=== PATIENT | female | born 1970 | race Caucasian/White ===

== ENCOUNTER → 2024-10-24 10:40 | Outpatient (REF) | payer OTHER, SELFPAY | LOC: RAD 10:40 | PROVIDERS: ATTENDING PHYSICIAN Physician Assistant | DX: M25.551 Pain in right hip (principal); M54.16 Radiculopathy, lumbar region | CPT/HCPCS: 72110; 73502 ==

== ENCOUNTER 2024-12-20 16:53 | Inpatient (IN) | payer OTHER, SELFPAY ==
[2024-12-20 11:54] VITALS: BP 165/104
[2024-12-20 12:23] LABS: % Basophils 0.1 % (0-2); % Eosinophils 0.1 % (0-6); % Immature Granulocytes 0.2 % (0-0.5); % Lymphocytes 5.8 % (20.5-51.1); % Monocytes 3.8 % (1.7-9.3); Absolute Lymphocytes 0.8 10^3/uL (1.2-3.4); Absolute Monocytes 0.5 10^3/uL (0.1-0.6); Absolute Neutrophils 12.3 10^3/uL (1.4-6.5); Hemoglobin 12.9 g/dL (12.0-16.0); Mean Corp Hgb Conc. 32.3 g/dL (33.0-37.0); Mean Corpuscular Hgb 24.5 pg (27.0-31.0); Mean Platelet Volume 9.6 fL (7.4-10.4); Nucleated Red Blood Cells % 0 %; Platelet Count 542 10^3/uL (130-400); Red Blood Cell Count 5.26 10^6/uL (4.20-5.40); Red Cell Dist. Width 17.9 % (11.5-14.5); White Blood Cell Count 13.7 10^3/uL (4.8-10.8)
[2024-12-20 12:47] VITALS: BMI 57.7
[2024-12-20 12:47] LABS: ALT (SGPT) 12 U/L (0-35); AST (SGOT) 18 U/L (14-36); Alkaline Phosphatase 79 U/L (38-126); Blood Urea Nitrogen 56 mg/dl (7-17); Calcium 9.9 mg/dl (8.4-10.2); Carbon Dioxide 26 mmol/L (22-30); Chloride 100 mmol/L (98-107); Glucose 125 mg/dl (70-99); Lipase 81 U/L (23-300); Potassium 3.8 mmol/L (3.5-5.1); Sodium 142 mmol/L (135-145); Total Bilirubin 0.7 mg/dl (0.2-1.3); Total Protein 7.1 g/dl (6.3-8.2); eGFR 13.66
[2024-12-20] MEDS: LR 1000 IV (13:12)
[2024-12-20] MEDS: ZOFRAN 4 MG IV (13:13)
[2024-12-20] MEDS: PEPCID 20 MG IV (13:13)
[2024-12-20] MEDS: PROTONIX IV 40 MG IV (13:13)
[2024-12-20 14:10] VITALS: BP 151/80
--- NOTE | 2024-12-20 14:11 | ED.GENMED ---
History of Present Illness
General
Chief Complaint: Abdominal Symptoms
Time Seen by Provider: 12/20/24 12:40
History of Present Illness
History of Present Illness:
54-year-old female with history of GERD presents the emergency department for evaluation of intractable nausea vomiting and diarrhea for the past 2 days. She also reports gradually worsening abdominal distention over the past 2 to 3 months. She
states she has been attempting to lose weight but has remained steady state, denies weight gain or night sweats. No prior abdominal surgeries. Has never had a colonoscopy.
Review of Systems
Review of Systems
Allergies reviewed?: Yes
All Other Systems: ROS reviewed and negative except as documented in HPI and ROS
Phy Exam
Physical Exam
Physical Exam:
GEN: Well appearing, NAD, WDWN
HEENT: Oral mucosa moist, no scleral icterus
Cardiac: Regular rate
Lung: No respiratory distress, no tachypnea
Abdomen: Markedly distended/protuberant abdomen, diffusely firm to palpation with generalized tenderness
MSK: No gross deformity or injuries
Skin: Good color, no pallor or jaundice, no rashes
Neuro: AO x3, moves all extremities freely
Psych: Calm, cooperative
Course
Orders/Labs/Results
Orders:
Orders
12/20/24 11:57
Electrocardiogram (*1) Urgent
Reason for Study: Abdominal Pain
EKG- Treatment ONCE
12/20/24 12:09
Complete Blood Count/With Diff Urgent
Comprehensive Metabolic Panel Urgent
Lipase Urgent
12/20/24 13:04
CT Abd/pel Without Iv Or Oral Urgent
Comment:
Reason For Exam: vomiting, renal failure, abd distention
Urinalysis Reflex To Culture Urgent
Famotidine [Pepcid] 20 mg IV NOW STA
Lactated Ringers [Lr] 1,000 ml IV BOLUS
Ondansetron Injectable [Zofran] 4 mg IV NOW STA
Pantoprazole [Protonix IV] 40 mg IV NOW STA
Abnormal Lab Results
12/20/24
12:09
WBC 13.7 H 10^3/uL
(4.8-10.8)
MCV 76.0 L fL
(81.0-99.0)
MCH 24.5 L pg
(27.0-31.0)
MCHC 32.3 L g/dL
(33.0-37.0)
RDW 17.9 H %
(11.5-14.5)
Plt Count 542 H 10^3/uL
(130-400)
Absolute Neuts (auto) 12.3 H 10^3/uL
(1.4-6.5)
Absolute Lymphs (auto) 0.8 L 10^3/uL
(1.2-3.4)
Neutrophils % 90.0 H %
(42.2-75.2)
Lymphocytes % 5.8 L %
(20.5-51.1)
BUN 56 H mg/dl
(7-17)
Creatinine 3.8 H mg/dL
(0.6-1.0)
Glucose 125 H mg/dl
(70-99)
12/20/24 12:09
12/20/24 12:09
Vital Signs
Initial and Last Documented VS:
Initial Vital Signs
Temp Pulse Resp BP Pulse Ox
98.3 F 97 20 165/104 95
12/20/24 11:54 12/20/24 11:54 12/20/24 11:54 12/20/24 11:54 12/20/24 11:54
Last Documented Vital Signs
Temp Pulse Resp BP Pulse Ox
98.3 F 85 18 151/80 98
12/20/24 11:54 12/20/24 14:10 12/20/24 14:10 12/20/24 14:10 12/20/24 14:10
MDM/Problems Addressed
MDM/Problems Addressed:
Patient be admitted for acute renal failure, this may be prerenal in the setting of GI losses, imaging does not suggest obstructive uropathy due to the new onset large mass. Mass is most likely ovarian in nature, radiology recommending MRI for
further clarification. Will admit to the hospitalist service for further management
*Critical Care Note
Total Time (30-74mins, 75-104mins- exclusive of procedures): Not Applicable
ED Attending Note
-
Portions of this chart may have been created with voice recognition software.� Occasional wrong word or��sound alike� substitutions may have occurred due to the inherent limitations of voice recognition software.
Discharge Plan
Departure
Patient Disposition: Admit
Date of Disposition: 12/20/24
Time of Disposition: 14:58
Admit to: Med/Surg
Presentation/result/management discussed w/ accepting MD/DO: Hospitalist
Discharge Problem:
Acute renal failure (ARF), Abdominal mass
Referrals:
Sridhar Reed MD [Family Provider] -
Interventions
Interventions:
*Risk Screen - Suicide Last Done: 12/20/24 11:54
*General Assessment Last Done: 12/20/24 11:54
XE-Ygqlbt-Blnyptkwvl Assessment Last Done: 12/20/24 12:48
Discharge Date and Time
Print Language: NICARAGUAN
--- NOTE | 2024-12-20 15:47 | HPS.HSE ---
Family Physician
-
Family Physician: Sridhar Reed
Chief Complaint
-
Nausea, vomiting, diarrhea x 2 days, abdominal distention over the past 2 to 3 months with 28 pound weight gain
History of Present Illness
54-year-old female complaining of intractable nausea, vomiting, diarrhea for the past 2 days she also reports increased abdominal distention over the past 2 to 3 months has been attempting to lose weight but unsuccessful. She has been on
doxycycline for the past month for rosacea but stopped 2 days ago due to reported diarrhea. She reports 3 months ago she weighed 260 pounds 1 month ago she was 288 pounds in her PCP office she reports feeling very embarrassed to go out of her house
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 She reports irregular
periods does get them monthly however the days are lasting from 1 to 10 days she had 1 month with no menses she denies previous abdominal surgeries no history of endoscopy or colonoscopy. She reports a monthly period with occasional variation in
length however only ever had 1 missed., No children, had 1 mammogram at age 34 when mother was diagnosed with breast cancer unknown type. 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
cough, shortness of breath, diarrhea, urinary symptoms. She has past medical history of GERD, class III obesity, rosacea.
Medical History
Past Medical History
Past Medical History: Reports Other
Additional Past Medical History:
GERD
class III obesity
rosacea.
Past Surgical History: Reports None
Social History
Tobacco: Non-smoker
Alcohol: None
Drug: None
Personal: Other (Boyfriend)
Living: With Family (Boyfriend)
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
Family History
Family History: Other (Mother history of breast cancer in her late 50s is alive, mom history HTN, HLD, CAD/stent, father history of DM 2 with living, 2 brothers 1 work accident 1 alcohol abuse, 1 brother living obese, hypertension
hyperlipidemia, active smoker)
Allergies / Home Medications
Allergies reflects when Allergies were last updated in [employer].
Home Medications with original date entered in [employer]
Allergy/Medication List:
Allergies
Allergy/AdvReac Type Severity Reaction Status Date / Time
No Known Allergies Allergy Unverified 12/20/24 11:54
Home Medications
cholecalciferol (vitamin D3) 25 mcg (1,000 unit) tablet (Vitamin D3) 25 mcg PO DAILY 12/20/24
doxycycline hyclate 60 mg tablet,delayed release 60 mg PO DAILY 12/20/24
omega-3 fatty acids-fish oil 684 mg-1,200 mg capsule,delayed release 1 cap PO DAILY 12/20/24
omeprazole magnesium 20 mg tablet,delayed release (Prilosec OTC) 20 mg PO DAILY 12/20/24
vitamin B complex 1 tab PO DAILY 12/20/24
Review of Systems
-
History Source: Patient
A 12 point ROS was completed and negative except as noted: Yes
Constitutional: Reports Weight Gain (28 pounds past 2 to 3 months); Denies Fatigue or Chills
EENT: Denies Sore Throat or Runny Nose
Respiratory: Reports Trouble Breathing (FAM with activity due to weight gain); Denies Cough
Cardiac: Denies Chest Pain, Diaphoresis, Palpitations or Syncope
Abdomen/GI: Reports Abdominal Pain (Generalized), Nausea, Vomiting and Diarrhea; Denies Constipated, Bloody Stools or Black Stools
: Denies Dysuria, Frequency, Flank Pain, Incontinence, Difficulty Voiding, Urgency, Bleeding or Dark Urine
Musculoskeletal: Denies Joint Pain or Edema
Skin: Denies Itching or Rash
Neurological: Denies Dizzy, Headache or Weakness
Endocrine: Reports No Symptoms and Other (Monthly periods)
Hematologic/Lymphatic: Reports No Symptoms
Psych: Reports Calm
Physical Exam
Vital Signs
Vital Signs
Temp Pulse Resp BP Pulse Ox
98.3 F 85 18 151/80 98
12/20/24 11:54 12/20/24 14:10 12/20/24 14:10 12/20/24 14:10 12/20/24 14:10
Physical Exam
General: Morbidly Obese; No Fever or Chills
HEENT: NormoCephalic, Anicteric, Moist mucous membranes, [place] Conjunctivae and No Ptosis
Respiratory: Clear; No Wheezes, Rales or Rhonchi
Cardiac: S1/S2 and Regular Rhythm; No Murmur, Rub, Gallop or Peripheral Edema
Breast: Deferred by me
GI: Soft, Normal Bowel Sounds and Distended (Distended and hard unable to palpate liver or spleen)
Genito-urinary: Deferred by me
Musculoskeletal: No Clubbing, No Cyanosis and No Edema
Skin: Warm and Dry; No Rash
Neuro: AO x 3, No Motor Deficits and No Sensory Deficits; No Cranial Nerves Intact, Slurred Speech, Facial Droop, Tremors or Sedated
Psych: Calm
Laboratory Results
-
12/20/24 12:09
12/20/24 12:09
Laboratory Results
Total Bilirubin 0.7 mg/dl (0.2-1.3) 12/20/24 12:09
AST 18 U/L (14-36) 12/20/24 12:09
ALT 12 U/L (0-35) 12/20/24 12:09
Alkaline Phosphatase 79 U/L (38-126) 12/20/24 12:09
Lipase 81 U/L (23-300) 12/20/24 12:09
Data Reviewed
-
CT Scan: Report Reviewed by me
Lab Data: Labs Reviewed by me
Impression/Plan
-
Impression/plan:
Admit to MedSurg
#Acute renal failure concern for right obstructive uropathy
Patient states that she is voiding
Creat 3.8/bun 56
-Check mag, Phos
- Consult urology- dr Castaneda aware
-Consult nephro�Dr. Lyndsay aware
-Bladder scan
- IV NSS 100 cchr
-Monitor urine output
- If MRI shows ureteral obstruction will need I read to place PCN
CT abdomen pelvis without IV or oral contrast
1. Some right renal atrophy and mild right renal and at least proximal right ureteral dilatation. Cannot exclude right-sided obstructive uropathy.
2. Suspected large heterogeneous predominantly low-attenuation mass measuring 30 cm in greatest dimension within the abdomen midline into the left, most likely extending from the left true pelvis.
Most likely differential diagnostic possibility would be an ovarian mass such as a cyst adenocarcinoma or cystadenoma. Other masses cannot be excluded, particularly in light of size. MRI suggested for more complete
evaluation.
3 . Moderate volume ascites with possible omental stranding/carcinomatosis.
4. . Small volume retroperitoneal lymph nodes and possible small volume pelvic lymph nodes.
#New large mass within the abdomen to the left concern for ovarian mass with possible mets
-Retroperitoneal lymph node and small volume pelvic lymph node involvement per CT and omental stranding/carcinomatosis
WBC 13.7 no shift, afebrile, normotensive
-MRI abdomen pelvis with contrast
- Dr. Kaufman [employer] oncology aware
- Still has menses monthly with some irregularity in length of., No history of any children, does have boyfriend is sexually active
- Will check hCG level
- Patient counseled on getting a mammogram given her mother's history of breast cancer unknown type patient did have mammogram at age 34
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
- Consult interventional radiology for paracentesis with fluid cytology
#Diarrhea likely secondary to possible doxycycline
Has been on doxycycline approximately 1 month for rosacea stopped on Thursday
-Will check stool for C. difficile, WBC, stool culture
-Contact precautions until stool studies back
#GERD
- Continue Prilosec OTC as needed Tums
- Will try 1 dose Maalox per patient request made aware can exacerbate diarrhea
#Class III obesity�BMI 57.7 kg
Affects all aspects of care
Given current above situation would hold off on weight loss until plan for above possible cancer diagnosis
ED prophylaxis
Subcu heparin
Full code
--- NOTE | 2024-12-20 16:34 | W.PN.UPDATE ---
Update Note
Progress Note Update
This is an addendum to the H&P written by Yadira Ugarte on 12/20/2024. Patient seen and examined independently with WAITER/WAITRESS BAR.
54-year-old female past medical history of GERD, obesity, presenting with intractable nausea and vomiting and diarrhea for the past 2 days. Worsening abdominal distention for the past 2 to 3 months. Also been having severe diarrhea recently.
Stopped taking doxycycline for rosacea few days ago.
Labs show leukocytosis. Creatinine of 3.8.
CT abdomen pelvis shows large heterogeneous predominantly low-attenuation mass measuring 30 cm within the abdominal midline possibly ovarian mass such as cystadenocarcinoma or cystadenoma. Moderate volume ascites with possible omental
stranding/carcinomatosis. There is some right renal atrophy, mild right renal and proximal right ureteral dilation.
Presentation concerning for ovarian carcinoma with carcinomatosis. Check MRI abdomen. IR consulted for paracentesis. ASTROPHYSICS TEACHER consulted.
IV fluids for DIMITRI which could be prerenal with component of obstructive uropathy. Bladder scan protocol. Urology consulted. Nephrology consulted.
Check stool studies, C. difficile for diarrhea and recent antibiotic use.
--- NOTE | 2024-12-20 17:18 | W.CON.NEPH ---
Addendum entered and electronically signed by Adryan Umana MD 12/20/24 17:48:
Despite DIMITRI, MRI with gadolinium is excepted at this time as the benefit far outweighs any risk for NSF
Original Note:
Consultation
-
Date/Time Consultation Requested: 12/20/24 5 PM
Date/Time Consultation Performed: 12/20/24 5 PM
Requesting Provider: Dr. Barr
Performing Provider: Dr. Umana
Reason for Consultation: DIMITRI
Medical History
-
Chief Complaint: DIMITRI
History of Present Illness:
This is a 54-year-old female who has not really had significant medical care in the last 15 years because of lack of insurance. However as she has recently obtained health insurance she began seeing a primary care physician. This was her first
visit in September. There is concern about her weight. While she does weigh her self at home she does report that the weight has increased mostly in the last month from when she used to be 260 jumping up to 288 lbs. She does report having
significant reflux for perhaps the last year. She denies any issues with her bowel movements. There have also been no issues with her urine output. In the last month she has also reported significant hip pain primarily the right side for which
she began taking Motrin 600 mg 3 times daily for the last month. She stopped taking this on Thursday. On Thursday she also began developing a voluminous diarrhea several times per day watery. She also then developed nausea with vomiting of clear
fluids. Her oral intake was very little family consisting only of clear liquids perhaps 64 ounces at most. She denies any dizziness or orthostasis during that timeframe. She did not take anything for the diarrhea other than omeprazole.
Ultimately she came to the emergency room. She was noted to have a creatinine of 3.8 up from her last known baseline of 0.8 in October of this year. CT scan has ultimately revealed a 30 cm midline abdominal mass with significant ascites and
carcinomatosis.
Past Medical History
Rosacea, reflux, obesity
Social History
Tobacco: Non-Smoker
Alcohol: None
Family History
Family History: Not Pertinent
Allergies / Home Medications
Allergy/AdvReac Type Severity Reaction Status Date / Time
No Known Allergies Allergy Unverified 12/20/24 11:54
�Medication �Instructions �Recorded �Confirmed �Type
cholecalciferol (vitamin D3) 25 25 mcg PO DAILY 12/20/24 12/20/24 History
mcg (1,000 unit) tablet (Vitamin
D3)
doxycycline hyclate 60 mg 60 mg PO DAILY 12/20/24 12/20/24 History
tablet,delayed release
omega-3 fatty acids-fish oil 684 1 cap PO DAILY 12/20/24 12/20/24 History
mg-1,200 mg capsule,delayed release
omeprazole magnesium 20 mg 20 mg PO DAILY 12/20/24 12/20/24 History
tablet,delayed release (Prilosec
OTC)
vitamin B complex 1 tab PO DAILY 12/20/24 12/20/24 History
Review of Systems
-
No chest pain. No shortness of breath
All other systems: Negative unless noted
Physical Exam
Vital Signs
Vital Signs
Temp Pulse Resp BP Pulse Ox
98.3 F 85 18 151/80 98
12/20/24 11:54 12/20/24 14:10 12/20/24 14:10 12/20/24 14:10 12/20/24 14:10
Lab Results
WBC 13.7 10^3/uL (4.8-10.8) H 12/20/24 12:09
RBC 5.26 10^6/uL (4.20-5.40) 12/20/24 12:09
Hgb 12.9 g/dL (12.0-16.0) 12/20/24 12:09
Hct 40.0 % (37.0-47.0) 12/20/24 12:09
Plt Count 542 10^3/uL (130-400) H 12/20/24 12:09
Sodium 142 mmol/L (135-145) 12/20/24 12:09
Potassium 3.8 mmol/L (3.5-5.1) 12/20/24 12:09
Chloride 100 mmol/L (98-107) 12/20/24 12:09
Carbon Dioxide 26 mmol/L (22-30) 12/20/24 12:09
BUN 56 mg/dl (7-17) H 12/20/24 12:09
Creatinine 3.8 mg/dL (0.6-1.0) H 12/20/24 12:09
eGFR 13.66 12/20/24 12:09
Glucose 125 mg/dl (70-99) H 12/20/24 12:09
Calcium 9.9 mg/dl (8.4-10.2) 12/20/24 12:09
Albumin 4.0 g/dl (3.5-5.0) 12/20/24 12:09
Laboratory values from October 24, 2024
Creatinine 0.81, potassium 4.7, bicarbonate 30, sodium 141, chloride 102, BUN 12, calcium 9.8, glucose 96, albumin 3.8, AST 11, ALT 5
Hemoglobin 13.6, platelets 384, WBC 11.9, cortisol 13.8, TSH 3.43
CT abdomen pelvis without contrast 12/20/24
IMPRESSION:
Markedly limited evaluation of the soft tissues of the abdomen and pelvis in light of lack of intravenous contrast, lack of oral contrast and marked paucity of intra-abdominal/pelvic fat.
Suspected large heterogeneous predominantly low-attenuation mass measuring 30 cm in greatest dimension within the abdomen midline into the left, most likely extending from the left true pelvis. Most likely differential diagnostic possibility would
be an ovarian mass such as a cyst adenocarcinoma or cystadenoma. Other masses cannot be excluded, particularly in light of size. MRI suggested for more complete evaluation.
Moderate volume ascites with possible omental stranding/carcinomatosis.
Small volume retroperitoneal lymph nodes and possible small volume pelvic lymph nodes.
Some right renal atrophy and mild right renal and at least proximal right ureteral dilatation. Cannot exclude right-sided obstructive uropathy.
Physical Exam
Patient is awake alert oriented and in no distress. Mood and affect were pleasant, insight and judgment were good. Pupils are equal round and reactive to light, extraocular movements are intact, sclera were anicteric. Hearing was normal, ears and
nose are intact. Oropharynx was clear. Neck was supple with trachea midline and no thyromegaly. Heart was regular rate and rhythm without rubs. Lower extremities without edema. Lungs were clear to auscultation bilaterally and with normal
excursion. Abdomen was soft, nontender, with normal active bowel sounds, and no hepatosplenomegaly. There is significant distention with fluid wave. Skin was without rash and with normal turgor.
Data Reviewed
-
CT Scan: Report Reviewed by me
Medical Tests (Nuc Med, Echo etc): Image Personally Visualized and interpreted (EKG on 12/20/2024 by my reading normal sinus rhythm poor R wave progression)
Labs: Labs Reviewed by me
Old Records: Reviewed
Assessment/Plan
-
Assessment
DIMITRI
Right hydronephrosis
Recent NSAID use
Nausea vomiting diarrhea
Carcinomatosis
Large ascites
30 cm abdominal mass
Reflux
Plan
For diagnostic paracentesis
Oncology evaluation
No more NSAIDs
IV fluids saline
Check urine studies with fractional excretion of sodium
Check bladder scan
I suspect DIMITRI is mostly on the basis of volume depletion with NSAIDs
No need for dialysis currently
Tumor markers pending
[2024-12-20] MEDS: MAALOX 30 ML PO ×2 (17:44→23:53)
[2024-12-20 17:47] LABS: HCG, Serum Qualitative Screen Negative
[2024-12-20] MEDS: NSS 1000 IV (18:31)
[2024-12-20 18:32] VITALS: BP 128/87
[2024-12-20 19:21] VITALS: BP 147/33
[2024-12-20 19:54] VITALS: BMI 56.3
[2024-12-20] MEDS: HEPARIN 5000 UNITS SC (20:28)
[2024-12-20 23:55] VITALS: BP 130/74
[2024-12-21] MEDS: NSS 1000 IV ×2 (06:12→18:44)
--- NOTE | 2024-12-21 07:21 | CONS.URO ---
Consultation
-
Date/Time Consultation Performed: 12/21/24 0715
Performing Provider: Leonel
Reason for Consultation: hydronephrosis
Medical History
History of Present Illness
Nausea, vomiting, diarrhea x 2 days, abdominal distention over the past 2 to 3 months with 28 pound weight gain.
PM ED: CT -- massive ascites and pelvic mass
no prior urologic hx
Past Medical History
Past Medical History: GERD and Other (obesity)
Past Surgical History: None
Allergies/Home Medications
Allergies
Allergy/AdvReac Type Severity Reaction Status Date / Time
No Known Allergies Allergy Unverified 12/20/24 11:54
Home Medications
�Medication �Instructions �Recorded �Confirmed �Type
cholecalciferol (vitamin D3) 25 25 mcg PO DAILY 12/20/24 12/20/24 History
mcg (1,000 unit) tablet (Vitamin
D3)
doxycycline hyclate 60 mg 60 mg PO DAILY 12/20/24 12/20/24 History
tablet,delayed release
omega-3 fatty acids-fish oil 684 1 cap PO DAILY 12/20/24 12/20/24 History
mg-1,200 mg capsule,delayed release
omeprazole magnesium 20 mg 20 mg PO DAILY 12/20/24 12/20/24 History
tablet,delayed release (Prilosec
OTC)
vitamin B complex 1 tab PO DAILY 12/20/24 12/20/24 History
Physical Exam
Vital Signs
Vital Signs
Temp Pulse Resp BP Pulse Ox
97.8 F 79 18 130/74 95
12/20/24 23:55 12/20/24 23:55 12/20/24 14:10 12/20/24 23:55 12/20/24 23:55
Lab / Testing Results
Laboratory Results
12/20/24 12:09
12/20/24 12:09
Physical Exam
adult female supine in bed
GI: Distended (pannus + ascites)
Neuro: Awake and Alert
Assessment / Plan
-
Impressions:
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
Renal Insufficiency
Left kidney/ureter do not appear to be significantly obstructed.
Right side demonstrates mild to moderate dilatation.
Rec: MRI not yet read -- will opine further
Will observe renal function after removal of copious ascites
IF right kidney is interpreted to be obstructed, then IRad should be enlisted to place PCN tube as retrograde ureteral stenting has poor results in cases of malignant obstruction
Addendum: following ~ 6 L paracentesis, renal function has significantly improved
--- NOTE | 2024-12-21 07:37 | W.PN.GYNONC ---
Today's Communication
-
Paracentesis
MRI of the abdomen and pelvis
Impression / Plan
-
Patient has significant 30 cm pelvic mass, in addition to being obese at baseline.
She has irregular menstrual pattern which is concerning for a perimenopausal woman
She has not had medical care secondary to lack of insurance for well over 15 years when she moved to [place] including gynecologic examinations
Because of acute renal failure and hesitant to proceed with any surgical intervention at moment and would like to see some improvement on that before we move forward
She should undergo paracentesis for diagnostic and therapeutic purposes,
An MRI of the abdomen with and without contrast should be done to assess extent of disease in the upper abdomen
I will consider initial surgical debulking versus interval surgical debulking depending on the cytology results as well as MRI findings
I will continue to follow along with you
Subjective / Interval History
-
Patient was seen and evaluated this morning, she continues to be uncomfortable due to abdominal mass. She has not had any further nausea or vomiting
Objective Data
-
Lab Results:
12/20/24 12:09
12/20/24 12:09
Physical Exam
Vital Signs / I&O
Vitals
Temp Pulse Resp BP Pulse Ox
97.8 F 79 18 130/74 95
12/20/24 23:55 12/20/24 23:55 12/20/24 14:10 12/20/24 23:55 12/20/24 23:55
Physical Exam
General: Patient is not in distress but she appears uncomfortable secondary to abdominal mass
Lungs: Clear to auscultation bilaterally decreased breath sound bilaterally
Cardiac: Regular rate and rhythm
Abdomen: Markedly distended secondary to abdominal mass, she has a pannus, she has multiple skin lesions throughout the right abdomen
Extremities: No calf pain or edema
Data Reviewed
-
Diagnostic Radiology: Image personally visualized and interpreted
CT Scan: Image personally visualized and interpreted
Ultrasound: Image personally visualized and interpreted
[2024-12-21 07:50] VITALS: BP 147/114
[2024-12-21 08:20] VITALS: BP 150/96; BP_SYST 78
[2024-12-21 08:30] LABS: % Basophils 0.3 % (0-2); % Eosinophils 0.4 % (0-6); % Immature Granulocytes 0.4 % (0-0.5); % Lymphocytes 8.5 % (20.5-51.1); % Neutrophils 84.4 % (42.2-75.2); Absolute Eosinophils 0.1 10^3/uL (0-0.7); Absolute Immature Granulocytes 0.1 10^3/uL (0-0.05); Absolute Monocytes 0.7 10^3/uL (0.1-0.6); Absolute Neutrophils 9.7 10^3/uL (1.4-6.5); Hematocrit 34.4 % (37.0-47.0); Hemoglobin 11.2 g/dL (12.0-16.0); Mean Corp Hgb Conc. 32.6 g/dL (33.0-37.0); Mean Corpuscular Hgb 25.1 pg (27.0-31.0); Mean Corpuscular Volume 77.1 fL (81.0-99.0); Mean Platelet Volume 10.1 fL (7.4-10.4); Nucleated Red Blood Cells % 0 %; Platelet Count 439 10^3/uL (130-400); Red Blood Cell Count 4.46 10^6/uL (4.20-5.40); Red Cell Dist. Width 18.1 % (11.5-14.5); White Blood Cell Count 11.5 10^3/uL (4.8-10.8)
[2024-12-21 08:41] LABS: ALT (SGPT) < 10 U/L (0-35); AST (SGOT) 15 U/L (14-36); Albumin 3.1 g/dl (3.5-5.0); Alkaline Phosphatase 66 U/L (38-126); Blood Urea Nitrogen 46 mg/dl (7-17); Calcium 9.1 mg/dl (8.4-10.2); Carbon Dioxide 25 mmol/L (22-30); Chloride 107 mmol/L (98-107); Estimated Creatinine Clearance 30 ml/min; Glucose 87 mg/dl (70-99); LDH 176 U/L (120-246); Potassium 3.7 mmol/L (3.5-5.1); Sodium 141 mmol/L (135-145); Total Bilirubin 0.6 mg/dl (0.2-1.3); Total Protein 5.7 g/dl (6.3-8.2); eGFR 18.89
[2024-12-21 09:20] VITALS: BP 127/92
[2024-12-21 09:22] LABS: Body Fluid Polymorphonuclear 43.1 %; Body Fluid WBC 859 /CUMM
[2024-12-21 09:23] LABS: Body Fluid Mononuclear 56.9 %
[2024-12-21 09:24] LABS: Body Fluid Second Tech EM
[2024-12-21 09:37] LABS: TSH Reflex To Free T4 4.21 uIU/ml (0.47-4.68)
[2024-12-21 10:00] VITALS: BP 157/93
[2024-12-21 10:09] LABS: Body Fluid Albumin 2.6 g/dl; Body Fluid Amylase 38 U/L; Body Fluid LDH 183 U/L; Body Fluid Protein 4.5 g/dl
[2024-12-21 10:13] LABS: Beta HCG Quantitative 11.01 mIU/ml; FSH 20.1 mIU/ml
[2024-12-21] MEDS: B COMPLEX w/VITAMIN C 1 CAPLET PO (10:15)
[2024-12-21] MEDS: HEPARIN 5000 UNITS SC ×2 (10:15→22:40)
[2024-12-21] MEDS: VITAMIN D3 (cholecalciferol) 25 MCG PO (10:15)
[2024-12-21] MEDS: PROTONIX 40 MG PO (10:15)
--- NOTE | 2024-12-21 10:35 | CM ---
Reviewed the chart notes and spoke with the patient at the bedside. The patient resides with her significant other in a first floor condo with a ramp to enter. The patient reports only DME in home is a shower chair. Patient reports no VN or SNF
in the past. The patient confirmed her pharmacy of choice is [facility]. CM continues to be available to patient/family and is monitoring medical plan for needs at discharge.
Plan: Discharge plans will depend on the patient's progress.
[2024-12-21 11:02] LABS: Urine Albumin 1+ (Neg - Trace); Urine Bilirubin Negative (Negative); Urine Character Clear (Clear); Urine Color Yellow; Urine Glucose Negative (Negative); Urine Ketone Negative (Negative); Urine Leukocyte 1+ (Negative); Urine Nitrite Negative (Negative); Urine Occult Blood 2+ (Negative); Urine Specific Gravity 1.015 (<1.030); Urine Urobilinogen Negative (Neg - 1+)
--- NOTE | 2024-12-21 11:09 | W.PN.HOSP.TC ---
Today's Communication/Plan
-
Monitor vital signs see plan
Status post para
Awaiting seen by urology, if no procedure planned then will initiate diet
Monitor renal function
Check UA
Assessment / Plan
Assessment / Plan
General: Morbidly Obese; No Fever or Chills
HEENT: NormoCephalic, Anicteric, Moist mucous membranes
Respiratory: Clear; No Wheezes, Rales or Rhonchi
Cardiac: S1/S2 and Regular Rhythm
GI: Soft, Normal Bowel Sounds and Distended
Musculoskeletal: No Edema
Skin: Warm and Dry; No Rash
Neuro: AO x 3, No Motor Deficits
Psych: Calm
Acute renal failure concern for right obstructive uropathy
Patient states that she is voiding
Creat 3.8/bun 56 on admission; cr now 2.4
- Consulted urology; currently NPO incase need procedure; if no procedure then initiate diet
nephro following
-Bladder scan
IVF
-Monitor urine output
MRI noted with ovarian mass. Advanced right and mid to moderate left hydronephrosis. Moderate ascites. Could potentially need stent
check UA
Patient has not seen any gynecology in years
CT abdomen pelvis without IV or oral contrast
1. Some right renal atrophy and mild right renal and at least proximal right ureteral dilatation. Cannot exclude right-sided obstructive uropathy.
2. Suspected large heterogeneous predominantly low-attenuation mass measuring 30 cm in greatest dimension within the abdomen midline into the left, most likely extending from the left true pelvis.
Most likely differential diagnostic possibility would be an ovarian mass such as a cyst adenocarcinoma or cystadenoma. Other masses cannot be excluded, particularly in light of size. MRI suggested for more complete
evaluation.
3 . Moderate volume ascites with possible omental stranding/carcinomatosis.
4. . Small volume retroperitoneal lymph nodes and possible small volume pelvic lymph nodes.
#New large mass within the abdomen to the left concern for ovarian mass with possible mets
-Retroperitoneal lymph node and small volume pelvic lymph node involvement per CT and omental stranding/carcinomatosis
-MRI noted with ovarian mass. Advanced right and mid to moderate left hydronephrosis. Moderate ascites. Could potentially need stent
- Dr. Kaufman DATA WAREHOUSE ARCHITECT oncology following
- Patient counseled on getting a mammogram given her mother's history of breast cancer unknown type patient did have mammogram at age 34
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
- Consult interventional radiology for paracentesis with fluid cytology
s/p para 4/ with 5900cc removal; f/u cytology
#Diarrhea likely secondary to possible doxycycline
Has been on doxycycline approximately 1 month for rosacea stopped on Thursday
-Will check stool for C. difficile, WBC, stool culture
#GERD
- Continue Prilosec OTC as needed Tums
- Will try 1 dose Maalox per patient request made aware can exacerbate diarrhea
#Class III obesity�BMI 57.7 kg
Affects all aspects of care
Given current above situation would hold off on weight loss until plan for above possible cancer diagnosis
ED prophylaxis
Subcu heparin
Full code
I spent a total of 52 minutes with the patient or on the floor. More than 50% of this time involved counseling and coordination of care.
Anticipated Discharge: > 48 hours
Subjective/Interval History
-
Date of Service: December 21, 2024
denies pain
Objective Data
-
Labs:
Laboratory Results
12/21/24 12/21/24 12/21/24
06:56 06:58 08:16
WBC 11.5 H
Hgb 11.2 L
Hct 34.4 L
Plt Count 439 H
Sodium 141 Cancelled
Potassium 3.7 Cancelled
Chloride 107 Cancelled
Carbon Dioxide 25 Cancelled
BUN 46 H Cancelled
Creatinine 2.9 H Cancelled
Glucose 87 Cancelled
Calcium 9.1 Cancelled
Total Bilirubin 0.6 Cancelled
AST 15 Cancelled
ALT < 10 Cancelled
Alkaline Phosphatase 66 Cancelled
Vital Signs:
Vital Signs
Temp Pulse Resp BP Pulse Ox
98.6 F 80 18 157/93 96
12/21/24 10:00 12/21/24 10:00 12/21/24 10:00 12/21/24 10:00 12/21/24 10:00
[2024-12-21 11:23] LABS: Urine Squamous Cell 21-25 /LPF (Few)
[2024-12-21 11:24] LABS: Urine Urothelial Cell >30 /LPF (FEW)
[2024-12-21 11:25] LABS: Urine Amorphous Seen
[2024-12-21 11:48] LABS: Urine Sodium 33 mmol/L (30-90)
[2024-12-21] MEDS: MAALOX 30 ML PO (14:41)
--- NOTE | 2024-12-21 15:33 | W.PN.NEPH.PH ---
Addendum entered and electronically signed by Faviola Bailey MD 12/21/24 17:04:
Pt reports of having abd and chest rash for a while and used Ivermectin and top Permethrin? by Derm out pt-reports rash improved, she still has some left on abdomen which seem to be healed with dark pigmentation.
Original Note:
Today's Communication / Plan
-
cont IVF, alb x1
Assessment/Plan
-
Assessment
DIMITRI
Advanced right and mild to moderate left hydronephrosis
Recent NSAID use
Nausea vomiting diarrhea
Carcinomatosis
Large ascites
30 cm abdominal mass
Reflux
Plan
s/p paracentesis today 5.9lit, will give alb IV
Trolley Coach Driver and evaluated
DIMITRI-suspect prerenal+NSAIDs and possible obstructive uropathy with bilat hydro
UA with mild microhematuria and Fena >1, neg bladder scan
cr improving with IVF and non oliguric
would cont IVF for now
BP stable
encourage po intake, she still seem not able to tolerate solids with burning , may need GI eval
CEA neg, pending CA19, HCG neg
await path form fluid today
no noted interventions currently, may need PCN based on renal function
d/w pt and nursing
-
-
Date of Service: December 21, 2024
CC / HPI / ROS
-
Chief Complaint:
DIMITRI
History of Present Illness:
cr improving to 2.9
non oliguric
s/p paracentesis 5.9lit today
bp stable
hb stable at 11.2, MCV low 77
Review of Systems:
burning sensation when eating, only tolerates fluids
abd distension better post para but now feels ovary pain (similar to menstrual)
no cp or sob
Labs
-
Labs:
WBC 11.5 10^3/uL (4.8-10.8) H 12/21/24 06:56
RBC 4.46 10^6/uL (4.20-5.40) 12/21/24 06:56
Hgb 11.2 g/dL (12.0-16.0) L 12/21/24 06:56
Hct 34.4 % (37.0-47.0) L 12/21/24 06:56
Plt Count 439 10^3/uL (130-400) H 12/21/24 06:56
Sodium Cancelled 12/21/24 08:16
Potassium Cancelled 12/21/24 08:16
Chloride Cancelled 12/21/24 08:16
Carbon Dioxide Cancelled 12/21/24 08:16
BUN Cancelled 12/21/24 08:16
Creatinine Cancelled 12/21/24 08:16
eGFR Cancelled 12/21/24 08:16
Glucose Cancelled 12/21/24 08:16
Calcium Cancelled 12/21/24 08:16
Albumin Cancelled 12/21/24 08:16
Physical Exam
-
Vital Signs:
Vital Signs
Temp Pulse Resp BP Pulse Ox
98.6 F 80 18 157/93 96
12/21/24 10:00 12/21/24 10:00 12/21/24 10:00 12/21/24 10:00 12/21/24 12:22
Cardiovascular:: Regular rate and rhythm
Respiratory:: Bilateral: CTA (decreased)
Lung Excursion:: Normal
Abdomen:: Distended and Nontender
Extremity Edema:: +2: Bilateral:
Mahoney Catheter: No
[2024-12-21 15:43] VITALS: BP 145/90
[2024-12-21] MEDS: FLEXBUMIN 100 IV (16:19)
[2024-12-21] MEDS: MELATONIN 5 MG PO (22:22)
[2024-12-21] MEDS: DESENEX/MITRAZOL/ZEASORB 1 APPLIC TOPICAL (22:22)
[2024-12-21 23:08] VITALS: BP 145/76
[2024-12-22] MEDS: NSS 1000 IV ×2 (04:02→17:00)
--- NOTE | 2024-12-22 04:24 | PTCARENOTE ---
12/22: pt bladder scanned. due to distended abdomen, bladder scan unobtainable. patient voiding.
[2024-12-22] MEDS: NSS IV (04:46)
[2024-12-22 07:28] VITALS: BP 144/87
[2024-12-22] MEDS: HEPARIN 5000 UNITS SC ×2 (07:56→20:49)
[2024-12-22] MEDS: VITAMIN D3 (cholecalciferol) 25 MCG PO (07:56)
[2024-12-22] MEDS: MAALOX 30 ML PO ×2 (07:56→18:08)
[2024-12-22] MEDS: B COMPLEX w/VITAMIN C 1 CAPLET PO (07:56)
[2024-12-22] MEDS: PROTONIX 40 MG PO (07:56)
[2024-12-22 07:57] LABS: ALT (SGPT) < 10 U/L (0-35); AST (SGOT) 16 U/L (14-36); Alkaline Phosphatase 59 U/L (38-126); Blood Urea Nitrogen 32 mg/dl (7-17); Calcium 8.8 mg/dl (8.4-10.2); Carbon Dioxide 23 mmol/L (22-30); Chloride 110 mmol/L (98-107); Estimated Creatinine Clearance 48 ml/min; Glucose 84 mg/dl (70-99); Potassium 3.7 mmol/L (3.5-5.1); Sodium 141 mmol/L (135-145); Total Bilirubin 0.5 mg/dl (0.2-1.3); Total Protein 5.2 g/dl (6.3-8.2); eGFR 33.48
[2024-12-22] MEDS: DESENEX/MITRAZOL/ZEASORB 1 APPLIC TOPICAL ×2 (07:58→22:40)
[2024-12-22 08:10] LABS: % Basophils 0.4 % (0-2); % Eosinophils 1.3 % (0-6); % Immature Granulocytes 0.3 % (0-0.5); % Lymphocytes 11.2 % (20.5-51.1); % Monocytes 6.4 % (1.7-9.3); % Neutrophils 80.4 % (42.2-75.2); Absolute Eosinophils 0.1 10^3/uL (0-0.7); Absolute Lymphocytes 1.1 10^3/uL (1.2-3.4); Absolute Monocytes 0.6 10^3/uL (0.1-0.6); Hematocrit 34.2 % (37.0-47.0); Hemoglobin 10.9 g/dL (12.0-16.0); Mean Corp Hgb Conc. 31.9 g/dL (33.0-37.0); Mean Corpuscular Hgb 24.8 pg (27.0-31.0); Mean Corpuscular Volume 77.9 fL (81.0-99.0); Mean Platelet Volume 9.8 fL (7.4-10.4); Nucleated Red Blood Cells % 0 %; Platelet Count 351 10^3/uL (130-400); Red Blood Cell Count 4.39 10^6/uL (4.20-5.40); Red Cell Dist. Width 17.6 % (11.5-14.5); White Blood Cell Count 9.9 10^3/uL (4.8-10.8)
--- NOTE | 2024-12-22 09:13 | W.PN.URO.CBU ---
Today's Communication / Plan
-
no current need for independent urosurgical intervention
Assessment / Plan
-
Renal function continues to improve s/p paracentesis
Diagnosis
-
Date of Service: December 22, 2024
-
Patient Diagnosis:
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
Renal Insufficiency
Left kidney/ureter do not appear to be significantly obstructed.
Right side demonstrates mild to moderate dilatation.
Objective
-
Vital Signs
Temp Pulse Resp BP Pulse Ox
98.3 F 83 18 144/87 95
12/22/24 07:28 12/22/24 07:28 12/22/24 07:28 12/22/24 07:28 12/22/24 07:28
Intake and Output
12/21/24 12/22/24 12/23/24
06:59 06:59 06:59
Intake Total 1580 / 1580
Output Total 900 / 900
Balance 680 / 680
Intake:
Oral fluids 480 / 480
IV fluids (Total) 1000 / 1000
IV piggybacks 100 / 100
Output:
Urine, Voided 900 / 900
Other:
Number of approximated MODERATE 1
amounts of urine
Laboratory Results
12/22/24 06:53
12/22/24 06:53
Physical Exam
-
General - well developed, well nourished, no acute distress
Chest - clear bilaterally
Abdomen - soft, non-tender, positive bowel sounds, no CVAT, no incisional pain or distention
Genitalia - normal
Rectal - normal
Skin - warm & dry with no rash
Neuro - AOx3, no motor deficits
Extremities - no clubbing, no cyanosis, no edema
Incision - clean, dry
Dressing - clean, dry, intact
[2024-12-22] MEDS: DILAUDID 0.5 MG IV ×2 (10:21→20:48)
--- NOTE | 2024-12-22 11:33 | W.PN.HOSP.TC ---
Today's Communication/Plan
-
monitor vitals
see plan
awaiting cytology from para
monitor renal function
Assessment / Plan
Assessment / Plan
General: Morbidly Obese; No Fever or Chills
HEENT: NormoCephalic, Anicteric, Moist mucous membranes
Respiratory: Clear; No Wheezes, Rales or Rhonchi
Cardiac: S1/S2 and Regular Rhythm
GI: Soft, Normal Bowel Sounds and Distended
Musculoskeletal: No Edema
Neuro: AO x 3, No Motor Deficits
Psych: Calm
Acute renal failure concern for right obstructive uropathy
Patient states that she is voiding
Creat 3.8/bun 56 on admission; cr now 1.8
- Consulted urology; currently NPO incase need procedure; if no procedure then initiate diet
nephro following
-Bladder scan
-Monitor urine output
MRI noted with ovarian mass. mild to mod hydro, per urology no surgical intervention needed as creatinine is improving. Moderate ascites
ua without significant pyuria
Patient has not seen any gynecology in years
CT abdomen pelvis without IV or oral contrast
1. Some right renal atrophy and mild right renal and at least proximal right ureteral dilatation. Cannot exclude right-sided obstructive uropathy.
2. Suspected large heterogeneous predominantly low-attenuation mass measuring 30 cm in greatest dimension within the abdomen midline into the left, most likely extending from the left true pelvis.
Most likely differential diagnostic possibility would be an ovarian mass such as a cyst adenocarcinoma or cystadenoma. Other masses cannot be excluded, particularly in light of size. MRI suggested for more complete
evaluation.
3 . Moderate volume ascites with possible omental stranding/carcinomatosis.
4. . Small volume retroperitoneal lymph nodes and possible small volume pelvic lymph nodes.
#New large mass within the abdomen to the left concern for ovarian mass with possible mets
-Retroperitoneal lymph node and small volume pelvic lymph node involvement per CT and omental stranding/carcinomatosis
MRI noted with ovarian mass. mild to mod hydro, per urology no surgical intervention needed as creatinine is improving. Moderate ascites
- Dr. Kaufman MEDICAL CLERICAL ASSISTANT oncology following
- Patient counseled on getting a mammogram given her mother's history of breast cancer unknown type patient did have mammogram at age 34
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
s/p para 4/9 with 5900cc removal; f/u cytology
#Diarrhea likely secondary to possible doxycycline
Has been on doxycycline approximately 1 month for rosacea stopped on Thursday. now improving
-Will check stool for C. difficile, WBC, stool culture
#GERD
- Continue Prilosec OTC as needed Tums
maalox
#Class III obesity�BMI 57.7 kg
Affects all aspects of care
Given current above situation would hold off on weight loss until plan for above possible cancer diagnosis
ED prophylaxis
Subcu heparin
Full code
I spent a total of 51 minutes with the patient or on the floor. More than 50% of this time involved counseling and coordination of care.
Anticipated Discharge: 24 - 48 hours
Subjective/Interval History
-
Date of Service: December 22, 2024
denies nausea
Objective Data
-
Labs:
Laboratory Results
12/22/24
06:53
WBC 9.9
Hgb 10.9 L
Hct 34.2 L
Plt Count 351 D
Sodium 141
Potassium 3.7
Chloride 110 H
Carbon Dioxide 23
BUN 32 H
Creatinine 1.8 H
Glucose 84
Calcium 8.8
Total Bilirubin 0.5
AST 16
ALT < 10
Alkaline Phosphatase 59
Vital Signs:
Vital Signs
Temp Pulse Resp BP Pulse Ox
98.3 F 83 18 144/87 95
12/22/24 07:28 12/22/24 07:28 12/22/24 07:28 12/22/24 07:28 12/22/24 07:28
I&O
12/21/24 12/22/24 12/23/24
06:59 06:59 06:59
Intake Total 1580 / 1580
Output Total 900 / 900
Balance 680 / 680
--- NOTE | 2024-12-22 12:23 | CM ---
Reviewed the chart notes. CM continues to be available to patient/family and is monitoring medical plan for needs at discharge.
Plan: Discharge plans will depend on the patient's progress.
--- NOTE | 2024-12-22 13:28 | W.PN.NEPH.PH ---
Today's Communication / Plan
-
IVF for another day
Assessment/Plan
-
Assessment
DIMITRI
Advanced right and mild to moderate left hydronephrosis
Recent NSAID use
Nausea vomiting diarrhea
Carcinomatosis
s/p paracentesis /- 5.9lit
Large ascites
30 cm abdominal mass
Reflux
Plan:
DIMITRI-suspect prerenal+NSAIDs and possible obstructive uropathy with bilat hydro
UA with mild microhematuria and Fena >1, neg bladder scan
renal function cont to improve cr down to 1.8
another day of IVF -lower the rate
Trapeze Artist follows and no interventions needed currently
BP stable
encourage po intake
CEA neg, pending CA19, HCG neg
await path form ascitic fluid
d/w pt
-
-
Date of Service: December 22, 2024
CC / HPI / ROS
-
Chief Complaint:
DIMITRI
History of Present Illness:
cr improving to 1.8
non oliguric
s/p paracentesis 5.9lit 12/21
bp stable
hb decreasing slowly at 10.9, MCV low 77
Review of Systems:
burning sensation when eating, only tolerates fluids
no cp or sob
Labs
-
Labs:
WBC 9.9 10^3/uL (4.8-10.8) 12/22/24 06:53
RBC 4.39 10^6/uL (4.20-5.40) 12/22/24 06:53
Hgb 10.9 g/dL (12.0-16.0) L 12/22/24 06:53
Hct 34.2 % (37.0-47.0) L 12/22/24 06:53
Plt Count 351 10^3/uL (130-400) D 12/22/24 06:53
Sodium 141 mmol/L (135-145) 12/22/24 06:53
Potassium 3.7 mmol/L (3.5-5.1) 12/22/24 06:53
Chloride 110 mmol/L (98-107) H 12/22/24 06:53
Carbon Dioxide 23 mmol/L (22-30) 12/22/24 06:53
BUN 32 mg/dl (7-17) H 12/22/24 06:53
Creatinine 1.8 mg/dL (0.6-1.0) H 12/22/24 06:53
eGFR 33.48 12/22/24 06:53
Glucose 84 mg/dl (70-99) 12/22/24 06:53
Calcium 8.8 mg/dl (8.4-10.2) 12/22/24 06:53
Albumin 3.0 g/dl (3.5-5.0) L 12/22/24 06:53
Physical Exam
-
Vital Signs:
Vital Signs
Temp Pulse Resp BP Pulse Ox
98.3 F 83 18 144/87 95
12/22/24 07:28 12/22/24 07:28 12/22/24 07:28 12/22/24 07:28 12/22/24 07:28
Cardiovascular:: Regular rate and rhythm
Respiratory:: Bilateral: CTA (decreased)
Lung Excursion:: Normal
Abdomen:: Distended and Nontender
Extremity Edema:: +2: Bilateral:
Mahoney Catheter: No
[2024-12-22 15:12] VITALS: BP 137/69
[2024-12-22 18:32] LABS: CA 125 137 U/mL (0-35)
[2024-12-22] MEDS: MELATONIN 5 MG PO (22:40)
[2024-12-23 01:44] LABS: CA 19-9 17 U/mL (<=35)
[2024-12-23 03:13] VITALS: BP 142/82
[2024-12-23 06:00] VITALS: BMI 52.4
[2024-12-23 07:35] VITALS: BP 165/92
[2024-12-23] MEDS: PROTONIX 40 MG PO (07:41)
[2024-12-23] MEDS: DILAUDID 0.5 MG IV ×4 (07:42→22:47)
[2024-12-23] MEDS: VITAMIN D3 (cholecalciferol) 25 MCG PO (07:42)
[2024-12-23] MEDS: MAALOX 30 ML PO ×3 (07:42→18:42)
[2024-12-23] MEDS: B COMPLEX w/VITAMIN C 1 CAPLET PO (07:42)
[2024-12-23] MEDS: HEPARIN 5000 UNITS SC ×2 (07:43→22:34)
[2024-12-23] MEDS: DESENEX/MITRAZOL/ZEASORB 1 APPLIC TOPICAL ×2 (07:43→22:51)
[2024-12-23 07:44] LABS: % Basophils 0.4 % (0-2); % Eosinophils 2.8 % (0-6); % Immature Granulocytes 0.3 % (0-0.5); % Lymphocytes 12.7 % (20.5-51.1); % Monocytes 5.1 % (1.7-9.3); % Neutrophils 78.7 % (42.2-75.2); Absolute Eosinophils 0.3 10^3/uL (0-0.7); Absolute Lymphocytes 1.3 10^3/uL (1.2-3.4); Absolute Monocytes 0.5 10^3/uL (0.1-0.6); Absolute Neutrophils 8.3 10^3/uL (1.4-6.5); Hematocrit 39.4 % (37.0-47.0); Hemoglobin 12.6 g/dL (12.0-16.0); Mean Corpuscular Hgb 24.9 pg (27.0-31.0); Mean Corpuscular Volume 77.9 fL (81.0-99.0); Mean Platelet Volume 9.8 fL (7.4-10.4); Nucleated Red Blood Cells % 0 %; Platelet Count 435 10^3/uL (130-400); Red Blood Cell Count 5.06 10^6/uL (4.20-5.40); White Blood Cell Count 10.5 10^3/uL (4.8-10.8)
[2024-12-23 08:08] LABS: ALT (SGPT) < 10 U/L (0-35); AST (SGOT) 17 U/L (14-36); Albumin 3.1 g/dl (3.5-5.0); Alkaline Phosphatase 65 U/L (38-126); Blood Urea Nitrogen 23 mg/dl (7-17); Calcium 9.1 mg/dl (8.4-10.2); Carbon Dioxide 24 mmol/L (22-30); Chloride 111 mmol/L (98-107); Estimated Creatinine Clearance 51 ml/min; Glucose 94 mg/dl (70-99); Potassium 3.9 mmol/L (3.5-5.1); Sodium 142 mmol/L (135-145); Total Bilirubin 0.5 mg/dl (0.2-1.3); Total Protein 5.6 g/dl (6.3-8.2); eGFR 38.56
--- NOTE | 2024-12-23 10:12 | W.PN.NEPH.PH ---
Today's Communication / Plan
-
follow BMP
Assessment/Plan
-
Assessment
DIMITRI
Advanced right and mild to moderate left hydronephrosis
Recent NSAID use
Nausea vomiting diarrhea
Carcinomatosis
s/p paracentesis 4/9- 5.9lit
Large ascites
30 cm abdominal mass
Reflux
CA125 elevated
Plan:
off IVF
encourage po
IV albumin
follow BMP
possible OR thursday
-
-
Date of Service: December 23, 2024
CC / HPI / ROS
-
Chief Complaint:
DIMITRI
History of Present Illness:
cr improving to 1.6
non oliguric
s/p paracentesis 5.9L 12/21
BP stable
Review of Systems:
burning sensation when eating, only tolerates fluids
no cp or sob
Labs
-
Labs:
WBC 10.5 10^3/uL (4.8-10.8) 12/23/24 07:13
RBC 5.06 10^6/uL (4.20-5.40) 12/23/24 07:13
Hgb 12.6 g/dL (12.0-16.0) 12/23/24 07:13
Hct 39.4 % (37.0-47.0) 12/23/24 07:13
Plt Count 435 10^3/uL (130-400) H D 12/23/24 07:13
Sodium 142 mmol/L (135-145) 12/23/24 07:13
Potassium 3.9 mmol/L (3.5-5.1) 12/23/24 07:13
Chloride 111 mmol/L (98-107) H 12/23/24 07:13
Carbon Dioxide 24 mmol/L (22-30) 12/23/24 07:13
BUN 23 mg/dl (7-17) H 12/23/24 07:13
Creatinine 1.6 mg/dL (0.6-1.0) H 12/23/24 07:13
eGFR 38.56 12/23/24 07:13
Glucose 94 mg/dl (70-99) 12/23/24 07:13
Calcium 9.1 mg/dl (8.4-10.2) 12/23/24 07:13
Albumin 3.1 g/dl (3.5-5.0) L 12/23/24 07:13
Physical Exam
-
Vital Signs:
Vital Signs
Temp Pulse Resp BP Pulse Ox
98.4 F 80 17 165/92 97
12/23/24 07:35 12/23/24 07:35 12/23/24 07:35 12/23/24 07:35 12/23/24 07:35
Cardiovascular:: Regular rate and rhythm
Respiratory:: Bilateral: Coarse
Lung Excursion:: Normal
Abdomen:: Distended, Nontender and Soft
Bowel Sounds:: Normal
Extremity Edema:: None: Bilateral:
--- NOTE | 2024-12-23 10:58 | CON.CAR ---
Addendum entered and electronically signed by Shelby Wright MD 12/23/24 17:14:
I saw and examined the patient.
The [employer]KE [employer] PACKER's note was reviewed and I agree with the note.
Comment: 54-year-old female with GERD, obesity, hyperlipidemia and rosacea presents for abdominal pain, distention, weight gain and vomiting. She is found to have a large abdominal/pelvic mass and new DIMITRI. We are asked to risk assessment prior to
[place]/[facility] OR plans on /BSO, resection of pelvic mass and omentectomy. Overall, she actually feels pretty good. While at home, she thought she was just gaining weight and try to increase her activity reaching greater than 10,000 steps a
day. She also is independent, carrying in groceries without an issue. She has no chest pain or shortness of breath. On exam she has a regular rate and rhythm normal S1-S2 no murmurs or gallops were appreciated lungs were clear to auscultation
bilaterally abdomen was massively distended and tense. EKG showed sinus rhythm with poor R wave progression, echocardiogram was normal on 12/22/2024. Overall, no contraindication to proceeding as planned. She is elevated but not prohibitive risk.
NSQIP risk assessment performed below. Agree with plans to try to optimize renal function prior to surgery. However, no further cardiac testing needed prior to surgery.
Recommendations discussed with Dr. Cosme. I will be available on an as-needed basis.
Original Note:
Consultation
Consultation Request
Date/Time Consultation Requested: 12/23/24 9:30a
Date/Time Consultation Performed: 12/23/24 10:45a
Requesting Provider: Dr. Kaufman
Performing Provider: OCHOA Dale for Dr. Wright
Reason for Consultation: pre-op risk assessment
Medical History
-
Chief Complaint: abdominal pain, nausea, vomiting
History of Present Illness:
Ms. Laguna is a 54 yo female with GERD, obesity, HLD (Lipitor prescribed 10/2024 but she is not taking), and rosacea, who came to the ER with c/o abdominal pain, nausea, and vomiting for 2 days. She was admitted to the hospitalist service with a
large abdominal/pelvic mass and new DIMITRI. We are consulted for pre-op risk assessment for OR Thursday as ob/gyn doctor/onc plans for exp lap, TRAVIS BSO, resection of pelvic mass and omentectomy. She denies any cardiac symptoms recently.
Past Medical History
Past Medical History: Other (as above)
Social History
Tobacco: Former Smoker (quit 15 years ago, smoked socially)
Drug: None
Personal: Partner (boyfriend)
Living: With Family (boyfriend)
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
Family History
Family History: Reviewed & Not Pertinent
Allergies / Home Medications
Allergy/AdvReac Type Severity Reaction Status Date / Time
No Known Allergies Allergy Unverified 12/20/24 11:54
�Medication �Instructions �Recorded �Confirmed �Type
cholecalciferol (vitamin D3) 25 25 mcg PO DAILY Supplement 12/20/24 12/20/24 History
mcg (1,000 unit) tablet (Vitamin
D3)
doxycycline hyclate 60 mg 60 mg PO DAILY Infection 12/20/24 12/20/24 History
tablet,delayed release
omega-3 fatty acids-fish oil 684 1 cap PO DAILY Supplement 12/20/24 12/20/24 History
mg-1,200 mg capsule,delayed release
omeprazole magnesium 20 mg 20 mg PO DAILY GERD 12/20/24 12/20/24 History
tablet,delayed release (Prilosec
OTC)
vitamin B complex 1 tab PO DAILY Supplement 12/20/24 12/20/24 History
Review of Systems
-
History Source: Patient
All other systems: Negative unless noted
Physical Exam
Vital Signs
Temp Pulse Resp BP Pulse Ox
98.4 F 80 17 165/92 97
12/23/24 07:35 12/23/24 07:35 12/23/24 07:35 12/23/24 07:35 12/23/24 07:35
Lab Results
12/23/24 07:13
12/23/24 07:13
Physical Exam
General: Other (morbidly obese )
HEENT: Normocephalic and Anicteric
Respiratory: Clear and Non Labored Respirations
Cardiac: S1/S2, Regular Rhythm and Peripheral Edema (trace b/l LE)
Breast: Deferred by me
GI: Soft and Distended
Rectal: Deferred by Provider
Genito-urinary: Clear Urine
Musculoskeletal: No Clubbing and No Cyanosis
Skin: Warm and Dry
Neuro: AO x 3
Psych: Calm
Impression / Plan
-
Pre-op risk assessment - [facility] cardiac complication risk is 0.2%, see below.
- she denies any cardiac symptoms.
- echo 12/22/24 with normal LV size/function, EF 60-65%, no RWMA, normal RV size/function.
- no need for further testing at this time.
Abdominal pain - N/V, pelvic/abdominal mass.
- ascites s/p paracentesis 5900 cc of clear yellow ascitic fluid was removed.
- ob/gyn doctor/onc following and plan for OR Thursday.
DIMITRI - new.
- improving.
- nephrology following.
GERD - stable on PPI, continue.
HLD - lipid profile 10/25/24: TC 272, triglycerides 422, HDL 33, direct LDL 158.
- PCP ordered Lipitor 10mg daily, but she never took it.
- recommend statin therapy.
Data Reviewed
-
EKG: Tracing Personally Visualized and interpreted (NSR 90 bpm, PRWP)
CT Scan: Report Reviewed by me (chest: No evidence for metastatic disease in the chest.)
Medical Tests (Nuc Med, Echo etc): Report Reviewed by me (echo 12/22/24: normal LV size/function, EF 60-65%, no RWMA, normal RV size/function, no valve disease.)
Labs: Labs Reviewed by me
Old Records: Reviewed (lipid profile 10/25/24: TC 272, triglycerides 422, HDL 33, direct LDL 158. )
--- NOTE | 2024-12-23 11:01 | W.PN.GYNONC ---
Today's Communication
-
pelvic mass
Impression / Plan
-
Patient has significant 30 cm pelvic mass, in addition to being obese at baseline.
She has irregular menstrual pattern which is concerning for a perimenopausal woman
She has not had medical care secondary to lack of insurance for well over 15 years when she moved to [place] including gynecologic examinations
Because of acute renal failure and hesitant to proceed with any surgical intervention at moment and would like to see some improvement on that before we move forward
I apoke with Dr Ishaan Almanzar in pathology, preliminary read on cytology of ascites fluid is NEGATIVE, stains/IHC being done for additional investigation.
I also reviewed CT with Dr Lo in IR, and MRI with Dr Carver. The MRI is unfortunately useless for anteriorfindings because of artifact (obesity and ascites) . The CT does show multiple soft tissue attenuation nodules along omentum fairly ill
defined because of the ascites and no contrast but one of them approx 1.5 cm on left possibly amenable to biopsy. There are no sizable masses besides nodules in omentum. Additionally there are enlarged inguinal and iliac chains nodes and mildly
enlarged retroperitoneal nodes. There are multiple nodes in pelvis posterior to uterus which are subcentimeter in size but still suspicious.
At this point I am inclined to move forward to surgery once DIMITRI is recovered to a reasonable Cr level and GFR.
I will ask for cardiology to assess risk and provide clearance
I will ask colorectal surgery to assess this patient,as her CEA is very high at 84, i suspect we have a mucinous neoplasm which is expressing this, the elevation may come from a primary GI neoplasm but not definitely. I am planning to do a bowel
prep pre op on Thursday and surgery on Thursday, Maybe a colonoscopy can be considered as part of our procedure if there is availability of colorectal surgery.
The planned procedure will be exp lap, TRAVIS BSO, resection of mass and omentectomy. Given her body habitus and high BMI, I am not sure it is feasible to get into retroperitoneal spaces easily to remove and sample nodes. The procedure is of
intermediate risk given her BMI and co morbidities, but delaying the surgery may also cause reoccurrence of DIMITRI and further morbidity.
Miguel Kaufman MD
Geospatial Technologist Oncology
Subjective / Interval History
-
s/p paracenthesis
still has abdominal distension
Objective Data
-
Lab Results:
12/23/24 07:13
12/23/24 07:13
Physical Exam
Vital Signs / I&O
Vitals
Temp Pulse Resp BP Pulse Ox
98.4 F 80 17 165/92 97
12/23/24 07:35 12/23/24 07:35 12/23/24 07:35 12/23/24 07:35 12/23/24 07:35
I&O
12/21/24 12/22/24 12/23/24 12/24/24
06:59 06:59 06:59 06:59
Intake Total 1580 / 1580 2119
Output Total 900 / 900
Balance 680 / 680 2119
Data Reviewed
-
Diagnostic Radiology: Image personally visualized and interpreted and Discussed with Physician
CT Scan: Image personally visualized and interpreted and Discussed with Physician
MRI: Image personally visualized and interpreted and Discussed with Physician
Lab Data: Labs Reviewed and Discussed with Physician
--- NOTE | 2024-12-23 11:49 | W.PN.GYNONC ---
Today's Communication
-
-
Impression / Plan
-
Patient has significant 30 cm pelvic mass, in addition to being obese at baseline.
She has irregular menstrual pattern which is concerning for a perimenopausal woman
She has not had medical care secondary to lack of insurance for well over 15 years when she moved to [place] including gynecologic examinations
Because of acute renal failure and hesitant to proceed with any surgical intervention at moment and would like to see some improvement on that before we move forward
I apoke with Dr Ishaan Almanzar in pathology, preliminary read on cytology of ascites fluid is NEGATIVE, stains/IHC being done for additional investigation.
I also reviewed CT with Dr Lo in IR, and MRI with Dr Carver. The MRI is unfortunately useless for anteriorfindings because of artifact (obesity and ascites) . The CT does show multiple soft tissue attenuation nodules along omentum fairly ill
defined because of the ascites and no contrast but one of them approx 1.5 cm on left possibly amenable to biopsy. There are no sizable masses besides nodules in omentum. Additionally there are enlarged inguinal and iliac chains nodes and mildly
enlarged retroperitoneal nodes. There are multiple nodes in pelvis posterior to uterus which are subcentimeter in size but still suspicious.
At this point I am inclined to move forward to surgery once DIMITRI is recovered to a reasonable Cr level and GFR.
I will ask for cardiology to assess risk and provide clearance
I will ask colorectal surgery to assess this patient,as her CEA is very high at 84, i suspect we have a mucinous neoplasm which is expressing this, the elevation may come from a primary GI neoplasm but not definitely. I am planning to do a bowel
prep pre op on Thursday and surgery on Thursday, Maybe a colonoscopy can be considered as part of our procedure if there is availability of colorectal surgery.
The planned procedure will be exp lap, TRAVIS BSO, resection of mass and omentectomy. Given her body habitus and high BMI, I am not sure it is feasible to get into retroperitoneal spaces easily to remove and sample nodes. The procedure is of
intermediate risk given her BMI and co morbidities, but delaying the surgery may also cause reoccurrence of DIMITRI and further morbidity.
Miguel Kaufman MD
[facility]
12/23/24-
Did speak with her about proceeding with surgery on Thursday if continued medical improvement, She asked about risks of surgery, and did review risks of bleeding, infection, injury to bowel or bladder, CV risks which is why we are waiting to preform
surgery. She understands risks and all questions answered.
Subjective / Interval History
-
She is feeling better but is still having pain Pain meds are helping. Currently off IV fluids.and is able to get oob and walking around her room
Objective Data
-
Lab Results:
12/23/24 07:13
12/23/24 07:13
Physical Exam
Vital Signs / I&O
Vitals
Temp Pulse Resp BP Pulse Ox
98.4 F 80 17 165/92 97
12/23/24 07:35 12/23/24 07:35 12/23/24 07:35 12/23/24 07:35 12/23/24 07:35
I&O
12/21/24 12/22/24 12/23/24 12/24/24
06:59 06:59 06:59 06:59
Intake Total 1580 / 1580 2119
Output Total 900 / 900
Balance 680 / 680 2119
--- NOTE | 2024-12-23 13:23 | W.PN.HOSP.TC ---
Today's Communication/Plan
-
Monitor vital signs
see plan
Monitor renal function
Plan for surgery with Dairy Machine Operator Farmworker ONC on Thursday
Assessment / Plan
Assessment / Plan
General: Morbidly Obese; No Fever or Chills
HEENT: NormoCephalic, Anicteric, Moist mucous membranes
Respiratory: Clear; No Wheezes, Rales or Rhonchi
Cardiac: S1/S2 and Regular Rhythm
GI: Soft, Normal Bowel Sounds and Distended
Musculoskeletal: No Edema
Neuro: AO x 3, No Motor Deficits
Psych: Calm
Acute renal failure concern for right obstructive uropathy
Patient states that she is voiding
Creat 3.8/bun 56 on admission; cr now 1.8
urology following; no surgical need from their standpoint
nephro following
-Bladder scan
-Monitor urine output
MRI noted with ovarian mass. mild to mod hydro, per urology no surgical intervention needed as creatinine is improving. Moderate ascites
ua without significant pyuria
Patient has not seen any gynecology in years
CT abdomen pelvis without IV or oral contrast
1. Some right renal atrophy and mild right renal and at least proximal right ureteral dilatation. Cannot exclude right-sided obstructive uropathy.
2. Suspected large heterogeneous predominantly low-attenuation mass measuring 30 cm in greatest dimension within the abdomen midline into the left, most likely extending from the left true pelvis.
Most likely differential diagnostic possibility would be an ovarian mass such as a cyst adenocarcinoma or cystadenoma. Other masses cannot be excluded, particularly in light of size. MRI suggested for more complete
evaluation.
3 . Moderate volume ascites with possible omental stranding/carcinomatosis.
4. . Small volume retroperitoneal lymph nodes and possible small volume pelvic lymph nodes.
#New large mass within the abdomen to the left concern for ovarian mass with possible mets
-Retroperitoneal lymph node and small volume pelvic lymph node involvement per CT and omental stranding/carcinomatosis
MRI noted with ovarian mass. mild to mod hydro, per urology no surgical intervention needed as creatinine is improving. Moderate ascites
- Dr. Kaufman DATA KEYER oncology following. Plan for surgery Thursday12/26/24. Due to elevated CEA consulted colorectal surgery for their opinion. Also consulted cardiology for risk stratification. Echocardiogram done this admission. Denies chest pain
Per data analytics analyst onc; prelim read for cytology on ascites fluid neg; stains being done for additional investigation.
- Patient counseled on getting a mammogram given her mother's history of breast cancer unknown type patient did have mammogram at age 34
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
s/p para 4/9 with 5900cc removal; f/u cytology
#Diarrhea likely secondary to possible doxycycline
Has been on doxycycline approximately 1 month for rosacea stopped on Thursday. now improving
resolved
#GERD
- Continue Prilosec OTC as needed Tums
maalox
#Class III obesity�BMI 57.7 kg
Affects all aspects of care
Given current above situation would hold off on weight loss until plan for above possible cancer diagnosis
DVT prophylaxis
Subcu heparin
Full code
Anticipated Discharge: > 48 hours
Subjective/Interval History
-
Date of Service: December 23, 2024
denies nausea
Objective Data
-
Labs:
Laboratory Results
12/23/24
07:13
WBC 10.5
Hgb 12.6
Hct 39.4
Plt Count 435 H D
Sodium 142
Potassium 3.9
Chloride 111 H
Carbon Dioxide 24
BUN 23 H
Creatinine 1.6 H
Glucose 94
Calcium 9.1
Total Bilirubin 0.5
AST 17
ALT < 10
Alkaline Phosphatase 65
Vital Signs:
Vital Signs
Temp Pulse Resp BP Pulse Ox
98.4 F 80 17 165/92 97
12/23/24 07:35 12/23/24 07:35 12/23/24 07:35 12/23/24 07:35 12/23/24 07:35
I&O
12/22/24 12/23/24 12/24/24
06:59 06:59 06:59
Intake Total 1580 / 1580 2119
Output Total 900 / 900
Balance 680 / 680 2119
--- NOTE | 2024-12-23 13:23 | W.PN.URO.CBU ---
Today's Communication / Plan
-
no indication for urosurgical intervention at this time
if ureteral stents/catheters would be requested to be placed prior to CRS/Gen Onc surgeries, adequate pre-op notice would be appreciated
will sign off
Assessment / Plan
-
Renal function continues to improve s/p paracentesis
Diagnosis
-
Date of Service: December 23, 2024
-
Patient Diagnosis:
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
Renal Insufficiency
Left kidney/ureter do not appear to be significantly obstructed.
Right side demonstrates mild to moderate dilatation.
Objective
-
Vital Signs
Temp Pulse Resp BP Pulse Ox
98.4 F 80 17 165/92 97
12/23/24 07:35 12/23/24 07:35 12/23/24 07:35 12/23/24 07:35 12/23/24 07:35
Intake and Output
12/22/24 12/23/24 12/24/24
06:59 06:59 06:59
Intake Total 1580 / 1580 2119 / 2120
Output Total 900 / 900
Balance 680 / 680 2119 / 2119
Intake:
Oral fluids 480 / 480 1320 / 1320
IV fluids (Total) 1000 / 1000 800 / 800
IV piggybacks 100 / 100
Output:
Urine, Voided 900 / 900
Other:
Number of approximated MODERATE 1 4
amounts of urine
Laboratory Results
12/23/24 07:13
12/23/24 07:13
Physical Exam
-
General - well developed, well nourished, no acute distress
Chest - clear bilaterally
Abdomen - soft, non-tender, positive bowel sounds, no CVAT, no incisional pain or distention
Genitalia - normal
Rectal - normal
Skin - warm & dry with no rash
Neuro - AOx3, no motor deficits
Extremities - no clubbing, no cyanosis, no edema
Incision - clean, dry
Dressing - clean, dry, intact
--- NOTE | 2024-12-23 13:54 | CON.CRS ---
Consultation
-
Date/Time Consultation Requested: 12/23/2024, 09:33
Date/Time Consultation Performed: 12/23/2024, 14:30
Requesting Provider: Miguel Kaufman MD
Performing Provider: Nithin Tejada MD
Reason for Consultation: colon mass
Medical History
-
Chief Complaint: abdominal distention
History of Present Illness:
54-year-old female presents to [facility] on 12/20/2024 complaining of nausea, vomiting, and diarrhea for several days. She is also noted a 20 pound weight gain in the past 2 to 3 months. She has no previous history of undergoing a
colonoscopy. A CT of the abdomen and pelvis was performed which showed a suspected large heterogeneous predominating low-attenuation mass 3 cm in greatest dimension in the abdomen midline to the left most likely extending from the left true pelvis.
Diagnostic possibilities include an ovarian mass other masses cannot be excluded. There was also some small volume ascites with possible omental stranding and carcinomatosis. Small volume retroperitoneal lymph nodes and possible small volume
pelvic lymph nodes. Subsequently that day she underwent an MRI of the abdomen which was extremely limited. A transvaginal ultrasound showed a large pelvic mass 29 x 25 x 31 cm which is not appearing to involve or arise in the uterus. CT chest
showed no metastatic disease in the chest. She then underwent a paracentesis the following day.
Dr. Kaufman has been following her and the imaging has been reviewed. He is inclined to move forward for surgery. Her CEA is 84 and he suspects there may be a mucinous neoplasm. Given he is operating on Thursday, he is requesting from us a
colonoscopy during part of the procedure.
Past Medical History
Past Medical History: Other (GERD, obesity, rosacea)
Past Surgical History: None
Social History
Tobacco: Non-Smoker
Alcohol: None
Drug: None
Personal: Partner
Employment: Employed
Family History
Family History: Reviewed & Not Pertinent
Allergies / Home Medications
Allergy/AdvReac Type Severity Reaction Status Date / Time
No Known Allergies Allergy Unverified 12/20/24 11:54
�Medication �Instructions �Recorded �Confirmed �Type
cholecalciferol (vitamin D3) 25 25 mcg PO DAILY Supplement 12/20/24 12/20/24 History
mcg (1,000 unit) tablet (Vitamin
D3)
doxycycline hyclate 60 mg 60 mg PO DAILY Infection 12/20/24 12/20/24 History
tablet,delayed release
omega-3 fatty acids-fish oil 684 1 cap PO DAILY Supplement 12/20/24 12/20/24 History
mg-1,200 mg capsule,delayed release
omeprazole magnesium 20 mg 20 mg PO DAILY GERD 12/20/24 12/20/24 History
tablet,delayed release (Prilosec
OTC)
vitamin B complex 1 tab PO DAILY Supplement 12/20/24 12/20/24 History
Review of Systems
-
History Source: Patient
Constitutional: Weight Gain
Abdomen/GI: Nausea, Vomiting, Diarrhea and Other (Abdominal bloating)
A 10 point review of systems was completed, and was negative except as per HPI.
Physical Exam
Vital Signs
Temp 98.4 F 12/23/24 07:35
Pulse 80 12/23/24 07:35
Resp Rate 17 12/23/24 07:35
Blood pressure 165/92 12/23/24 07:35
SaO2 97 12/23/24 07:35
12/22/24 12/23/24 12/24/24
06:59 06:59 06:59
Actual Weight 125.781 kg
Body Mass Index (BMI) 52.4
Lab Results / Allergies
12/23/24 07:13
12/23/24 07:13
WBC 10.5 10^3/uL (4.8-10.8) 12/23/24 07:13
Hgb 12.6 g/dL (12.0-16.0) 12/23/24 07:13
Hct 39.4 % (37.0-47.0) 12/23/24 07:13
Plt Count 435 10^3/uL (130-400) H D 12/23/24 07:13
Abs Immat Gran (auto) 0.0 10^3/uL (0-0.05) 12/23/24 07:13
Neutrophils % 78.7 % (42.2-75.2) H 12/23/24 07:13
Allergy/AdvReac Type Severity Reaction Status Date / Time
No Known Allergies Allergy Unverified 12/20/24 11:54
Physical Exam
General: Well Developed, Well Nourished and No Apparent Distress
GI: Soft, Non Tender and Distended (very distended)
Neuro: AO x 3
Psych: Calm
Data Reviewed
-
CT Scan: Image Personally Visualized and interpreted, Report Reviewed by me and Discussed with Patient
Labs: Labs Reviewed by me, Discussed with Physician and Discussed with Patient
Old Records: Reviewed
Assessment / Plan
-
Assessment: 54-year-old female with nausea, vomiting, and 20 pound weight gain found to have a large 30 cm pelvic mass
Plan:
-For surgery with Dr. Kaufman likely this coming December 26.
-Dr. Tejada will discuss case with Dr. Kaufman for surgical planning.
[2024-12-23 15:25] VITALS: BP 147/89
--- NOTE | 2024-12-23 15:58 | PTCARENOTE ---
BP this AM was 165/92, pt crying in pain. PRN pain medication administered, MD aware. BP now 147/89.
--- NOTE | 2024-12-23 16:03 | CM ---
Reviewed the chart notes and spoke with the patient at the bedside. Per patient, she anticipates going to the OR on Thursday for abdominal mass removal. CM continues to be available to patient/family and is monitoring medical plan for needs at
discharge.
Plan: Discharge plans will depend on the patient's progress.
[2024-12-23 23:21] VITALS: BP 126/79
[2024-12-24] MEDS: MELATONIN PO ×2 (01:11→21:08)
[2024-12-24] MEDS: DILAUDID 0.5 MG IV ×5 (03:34→20:26)
[2024-12-24 06:00] VITALS: BMI 53.3
[2024-12-24 07:23] LABS: % Basophils 0.3 % (0-2); % Eosinophils 3.1 % (0-6); % Immature Granulocytes 0.4 % (0-0.5); % Lymphocytes 13.6 % (20.5-51.1); % Monocytes 5.4 % (1.7-9.3); % Neutrophils 77.2 % (42.2-75.2); Absolute Eosinophils 0.3 10^3/uL (0-0.7); Absolute Lymphocytes 1.3 10^3/uL (1.2-3.4); Absolute Monocytes 0.5 10^3/uL (0.1-0.6); Absolute Neutrophils 7.2 10^3/uL (1.4-6.5); Hematocrit 36.2 % (37.0-47.0); Hemoglobin 11.4 g/dL (12.0-16.0); Mean Corp Hgb Conc. 31.5 g/dL (33.0-37.0); Mean Corpuscular Hgb 24.7 pg (27.0-31.0); Mean Corpuscular Volume 78.5 fL (81.0-99.0); Nucleated Red Blood Cells % 0 %; Platelet Count 374 10^3/uL (130-400); Red Blood Cell Count 4.61 10^6/uL (4.20-5.40); Red Cell Dist. Width 17.7 % (11.5-14.5); White Blood Cell Count 9.3 10^3/uL (4.8-10.8)
[2024-12-24] MEDS: B COMPLEX w/VITAMIN C 1 CAPLET PO (07:35)
[2024-12-24] MEDS: PROTONIX 40 MG PO (07:35)
[2024-12-24] MEDS: VITAMIN D3 (cholecalciferol) 25 MCG PO (07:35)
[2024-12-24] MEDS: MAALOX 30 ML PO ×3 (07:35→17:50)
[2024-12-24] MEDS: HEPARIN 5000 UNITS SC ×2 (07:35→20:19)
[2024-12-24] MEDS: DESENEX/MITRAZOL/ZEASORB 1 APPLIC TOPICAL (07:36)
[2024-12-24 07:59] LABS: ALT (SGPT) < 10 U/L (0-35); AST (SGOT) 16 U/L (14-36); Albumin 2.6 g/dl (3.5-5.0); Alkaline Phosphatase 61 U/L (38-126); Blood Urea Nitrogen 24 mg/dl (7-17); Calcium 8.9 mg/dl (8.4-10.2); Carbon Dioxide 27 mmol/L (22-30); Chloride 110 mmol/L (98-107); Estimated Creatinine Clearance 41 ml/min; Glucose 92 mg/dl (70-99); Sodium 141 mmol/L (135-145); Total Bilirubin 0.5 mg/dl (0.2-1.3); Total Protein 4.8 g/dl (6.3-8.2)
[2024-12-24 08:05] VITALS: BP 174/113
[2024-12-24 11:35] VITALS: BP 170/100
[2024-12-24] MEDS: APRESOLINE 5 MG IV (11:35)
--- NOTE | 2024-12-24 11:36 | W.PN.NEPH.PH ---
Today's Communication / Plan
-
follow BMP
Assessment/Plan
-
Assessment
DIMITRI
Advanced right and mild to moderate left hydronephrosis
Recent NSAID use
Nausea vomiting diarrhea
Carcinomatosis
s/p paracentesis 4/9- 5.9lit
Large ascites
30 cm abdominal mass
Reflux
CA125 elevated
Plan:
no IVF today
encourage po
follow BMP
possible OR thursday
-
-
Date of Service: December 24, 2024
CC / HPI / ROS
-
Chief Complaint:
DIMITRI
History of Present Illness:
DIMITRI/Cr up to 2.0
non oliguric
s/p paracentesis 5.9L 12/21
BP stable
Review of Systems:
burning sensation when eating, but able to eat
no cp or sob
Labs
-
Labs:
WBC 9.3 10^3/uL (4.8-10.8) 12/24/24 06:48
RBC 4.61 10^6/uL (4.20-5.40) 12/24/24 06:48
Hgb 11.4 g/dL (12.0-16.0) L 12/24/24 06:48
Hct 36.2 % (37.0-47.0) L 12/24/24 06:48
Plt Count 374 10^3/uL (130-400) 12/24/24 06:48
Sodium 141 mmol/L (135-145) 12/24/24 06:48
Potassium 4.0 mmol/L (3.5-5.1) 12/24/24 06:48
Chloride 110 mmol/L (98-107) H 12/24/24 06:48
Carbon Dioxide 27 mmol/L (22-30) 12/24/24 06:48
BUN 24 mg/dl (7-17) H 12/24/24 06:48
Creatinine 2.0 mg/dL (0.6-1.0) H 12/24/24 06:48
eGFR 29.50 12/24/24 06:48
Glucose 92 mg/dl (70-99) 12/24/24 06:48
Calcium 8.9 mg/dl (8.4-10.2) 12/24/24 06:48
Albumin 2.6 g/dl (3.5-5.0) L 12/24/24 06:48
Physical Exam
-
Vital Signs:
Vital Signs
Temp Pulse Resp BP Pulse Ox
97.6 F 72 12 174/113 98
12/24/24 08:05 12/24/24 08:05 12/24/24 08:05 12/24/24 08:05 12/24/24 08:05
Cardiovascular:: Regular rate and rhythm
Respiratory:: Bilateral: Coarse
Lung Excursion:: Normal
Abdomen:: Nontender and Soft
Bowel Sounds:: Normal
Extremity Edema:: None: Bilateral:
--- NOTE | 2024-12-24 12:07 | W.PN.HOSP.TC ---
Today's Communication/Plan
-
Monitor vital signs see plan
Plan for surgery per Sec Accountant Onc Thursday
Monitor renal function
Assessment / Plan
Assessment / Plan
General: Morbidly Obese; No Fever or Chills
HEENT: NormoCephalic, Anicteric, Moist mucous membranes
Respiratory: Clear; No Wheezes, Rales or Rhonchi
Cardiac: S1/S2 and Regular Rhythm
GI: Soft, Normal Bowel Sounds and Distended
Musculoskeletal: No Edema
Neuro: AO x 3, No Motor Deficits
Psych: Calm
Acute renal failure concern for right obstructive uropathy
Patient states that she is voiding
Creat 3.8/bun 56 on admission; cr now 2; monitor
urology following; no surgical need from their standpoint
nephro following
-Bladder scan
-Monitor urine output
MRI noted with ovarian mass. mild to mod hydro, per urology no surgical intervention needed as creatinine is improving. Moderate ascites
ua without significant pyuria
Patient has not seen any gynecology in years
CT abdomen pelvis without IV or oral contrast
1. Some right renal atrophy and mild right renal and at least proximal right ureteral dilatation. Cannot exclude right-sided obstructive uropathy.
2. Suspected large heterogeneous predominantly low-attenuation mass measuring 30 cm in greatest dimension within the abdomen midline into the left, most likely extending from the left true pelvis.
Most likely differential diagnostic possibility would be an ovarian mass such as a cyst adenocarcinoma or cystadenoma. Other masses cannot be excluded, particularly in light of size. MRI suggested for more complete
evaluation.
3 . Moderate volume ascites with possible omental stranding/carcinomatosis.
4. . Small volume retroperitoneal lymph nodes and possible small volume pelvic lymph nodes.
#New large mass within the abdomen to the left concern for ovarian mass with possible mets
-Retroperitoneal lymph node and small volume pelvic lymph node involvement per CT and omental stranding/carcinomatosis
MRI noted with ovarian mass.
- Dr. Kaufman DIRECTOR OF IT OPERATIONS oncology following. Plan for surgery Thursday12/26/24. Due to elevated CEA consulted colorectal surgery for their opinion. Possible need of intraoperative sigmoidoscopy. stratified by cardiology. Echocardiogram done this
admission. Denies chest pain
Per marketing services specialist onc; prelim read for cytology on ascites fluid neg; stains being done for additional investigation.
- Patient counseled on getting a mammogram given her mother's history of breast cancer unknown type patient did have mammogram at age 34
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
s/p para 4/9 with 5900cc removal; f/u final cytology report
#Diarrhea likely secondary to possible doxycycline
Has been on doxycycline approximately 1 month for rosacea stopped on Thursday. now improving
resolved
#GERD
- Continue Prilosec OTC as needed Tums
maalox
#Class III obesity�BMI 57.7 kg
Affects all aspects of care
Given current above situation would hold off on weight loss until plan for above possible cancer diagnosis
DVT prophylaxis
Subcu heparin
Full code
Anticipated Discharge: > 48 hours
Subjective/Interval History
-
Date of Service: December 24, 2024
Denies nausea
Objective Data
-
Labs:
Laboratory Results
12/24/24
06:48
WBC 9.3
Hgb 11.4 L
Hct 36.2 L
Plt Count 374
Sodium 141
Potassium 4.0
Chloride 110 H
Carbon Dioxide 27
BUN 24 H
Creatinine 2.0 H
Glucose 92
Calcium 8.9
Total Bilirubin 0.5
AST 16
ALT < 10
Alkaline Phosphatase 61
Vital Signs:
Vital Signs
Temp Pulse Resp BP Pulse Ox
97.6 F 72 12 170/100 98
12/24/24 08:05 12/24/24 08:05 12/24/24 08:05 12/24/24 11:35 12/24/24 08:05
I&O
12/23/24 12/24/24 12/25/24
06:59 06:59 06:59
Intake Total 2119 / 2119 1290 / 1290
Balance 2119 / 2119 1290 / 1290
[2024-12-24 12:35] VITALS: BP 161/100
--- NOTE | 2024-12-24 15:22 | PTCARENOTE ---
BP this AM was 174/113, pt crying with c/o 9/10 pain to RLQ of abdomen, PRN pain medication administered. BP rechecked manually at 170/110, PRN hydralazine administered. BP rechecked after hydralazine at 161/100. MD aware, no new orders at this
time.
[2024-12-24 15:25] VITALS: BP 156/102
--- NOTE | 2024-12-24 20:07 | W.PN.GYNONC ---
Today's Communication
-
n/a
Impression / Plan
-
Patient has significant 30 cm pelvic mass, in addition to being obese at baseline.
She has irregular menstrual pattern which is concerning for a perimenopausal woman
She has not had medical care secondary to lack of insurance for well over 15 years when she moved to [place] including gynecologic examinations
Because of acute renal failure and hesitant to proceed with any surgical intervention at moment and would like to see some improvement on that before we move forward
I apoke with Dr Ishaan Almanzar in pathology, preliminary read on cytology of ascites fluid is NEGATIVE, stains/IHC being done for additional investigation.
I also reviewed CT with Dr Lo in IR, and MRI with Dr Carver. The MRI is unfortunately useless for anteriorfindings because of artifact (obesity and ascites) . The CT does show multiple soft tissue attenuation nodules along omentum fairly ill
defined because of the ascites and no contrast but one of them approx 1.5 cm on left possibly amenable to biopsy. There are no sizable masses besides nodules in omentum. Additionally there are enlarged inguinal and iliac chains nodes and mildly
enlarged retroperitoneal nodes. There are multiple nodes in pelvis posterior to uterus which are subcentimeter in size but still suspicious.
At this point I am inclined to move forward to surgery once DIMITRI is recovered to a reasonable Cr level and GFR.
I appreiate cardiology to have provided clearance
I discussed case with colorectal surgery and Dr Tejada will be available
Proceed with bowel prep tomorrow
Patient's creatinine level had a melodie at 1.8 but is up to 2.0 today. I suspect she is reaccumulating her ascites and very likely that is contributing to the intravascular hypovolemia. It is my hope that surgical resection of this mass and
debulking of the tumor will reduce the ascites production postoperatively. Nevertheless I have discussed with the patient that there is risks associated with surgery including infection, bleeding, injury to adjacent organs, DVT, pulmonary embolism
and cardiovascular complications, need for prolonged intubation, ICu stay and need for additional treatment.
The planned procedure will be exp lap, TRAVIS BSO, resection of mass and omentectomy. Given her body habitus and high BMI, I am not sure it is feasible to get into retroperitoneal spaces easily to remove and sample nodes. The procedure is of
intermediate risk given her BMI and co morbidities, but delaying the surgery may also cause reoccurrence of DIMITRI and further morbidity.
I have also asked Urology to place ureteral stents pre op, consider JJ stents for optimization of any obstruction.
Miguel Kaufman MD
[facility]ing [facility] Operator On[facility]
12/23/24-
Did speak with her about proceeding with surgery on Thursday if continued medical improvement, She asked about risks of surgery, and did review risks of bleeding, infection, injury to bowel or bladder, CV risks which is why we are waiting to preform
surgery. She understands risks and all questions answered.
Subjective / Interval History
-
Patient is feeling well today, has had a bowel movement, continues to have urine. and daughter are present in the room today. She continues to have abdominal discomfort secondary to distention
Objective Data
-
Lab Results:
12/24/24 06:48
12/24/24 06:48
Physical Exam
Vital Signs / I&O
Vitals
Temp Pulse Resp BP Pulse Ox
98.4 F 82 16 156/102 93
12/24/24 15:25 12/24/24 15:25 12/24/24 15:25 12/24/24 15:25 12/24/24 15:25
I&O
12/22/24 12/23/24 12/24/24 12/25/24
06:59 06:59 06:59 06:59
Intake Total 1580 / 1580 2119 1290 / 1290 650 / 650
Output Total 900 / 900
Balance 680 / 680 2119 1290 / 1290 650 / 650
Physical Exam
General: No Apparent Distress
Respiratory: Clear and Non Labored Respirations
Cardiac: S1/S2 and Regular Rhythm
Breast: Deferred by me
GI: Soft, Normal Bowel Sounds and Distended
Musculoskeletal: No Clubbing and No Cyanosis
Neuro: Awake, Alert and Oriented
[2024-12-24] MEDS: DESENEX/MITRAZOL/ZEASORB TOPICAL (20:18)
[2024-12-24 22:05] VITALS: BP 153/97
[2024-12-24 23:29] VITALS: BP 131/84
[2024-12-25] MEDS: DILAUDID 0.5 MG IV ×4 (04:47→20:09)
[2024-12-25 05:48] VITALS: BMI 54.3
[2024-12-25 06:30] LABS: % Basophils 0.3 % (0-2); % Eosinophils 2.9 % (0-6); % Immature Granulocytes 0.2 % (0-0.5); % Lymphocytes 12.7 % (20.5-51.1); % Monocytes 5.9 % (1.7-9.3); Absolute Eosinophils 0.3 10^3/uL (0-0.7); Absolute Lymphocytes 1.2 10^3/uL (1.2-3.4); Absolute Monocytes 0.6 10^3/uL (0.1-0.6); Absolute Neutrophils 7.4 10^3/uL (1.4-6.5); Hematocrit 34.5 % (37.0-47.0); Hemoglobin 11.1 g/dL (12.0-16.0); Mean Corp Hgb Conc. 32.2 g/dL (33.0-37.0); Mean Corpuscular Hgb 24.8 pg (27.0-31.0); Mean Corpuscular Volume 77.2 fL (81.0-99.0); Mean Platelet Volume 10.3 fL (7.4-10.4); Nucleated Red Blood Cells % 0 %; Platelet Count 387 10^3/uL (130-400); Red Blood Cell Count 4.47 10^6/uL (4.20-5.40); Red Cell Dist. Width 17.7 % (11.5-14.5); White Blood Cell Count 9.5 10^3/uL (4.8-10.8)
--- NOTE | 2024-12-25 06:48 | W.PN.URO.CBU ---
Today's Communication / Plan
-
Bilateral Ureteral stents will be placed tomorrow at time of [facility] surgical exploration.
Assessment / Plan
-
Renal function continues to improve s/p paracentesis
Diagnosis
-
Date of Service: December 25, 2024
-
Patient Diagnosis:
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
Renal Insufficiency
Left kidney/ureter do not appear to be significantly obstructed.
Right side demonstrates mild to moderate dilatation.
Objective
-
Vital Signs
Temp Pulse Resp BP Pulse Ox
99.1 F 81 19 131/84 95
12/24/24 23:29 12/24/24 23:29 12/24/24 23:29 12/24/24 23:29 12/24/24 23:29
Intake and Output
12/23/24 12/24/24 12/25/24
06:59 06:59 06:59
Intake Total 2120 / 2120 1290 / 1290 1250 / 1250
Balance 2120 / 2120 1290 / 1290 1250 / 1250
Intake:
Oral fluids 1320 / 1320 1290 / 1290 1250 / 1250
IV fluids (Total) 800 / 800
Other:
Number of approximated SMALL 1
amounts of urine
Number of approximated MODERATE 4 2 3
amounts of urine
Laboratory Results
12/25/24 04:58
Physical Exam
-
General - well developed, well nourished, no acute distress
Chest - clear bilaterally
Abdomen - soft, non-tender, positive bowel sounds, no CVAT, no incisional pain or distention
Genitalia - normal
Rectal - normal
Skin - warm & dry with no rash
Neuro - AOx3, no motor deficits
Extremities - no clubbing, no cyanosis, no edema
Incision - clean, dry
Dressing - clean, dry, intact
Care Review
Data Reviewed
Discussed with: Other (Dr Kaufman)
[2024-12-25 06:51] LABS: ALT (SGPT) < 10 U/L (0-35); AST (SGOT) 17 U/L (14-36); Albumin 2.8 g/dl (3.5-5.0); Alkaline Phosphatase 64 U/L (38-126); Blood Urea Nitrogen 30 mg/dl (7-17); Calcium 8.7 mg/dl (8.4-10.2); Carbon Dioxide 23 mmol/L (22-30); Chloride 108 mmol/L (98-107); Estimated Creatinine Clearance 27 ml/min; Glucose 93 mg/dl (70-99); Potassium 3.6 mmol/L (3.5-5.1); Sodium 139 mmol/L (135-145); Total Bilirubin 0.6 mg/dl (0.2-1.3); eGFR 17.44
[2024-12-25 08:38] VITALS: BP 143/91
[2024-12-25] MEDS: PROTONIX 40 MG PO (09:15)
[2024-12-25] MEDS: VITAMIN D3 (cholecalciferol) 25 MCG PO (09:15)
[2024-12-25] MEDS: B COMPLEX w/VITAMIN C 1 CAPLET PO (09:15)
[2024-12-25] MEDS: HEPARIN 5000 UNITS SC ×2 (09:16→20:09)
[2024-12-25] MEDS: NSS 1000 IV (09:16)
[2024-12-25] MEDS: DESENEX/MITRAZOL/ZEASORB TOPICAL ×2 (09:16→20:18)
[2024-12-25 09:34] LABS: Glycohemoglobin (HgbA1c) 5.8 % (4.0-5.6)
[2024-12-25] MEDS: NULYTELY SOLUTION 4 LITERS PO (11:05)
--- NOTE | 2024-12-25 11:09 | PTCARENOTE ---
Bowel prep started at 1105.
--- NOTE | 2024-12-25 11:17 | W.PN.HOSP.TC ---
Today's Communication/Plan
-
Monitor vitals
See plan
Plan for the OR tomorrow
Will need bilateral ureteral stent tomorrow
Gentle hydration
Monitor renal function
Assessment / Plan
Assessment / Plan
General: Morbidly Obese; No Fever or Chills
HEENT: NormoCephalic, Anicteric, Moist mucous membranes
Respiratory: Clear; No Wheezes, Rales or Rhonchi
Cardiac: S1/S2 and Regular Rhythm
GI: Soft, Normal Bowel Sounds and Distended
Musculoskeletal: No Edema
Neuro: AO x 3, No Motor Deficits
Psych: Calm
Acute renal failure concern for right obstructive uropathy
Patient states that she is voiding
Creat 3.8/bun 56 on admission; cr now 3.1; monitor. Gentle hydration.
urology following; plan for bilateral ureteral stent at time of balancing machine set up worker onc surgical exploration 12/26
nephro following
-Bladder scan
-Monitor urine output
MRI noted with ovarian mass. mild to mod hydro, per urology no surgical intervention needed as creatinine is improving. Moderate ascites
ua without significant pyuria
Patient has not seen any gynecology in years
CT abdomen pelvis without IV or oral contrast
1. Some right renal atrophy and mild right renal and at least proximal right ureteral dilatation. Cannot exclude right-sided obstructive uropathy.
2. Suspected large heterogeneous predominantly low-attenuation mass measuring 30 cm in greatest dimension within the abdomen midline into the left, most likely extending from the left true pelvis.
Most likely differential diagnostic possibility would be an ovarian mass such as a cyst adenocarcinoma or cystadenoma. Other masses cannot be excluded, particularly in light of size. MRI suggested for more complete
evaluation.
3 . Moderate volume ascites with possible omental stranding/carcinomatosis.
4. . Small volume retroperitoneal lymph nodes and possible small volume pelvic lymph nodes.
#New large mass within the abdomen to the left concern for ovarian mass with possible mets
-Retroperitoneal lymph node and small volume pelvic lymph node involvement per CT and omental stranding/carcinomatosis
MRI noted with ovarian mass.
- Dr. Kaufman TRAVEL TRAILER COMPONENTS ASSEMBLER oncology following. Plan for surgery Thursday12/26/24. Due to elevated CEA consulted colorectal surgery for their opinion. Possible need of intraoperative sigmoidoscopy. risk stratified by cardiology. Echocardiogram done this
admission. Denies chest pain
Per balancing machine set up worker onc; prelim read for cytology on ascites fluid neg; stains being done for additional investigation.
- Patient counseled on getting a mammogram given her mother's history of breast cancer unknown type patient did have mammogram at age 34
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
s/p para 4/9 with 5900cc removal; f/u final cytology report
Prediabetes
A1c 5.8
Monitor
#Diarrhea likely secondary to possible doxycycline
Has been on doxycycline approximately 1 month for rosacea stopped on Thursday. now improving
resolved
#GERD
- Continue Prilosec OTC as needed Tums
maalox
#Class III obesity�BMI 57.7 kg
Affects all aspects of care
Given current above situation would hold off on weight loss until plan for above possible cancer diagnosis
DVT prophylaxis
Subcu heparin
Full code
Anticipated Discharge: > 48 hours
Subjective/Interval History
-
Date of Service: December 25, 2024
Has pain at times
Objective Data
-
Labs:
Laboratory Results
12/25/24
04:58
WBC 9.5
Hgb 11.1 L
Hct 34.5 L
Plt Count 387
Sodium 139
Potassium 3.6
Chloride 108 H
Carbon Dioxide 23
BUN 30 H
Creatinine 3.1 H
Glucose 93
Calcium 8.7
Total Bilirubin 0.6
AST 17
ALT < 10
Alkaline Phosphatase 64
Vital Signs:
Vital Signs
Temp Pulse Resp BP Pulse Ox
98.3 F 86 16 143/91 95
12/25/24 08:38 12/25/24 08:38 12/25/24 08:38 12/25/24 08:38 12/25/24 08:38
I&O
12/24/24 12/25/24 12/26/24
06:59 06:59 06:59
Intake Total 1290 / 1290 1250 / 1250
Balance 1290 / 1290 1250 / 1250
--- NOTE | 2024-12-25 11:38 | W.PN.NEPH.PH ---
Today's Communication / Plan
-
IV fluids
Assessment/Plan
-
Assessment
DIMITRI
Advanced right and mild to moderate left hydronephrosis
Recent NSAID use
Nausea vomiting diarrhea
Carcinomatosis
s/p paracentesis 4/9- 5.9lit
Large ascites
30 cm abdominal mass
Reflux
CA125 elevated
Plan:
IVF today
encourage po
follow BMP
OR thursday
Bilateral stents ureteral pre-Preschool Teacher Aide surgery
-
-
Date of Service: December 25, 2024
CC / HPI / ROS
-
Chief Complaint:
DIMITRI
History of Present Illness:
DIMITRI/Cr up to 3.1
non oliguric
s/p paracentesis 5.9L 12/21
BP stable
Review of Systems:
burning sensation when eating, but able to eat
Drinking plenty of water
no cp or sob
Labs
-
Labs:
WBC 9.5 10^3/uL (4.8-10.8) 12/25/24 04:58
RBC 4.47 10^6/uL (4.20-5.40) 12/25/24 04:58
Hgb 11.1 g/dL (12.0-16.0) L 12/25/24 04:58
Hct 34.5 % (37.0-47.0) L 12/25/24 04:58
Plt Count 387 10^3/uL (130-400) 12/25/24 04:58
Sodium 139 mmol/L (135-145) 12/25/24 04:58
Potassium 3.6 mmol/L (3.5-5.1) 12/25/24 04:58
Chloride 108 mmol/L (98-107) H 12/25/24 04:58
Carbon Dioxide 23 mmol/L (22-30) 12/25/24 04:58
BUN 30 mg/dl (7-17) H 12/25/24 04:58
Creatinine 3.1 mg/dL (0.6-1.0) H 12/25/24 04:58
eGFR 17.44 12/25/24 04:58
Glucose 93 mg/dl (70-99) 12/25/24 04:58
Calcium 8.7 mg/dl (8.4-10.2) 12/25/24 04:58
Albumin 2.8 g/dl (3.5-5.0) L 12/25/24 04:58
Physical Exam
-
Vital Signs:
Vital Signs
Temp Pulse Resp BP Pulse Ox
98.3 F 86 16 143/91 95
12/25/24 08:38 12/25/24 08:38 12/25/24 08:38 12/25/24 08:38 12/25/24 08:38
Cardiovascular:: Regular rate and rhythm
Respiratory:: Bilateral: Coarse
Lung Excursion:: Normal
Abdomen:: Distended, Nontender and Soft
Bowel Sounds:: Normal
Extremity Edema:: None: Bilateral:
[2024-12-25] MEDS: ZOFRAN 4 MG IV (15:24)
[2024-12-25 15:40] VITALS: BP 139/88
[2024-12-25] MEDS: DULCOLAX 20 MG RECTAL (18:18)
--- NOTE | 2024-12-25 18:39 | PTCARENOTE ---
Patient started drinking bowel prep at 1000; she is currently working on her 4th cup; Zofran given at 1524 for nausea; Dulcolax suppositories given @ 1800; last BM was liquid yellow.
[2024-12-25] MEDS: MELATONIN PO (21:38)
[2024-12-25 23:28] VITALS: BP 139/77
[2024-12-26] VITALS (15 sets, daily range): BP systolic 114–171; BP diastolic 79–118; BMI 54.5
[2024-12-26] MEDS: DILAUDID 0.5 MG IV ×6 (00:05→19:26)
[2024-12-26] MEDS: NSS 1000 IV ×2 (04:02→20:28)
--- NOTE | 2024-12-26 06:20 | W.PN.GYNONC ---
Today's Communication
-
proceed with surgery this pm, NPO except medications for now
Impression / Plan
-
Patient has significant 30 cm pelvic mass, in addition to being obese at baseline.
She has irregular menstrual pattern which is concerning for a perimenopausal woman
She has not had medical care secondary to lack of insurance for well over 15 years when she moved to [place] including gynecologic examinations
DIMITRI improved after para but has re-occurred, Cr pending today
I appreiate cardiology to have provided clearance
I discussed case with colorectal surgery and Dr Tejada will be available
Proceed with bowel prep tomorrow
It is my hope that surgical resection of this mass and debulking of the tumor will reduce the ascites production postoperatively.
Nevertheless I have discussed with the patient that there is risks associated with surgery including infection, bleeding, injury to adjacent organs, DVT, pulmonary embolism and cardiovascular complications, need for prolonged intubation, ICu stay
and need for additional treatment.
The planned procedure will be exp lap, TRAVIS BSO, resection of mass and omentectomy. Given her body habitus and high BMI, I am not sure it is feasible to get into retroperitoneal spaces easily to remove and sample nodes. The procedure is of
intermediate risk given her BMI and co morbidities, but delaying the surgery may also cause reoccurrence of DIMITRI and further morbidity.
I have also asked Urology to place ureteral stents pre op, consider JJ stents for optimization of any obstruction.
Miguel Kaufman MD
Hardening Machine Operator Oncology
12/23/24-
Did speak with her about proceeding with surgery on Thursday if continued medical improvement, She asked about risks of surgery, and did review risks of bleeding, infection, injury to bowel or bladder, CV risks which is why we are waiting to preform
surgery. She understands risks and all questions answered.
Objective Data
-
Lab Results:
s/p bowel prep yesterday
feels ok, no new complaints except abdominal discomfort/distension
Physical Exam
Vital Signs / I&O
Vitals
Temp Pulse Resp BP Pulse Ox
99.0 F 87 19 139/77 96
12/25/24 23:28 12/25/24 23:28 12/25/24 23:28 12/25/24 23:28 12/25/24 23:28
I&O
12/23/24 12/24/24 12/25/24 12/26/24
06:59 06:59 06:59 06:59
Intake Total 0 / 2120 1290 / 1290 1250 / 1250 720 / 720
Balance 2120 / 2120 1290 / 1290 1250 / 1250 720 / 720
Physical Exam
Lungs CTA
Car RRR
Abd distended with amss and flid wave
Ext NO edema or calf pain
[2024-12-26 07:29] LABS: % Basophils 0.3 % (0-2); % Eosinophils 1.4 % (0-6); % Immature Granulocytes 0.4 % (0-0.5); % Lymphocytes 10.7 % (20.5-51.1); % Monocytes 5.2 % (1.7-9.3); Absolute Eosinophils 0.2 10^3/uL (0-0.7); Absolute Immature Granulocytes 0.1 10^3/uL (0-0.05); Absolute Lymphocytes 1.3 10^3/uL (1.2-3.4); Absolute Monocytes 0.7 10^3/uL (0.1-0.6); Absolute Neutrophils 10.2 10^3/uL (1.4-6.5); Hematocrit 38.7 % (37.0-47.0); Hemoglobin 12.5 g/dL (12.0-16.0); Mean Corp Hgb Conc. 32.3 g/dL (33.0-37.0); Mean Corpuscular Hgb 25.3 pg (27.0-31.0); Mean Corpuscular Volume 78.2 fL (81.0-99.0); Mean Platelet Volume 9.4 fL (7.4-10.4); Nucleated Red Blood Cells % 0 %; Platelet Count 432 10^3/uL (130-400); Red Blood Cell Count 4.95 10^6/uL (4.20-5.40); Red Cell Dist. Width 17.6 % (11.5-14.5); White Blood Cell Count 12.4 10^3/uL (4.8-10.8)
[2024-12-26] MEDS: DESENEX/MITRAZOL/ZEASORB TOPICAL ×2 (08:18→21:35)
[2024-12-26] MEDS: PROTONIX 40 MG PO (08:18)
[2024-12-26] MEDS: B COMPLEX w/VITAMIN C 1 CAPLET PO (08:18)
[2024-12-26] MEDS: VITAMIN D3 (cholecalciferol) 25 MCG PO (08:18)
[2024-12-26 08:19] LABS: ALT (SGPT) 12 U/L (0-35); AST (SGOT) 20 U/L (14-36); Albumin 3.5 g/dl (3.5-5.0); Alkaline Phosphatase 75 U/L (38-126); Blood Urea Nitrogen 37 mg/dl (7-17); Calcium 9.2 mg/dl (8.4-10.2); Carbon Dioxide 23 mmol/L (22-30); Chloride 107 mmol/L (98-107); Estimated Creatinine Clearance 18 ml/min; Glucose 97 mg/dl (70-99); Potassium 4.1 mmol/L (3.5-5.1); Sodium 140 mmol/L (135-145); Total Bilirubin 0.8 mg/dl (0.2-1.3); Total Protein 5.9 g/dl (6.3-8.2); eGFR 10.32
[2024-12-26] MEDS: HEPARIN 5000 UNITS SC ×3 (09:14→21:27)
--- NOTE | 2024-12-26 10:08 | W.PN.HOSP.TC ---
Today's Communication/Plan
-
for OR today
monitor renal function
continue other care
Assessment / Plan
Assessment / Plan
CT abdomen pelvis without IV or oral contrast
1. Some right renal atrophy and mild right renal and at least proximal right ureteral dilatation. Cannot exclude right-sided obstructive uropathy.
2. Suspected large heterogeneous predominantly low-attenuation mass measuring 30 cm in greatest dimension within the abdomen midline into the left, most likely extending from the left true pelvis.
Most likely differential diagnostic possibility would be an ovarian mass such as a cyst adenocarcinoma or cystadenoma. Other masses cannot be excluded, particularly in light of size. MRI suggested for more complete
evaluation.
3 . Moderate volume ascites with possible omental stranding/carcinomatosis.
4. . Small volume retroperitoneal lymph nodes and possible small volume pelvic lymph nodes.

1. Ovarian mass with presumed mets
- CT a/p report as above
- MRI a/p could not able to visualize abd organs appropriately due to limited study
- Dr Kaufman is planning to take patient to OR today
2. Acute renal failure
Obstructive uropathy
- cr continues to trend upward.
- Not on nephrotoxic medication. no contrast exposure.
- CT a/p showing concern of right sided obstructive uropathy
- patient is planned to get simultaneous b/l ureteral stents today
- Nephrology and urology following an help appreciated.
3. Moderate volume ascites possible omental stranding/carcinomatosis
- s/p para 4/9 with 5900cc removal; f/u final cytology report
4. Prediabetes
- A1c 5.8, continue monitoring.
5. Diarrhea likely secondary to possible doxycycline
- improved after discontinuation of doxycycline
6. GERD
- Continue Prilosec OTC as needed Tums
7. Class III obesity�BMI 57.7 kg
-Affects all aspects of care
-Given current above situation would hold off on weight loss until plan for above possible cancer diagnosis
8. Abdominal diffuse scar
- have diffuse pinpoint superficial wound/rash? in different stages of healing
- question of bug/mite but distribution on one side of flank and no other skin area involved, makes it less likely
DVT prophylaxis -Subcu heparin
Full code
Anticipated Discharge: > 48 hours
Subjective/Interval History
-
Date of Service: December 26, 2024
denies having any abd pain/nausea/vomiting
no other reported problems
Objective Data
-
Labs:
Laboratory Results
12/26/24
07:18
WBC 12.4 H
Hgb 12.5
Hct 38.7
Plt Count 432 H
Sodium 140
Potassium 4.1
Chloride 107
Carbon Dioxide 23
BUN 37 H
Creatinine 4.8 H*
Glucose 97
Calcium 9.2
Total Bilirubin 0.8
AST 20
ALT 12
Alkaline Phosphatase 75
Vital Signs:
Vital Signs
Temp Pulse Resp BP Pulse Ox
98.6 F 87 18 154/79 98
12/26/24 07:27 12/26/24 07:27 12/26/24 07:27 12/26/24 07:27 12/26/24 07:27
I&O
12/25/24 12/26/24 12/27/24
06:59 06:59 06:59
Intake Total 1250 / 1250 1200 / 1200
Balance 1250 / 1250 1200 / 1200
Review of Systems
-
Respiratory: Reports No Symptoms
Cardiac: Reports No Symptoms
Abdomen/GI: Reports No Symptoms
Physical Exam
-
General: Morbidly Obese
HEENT: Negative Oxygen
Respiratory: Clear to Auscultation
Cardiac: Regular Rhythm and S1/S2; Negative Murmur
GI: Soft, Distended and Other (Right flank pinpoint scar)
Neuro: Awake, Alert, Oriented and No Motor Deficits
--- NOTE | 2024-12-26 11:48 | CM ---
Reviewed the chart notes and spoke with the patient and her parents at the bedside. The patient anticipates going to the OR today for removal of a 30 cm pelvic mass. CM continues to be available to patient/family and is monitoring medical plan
for needs at discharge.
Plan: Discharge plans will depend on the patient's progress after surgery.
--- NOTE | 2024-12-26 12:07 | W.PN.NEPH.PH ---
Today's Communication / Plan
-
Bilateral ureteral stent pending
Assessment/Plan
-
Assessment
DIMITRI
Advanced right and mild to moderate left hydronephrosis
Recent NSAID use
Nausea vomiting diarrhea
Carcinomatosis
s/p paracentesis 4/9- 5.9lit
Large ascites
30 cm abdominal mass
Reflux
CA125 elevated
Plan:
IVF today
encourage po
follow BMP
OR today pending
Bilateral stents ureteral pre-[place] surgery
Creatinine continues to increase with hopes of decompression with stent ultimately may need a percutaneous nephrostomy
-
-
Date of Service: December 26, 2024
CC / HPI / ROS
-
Chief Complaint:
DIMITRI
History of Present Illness:
DIMITRI/Cr up to 3.1
non oliguric
s/p paracentesis 5.9L 4/9
BP stable
Review of Systems:
burning sensation when eating, but able to eat
Drinking plenty of water
no cp or sob
Labs
-
Labs:
WBC 12.4 10^3/uL (4.8-10.8) H 12/26/24 07:18
RBC 4.95 10^6/uL (4.20-5.40) 12/26/24 07:18
Hgb 12.5 g/dL (12.0-16.0) 12/26/24 07:18
Hct 38.7 % (37.0-47.0) 12/26/24 07:18
Plt Count 432 10^3/uL (130-400) H 12/26/24 07:18
Sodium 140 mmol/L (135-145) 12/26/24 07:18
Potassium 4.1 mmol/L (3.5-5.1) 12/26/24 07:18
Chloride 107 mmol/L (98-107) 12/26/24 07:18
Carbon Dioxide 23 mmol/L (22-30) 12/26/24 07:18
BUN 37 mg/dl (7-17) H 12/26/24 07:18
Creatinine 4.8 mg/dL (0.6-1.0) H* 12/26/24 07:18
eGFR 10.32 12/26/24 07:18
Glucose 97 mg/dl (70-99) 12/26/24 07:18
Calcium 9.2 mg/dl (8.4-10.2) 12/26/24 07:18
Albumin 3.5 g/dl (3.5-5.0) 12/26/24 07:18
Physical Exam
-
Vital Signs:
Vital Signs
Temp Pulse Resp BP Pulse Ox
98.6 F 87 18 154/79 98
12/26/24 07:27 12/26/24 07:27 12/26/24 07:27 12/26/24 07:27 12/26/24 07:27
Cardiovascular:: Regular rate and rhythm
Respiratory:: Bilateral: Coarse
Lung Excursion:: Normal
Abdomen:: Distended, Nontender and Soft
Bowel Sounds:: Normal
Extremity Edema:: None: Bilateral:
[2024-12-26] MEDS: NEURONTIN 600 MG PO (14:22)
[2024-12-26] MEDS: TYLENOL 1000 MG PO (14:22)
--- NOTE | 2024-12-26 14:38 | PTCARENOTE ---
Report given to Mabel in OR. Patient updated. Transport called. Refer to preop checklist.
--- NOTE | 2024-12-26 18:30 | W.IMMPOSTOP ---
Surgical Immed Post Op Note
-
Primary Surgeon: Miguel Kaufman
Assisting Surgeon: Ines Keen PA-C
Pre-op Diagnosis: Pelvic mass, ascites
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
Procedure Performed: Exploratory laparotomy, bilateral salpingo-oophorectomy, appendectomy, appendectomy resection of right and left pelvic peritoneum, right and left paracolic gutter, Pap smear, drainage of ascites
Anesthesia Type: General, endotracheal intubation
Specimen / Cultures:
Left ovary
Left ovarian vessels and fallopian tube
Right tube and ovary
Right and left pelvic peritoneum
Right and left paracolic gutters
Omentum
Small bowel mesentery implants
Appendix
Pap smear
Estimated Blood Loss: 300 cc
IV fluids: 500 cc colloid, 1500 cc crystalloid
Urine output: 450 cc
Complications: None
Operative Findings:
7000 cc ascites
Multiple tumor implants ranging from half to 2 cm and more involving right and left pelvis right and left paracolic gutters, mesentery of ileum as well as serosa and mesentery of sigmoid colon and appendix. Omentum with multiple tumor implants,
30 cm mass arising from left ovary, weight of the mass is 34 pounds
Right tube and ovary appears to be within normal limits
The uterus appears to have evidence of parametrial disease and disease in the posterior cul-de-sac obliterating the cul-de-sac and involving the anterior rectum, bimanual exam reveals the cervix to be high and it is difficult to examine her, the
cervix feels nodular and involved with the tumor
There are palpable enlarged pelvic lymph nodes
There are tumor implants involving the right diaphragm
--- NOTE | 2024-12-26 18:42 | OR.RPT ---
Operative Report
Operative Report
Date of procedure: 04/27/2025
Primary Surgeon: Miguel Kaufman
Assisting Surgeon: Ines Keen PA-C
Pre-op Diagnosis: Pelvic mass, ascites
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
Procedure Performed: Exploratory laparotomy, bilateral salpingo-oophorectomy, appendectomy, appendectomy resection of right and left pelvic peritoneum, right and left paracolic gutter, Pap smear, drainage of ascites
Additional procedures performed: Cystoscopy with retrograde ureteral double-J stent placement on the left, failed attempt at right ureteral stent placement by Dr. Nahum Castaneda
Anesthesia Type: General, endotracheal intubation
Specimen / Cultures:
Left ovary
Left ovarian vessels and fallopian tube
Right tube and ovary
Right and left pelvic peritoneum
Right and left paracolic gutters
Omentum
Small bowel mesentery implants
Appendix
Pap smear
Estimated Blood Loss: 300 cc
IV fluids: 500 cc colloid, 1500 cc crystalloid
Urine output: 450 cc
Complications: None
Operative Findings:
7000 cc ascites
Multiple tumor implants ranging from half to 2 cm and more involving right and left pelvis right and left paracolic gutters, mesentery of ileum as well as serosa and mesentery of sigmoid colon and appendix. Omentum with multiple tumor implants,
30 cm mass arising from left ovary, weight of the mass is 34 pounds
Right tube and ovary appears to be within normal limits
The uterus appears to have evidence of parametrial disease and disease in the posterior cul-de-sac obliterating the cul-de-sac and involving the anterior rectum, bimanual exam reveals the cervix to be high and it is difficult to examine her, the
cervix feels nodular and involved with the tumor
There are palpable enlarged pelvic lymph nodes
There are tumor implants involving the right diaphragm
Procedure in detail. This patient was brought to the operating room after she was properly identified and consented been signed in the preop area. She has been hospitalized for 1 week for DIMITRI and was noted to have 30 cm pelvic mass as well as
ascites, after drainage of ascites her DIMITRI improved and melodie creatinine was 1.8 however it began to rise again and on the day of surgery creatinine is 4-5 range. The patient has brought to the operating room almost in an urgent manner to relieve
the compartment syndrome in the abdomen. Upon arrival to the operating room she was placed in supine position she was placed in lithotomy position. She was placed under general anesthesia and intubated without any difficulty. Next she was prepped
in the perineum and vagina and Dr. Nahum Castaneda from urology performed cystoscopy and attempted placement of ureteral stents. Separate dictation will be made by him. Following this she was prepped on the abdomen, lower abdomen groins upper
thighs and as well as upper abdomen up to the chest. Geraldine hugger was placed. I am performed an exam under anesthesia and noted that there is nodularity involving the cervix a Pap smear of the cervix was performed, the upper vagina appears to be
somewhat constricted and there may be evidence of parametrial invasion. I turned my attention to the abdomen, timeout procedure was completed she had already received antibiotics. Midline vertical skin incision was made to gain entry into the
peritoneal cavity, we made a small peritoneal incision in the upper abdomen and drained the ascites, once this was drained we extended the incision and placed the Bookwalter retractor large mass 30 cm was arising from the left ovary. I went ahead
and gently elevated this mass in order to prevent avulsion of the vasculature. I placed 3 Zeppelin clamps under the mass in order to cut down on the blood supply and then used the vessel sealer to seal and divide between the clamps and the mass.
The mass was very carefully handed over to operating room staff and sent to pathology. It is definitely a neoplasm of mucinous nature, at the current time on frozen section best estimate is that consistent with a borderline tumor. Next we turned
our attention to the remainder of the abdomen and pelvis. I ligated the round ligament on both side of the pelvis and opened the retroperitoneum. There were palpable enlarged pelvic lymph nodes which were left intact. I went ahead and isolated
the IP ligament on both side of the pelvis. The course of the ureter was visualized on the right side and palpated on the left side where the stent was IP ligament was clamped sealed and divided with vessel sealer and tied off with 2-0 silk tie.
We were able to remove the remainder of the blood vessels on the left side as well as tube and ovary entirely on the right side and the attachments to the uterus were sealed and divided I did place a suture on the cornua of the uterus on the left
side to prevent it from any bleeding. There was fixation of the uterus in the posterior cul-de-sac with involvement of the sigmoid colon. Anteriorly there were small and large and areas of confluent tumor involving the peritoneum and right and
left pelvic peritoneum as well as anterior cul-de-sac was removed and submitted to pathology we also removed the peritoneum from right and left paracolic gutters again this was involving a lot of areas and these were removed and submitted to
pathology, next infracolic and gastrocolic omentectomy was performed. The omentum was initially from hepatic to splenic flexure of the colon, lesser sac was entered, series of short gastric vessels were sealed and divided along the
greater curvature of the stomach up to splenic gastric space and the entire omentum was submitted to pathology containing multiple tumor nodules. The spleen was without any evidence of disease and left diaphragm was normal, the liver capsule was
normal however there were tumor implants involving the right diaphragm which were left intact. I examined the bowel and noted terminal ileum mesentery has some tumor nodules these were biopsied and submitted to pathology the appendix was removed
because there was tumor implant involving the appendix and because the tumor was mucinous in nature. I went ahead and performed an appendectomy by firing a TX 30 stapler at the base of the appendix the mesoappendix was sealed and divided with the
vessel sealer appendix was transected with knife and submitted to pathology I did request Dr. Nithin Tejada from colorectal surgery to scrub and and he ran the colon with me and we determined that the patient has areas of diverticular disease
but then there is serosal disease involving anterior aspect of rectosigmoid and several areas of the sigmoid. There was no obstructing lesion and no concern for primary colon cancer. Following this I irrigated all operative sites.
Given the fact that this patient has an elevated creatinine and the surgery is being done in an urgent fashion I did not feel that removing the colon removing the uterus with parametrial dissection is in the best interest of the patient. It is my
judgment that the patient should undergo his staged procedure after receiving some chemotherapy in order to reduce the perioperative morbidity of the current procedure. With this in mind we proceeded to remove all laps and instruments. The fascia
was closed with 0 looped PDS starting from both ends coming to the center and they were tied to each other a total of 3 sutures were used. Subcutaneous tissue was made hemostatic and a running suture of 2-0 Monocryl was used to close the
subcutaneous tissue. Skin edges were reapproximated with gregory. Patient was awakened returned back to recovery room stable awake and extubated condition. Counts of laps instruments and needle was correct x 2. I was present and scrubbed for
entire procedure as dictated above
Disposition: To PACU with the expectation that the patient will be transferred to ICU
--- NOTE | 2024-12-26 18:44 | W.PN.UPDATE ---
Update Note
Progress Note Update
Patient had a complex procedure with removal of large ovarian mass ~ 35lb size.
Remains in renal failure, right sided ureteral stent was not able to be placed intraop by urology. will need IRAD help for right sided nephrostomy tube placement
Will need closer monitoring in ICU due to complexity of her case, discussed with primary surgeon Dr Kaufman
Conference Translator updated over TT, transfer order for ICU has been ordered.
[2024-12-26] MEDS: APRESOLINE 5 MG IV (19:25)
[2024-12-26 19:47] LABS: Hematocrit 38.4 % (37.0-47.0); Hemoglobin 12.3 g/dL (12.0-16.0); Mean Corpuscular Hgb 24.9 pg (27.0-31.0); Mean Corpuscular Volume 77.7 fL (81.0-99.0); Mean Platelet Volume 9.2 fL (7.4-10.4); Platelet Count 393 10^3/uL (130-400); Red Blood Cell Count 4.94 10^6/uL (4.20-5.40); Red Cell Dist. Width 17.8 % (11.5-14.5); White Blood Cell Count 15.5 10^3/uL (4.8-10.8)
[2024-12-26 20:02] LABS: Blood Urea Nitrogen 36 mg/dl (7-17); Calcium 8.1 mg/dl (8.4-10.2); Carbon Dioxide 19 mmol/L (22-30); Chloride 106 mmol/L (98-107); Estimated Creatinine Clearance 18 ml/min; Glucose 136 mg/dl (70-99); Magnesium 2.4 mg/dl (1.6-2.3); Potassium 4.1 mmol/L (3.5-5.1); Sodium 138 mmol/L (135-145); eGFR 10.32
[2024-12-26 21:03] LABS: PT 14.5 Sec (11.4-14.6)
[2024-12-26 21:04] LABS: APTT 32.5 Sec (23.4-35.0)
[2024-12-26] MEDS: MELATONIN PO ×2 (21:27→21:29)
[2024-12-26] MEDS: DILAUDID 1 MG IV (21:27)
--- NOTE | 2024-12-26 22:20 | PTCARENOTE ---
Received patient AAOx3, following commands, reporting 8/10 pain in abdomen, dilaudid given. NS/ST 90s-100, hypertensive 140s-160s/80s-100s, MOLECULAR PHYSICIST aware. Normothermic, +2 b/l LE edema. SCDs on. On 3 liters nasal cannula, saturating 95%, lung sounds
diminished throughout. Right nare [place] sump at 75 cm to LIWS. Abdomen soft, round, obese, tender, hypoactive bowel sounds. Mahoney in place draining yellow urine. Midline abdominal incision with gregory, silver mepilex on top CDI. Scabs throughout
extremities and abdomen. PIVs patent, WNL, NSS ongoing per order. Call eng within reach.
[2024-12-27] VITALS (19 sets, daily range): BP systolic 130–161; BP diastolic 76–106; BMI 44.8
--- NOTE | 2024-12-27 00:56 | PTCARENOTE ---
Patient assessment unchanged from previous, sleeping comfortably. Call eng within reach.
[2024-12-27] MEDS: DILAUDID 0.5 MG IV ×4 (02:20→15:40)
[2024-12-27] MEDS: NSS 1000 IV (03:40)
[2024-12-27 04:08] LABS: % Basophils 0.2 % (0-2); % Immature Granulocytes 0.5 % (0-0.5); % Lymphocytes 5.9 % (20.5-51.1); % Monocytes 4.5 % (1.7-9.3); % Neutrophils 88.9 % (42.2-75.2); Absolute Immature Granulocytes 0.1 10^3/uL (0-0.05); Absolute Lymphocytes 0.7 10^3/uL (1.2-3.4); Absolute Monocytes 0.6 10^3/uL (0.1-0.6); Absolute Neutrophils 10.8 10^3/uL (1.4-6.5); Hematocrit 31.4 % (37.0-47.0); Mean Corp Hgb Conc. 31.8 g/dL (33.0-37.0); Mean Corpuscular Hgb 24.6 pg (27.0-31.0); Mean Corpuscular Volume 77.1 fL (81.0-99.0); Mean Platelet Volume 9.4 fL (7.4-10.4); Nucleated Red Blood Cells % 0 %; Platelet Count 375 10^3/uL (130-400); Red Blood Cell Count 4.07 10^6/uL (4.20-5.40); Red Cell Dist. Width 17.6 % (11.5-14.5); White Blood Cell Count 12.2 10^3/uL (4.8-10.8)
--- NOTE | 2024-12-27 04:13 | PTCARENOTE ---
Patient assessment unchanged from previous, labs sent, call eng within reach.
[2024-12-27 04:35] LABS: Blood Urea Nitrogen 30 mg/dl (7-17); Calcium 6.4 mg/dl (8.4-10.2); Carbon Dioxide 14 mmol/L (22-30); Chloride 117 mmol/L (98-107); Estimated Creatinine Clearance 22 ml/min; Glucose 86 mg/dl (70-99); Potassium 3.5 mmol/L (3.5-5.1); Sodium 142 mmol/L (135-145); eGFR 15.61
[2024-12-27] MEDS: SODIUM BICARBONATE 1150 MEQ IV (05:16)
[2024-12-27] MEDS: CALCIUM GLUCONATE 290 MG IV (05:19)
--- NOTE | 2024-12-27 05:25 | W.PN.GYNONC ---
Today's Communication
-
N/A
Impression / Plan
-
POD1
1. Pelvic Mass
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
2. Pulm
on O2, doing well,
encourage Incentive spirometer
3. Car
Tachy, regular
4. GI:
NPO, Keep NGT x 24, plan to dc tomorrow
protonix
5. Renal
Cr is better from 4.8 to 3.4, good UO, non oliguric
continue IV fluids
s/p left ureteral stent
needs right PCN, ask IR to place maybe tomorrow
keep flowers in place x another 24 hours for close monitring of UO
6. DVT prophylaxis: high risk, heparin 5000 BID and SCD
7. Code status: full
Miguel Kaufman MD
Director Radio Oncology
Subjective / Interval History
-
POD 1 Exp lap, BSO, Omentectomy, Appy , multiple peritoneal resections, suboptimal tumor debulking
she is feeling better , less distended, has incisional pain, slept on and off
Objective Data
-
Lab Results:
12/27/24 03:55
12/27/24 03:55
Physical Exam
Vital Signs / I&O
Vitals
Temp Pulse Resp BP Pulse Ox
98.2 F 108 22 150/92 92
12/27/24 04:13 12/27/24 04:45 12/27/24 04:45 12/27/24 03:00 12/27/24 04:45
I&O
12/24/24 12/25/24 12/26/24 12/27/24
06:59 06:59 06:59 06:59
Intake Total 1290 / 1290 1250 / 1250 1200 / 1200 1989 / 1989
Output Total 2600 / 2600
Balance 1290 / 1290 1250 / 1250 1200 / 1200 -610 / -610
Physical Exam
lungs: CTA, decreased BS both bases
Car Tachy, regular
Abd: soft, incision with a few spots of bloody discharge
Ext, no edema
--- NOTE | 2024-12-27 08:16 | CON.INTV ---
Consultation
Consultation Request
Date/Time Consultation Requested: 12/26/2024 - 1845
Date/Time Consultation Performed: 12/27/2024 - 811
Requesting Provider: Dr. Ramirez
Performing Provider: Dr. Waldrop
Reason for Consultation: post op abd surgery
Medical History
-
Chief Complaint: Nausea/vomiting/diarrhea + heartburn
History of Present Illness:
54-year-old morbidly obese female former tobacco smoker with a past medical history of lumbar radiculopathy, GERD and rosacea who presents with nausea/vomiting/diarrhea for 2 days as well as worsening abdominal distention for the past several
months. She was having irregular periods with her menses lasting from 1-10 days and she has had 1 month where she had no menses at all. Initial labs showed DIMITRI with creatinine 3.8, and CT abdomen/pelvis from 12/20 showed a pelvic mass suspected to
be a cystadenoma versus cystadenocarcinoma, with moderate volume ascites with possible omental stranding/carcinomatosis with right renal atrophy and mild right renal and at least proximal right ureteral dilatation. ER gave her PPI, Zofran, Pepcid
and IVF with LR x 1L, and she was admitted to [facility] for further care with nephrology and urology consulted. Admissions Advisor-Onc was consulted - pelvic MRI was performed showing a pelvic mass which was immediately adjacent and contiguous with the ventral
margin of the left ovary, + moderate ascites and advanced right and mild�moderate left hydronephrosis. Pelvic/transvaginal ultrasound on 12/20 further confirmed a primary ovarian neoplasm. CT chest also 09/21 showed no evidence of metastatic disease
in the chest. She underwent a paracentesis on 12/21 removing 5900 cc with cytopathology confirming malignant carcinoma favoring m�llerian primary. CA125 was checked which was elevated at 137; CEA also was elevated at 84; beta-hCG, FSH, TSH and CEA
were all WNL. Her creatinine started to improve after her paracentesis. Gynecology/oncology discussed performing an ex lap with other intra-abdominal interventions and the patient agreed to this. On 12/26, patient first underwent a cystoscopy with
left ureteral double-J stent insertion, however the right ureteral stent was unable to be intervened upon due to resistance while the Glidewire was being advanced. Patient then went to the OR with Dr. Kaufman also on 12/26, and underwent a ex lap
with bilateral salpingo-oophorectomy, appendectomy, resection of right and left pelvic peritoneum, right and left paracolic gutters, Pap smear and drainage of 7000 cc of ascites. The left ovary with its 30 cm mass which weight 34 pounds was
removed. Other intraoperative findings showed multiple tumor implants in the right and left pelvis/paracolic gutters, mesentery of the ileum as well as serosa and mesentery of the sigmoid colon and appendix, also multiple tumor implants on the
omentum. There was parametrial disease in the uterus with obliteration of the cul-de-sac, the cervix appeared nodular and involved with tumor, there was palpable enlarged pelvic lymph nodes and there were tumor implants involving the right
diaphragm. EBL was 300 cc, there was no immediate complications. Postoperatively patient was transferred to the ICU overnight for closer monitoring and Malware Analyst services were consulted for additional management/recommendations.
When I saw the patient this morning, she was in good spirits, in no acute distress, with some mild abdominal discomfort. Heart rate 107, BP 153/92 and saturating 97% on 1.5 L/min nasal cannula. NGT was on low intermittent wall suction. She is
aware of the intraoperative findings from the ex-lap yesterday. She currently denies chest pain, SOB, GUERRA, nausea, fevers or chills.
PMHx: Lumbar radiculopathy, rosacea, morbid obesity, GERD, former tobacco smoker, THC use
PSHx: Non-contributory
Past Medical History
Past Medical History: Other (Above as per HPI)
Past Surgical History: Other (Above as per HPI)
Social History
Tobacco: Former Smoker
Alcohol: Occasional (Rarely)
Drug: Marijuana
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
Family History
Family History: Cancer (Mother: Breast cancer), Diabetes (Father), Hypertension (Mother) and Other (Mother: CAD with history of stent)
Allergies / Home Medications
Allergies
Allergy/AdvReac Type Severity Reaction Status Date / Time
No Known Allergies Allergy Unverified 12/20/24 11:54
Home Medications
�Medication �Instructions �Recorded �Confirmed �Last Taken �Type
cholecalciferol (vitamin D3) 25 25 mcg PO DAILY Supplement 12/20/24 12/20/24 12/16/24 History
mcg (1,000 unit) tablet (Vitamin
D3)
doxycycline hyclate 60 mg 60 mg PO DAILY Infection 12/20/24 12/20/24 12/16/24 History
tablet,delayed release
omega-3 fatty acids-fish oil 684 1 cap PO DAILY Supplement 12/20/24 12/20/24 12/16/24 History
mg-1,200 mg capsule,delayed release
omeprazole magnesium 20 mg 20 mg PO DAILY GERD 12/20/24 12/20/24 12/20/24 History
tablet,delayed release (Prilosec
OTC)
vitamin B complex 1 tab PO DAILY Supplement 12/20/24 12/20/24 12/16/24 History
Review of Systems
-
History Source: Patient
All other systems: Negative unless noted
Vitals / Labs / Diagnostic Testing
Vital Signs
Temp Pulse Resp BP Pulse Ox
97.9 F 107 16 151/106 97
12/27/24 07:39 12/27/24 08:00 12/27/24 08:00 12/27/24 07:14 12/27/24 08:00
Lab Data
12/27/24 03:55
12/27/24 03:55
Laboratory Results
12/26/24
20:44
PT 14.5
INR 1.10
APTT 32.5
Microbiology
12/21/24 08:47 Peritoneal Fluid Body Fluid Culture - Final
No Growth After 72 Hours
04/09/25 08:47 Peritoneal Fluid Gram Stain - Final
Diagnostic Testing:
Physical Exam
-
HEENT: Normocephalic, Anicteric and Other (Thick neck)
Cardiovascular: S1/S2 and Peripheral Edema (+2 lower extremity pitting edema bilaterally)
Respiratory: Wheeze (negative), Rales (negative), Rhonchi (negative) and Non-Labored Respirations
GI: Soft, Distended (Abdominal obesity), Non Tender, Normal Bowel Sounds and Other (NGT in right nare on LIWS)
Neurology: AO x 3 and Tremors (negative)
Skin: Warm and Dry
General: Respiratory Distress (negative), Comfortable, Fever (negative) and Chills (negative)
Assessment
-
Assessment: 54-year-old morbidly obese female former tobacco smoker with a PMHx of lumbar radiculopathy, GERD and rosacea who presents with nausea/vomiting/diarrhea for 2 days as well as worsening abdominal distention for the past several months.
She was found to have an DIMITRI as well as a pelvic mass with suspected cystadenoma versus cystadenocarcinoma with moderate ascites and omental stranding/carcinomatosis. She was admitted to [facility] for further care with nephrology and urology
consulted. Admissions Advisor-Onc also consulted, and additional imaging further confirmed a pelvic mass with suspected left ovarian origin. Due to bilateral ureteral obstruction, she underwent a left ureteral double-J stent insertion on 12/26, then went to the
OR for an ex lap with BSO, appendectomy, right and left pelvic peritoneum resection, right and left paracolic gutter resection, Pap smear + drainage of ascites (7 L). Postoperatively she was transferred to the ICU for closer monitoring, and
Malware Analyst services consulted for additional management/recommendations.
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
Impression:
#Left ovarian pelvic mass s/p ex lap with BSO, appendectomy, right and left pelvic peritoneum resection, right and left paracolic gutter resection, Pap smear + drainage of ascites (7 L) - POD#1
#Bilateral ureteral obstruction due to pelvic malignancy s/p left ureteral double-J stent insertion - POD#1
#DIMITRI with metabolic acidosis with preserved anion gap
#Malignant ascites due to left ovarian tumor with suspected m�llerian primary
#Morbid obesity (BMI: 44.7)
#Leukocytosis
#Anemia
#Former tobacco smoker
#GERD
#Rosacea on chronic doxycycline
#Lumbar radiculopathy
Plan:
- Patient went to the OR yesterday and first underwent left ureteral double-J stent insertion by urology, and unfortunately failed attempt at the right ureteral stent placement due to Glidewire resistance during advancement; then went to the OR for
an ex-lap with BSO, appendectomy, resection of the right and left pelvic peritoneum, resection of right and left paracolic gutters, Pap smear and drainage of ascites with 7 L removed; the left ovary was removed with a 30 cm mass that weighed 34
pounds, and there were multiple tumor implants along the omentum, mesentery of the ileum, serosa and mesentery of the sigmoid colon and appendix, the right and left pelvis/paracolic gutters; also tumor along the cervix and there were tumor implants
involving the right diaphragm
- Follow-up official pathology from the OR
- Keep NPO for now, and NGT is to LIWS
- Pain control
- Admissions Advisor-Onc recs appreciated
- Maintain SpO2 >90-94%
- Wean down supplemental O2 as tolerated while keeping SpO2 as above
- prn nebulized bronchodilators - not currently bronchospastic
- Incentive spirometer encouraged 10x per hour for at least 4 hrs a day
- Continue to monitor UOP
- She is pending right nephrostomy tube insertion
- She is s/p left JJ-stent insertion by urology on 12/26
- Continue IVF
- Maintain MAP>65
- Replete electrolytes with K>4, Mg>2
- Trend WBC
- She is non-toxic appearing; continue to observe off ABx
- Monitor for fevers
- Of note, recent paracentesis peritoneal fluid culture shows NGTD, and urine culture from 12/21/2024 also shows NGTD
- Maintain euglycemia with goal BG 140-180
- Trend H/H and transfuse if needed to keep Hb>7g/dL; keep plt>50k (given her post-operative status)
- PPI (home med)
- DVT ppx: HSQ - raise to q8hr
Patient is stable for downgrade out of ICU to IMU. No additional recommendations at this time. Malware Analyst/Pulmonary service will now sign off. Thank you for allowing us to be involved in the care of this patient. Please reconsult if there are
any additional questions/concerns, or if patient's respiratory status deteriorates.
Total time spent today was 59 minutes for this encounter. Time includes reviewing laboratory test/imaging results, reviewing pertinent medical records, obtaining and reviewing medical history, performing an appropriate exam, ordering medications,
tests and procedures. Time also includes documentation of this encounter, coordinating patient care and communicating with other healthcare professionals. Total time does not include separately billed tests performed on this date of service.
Data:
CT abdomen/pelvis without contrast 12/20/2024:
Markedly limited evaluation of the soft tissues of the abdomen and pelvis in light of lack of intravenous contrast, lack of oral contrast and marked paucity of intra-abdominal/pelvic fat.
Suspected large heterogeneous predominantly low-attenuation mass measuring 30 cm in greatest dimension within the abdomen midline into the left, most likely extending from the left true pelvis. Most likely differential diagnostic possibility would
be an ovarian mass such as a cyst adenocarcinoma or cystadenoma. Other masses cannot be excluded, particularly in light of size. MRI suggested for more complete evaluation.
Moderate volume ascites with possible omental stranding/carcinomatosis.
Small volume retroperitoneal lymph nodes and possible small volume pelvic lymph nodes.
Some right renal atrophy and mild right renal and at least proximal right ureteral dilatation. Cannot exclude right-sided obstructive uropathy.
Pelvic MRI 12/20/2024:
Extremely limited examination. Advanced image degradation secondary to standing wave artifact as result of the combination of large patient body habitus, ascites, and large abdominal-pelvic mass is demonstrated on CT examination.
The examination is essentially nondiagnostic for evaluation of the mass identified on earlier CT examination.
Right ovary is best seen on post IV contrast fat-suppressed axial T1 (image 28 series 1101) measuring 2.7 x 2 cm. Areas, the left ovary is also identified measuring 3.2 x 1.9 cm (image 36). The margin of the dominant mass is immediately adjacent to
and contiguous with the ventral margin of the left ovary. There appears to be a defined tissue plane between the left ovary and the mass, though an exophytic ovarian lesion would be difficult to exclude with certainty.
Moderate ascites.
Advanced right and mild to moderate left hydronephrosis.
The liver is top normal in size. The spleen is normal in size. As far as visualized, no intrahepatic space-occupying lesion. No apparent adrenal mass.
[2024-12-27] MEDS: HEPARIN 5000 UNITS SC ×3 (08:19→23:17)
--- NOTE | 2024-12-27 08:28 | W.PN.URO.CBU ---
Today's Communication / Plan
-
IRad to attempt Right PCN
will sign off
Assessment / Plan
-
pelvic malignancy with massive ascites
Renal Insufficiency
Left kidney/ureter -- now stented
Right kidney/ureter: obstructed; failed ureteral stenting
Diagnosis
-
Date of Service: December 27, 2024
-
Patient Diagnosis:
pelvic malignancy with massive ascites
Renal Insufficiency
Left kidney/ureter -- now stented
Right kidney/ureter: obstructed
Post Op Day:
1 s/p Left Ureteral Stenting; failed right ureteral stenting
Objective
-
Vital Signs
Temp Pulse Resp BP Pulse Ox
97.9 F 107 16 151/106 97
12/27/24 07:39 12/27/24 08:00 12/27/24 08:00 12/27/24 07:14 12/27/24 08:00
Intake and Output
12/26/24 12/27/24 12/28/24
06:59 06:59 06:59
Intake Total 1200 / 1200 2090 / 2190 200 / 200
Output Total 2800 / 3000 400 / 400
Balance 1200 / 1200 -710 / -810 -200 / -200
Intake:
Oral fluids 1200 / 1200 0 / 0
IV fluids (Total) 1800 / 1900 200 / 200
Normosal 600 / 600
Nss 1,000 ml @ 125 mls/hr IV . 1000 / 1000
Q8H VÍCTOR Rx#:[id number]
Sterile Water For Injection 200 / 300 200 / 200
1000 ml 1,000 ml @ 100 mls/hr
IV .A18T38H VÍCTOR with Sodium
Bicarbonate 150 Meq Rx#:
[id number]
IV piggybacks 290 / 290
Amount instilled into GI Tube ( 0 / 0
Total)
[place] Sump 0 / 0
Output:
Gastrointestinal tube output ( 0 / 0
Total)
[place] Sump 0 / 0
Urine, Mahoney 2800 / 3000 400 / 400
Other:
Number of approximated SMALL 2
amounts of urine
Number of approximated MODERATE 2 1
amounts of urine
Laboratory Results
12/27/24 03:55
12/27/24 03:55
Physical Exam
-
General - well developed, well nourished, no acute distress
Chest - clear bilaterally
Abdomen - soft, non-tender, positive bowel sounds, no CVAT, no incisional pain or distention
Genitalia - normal
Rectal - normal
Skin - warm & dry with no rash
Neuro - AOx3, no motor deficits
Extremities - no clubbing, no cyanosis, no edema
Incision - clean, dry
Dressing - clean, dry, intact
[2024-12-27] MEDS: DESENEX/MITRAZOL/ZEASORB TOPICAL ×2 (08:42→21:04)
[2024-12-27] MEDS: PROTONIX PO (08:44)
--- NOTE | 2024-12-27 09:34 | W.PN.HOSP.TC ---
Addendum entered and electronically signed by Kyrie Ramirez MD 12/27/24 09:51:
Acute blood loss anemia from surg
- monitor hbg level
- check iron panel
Original Note:
Today's Communication/Plan
-
see note
downgrade to imu
Assessment / Plan
Assessment / Plan
CT abdomen pelvis without IV or oral contrast
1. Some right renal atrophy and mild right renal and at least proximal right ureteral dilatation. Cannot exclude right-sided obstructive uropathy.
2. Suspected large heterogeneous predominantly low-attenuation mass measuring 30 cm in greatest dimension within the abdomen midline into the left, most likely extending from the left true pelvis.
Most likely differential diagnostic possibility would be an ovarian mass such as a cyst adenocarcinoma or cystadenoma. Other masses cannot be excluded, particularly in light of size. MRI suggested for more complete
evaluation.
3 . Moderate volume ascites with possible omental stranding/carcinomatosis.
4. . Small volume retroperitoneal lymph nodes and possible small volume pelvic lymph nodes.

1. Ovarian cancer
Malignant effusion
Postoperative ileus
- CT a/p report as above
- MRI a/p could not able to visualize abd organs appropriately due to limited study
- Diagnostic paracentesis from last week showing malignant cells of m�llerian origin
- Patient underwent resection of ovarian mass of ~ 35lb, was planned to have abdominal hysterectomy but not able to be done due to carcinomatosis
- Patient has some postoperative ileus, NG tube in place, await for bowel function recovery
- NG tube is in place, management per surgery
2. Acute renal failure
Obstructive uropathy
- cr continues to trend upward.
- Not on nephrotoxic medication. no contrast exposure.
- CT a/p showing concern of right sided obstructive uropathy
- Patient was able to successfully get left ureteral stent, unable to get right sided ureteral stent, [facility] has been consulted for percutaneous nephrostomy tube placement
- Renal function is improving
3. Moderate volume ascites possible omental stranding/carcinomatosis
- s/p para 4/9 with 5900cc removal ; cytology report showing malignant effusion
4. Metabolic acidosis
- Currently on bicarb drip
- Repeat BMP in afternoon
- Check LA level, vitally stable
4. Prediabetes
- A1c 5.8, continue monitoring.
5. Diarrhea likely secondary to possible doxycycline
- improved after discontinuation of doxycycline
6. GERD
- Continue Prilosec OTC as needed Tums
7. Class III obesity�BMI 57.7 kg
-Affects all aspects of care
-Given current above situation would hold off on weight loss until plan for above possible cancer diagnosis
8. Abdominal diffuse scar
- have diffuse pinpoint superficial wound/rash? in different stages of healing
- question of bug/mite but distribution on one side of flank and no other skin area involved, makes it less likely
DVT prophylaxis -Subcu heparin
Full code
Total critical care time 38 mins . Total critical care time documented does not include time spent on separately billed procedures or the services of residents, students, nurses or physician assistants. I personally saw and examined the patient. I
have reviewed all diagnostic interpretations and treatment plans as written. I was present for the hoyt portions of any procedures performed and the inclusive time noted in any critical care statement. Critical care time includes patient management
by me, time spent at the patients bedside, time to review lab and imaging results, discussing patient care, documentation in the medical record, and time spent with the family or caregiver.
Anticipated Discharge: > 48 hours
Subjective/Interval History
-
Date of Service: December 27, 2024
Patient resting comfortably in bed
Having some abdominal discomfort, no nausea or vomiting
Not able to pass gas
NG tube in place
Vitally stable did not require any vasopressors
Oxygen through nasal cannula
Objective Data
-
Labs:
Laboratory Results
12/27/24 12/27/24
03:55 12:00
WBC 12.2 H
Hgb 10.0 L
Hct 31.4 L
Plt Count 375
Sodium 142 Pending
Potassium 3.5 Pending
Chloride 117 H Pending
Carbon Dioxide 14 L* Pending
BUN 30 H Pending
Creatinine 3.4 H Pending
Glucose 86 Pending
Calcium 6.4 L* D Pending
Vital Signs:
Vital Signs
Temp Pulse Resp BP Pulse Ox
97.9 F 107 16 151/106 97
12/27/24 07:39 12/27/24 08:00 12/27/24 08:00 12/27/24 07:14 12/27/24 08:00
I&O
12/26/24 12/27/24 12/28/24
06:59 06:59 06:59
Intake Total 1200 / 1200 2090 / 2190 200 / 200
Output Total 2800 / 3000 400 / 400
Balance 1200 / 1200 -710 / -810 -200 / -200
Review of Systems
-
Respiratory: Reports No Symptoms
Cardiac: Reports No Symptoms
Abdomen/GI: Reports Abdominal Pain; Denies Nausea or Vomiting
Physical Exam
-
General: No Apparent Distress and Comfortable
HEENT: Oxygen and Other (NGT in place)
Respiratory: Rhonchi
Cardiac: Regular Rhythm and S1/S2; Negative Murmur or Rub
GI: Soft, Tender and Other (Midline surgical scar); Negative Normal Bowel Sounds
Musculoskeletal: No Edema
Neuro: Awake, Alert, Oriented, No Motor Deficits and Nonfocal/Grossly Intact
Psych: Calm
--- NOTE | 2024-12-27 09:55 | PTCARENOTE ---
Received patient from night RN, Tristan3, following commands, reporting generalized pain in abdomen, prn dilaudid administered. VICTOR MANUEL Chacon in room, discussed plan for pain mgmt. NS/ST 90s-100, ongoing hypertension noted. Not meeting parameters for PRN
Hydralazine at this time. Afebrile, +trace LE edema, +PP< SCDs on. Rec'd pt with 3 liters nasal cannula, saturating 95%, lung sounds diminished throughout. Weaning 02 as tolerated-see flowsheet. Right nare [place] sump at 75 cm to LIWS. Abdomen soft,
round, obese, tender, +bowel sounds. Mahoney in place draining yellow urine, putting out approx 200 mls yellow blood tinged urine per hour. See flowsheet. Midline abdominal incision with gregory, silver mepilex on top CDI. Scabs throughout extremities
and abdomen. PIVs patent, WNL,IVF ongoing per order. Call eng within reach.
--- NOTE | 2024-12-27 09:59 | W.PN.NEPH.PH ---
Addendum entered and electronically signed by Quoc Izaguirre, 12/27/24 17:24:
correction to ROS. Pt NPO post op not drinking or eating
Original Note:
Today's Communication / Plan
-
IV fluid
Pending right PCN
Assessment/Plan
-
Assessment
DIMITRI
Advanced right and mild to moderate left hydronephrosis
Recent NSAID use
Nausea vomiting diarrhea
Carcinomatosis
s/p paracentesis 4/9- 5.9lit
Large ascites
30 cm abdominal mass
Reflux
CA125 elevated
Plan:
12/26 7000 cc ascites
Multiple tumor implants ranging from half to 2 cm and more involving right and left pelvis right and left paracolic gutters, mesentery of ileum as well as serosa and mesentery of sigmoid colon and appendix. Omentum with multiple tumor implants,
30 cm mass arising from left ovary, weight of the mass is 34 pounds
Left ureteral stent
Pending right nephrostomy tube
Creatinine improving
Continue IV fluid
Total Time Spent with Patient (in minutes): 35
-
-
Date of Service: December 27, 2024
CC / HPI / ROS
-
Chief Complaint:
DIMITRI
History of Present Illness:
DIMITRI/Cr improved
non oliguric
s/p paracentesis 5.9L 12/21 , 30 cm mass removed 12/26 and left ureteral stent
BP stable
Review of Systems:
burning sensation when eating, but able to eat
Drinking plenty of water
no cp or sob
Labs
-
Labs:
WBC 12.2 10^3/uL (4.8-10.8) H 12/27/24 03:55
RBC 4.07 10^6/uL (4.20-5.40) L 12/27/24 03:55
Hgb 10.0 g/dL (12.0-16.0) L 12/27/24 03:55
Hct 31.4 % (37.0-47.0) L 12/27/24 03:55
Plt Count 375 10^3/uL (130-400) 12/27/24 03:55
eGFR 15.61 12/27/24 03:55
Albumin 3.5 g/dl (3.5-5.0) 12/26/24 07:18
Physical Exam
-
Vital Signs:
Vital Signs
Temp Pulse Resp BP Pulse Ox
97.9 F 103 18 139/91 93
12/27/24 07:39 12/27/24 09:49 12/27/24 09:49 12/27/24 09:49 12/27/24 09:49
Cardiovascular:: Regular rate and rhythm
Respiratory:: Bilateral: Coarse
Lung Excursion:: Normal
Abdomen:: Distended, Nontender and Soft
Bowel Sounds:: Normal
Extremity Edema:: None: Bilateral:
Mahoney Catheter: Yes
[2024-12-27 10:33] LABS: Iron 27 ug/dl (37-170)
[2024-12-27 10:45] LABS: Percent Saturation 19 % (20-50); Total Iron Binding Capacity 140 ug/dl (265-497)
[2024-12-27 11:07] LABS: Ferritin 73.8 ng/ml (11.1-264.0)
[2024-12-27 12:24] LABS: Lactic Acid 0.9 mmol/L (0.7-2.0)
--- NOTE | 2024-12-27 12:27 | PTCARENOTE ---
Plan discussed with Drs. Kaufman, Benjie, and James...pt downgraded to IMU level. Per , plan is to remove flowers cath and NGT tomorrow -pt remains NPO at this time. Anxious to eat and drink. Family arrived at bedside to visit.
[2024-12-27 12:39] LABS: Blood Urea Nitrogen 36 mg/dl (7-17); Calcium 9.4 mg/dl (8.4-10.2); Carbon Dioxide 21 mmol/L (22-30); Chloride 107 mmol/L (98-107); Estimated Creatinine Clearance 16 ml/min; Glucose 86 mg/dl (70-99); Magnesium 2.2 mg/dl (1.6-2.3); Phosphorus 6.3 mg/dl (2.5-4.5); Potassium 4.2 mmol/L (3.5-5.1); Sodium 141 mmol/L (135-145); eGFR 10.86
[2024-12-27] MEDS: APRESOLINE 5 MG IV (13:19)
--- NOTE | 2024-12-27 16:12 | PTCARENOTE ---
Pt washed with CHG wipes and linens changed, back rubbed. No sign of any vaginal bleeding this shift. Pt provided frequent oral care with mouth moisturizer and swabs, hard candy, occ ice chips, pt very much looking forward to have a drink of water.
Pt reminded of NPO status at this time, hoping to have NGT removed in am as previously discussed. NGT canister emptied for 450 mls yellow liquid. Mahoney output still 75-150 ml/hr as documented on worklist, lab results noted. Pt resting comfortably
-reports good relief with Dilaudid PRN. (Per Dr. Kaufman, we cannot give NSAIDs with current kidney function at this time, so he instructed this RN to continue using PRN Dilaudid 0.5 mg dose for abdominal pain.) No further needs at this time. Call
eng in hand.
--- NOTE | 2024-12-27 16:59 | PTCARENOTE ---
Pain med regimen adjusted per attending, diet order amended as well. Pt ok for NPO with ice chips and oral meds, per Dr. Ramirez. Pt updated and verbalized appreciation.
[2024-12-27] MEDS: ALBUMIN 5% 250 IV ×2 (17:50→21:01)
[2024-12-27] MEDS: ROXICODONE 5 MG PO (20:59)
--- NOTE | 2024-12-27 21:50 | PTCARENOTE ---
Received patient AAOx3, following commands, reporting pain 5/10, roxicodone given. NS/ST 90s-100s, normothermic, BP 140s/80s. 94% on room air, lung sounds diminished in the bases. Abdomen soft, round, obese, positive bowel sounds. Midline incision
CDI, original post-op dressing. Mahoney in place draining yellow urine. PIVs patent, WNL. Scabs scattered throughout body. Call eng within reach, ice chips given.
[2024-12-28] VITALS (16 sets, daily range): BP systolic 90–170; BP diastolic 45–104; BMI 43.4
[2024-12-28 05:12] LABS: Hematocrit 31.8 % (37.0-47.0); Hemoglobin 10.4 g/dL (12.0-16.0); Mean Corp Hgb Conc. 32.7 g/dL (33.0-37.0); Mean Corpuscular Hgb 25.3 pg (27.0-31.0); Mean Corpuscular Volume 77.4 fL (81.0-99.0); Mean Platelet Volume 9.3 fL (7.4-10.4); Platelet Count 377 10^3/uL (130-400); Red Blood Cell Count 4.11 10^6/uL (4.20-5.40); Red Cell Dist. Width 17.9 % (11.5-14.5); White Blood Cell Count 12.3 10^3/uL (4.8-10.8)
[2024-12-28] MEDS: ROXICODONE 5 MG PO ×2 (05:18→11:20)
[2024-12-28 05:36] LABS: Blood Urea Nitrogen 37 mg/dl (7-17); Calcium 8.8 mg/dl (8.4-10.2); Carbon Dioxide 24 mmol/L (22-30); Chloride 106 mmol/L (98-107); Estimated Creatinine Clearance 21 ml/min; Glucose 86 mg/dl (70-99); Potassium 3.7 mmol/L (3.5-5.1); Sodium 143 mmol/L (135-145); eGFR 15.08
[2024-12-28] MEDS: PROTONIX 40 MG PO (07:37)
[2024-12-28] MEDS: HEPARIN 5000 UNITS SC ×3 (07:37→23:18)
[2024-12-28] MEDS: DESENEX/MITRAZOL/ZEASORB TOPICAL ×2 (07:38→19:32)
--- NOTE | 2024-12-28 08:01 | W.PN.GYNONC ---
Today's Communication
-
N/A
Impression / Plan
-
POD1
1. Pelvic Mass
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
2. Pulm
weaned off O2
encourage Incentive spirometer
3. Car
Tachy, regular
4. GI:
DC NGT
may have clear liquids
protonix
5. Renal
Cr is still 3.4
continue IV fluids
s/p left ureteral stent
needs right PCN, ask IR to place
may dc flowers
6. DVT prophylaxis: high risk, heparin 5000 BID and SCD
7. Code status: full
Miguel Kaufman MD
[facility]
Subjective / Interval History
-
POD2 BSO, Oment, Appy, tumor debulking
she is irritated by NGT
Objective Data
-
Lab Results:
12/28/24 05:00
12/28/24 05:00
Physical Exam
Vital Signs / I&O
Vitals
Temp Pulse Resp BP Pulse Ox
98.8 F 85 16 120/69 94
12/28/24 07:46 12/28/24 06:00 12/28/24 06:00 12/28/24 04:00 12/28/24 05:45
I&O
12/26/24 12/27/24 12/28/24 12/29/24
06:59 06:59 06:59 06:59
Intake Total 1200 / 1200 2090 / 2190 1770 / 1770
Output Total 2800 / 3000 4850 / 4850
Balance 1200 / 1200 -710 / -810 -3080 / -3080
Physical Exam
General: Well Developed and No Apparent Distress
Respiratory: Clear
Cardiac: S1/S2 and Regular Rhythm
Skin: Warm and Dry
Data Reviewed
-
Lab Data: Labs Reviewed
--- NOTE | 2024-12-28 08:19 | W.PN.HOSP.TC ---
Today's Communication/Plan
-
see note
for R nephrostomy tube today
NGT clamping and removal later today
f/u renal function
Assessment / Plan
Assessment / Plan
CT abdomen pelvis without IV or oral contrast
1. Some right renal atrophy and mild right renal and at least proximal right ureteral dilatation. Cannot exclude right-sided obstructive uropathy.
2. Suspected large heterogeneous predominantly low-attenuation mass measuring 30 cm in greatest dimension within the abdomen midline into the left, most likely extending from the left true pelvis.
Most likely differential diagnostic possibility would be an ovarian mass such as a cyst adenocarcinoma or cystadenoma. Other masses cannot be excluded, particularly in light of size. MRI suggested for more complete
evaluation.
3 . Moderate volume ascites with possible omental stranding/carcinomatosis.
4. . Small volume retroperitoneal lymph nodes and possible small volume pelvic lymph nodes.

1. Ovarian cancer
Malignant effusion
Postoperative ileus
- CT a/p report as above
- MRI a/p could not able to visualize abd organs appropriately due to limited study
- Diagnostic paracentesis from last week showing malignant cells of m�llerian origin
- Patient underwent resection of ovarian mass of ~ 35lb, was planned to have abdominal hysterectomy but not able to be done due to carcinomatosis
- NG tube to be clamped and removed later today. Trial of clear liquid diet after.
2. Acute renal failure
Obstructive uropathy
- cr continues to trend upward.
- Not on nephrotoxic medication. no contrast exposure.
- CT a/p showing concern of right sided obstructive uropathy
- Patient was able to successfully get left sided ureteral stent, unable to get right sided ureteral stent, [facility] has been consulted for percutaneous nephrostomy tube placement
- CA 19-9 CEA WNL, CA 125 137.
- given 500cc 12.5% alb dose yesterday for possibility of third spacing
- Discussed with interventional radiology and patient plan to get right-sided nephrostomy tube today
3. Moderate volume ascites possible omental stranding/carcinomatosis
- s/p para 4/9 with 5900cc removal ; cytology report showing malignant effusion
4. Metabolic acidosis - resolved
- required bicarb drip support
4. Prediabetes
- A1c 5.8, continue monitoring.
5. Diarrhea likely secondary to possible doxycycline
- improved after discontinuation of doxycycline
6. GERD
- Continue Prilosec OTC as needed Tums
7. Class III obesity�BMI 57.7 kg
-Affects all aspects of care
-Given current above situation would hold off on weight loss until plan for above possible cancer diagnosis
8. Abdominal diffuse scar
- have diffuse pinpoint superficial wound/rash? in different stages of healing
- question of bug/mite but distribution on one side of flank and no other skin area involved, makes it less likely
DVT prophylaxis -Subcu heparin
Full code
Total time spent : 52 mins
Anticipated Discharge: > 48 hours
Subjective/Interval History
-
Date of Service: December 28, 2024
Denies of having any excessive abdominal pain
No nausea or vomiting
NG tube in place which is currently clamped
Able to pass gas no bowel movement
Vitally stable
Afebrile overnight
Remains on oxygen through nasal cannula
Have indwelling Mahoney catheter
Objective Data
-
Labs:
Laboratory Results
12/28/24
05:00
WBC 12.3 H
Hgb 10.4 L
Hct 31.8 L
Plt Count 377
Sodium 143
Potassium 3.7
Chloride 106
Carbon Dioxide 24
BUN 37 H
Creatinine 3.5 H
Glucose 86
Calcium 8.8
Vital Signs:
Vital Signs
Temp Pulse Resp BP Pulse Ox
98.8 F 85 16 120/69 94
12/28/24 07:46 12/28/24 06:00 12/28/24 06:00 12/28/24 04:00 12/28/24 05:45
I&O
12/27/24 12/28/24 12/29/24
06:59 06:59 06:59
Intake Total 2090 / 2190 1770 / 1770
Output Total 2800 / 3000 4850 / 4850
Balance -710 / -810 -3080 / -3080
Review of Systems
-
Respiratory: Reports No Symptoms
Cardiac: Reports No Symptoms
Abdomen/GI: Denies Abdominal Pain or Nausea
Physical Exam
-
General: No Apparent Distress and Comfortable
HEENT: Oxygen and Other (NGT in place)
Respiratory: Rhonchi
Cardiac: Regular Rhythm and S1/S2; Negative Murmur or Rub
GI: Soft and Other (midline surgical scar and dressing in place); Negative Normal Bowel Sounds (slow bowel sounds)
Musculoskeletal: No Edema
Neuro: Awake, Alert, Oriented, No Motor Deficits and Nonfocal/Grossly Intact
Psych: Calm
--- NOTE | 2024-12-28 08:54 | PTCARENOTE ---
May clamp the NGT and d/c. Ok with Dr. Kaufman to pull flowers after IR places nephrostomy tube.
--- NOTE | 2024-12-28 09:59 | W.PN.NEPH.PH ---
Today's Communication / Plan
-
PCN
Assessment/Plan
-
Assessment
DIMITRI
Advanced right and mild to moderate left hydronephrosis
Recent NSAID use
Nausea vomiting diarrhea
Carcinomatosis
s/p paracentesis 4/9- 5.9lit
Large ascites
30 cm abdominal mass
Reflux
CA125 elevated
Plan:
12/26 7000 cc ascites
Multiple tumor implants ranging from half to 2 cm and more involving right and left pelvis right and left paracolic gutters, mesentery of ileum as well as serosa and mesentery of sigmoid colon and appendix. Omentum with multiple tumor implants,
30 cm mass arising from left ovary, weight of the mass is 34 pounds
Left ureteral stent
Pending right nephrostomy tube
Creatinine improving
Repeat labs this evening post decompression if significant output to adjust any fluid need
Total Time Spent with Patient (in minutes): 31
-
-
Date of Service: December 28, 2024
CC / HPI / ROS
-
Chief Complaint:
DIMITRI
History of Present Illness:
DIMITRI/Cr improved
non oliguric
s/p paracentesis 5.9L 12/21 , 30 cm mass removed 12/26 and left ureteral stent
BP stable
Review of Systems:
No chest pain or shortness of breath
Nonoliguric
Labs
-
Labs:
WBC 12.3 10^3/uL (4.8-10.8) H 12/28/24 05:00
RBC 4.11 10^6/uL (4.20-5.40) L 12/28/24 05:00
Hgb 10.4 g/dL (12.0-16.0) L 12/28/24 05:00
Hct 31.8 % (37.0-47.0) L 12/28/24 05:00
Plt Count 377 10^3/uL (130-400) 12/28/24 05:00
Sodium 143 mmol/L (135-145) 12/28/24 05:00
Potassium 3.7 mmol/L (3.5-5.1) 12/28/24 05:00
Chloride 106 mmol/L (98-107) 12/28/24 05:00
Carbon Dioxide 24 mmol/L (22-30) 12/28/24 05:00
BUN 37 mg/dl (7-17) H 12/28/24 05:00
Creatinine 3.5 mg/dL (0.6-1.0) H 12/28/24 05:00
eGFR 15.08 12/28/24 05:00
Glucose 86 mg/dl (70-99) 12/28/24 05:00
Calcium 8.8 mg/dl (8.4-10.2) 12/28/24 05:00
Phosphorus 6.3 mg/dl (2.5-4.5) H 12/27/24 11:58
Albumin 3.5 g/dl (3.5-5.0) 12/26/24 07:18
Physical Exam
-
Vital Signs:
Vital Signs
Temp Pulse Resp BP Pulse Ox
98.8 F 85 16 120/69 94
12/28/24 07:46 12/28/24 06:00 12/28/24 06:00 12/28/24 04:00 12/28/24 05:45
Cardiovascular:: Regular rate and rhythm
Respiratory:: Bilateral: CTA
Lung Excursion:: Normal
Abdomen:: Nontender and Soft
Bowel Sounds:: Normal
Extremity Edema:: None: Bilateral:
Mahoney Catheter: Yes
[2024-12-28] MEDS: TYLENOL 650 MG PO ×3 (11:20→23:17)
--- NOTE | 2024-12-28 11:44 | PTCARENOTE ---
Patient to go to [facility] around 1400. asked to keep NPO for PCN tube.
--- NOTE | 2024-12-28 12:10 | CM ---
CM following re: discharge planning.
Reviewed pt's chart, met with pt and pt's at bedside.
Pt is s/p paracentesis 5.9L 12/21 , 30 cm mass removed 12/26 and left ureteral stent. Per chart review, for R nephrostomy tube today. NGT clamping and removal later today.
Pt reports she lives with in a 2SH, no steps, has a walker and shower chair. Pt reports she has no children, has supportive . Pt reports she feels she will not need any after care VN services and if VN services recommended, she
prefers [facility].
D/C plan: home with anticipated no needs. to transport at discharge.
CM will follow with discharge plan updates as hospitalization progresses
--- NOTE | 2024-12-28 16:18 | W.PN.UPDATE ---
Update Note
Progress Note Update
- Pt brought to IR for R PCN placement. Pt had difficulty laying prone, performed initial US scanning in the left lateral decubitus position.
- We had a very difficult time locating the right kidney - it appears mild to moderately atrophic on the preceding CT. Did not feel comfortable attempting any percutaneous access.
- Cr has trended down today. I think patient will need repeat dedicated diagnostic imaging, either CT or US to better visualize the kidney and confirm if there is persistent hydro. R PCN placement will be very difficult given her habitus.
[2024-12-28] MEDS: ROXICODONE 10 MG PO ×2 (16:45→23:17)
--- NOTE | 2024-12-28 17:19 | PTCARENOTE ---
Notified Dr. Ramirez that patient was back from IR. They did not place PCN. There is some blood tinge to urine noted in urometer. Assisted patient in getting oob to chair. CHG bath performed. patient brushed her teeth. Ok for patient to order
clear liquid late lunch. Dr. Ramirez to touch base with urology regarding flowers.
[2024-12-29] VITALS (23 sets, daily range): BP systolic 94–137; BP diastolic 58–89; BMI 43.8
[2024-12-29 01:22] LABS: HPV, High Risk Detected; HPV, High Risk Source Cervical
[2024-12-29] MEDS: TYLENOL 650 MG PO ×3 (04:03→23:26)
[2024-12-29 04:27] LABS: Hematocrit 35.5 % (37.0-47.0); Hemoglobin 11.3 g/dL (12.0-16.0); Mean Corp Hgb Conc. 31.8 g/dL (33.0-37.0); Mean Corpuscular Hgb 24.9 pg (27.0-31.0); Mean Corpuscular Volume 78.4 fL (81.0-99.0); Platelet Count 379 10^3/uL (130-400); Red Blood Cell Count 4.53 10^6/uL (4.20-5.40); Red Cell Dist. Width 17.9 % (11.5-14.5)
[2024-12-29 04:54] LABS: Blood Urea Nitrogen 32 mg/dl (7-17); Calcium 8.5 mg/dl (8.4-10.2); Carbon Dioxide 33 mmol/L (22-30); Chloride 100 mmol/L (98-107); Estimated Creatinine Clearance 30 ml/min; Glucose 87 mg/dl (70-99); Potassium 3.2 mmol/L (3.5-5.1); Sodium 139 mmol/L (135-145); eGFR 23.71
--- NOTE | 2024-12-29 06:13 | W.PN.GYNONC ---
Today's Communication
-
N/A
Impression / Plan
-
POD1
1. Pelvic Mass
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
2. Pulm
encourage Incentive spirometer
3. Car
Tachy, regular
4. GI:
i will advance diet
protonix
5. Renal
Cr is still 2.5 improved
will keep the IV fluids going
IR was unable to place stent on right side
I reached out to Dr Castaneda in urology and asked if urology can consider another attempt at JJ stent placement now that pelvic mass has been removed
6. DVT prophylaxis: high risk, heparin 5000 BID and SCD
7. Code status: full
Miguel Kaufman MD
[facility]
Subjective / Interval History
-
POD 3
she looks better, sat in chair and pain has been less
passed flatus
Objective Data
-
Lab Results:
12/29/24 04:15
12/29/24 04:15
Physical Exam
Vital Signs / I&O
Vitals
Temp Pulse Resp BP Pulse Ox
97.7 F 99 16 112/68 96
12/29/24 03:51 12/28/24 17:56 12/28/24 17:56 12/29/24 00:00 12/28/24 21:13
I&O
12/26/24 12/27/24 12/28/24 12/29/24
06:59 06:59 06:59 06:59
Intake Total 1200 / 1200 2090 / 2190 1770 / 1820 650 / 650
Output Total 2800 / 3000 4850 / 4850 800 / 800
Balance 1200 / 1200 -710 / -810 -3080 / -3030 -150 / -150
Physical Exam
General: Well Developed and No Apparent Distress
Respiratory: Clear and Non Labored Respirations
Cardiac: S1/S2 and Regular Rhythm
GI: Soft, Normal Bowel Sounds and Other (midline incision is dry, with gregory)
Neuro: AO x 3 and No Motor Deficits
--- NOTE | 2024-12-29 06:34 | PTCARENOTE ---
Patient aaox3 throughout shift. Affect pleasant. Patient voided 1x last evening, 1x this am. Ambulatory in room with stand by assist. Midline abd incision tonny, c/d/i, no s/s of infection noted. Patient has been npo since midnight per Dr. Villalobos
order. Will continue to monitor patient closely.
[2024-12-29] MEDS: PROTONIX 40 MG PO (07:54)
[2024-12-29] MEDS: HEPARIN 5000 UNITS SC ×3 (07:54→23:26)
[2024-12-29] MEDS: DESENEX/MITRAZOL/ZEASORB TOPICAL ×2 (07:54→19:43)
--- NOTE | 2024-12-29 09:11 | PTCARENOTE ---
Patient ambulating in hallway. Independent in room. awaiting time for stent placement. patient to remain NPO per Dr. Villalobos.
[2024-12-29] MEDS: ROXICODONE 10 MG PO ×2 (09:50→18:22)
[2024-12-29] MEDS: KCL 20 MEQ PO (09:50)
--- NOTE | 2024-12-29 10:44 | W.PN.GYNONC ---
Today's Communication
-
-
Impression / Plan
-
POD3
1. Pelvic Mass
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
2. Pulm
encourage Incentive spirometer
3. Car
Tachy, regular
4. GI:
currrently NPO for urology procedure
5. Renal
Cr is still 2.5 improved
will keep the IV fluids going
IR was unable to place stent on right side- urology to try again to place stent
6. DVT prophylaxis: high risk, heparin 5000 BID and SCD
7. Code status: full
[facility] Kauf[facility]
Subjective / Interval History
-
POD3- she is feeling better without NG tube and flowers. She has been up and out of bed. IR unable to placed tube and urology planning to try to place stent for right kidney labs are improving
Objective Data
-
Lab Results:
12/29/24 04:15
12/29/24 04:15
Physical Exam
Vital Signs / I&O
Vitals
Temp Pulse Resp BP Pulse Ox
97.6 F 81 18 119/80 99
12/29/24 07:43 12/29/24 07:43 12/29/24 07:43 12/29/24 07:43 12/29/24 07:43
I&O
12/27/24 12/28/24 12/29/24 12/30/24
06:59 06:59 06:59 06:59
Intake Total 0 / 2190 1770 / 1820 650 / 650
Output Total 2800 / 3000 4850 / 4850 800 / 800
Balance -710 / -810 -3080 / -3030 -150 / -150
Physical Exam
VSS
abdomen- incision clean and dry dressing has been removed
Data Reviewed
-
Lab Data: Labs Reviewed, Discussed with Physician and Discussed with Patient
--- NOTE | 2024-12-29 11:58 | W.PN.NEPH.PH ---
Today's Communication / Plan
-
Continue IV fluid
Assessment/Plan
-
Assessment
DIMITRI
Advanced right and mild to moderate left hydronephrosis
Recent NSAID use
Nausea vomiting diarrhea
Carcinomatosis
s/p paracentesis 4/9- 5.9lit
Large ascites
30 cm abdominal mass
Reflux
CA125 elevated
Plan:
12/26 7000 cc ascites
Multiple tumor implants ranging from half to 2 cm and more involving right and left pelvis right and left paracolic gutters, mesentery of ileum as well as serosa and mesentery of sigmoid colon and appendix. Omentum with multiple tumor implants,
30 cm mass arising from left ovary, weight of the mass is 34 pounds
Left ureteral stent
right nephrostomy tube= unobtainable by interventional radiology
Urology to attempt again right ureteral stent today
Creatinine improving
Continue IV fluid
Total Time Spent with Patient (in minutes): 32
-
-
Date of Service: December 29, 2024
CC / HPI / ROS
-
Chief Complaint:
DIMITRI
History of Present Illness:
DIMITRI/Cr improved
non oliguric
s/p paracentesis 5.9L 12/21 , 30 cm mass removed 12/26 and left ureteral stent
BP stable
Review of Systems:
No chest pain or shortness of breath
Nonoliguric
Labs
-
Labs:
WBC 11.0 10^3/uL (4.8-10.8) H 12/29/24 04:15
RBC 4.53 10^6/uL (4.20-5.40) 12/29/24 04:15
Hgb 11.3 g/dL (12.0-16.0) L 12/29/24 04:15
Hct 35.5 % (37.0-47.0) L 12/29/24 04:15
Plt Count 379 10^3/uL (130-400) 12/29/24 04:15
Sodium 139 mmol/L (135-145) 12/29/24 04:15
Potassium 3.2 mmol/L (3.5-5.1) L 12/29/24 04:15
Chloride 100 mmol/L (98-107) 12/29/24 04:15
Carbon Dioxide 33 mmol/L (22-30) H 12/29/24 04:15
BUN 32 mg/dl (7-17) H 12/29/24 04:15
Creatinine 2.4 mg/dL (0.6-1.0) H 12/29/24 04:15
eGFR 23.71 12/29/24 04:15
Glucose 87 mg/dl (70-99) 12/29/24 04:15
Calcium 8.5 mg/dl (8.4-10.2) 12/29/24 04:15
Phosphorus 6.3 mg/dl (2.5-4.5) H 12/27/24 11:58
Albumin 3.5 g/dl (3.5-5.0) 12/26/24 07:18
Physical Exam
-
Vital Signs:
Vital Signs
Temp Pulse Resp BP Pulse Ox
97.6 F 81 18 119/80 99
12/29/24 07:43 12/29/24 07:43 12/29/24 07:43 12/29/24 07:43 12/29/24 07:43
[2024-12-29] MEDS: TYLENOL PO (12:24)
--- NOTE | 2024-12-29 12:28 | PTCARENOTE ---
patient in OR
--- NOTE | 2024-12-29 12:55 | W.IMMPOSTOP ---
Surgical Immed Post Op Note
-
Primary Surgeon: Tomasa
Assisting Surgeon: None
Pre-op Diagnosis: Right distal ureteral obstruction, DIMITRI
Post-op Diagnosis: Same
Procedure Performed: Right ureteroscopy with retrograde pyelography and placement of right ureteral catheter (open ended)
Anesthesia Type: GET
Specimen / Cultures: None
Estimated Blood Loss: None
Complications: None
Operative Findings: Dense right ureteral stricture with left deviation of right distal ureter across midline
[2024-12-29] MEDS: DILAUDID 0.5 MG IV ×2 (13:14→13:31)
[2024-12-29] MEDS: NSS 1000 IV ×2 (14:53→23:26)
--- NOTE | 2024-12-29 16:03 | W.PN.HOSP.TC ---
Today's Communication/Plan
-
maintain on IVF for now
slow diet advancement per surg
monitor renal function for improvement
uro able to place right ureteral stent today
Assessment / Plan
Assessment / Plan
CT abdomen pelvis without IV or oral contrast
1. Some right renal atrophy and mild right renal and at least proximal right ureteral dilatation. Cannot exclude right-sided obstructive uropathy.
2. Suspected large heterogeneous predominantly low-attenuation mass measuring 30 cm in greatest dimension within the abdomen midline into the left, most likely extending from the left true pelvis.
Most likely differential diagnostic possibility would be an ovarian mass such as a cyst adenocarcinoma or cystadenoma. Other masses cannot be excluded, particularly in light of size. MRI suggested for more complete
evaluation.
3 . Moderate volume ascites with possible omental stranding/carcinomatosis.
4. . Small volume retroperitoneal lymph nodes and possible small volume pelvic lymph nodes.

1. Ovarian cancer
Malignant effusion
Postoperative ileus
- CT a/p report as above
- MRI a/p could not able to visualize abd organs appropriately due to limited study
- Diagnostic paracentesis from last week showing malignant cells of m�llerian origin
- CA 19-9 CEA WNL, CA 125 137.
- Patient underwent resection of ovarian mass of ~ 35lb, was planned to have abdominal hysterectomy but not able to be done due to carcinomatosis
- NG tube removed. slow diet advancement as tolerated.
2. Acute renal failure
Obstructive uropathy
- cr continues to trend upward.
- Not on nephrotoxic medication. no contrast exposure.
- CT a/p showing concern of right sided obstructive uropathy
- Intraop stent was not able to be placed in right ureter.
- IRAD could not place perc R nephrostomy tube yesterday
- Patient taken to OR again today for repeat attempt for R ureteral stent and was successful. Uro planning to convert it to JJ stent later,
3. Moderate volume ascites possible omental stranding/carcinomatosis
- s/p para 4/9 with 5900cc removal ; cytology report showing malignant effusion
4. Metabolic acidosis - resolved
- required bicarb drip support
5. Prediabetes
- A1c 5.8, continue monitoring.
6. Diarrhea likely secondary to possible doxycycline
- improved after discontinuation of doxycycline
7. GERD
- Continue Prilosec OTC as needed Tums
8. Abdominal diffuse scar
- have diffuse pinpoint superficial wound/rash? in different stages of healing
- question of bug/mite but distribution on one side of flank and no other skin area involved, makes it less likely
9. Hypokalemia
- replace
10. Class III obesity�BMI 57.7 kg
-Affects all aspects of care
-Given current above situation would hold off on weight loss until plan for above possible cancer diagnosis
DVT prophylaxis -Subcu heparin
Full code
Total time spent : 51 mins
Anticipated Discharge: > 48 hours
Subjective/Interval History
-
Date of Service: December 29, 2024
No reported problems overnight
Denies abdominal pain/nausea/vomiting
Objective Data
-
Labs:
Laboratory Results
12/29/24
04:15
WBC 11.0 H
Hgb 11.3 L
Hct 35.5 L
Plt Count 379
Sodium 139
Potassium 3.2 L
Chloride 100
Carbon Dioxide 33 H
BUN 32 H
Creatinine 2.4 H
Glucose 87
Calcium 8.5
Vital Signs:
Vital Signs
Temp Pulse Resp BP Pulse Ox
98.5 F 80 21 130/84 98
12/29/24 15:08 12/29/24 14:15 12/29/24 14:00 12/29/24 14:15 12/29/24 14:15
I&O
12/28/24 12/29/24 12/30/24
06:59 06:59 06:59
Intake Total 1770 / 1820 650 / 650 200 / 200
Output Total 4850 / 4850 800 / 800 151 / 151
Balance -3080 / -3030 -150 / -150 49 / 49
Review of Systems
-
Respiratory: Reports No Symptoms
Cardiac: Reports No Symptoms
Abdomen/GI: Reports No Symptoms
Physical Exam
-
General: Obese
HEENT: Negative Oxygen
Respiratory: Clear to Auscultation
GI: Soft, Normal Bowel Sounds (slow bowel sounds) and Other (midline surgical scar and dressing in place)
Musculoskeletal: No Edema
Neuro: Awake, Alert, Oriented, No Motor Deficits and Nonfocal/Grossly Intact
Psych: Calm
--- NOTE | 2024-12-29 20:00 | PTCARENOTE ---
On assessment pt AAOx3, denies pain at this time, MedSurg pt, RA, REG diet, flowers in place, midline incision with gregory STRATEGY DIRECTOR, call eng in reach
[2024-12-30] VITALS (8 sets, daily range): BP systolic 106–138; BP diastolic 64–86; BMI 42.8
[2024-12-30] MEDS: ROXICODONE 10 MG PO ×3 (02:28→20:09)
--- NOTE | 2024-12-30 04:32 | PTCARENOTE ---
report given to 3W, all belongings with pt
--- NOTE | 2024-12-30 05:39 | W.PN.GYNONC ---
Today's Communication
-
consider dc IV fluids
Regular diet
Impression / Plan
-
POD3
1. Pelvic Mass
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
2. Pulm
encourage Incentive spirometer
3. Car
Tachy, regular
4. GI:
currrently NPO for urology procedure
5. Renal
Cr is still 2.5 improved, todays level pendng
appreciate Dr Villalobos performing single J ureteral stent on right, plan to switch to JJ next week
s/p prior JJ stent on left side previously
6. DVT prophylaxis: high risk, heparin 5000 BID and SCD
7. Code status: full
Miguel Kaufman MD
Subjective / Interval History
-
transferred out of ICU
s/p right ureteral stent placement
Objective Data
-
Lab Results:
12/29/24 04:15
12/29/24 04:15
Physical Exam
Vital Signs / I&O
Vitals
Temp Pulse Resp BP Pulse Ox
98.1 F 83 20 129/86 97
12/30/24 05:08 12/30/24 05:08 12/30/24 05:08 12/30/24 05:08 12/30/24 05:08
I&O
12/27/24 12/28/24 12/29/24 12/30/24
06:59 06:59 06:59 06:59
Intake Total 2089 / 0 1770 / 1820 650 / 650 460 / 460
Output Total 2800 / 3000 4850 / 4850 800 / 800 1851 / 1851
Balance -710 / -810 -3080 / -3030 -150 / -150 -1391 / -1391
Physical Exam
lungs CTA
Car RRR
Abd soft, incision is intact with gregory
ext no edema or calf pain
--- NOTE | 2024-12-30 05:50 | PTCARENOTE ---
Pt transferred from ICU to [facility]. Pt able to stand and pivot into bed 334 with staff assistance. Pt oriented to room, call eng within reach. Will continue to monitor pt.
[2024-12-30] MEDS: TYLENOL 650 MG PO ×3 (06:06→16:03)
[2024-12-30 08:14] LABS: HPV Genotype 16 Detected; HPV Genotype 18/45 by TMA Not Detected; HPV Genotype Source Cervical
[2024-12-30] MEDS: HEPARIN 5000 UNITS SC ×2 (08:24→16:03)
[2024-12-30] MEDS: PROTONIX 40 MG PO (08:24)
[2024-12-30] MEDS: DESENEX/MITRAZOL/ZEASORB 1 APPLIC TOPICAL (09:52)
[2024-12-30] MEDS: NSS 1000 IV ×2 (10:06→20:08)
[2024-12-30 11:29] LABS: Hematocrit 34.6 % (37.0-47.0); Hemoglobin 10.7 g/dL (12.0-16.0); Mean Corp Hgb Conc. 30.9 g/dL (33.0-37.0); Mean Corpuscular Hgb 24.5 pg (27.0-31.0); Mean Corpuscular Volume 79.4 fL (81.0-99.0); Mean Platelet Volume 9.7 fL (7.4-10.4); Platelet Count 447 10^3/uL (130-400); Red Blood Cell Count 4.36 10^6/uL (4.20-5.40); Red Cell Dist. Width 17.5 % (11.5-14.5); White Blood Cell Count 14.6 10^3/uL (4.8-10.8)
[2024-12-30 12:49] LABS: Blood Urea Nitrogen 22 mg/dl (7-17); Calcium 8.4 mg/dl (8.4-10.2); Carbon Dioxide 29 mmol/L (22-30); Chloride 100 mmol/L (98-107); Estimated Creatinine Clearance 43 ml/min; Glucose 96 mg/dl (70-99); Potassium 3.7 mmol/L (3.5-5.1); Sodium 138 mmol/L (135-145); eGFR 35.86
--- NOTE | 2024-12-30 13:06 | W.PN.HOSP.TC ---
Today's Communication/Plan
-
follow up renal function
flowers management per urology
Assessment / Plan
Assessment / Plan
CT abdomen pelvis without IV or oral contrast
1. Some right renal atrophy and mild right renal and at least proximal right ureteral dilatation. Cannot exclude right-sided obstructive uropathy.
2. Suspected large heterogeneous predominantly low-attenuation mass measuring 30 cm in greatest dimension within the abdomen midline into the left, most likely extending from the left true pelvis.
Most likely differential diagnostic possibility would be an ovarian mass such as a cyst adenocarcinoma or cystadenoma. Other masses cannot be excluded, particularly in light of size. MRI suggested for more complete
evaluation.
3 . Moderate volume ascites with possible omental stranding/carcinomatosis.
4. . Small volume retroperitoneal lymph nodes and possible small volume pelvic lymph nodes.

1. Ovarian cancer
Malignant effusion
Postoperative ileus
- CT a/p report as above
- MRI a/p could not able to visualize abd organs appropriately due to limited study
- Diagnostic paracentesis from last week showing malignant cells of m�llerian origin
- CA 19-9 CEA WNL, CA 125 137.
- Patient underwent resection of ovarian mass of ~ 35lb, was planned to have abdominal hysterectomy but not able to be done due to carcinomatosis
- NG tube removed. slow diet advancement as tolerated.
- Follow-up intraoperative mass pathology report, pending.
2. Acute renal failure
Obstructive uropathy
- cr continues to trend upward.
- Not on nephrotoxic medication. no contrast exposure.
- CT a/p showing concern of right sided obstructive uropathy
- Intra-op stent was not able to be placed in right ureter.
- IRAD could not place perc R nephrostomy tube yesterday
- Patient taken to OR again on 12/29 for repeat attempt for R ureteral stent and was successful.
- Some leakage of urine around the flowers today, urologist have been contacted by RN for help
- Renal function improving nicely with creatinine 1.7 today
3. Moderate volume ascites possible omental stranding/carcinomatosis
- s/p para 12/21 with 5900cc removal ; cytology report showing malignant effusion
4. Metabolic acidosis - resolved
- required bicarb drip support
5. Prediabetes
- A1c 5.8, continue monitoring.
6. Diarrhea likely secondary to possible doxycycline
- improved after discontinuation of doxycycline
7. GERD
- Continue Prilosec OTC as needed Tums
8. Abdominal diffuse scar
- have diffuse pinpoint superficial wound/rash? in different stages of healing
- question of bug/mite but distribution on one side of flank and no other skin area involved, makes it less likely
9. Hypokalemia
- replace
10. Class III obesity�BMI 57.7 kg
-Affects all aspects of care
-Given current above situation would hold off on weight loss until plan for above possible cancer diagnosis
11. Thrombocytosis
- Likely reactive from postoperative change
DVT prophylaxis -Subcu heparin
Full code
Anticipated Discharge: > 48 hours
Subjective/Interval History
-
Date of Service: December 30, 2024
Patient denies of any problem
Having some leakage from urinary catheter
Denies abdominal pain nausea vomiting
Objective Data
-
Labs:
Laboratory Results
12/30/24
11:01
WBC 14.6 H
Hgb 10.7 L
Hct 34.6 L
Plt Count 447 H
Sodium 138
Potassium 3.7
Chloride 100
Carbon Dioxide 29
BUN 22 H
Creatinine 1.7 H
Glucose 96
Calcium 8.4
Vital Signs:
Vital Signs
Temp Pulse Resp BP Pulse Ox
99.3 F 85 16 106/76 97
12/30/24 11:45 12/30/24 11:45 12/30/24 11:45 12/30/24 11:45 12/30/24 11:45
I&O
12/29/24 12/30/24 12/31/24
06:59 06:59 06:59
Intake Total 650 / 650 460 / 460
Output Total 800 / 800 1851 / 1851
Balance -150 / -150 -1391 / -1391
Review of Systems
-
Respiratory: Reports No Symptoms
Cardiac: Reports No Symptoms
Abdomen/GI: Reports No Symptoms
Physical Exam
-
General: Obese
HEENT: Negative Oxygen
Respiratory: Clear to Auscultation
GI: Soft, Normal Bowel Sounds (slow bowel sounds) and Other (midline surgical scar and dressing in place)
Genito-urinary: Flowers (leaking urine)
Musculoskeletal: No Edema
Neuro: Awake, Alert, Oriented, No Motor Deficits and Nonfocal/Grossly Intact
Psych: Calm
--- NOTE | 2024-12-30 15:15 | W.PN.NEPH.PH ---
Today's Communication / Plan
-
con IVF
Assessment/Plan
-
Assessment
DIMITRI
Advanced right and mild to moderate left hydronephrosis
Recent NSAID use
Nausea vomiting diarrhea
Carcinomatosis
s/p paracentesis /9- 5.9lit. 12/26 7lit
Large ascites
30 cm abdominal mass
Reflux
CA125 elevated
Plan:
cr improving to 1.7
s/p right u catheter on 12/29, noted dense ureteral stricture
s/p sugr and removal of 30 cm mass arising from left ovary, weight of the mass is 34 pounds
s/p Left ureteral stent
cotn IVF today likely wean off soon
d/w pt
-
-
Date of Service: December 30, 2024
CC / HPI / ROS
-
Chief Complaint:
DIMITRI
History of Present Illness:
DIMITRI/Cr improved
non oliguric
s/p paracentesis 5.9L 12/21 , 30 cm mass removed 12/26 and left ureteral stent
s/p right U tube palcement
cr better at 1.7
BP stable
Review of Systems:
No chest pain or shortness of breath
Nonoliguric-mild hematuria in bag
Labs
-
Labs:
WBC 14.6 10^3/uL (4.8-10.8) H 12/30/24 11:01
RBC 4.36 10^6/uL (4.20-5.40) 12/30/24 11:01
Hgb 10.7 g/dL (12.0-16.0) L 12/30/24 11:01
Hct 34.6 % (37.0-47.0) L 12/30/24 11:01
Plt Count 447 10^3/uL (130-400) H 12/30/24 11:01
Sodium 138 mmol/L (135-145) 12/30/24 11:01
Potassium 3.7 mmol/L (3.5-5.1) 12/30/24 11:01
Chloride 100 mmol/L (98-107) 12/30/24 11:01
Carbon Dioxide 29 mmol/L (22-30) 12/30/24 11:01
BUN 22 mg/dl (7-17) H 12/30/24 11:01
Creatinine 1.7 mg/dL (0.6-1.0) H 12/30/24 11:01
eGFR 35.86 12/30/24 11:01
Glucose 96 mg/dl (70-99) 12/30/24 11:01
Calcium 8.4 mg/dl (8.4-10.2) 12/30/24 11:01
Phosphorus 6.3 mg/dl (2.5-4.5) H 12/27/24 11:58
Albumin 3.5 g/dl (3.5-5.0) 12/26/24 07:18
Physical Exam
-
Vital Signs:
Vital Signs
Temp Pulse Resp BP Pulse Ox
99.3 F 85 16 106/76 97
12/30/24 11:45 12/30/24 11:45 12/30/24 11:45 12/30/24 11:45 12/30/24 11:45
Cardiovascular:: Regular rate and rhythm
Respiratory:: Bilateral: CTA
Lung Excursion:: Normal
Abdomen:: Nontender and Soft
Extremity Edema:: None: Bilateral:
Mahoney Catheter: Yes
[2024-12-30] MEDS: ROXICODONE 5 MG PO (16:03)
[2024-12-30] MEDS: DESENEX/MITRAZOL/ZEASORB TOPICAL (20:07)
[2024-12-31] MEDS: HEPARIN SC ×2 (00:39→23:40)
[2024-12-31] MEDS: TYLENOL PO ×2 (00:39→23:41)
[2024-12-31] MEDS: TYLENOL 650 MG PO ×3 (05:32→18:22)
[2024-12-31] MEDS: ROXICODONE 5 MG PO (05:32)
[2024-12-31] MEDS: COLACE 100 MG PO ×3 (05:44→21:22)
[2024-12-31 06:00] VITALS: BMI 44.1
[2024-12-31 07:32] VITALS: BP 137/85
[2024-12-31 07:59] LABS: Blood Urea Nitrogen 17 mg/dl (7-17); Calcium 7.8 mg/dl (8.4-10.2); Carbon Dioxide 29 mmol/L (22-30); Chloride 104 mmol/L (98-107); Estimated Creatinine Clearance 53 ml/min; Glucose 88 mg/dl (70-99); Potassium 3.7 mmol/L (3.5-5.1); Sodium 138 mmol/L (135-145); eGFR 45.27
[2024-12-31] MEDS: PROTONIX 40 MG PO (08:18)
[2024-12-31] MEDS: HEPARIN 5000 UNITS SC ×2 (08:19→15:25)
[2024-12-31] MEDS: DESENEX/MITRAZOL/ZEASORB TOPICAL ×2 (08:19→21:22)
[2024-12-31 08:46] LABS: Hematocrit 33.4 % (37.0-47.0); Hemoglobin 10.4 g/dL (12.0-16.0); Mean Corp Hgb Conc. 31.1 g/dL (33.0-37.0); Mean Corpuscular Hgb 24.8 pg (27.0-31.0); Mean Corpuscular Volume 79.7 fL (81.0-99.0); Mean Platelet Volume 9.6 fL (7.4-10.4); Platelet Count 355 10^3/uL (130-400); Red Blood Cell Count 4.19 10^6/uL (4.20-5.40); Red Cell Dist. Width 17.7 % (11.5-14.5); White Blood Cell Count 10.6 10^3/uL (4.8-10.8)
--- NOTE | 2024-12-31 12:35 | W.PN.URO.CBU ---
Today's Communication / Plan
-
Stent and Flowers to gravity
Plan for OR this week to attempt conversion to indwelling stent
Assessment / Plan
-
54F withpelvic malignancy with massive ascites
Renal Insufficiency and ureteral obstruction
s/p resection of tumor
s/p L ureter JJ stent placement
IR unable to place R nephrostomy
2nd attempt with successful placement of R open ended catheter
- Maintain flowers and open ended ureteral stent to gravity with Hernandez adapter
- Tentative plan for return to OR this week for attempt at conversion to R JJ stent
- Trend mild hematuria
Diagnosis
-
Date of Service: December 31, 2024
-
Patient Diagnosis:
pelvic malignancy with massive ascites
Renal Insufficiency
Left kidney/ureter -- now stented with JJ
Right kidney/ureter -- open ended catheter in place
Post Op Day:
s/p Left Ureteral Stenting; failed right ureteral stenting
s/p 2nd attempt with open ended ureteral stent in place
Subjective
-
pain controlled
mild hematuria
Objective
-
Vital Signs
Temp Pulse Resp BP Pulse Ox
99.1 F 80 16 137/85 99
12/31/24 07:32 12/31/24 07:32 12/31/24 07:32 12/31/24 07:32 12/31/24 07:32
Intake and Output
12/30/24 12/31/24 01/01/25
06:59 06:59 06:59
Intake Total 460 / 460 2780 / 2780
Output Total 1851 / 1851 2275 / 2275
Balance -1391 / -1391 505 / 505
Intake:
Oral fluids 60 / 60 1580 / 1580
IV fluids (Total) 400 / 400 1200 / 1200
Normosol 100 / 100
Nss 1,000 ml @ 100 mls/hr IV . 300 / 300
Q10H [facility] Rx#:[id number]
Output:
Urinary Drain Output (Total)
Right Ureteral stent
Urine, Flowers 1850 / 1850 2275 / 2275
Laboratory Results
12/31/24 06:41
12/31/24 06:41
Physical Exam
-
General - well developed, well nourished, no acute distress
Chest - clear bilaterally
Abdomen - soft, non-tender
- flowers and open ended catheter in place, mild hematuria (pink)
--- NOTE | 2024-12-31 13:02 | W.PN.HOSP.TC ---
Today's Communication/Plan
-
continue current care plan
Assessment / Plan
Assessment / Plan
CT abdomen pelvis without IV or oral contrast
1. Some right renal atrophy and mild right renal and at least proximal right ureteral dilatation. Cannot exclude right-sided obstructive uropathy.
2. Suspected large heterogeneous predominantly low-attenuation mass measuring 30 cm in greatest dimension within the abdomen midline into the left, most likely extending from the left true pelvis.
Most likely differential diagnostic possibility would be an ovarian mass such as a cyst adenocarcinoma or cystadenoma. Other masses cannot be excluded, particularly in light of size. MRI suggested for more complete
evaluation.
3 . Moderate volume ascites with possible omental stranding/carcinomatosis.
4. . Small volume retroperitoneal lymph nodes and possible small volume pelvic lymph nodes.

1. Ovarian cancer
Malignant effusion
Postoperative ileus
- CT a/p report as above
- MRI a/p could not able to visualize abd organs appropriately due to limited study
- Diagnostic paracentesis from last week showing malignant cells of m�llerian origin
- CA 19-9 CEA WNL, CA 125 137.
- Patient underwent resection of ovarian mass of ~ 35lb, was planned to have abdominal hysterectomy but not able to be done due to carcinomatosis
- NG tube removed. slow diet advancement as tolerated.
- Follow-up intraoperative mass pathology report, pending.
2. Acute renal failure
Obstructive uropathy
- cr continues to trend upward.
- Not on nephrotoxic medication. no contrast exposure.
- CT a/p showing concern of right sided obstructive uropathy
- Intra-op stent was not able to be placed in right ureter.
- IRAD could not place perc R nephrostomy tube yesterday
- Patient taken to OR again on 12/29 for repeat attempt for R ureteral stent and was successful.
- Some leakage of urine around the flowers yesterday, addressed by urology. no problems currently.
- Renal function improving nicely with creatinine 1.4 today
3. Moderate volume ascites possible omental stranding/carcinomatosis
- s/p para /9 with 5900cc removal ; cytology report showing malignant effusion
4. Metabolic acidosis - resolved
- required bicarb drip support
5. Prediabetes
- A1c 5.8, continue monitoring.
6. Diarrhea likely secondary to possible doxycycline
- improved after discontinuation of doxycycline
7. GERD
- Continue Prilosec OTC as needed Tums
8. Abdominal diffuse scar
- have diffuse pinpoint superficial wound/rash? in different stages of healing
- question of bug/mite but distribution on one side of flank and no other skin area involved, makes it less likely
9. Hypokalemia
- replace
10. Class III obesity�BMI 57.7 kg
-Affects all aspects of care
-Given current above situation would hold off on weight loss until plan for above possible cancer diagnosis
11. Thrombocytosis
- Likely reactive from postoperative change
DVT prophylaxis -Subcu heparin
Full code
Anticipated Discharge: > 48 hours
Subjective/Interval History
-
Date of Service: December 31, 2024
Sleeping comfortably in bed
Denies abdominal pain/nausea/vomiting
No further issues with Flowers catheter
Objective Data
-
Labs:
Laboratory Results
12/31/24
06:41
WBC 10.6
Hgb 10.4 L
Hct 33.4 L
Plt Count 355 D
Sodium 138
Potassium 3.7
Chloride 104
Carbon Dioxide 29
BUN 17
Creatinine 1.4 H
Glucose 88
Calcium 7.8 L
Vital Signs:
Vital Signs
Temp Pulse Resp BP Pulse Ox
99.1 F 80 16 137/85 99
12/31/24 07:32 12/31/24 07:32 12/31/24 07:32 12/31/24 07:32 12/31/24 07:32
I&O
12/30/24 12/31/24 01/01/25
06:59 06:59 06:59
Intake Total 460 / 460 2780 / 2780
Output Total 1851 / 1851 2275 / 2275
Balance -1391 / -1391 505 / 505
Review of Systems
-
Respiratory: Reports No Symptoms
Cardiac: Reports No Symptoms
Abdomen/GI: Reports No Symptoms
Physical Exam
-
General: Obese
HEENT: Negative Oxygen
Respiratory: Clear to Auscultation
GI: Soft, Normal Bowel Sounds (slow bowel sounds) and Other (midline surgical scar and dressing in place)
Genito-urinary: Flowers (leaking urine)
Musculoskeletal: No Edema
Neuro: Awake, Alert, Oriented, No Motor Deficits and Nonfocal/Grossly Intact
Psych: Calm
--- NOTE | 2024-12-31 14:10 | W.PN.NEPH.PH ---
Today's Communication / Plan
-
follow lab s
Assessment/Plan
-
Assessment
DIMITRI
Advanced right and mild to moderate left hydronephrosis
Recent NSAID use
Nausea vomiting diarrhea
Carcinomatosis
s/p paracentesis /9- 5.9lit. 12/26 7lit
Large ascites
30 cm abdominal mass
Reflux
CA125 elevated
Plan:
cr improving to 1.4
s/p right u catheter on 12/29, noted dense ureteral stricture-plan conversion to indwelling stent
s/p sugr and removal of 30 cm mass arising from left ovary, weight of the mass is 34 pounds
s/p Left ureteral stent
maintain off IVF
labs in am
d/w pt
-
-
Date of Service: December 31, 2024
CC / HPI / ROS
-
Chief Complaint:
DIMITRI
History of Present Illness:
DIMITRI/Cr improved
non oliguric
s/p paracentesis 5.9L 12/21 , 30 cm mass removed 12/26 and left ureteral stent
s/p right U tube palcement
cr better at 1.4
BP stable
Review of Systems:
No chest pain or shortness of breath
Nonoliguric-mild hematuria in bag
Labs
-
Labs:
WBC 10.6 10^3/uL (4.8-10.8) 12/31/24 06:41
RBC 4.19 10^6/uL (4.20-5.40) L 12/31/24 06:41
Hgb 10.4 g/dL (12.0-16.0) L 12/31/24 06:41
Hct 33.4 % (37.0-47.0) L 12/31/24 06:41
Plt Count 355 10^3/uL (130-400) D 12/31/24 06:41
Sodium 138 mmol/L (135-145) 12/31/24 06:41
Potassium 3.7 mmol/L (3.5-5.1) 12/31/24 06:41
Chloride 104 mmol/L (98-107) 12/31/24 06:41
Carbon Dioxide 29 mmol/L (22-30) 12/31/24 06:41
BUN 17 mg/dl (7-17) 12/31/24 06:41
Creatinine 1.4 mg/dL (0.6-1.0) H 12/31/24 06:41
eGFR 45.27 12/31/24 06:41
Glucose 88 mg/dl (70-99) 12/31/24 06:41
Calcium 7.8 mg/dl (8.4-10.2) L 12/31/24 06:41
Phosphorus 6.3 mg/dl (2.5-4.5) H 12/27/24 11:58
Albumin 3.5 g/dl (3.5-5.0) 12/26/24 07:18
Physical Exam
-
Vital Signs:
Vital Signs
Temp Pulse Resp BP Pulse Ox
99.1 F 80 16 137/85 99
12/31/24 07:32 12/31/24 07:32 12/31/24 07:32 12/31/24 07:32 12/31/24 07:32
Cardiovascular:: Regular rate and rhythm
Respiratory:: Bilateral: CTA
Lung Excursion:: Normal
Abdomen:: Nontender and Soft
Extremity Edema:: None: Bilateral:
Mahoney Catheter: Yes
[2024-12-31 15:19] VITALS: BP 168/83
[2024-12-31] MEDS: ROXICODONE 10 MG PO ×2 (15:26→21:23)
--- NOTE | 2024-12-31 15:52 | W.PN.GYNONC ---
Today's Communication
-
add stool softener
encourgaed her to ambulate
Impression / Plan
-
POD3
1. Pelvic Mass
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
2. Pulm
encourage Incentive spirometer
3. Car
Tachy, regular
4. GI:
regular diet
5. Renal
Cr is 1.4
will return back to OR for JJ stent on right side
6. DVT prophylaxis: high risk, heparin 5000 BID and SCD,
7. Code status: full
Miguel Kaufman MD
Subjective / Interval History
-
POD 5
She looks well, there is family present in the room, she has been eating, passing flatus but no bowel function yet. She does not have any nausea vomiting. She is aware of plans from urology perspective
Objective Data
-
Lab Results:
12/31/24 06:41
12/31/24 06:41
Physical Exam
Vital Signs / I&O
Vitals
Temp Pulse Resp BP Pulse Ox
99.8 F 86 16 168/83 99
12/31/24 15:19 12/31/24 15:19 12/31/24 15:19 12/31/24 15:19 12/31/24 15:19
I&O
12/29/24 12/30/24 12/31/24 01/01/25
06:59 06:59 06:59 06:59
Intake Total 650 / 650 460 / 460 2780 / 2780
Output Total 800 / 800 1851 / 1851 2275 / 2275
Balance -150 / -150 -1391 / -1391 505 / 505
Physical Exam
General: Well Developed and No Apparent Distress
Cardiac: S1/S2 and Regular Rhythm
GI: Soft, Non Tender, Non Distended and Other (incision is dry w gregory)
[2024-12-31 16:50] VITALS: BP 165/78; PULSE 80; O2SAT 98
[2024-12-31 23:58] VITALS: BP 159/84
[2025-01-01] MEDS: HEPARIN SC (00:21)
[2025-01-01] MEDS: DILAUDID 0.25 MG IV ×2 (00:22→21:18)
[2025-01-01 06:00] VITALS: BMI 43.5
[2025-01-01] MEDS: TYLENOL 650 MG PO ×4 (06:04→23:02)
[2025-01-01] MEDS: COLACE 100 MG PO ×2 (06:05→20:57)
[2025-01-01 07:14] LABS: Hematocrit 36.4 % (37.0-47.0); Hemoglobin 11.4 g/dL (12.0-16.0); Mean Corp Hgb Conc. 31.3 g/dL (33.0-37.0); Mean Corpuscular Hgb 24.9 pg (27.0-31.0); Mean Corpuscular Volume 79.5 fL (81.0-99.0); Mean Platelet Volume 9.2 fL (7.4-10.4); Platelet Count 397 10^3/uL (130-400); Red Blood Cell Count 4.58 10^6/uL (4.20-5.40); Red Cell Dist. Width 17.8 % (11.5-14.5); White Blood Cell Count 9.3 10^3/uL (4.8-10.8)
[2025-01-01 07:26] VITALS: BP 121/77
[2025-01-01 07:58] LABS: Blood Urea Nitrogen 15 mg/dl (7-17); Calcium 8.5 mg/dl (8.4-10.2); Carbon Dioxide 28 mmol/L (22-30); Chloride 105 mmol/L (98-107); Estimated Creatinine Clearance 52 ml/min; Glucose 103 mg/dl (70-99); Potassium 4.9 mmol/L (3.5-5.1); Sodium 141 mmol/L (135-145); eGFR 45.27
[2025-01-01] MEDS: ROXICODONE 10 MG PO ×2 (09:53→15:15)
[2025-01-01] MEDS: DESENEX/MITRAZOL/ZEASORB TOPICAL ×2 (09:53→20:57)
[2025-01-01] MEDS: HEPARIN 5000 UNITS SC ×3 (09:53→23:01)
[2025-01-01] MEDS: PROTONIX 40 MG PO (09:53)
--- NOTE | 2025-01-01 10:35 | W.PN.GYNONC ---
Today's Communication
-
N/A
Impression / Plan
-
POD3
1. Pelvic Mass
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
2. Pulm
encourage Incentive spirometer
3. Car
regular
4. GI:
regular diet
5. Renal
Cr is 1.4
will return back to OR this week for JJ stent on right side
6. DVT prophylaxis: high risk, heparin 5000 BID and SCD,
7. Code status: full
we need to start discharge planning
Miguel Kaufman MD
Subjective / Interval History
-
she seems very comfortable, ambulated ok, carola diet,
No BM
Objective Data
-
Lab Results:
01/01/25 06:50
01/01/25 06:50
Physical Exam
Vital Signs / I&O
Vitals
Temp Pulse Resp BP Pulse Ox
98.3 F 76 18 121/77 96
01/01/25 07:26 01/01/25 07:26 01/01/25 07:26 01/01/25 07:26 01/01/25 07:26
I&O
12/30/24 12/31/24 01/01/25 01/02/25
06:59 06:59 06:59 06:59
Intake Total 460 / 460 2780 / 2780 595 / 595
Output Total 1851 / 1851 2275 / 2275 3800 / 3800
Balance -1391 / -1391 505 / 505 -3205 / -3205
Physical Exam
General: Well Developed and No Apparent Distress
Respiratory: Clear and Non Labored Respirations
GI: Soft, Non Tender and Other (incision is dry with gregory)
--- NOTE | 2025-01-01 12:27 | W.PN.URO.CBU ---
Today's Communication / Plan
-
- Maintain flowers and open ended ureteral stent to gravity with Hernandez adapter
- Tentative plan for return to OR this week for attempt at conversion to R JJ stent
- Hematuria resolved
Assessment / Plan
-
54F withpelvic malignancy with massive ascites
Renal Insufficiency and ureteral obstruction
s/p resection of tumor
s/p L ureter JJ stent placement
IR unable to place R nephrostomy
2nd attempt with successful placement of R open ended catheter
- Maintain flowers and open ended ureteral stent to gravity with Hernandez adapter
- Tentative plan for return to OR this week for attempt at conversion to R JJ stent
- Hematuria resolved
Diagnosis
-
Date of Service: January 01, 2025
-
Patient Diagnosis:
pelvic malignancy with massive ascites
Renal Insufficiency
Left kidney/ureter -- now stented with JJ
Right kidney/ureter -- open ended catheter in place
Post Op Day:
s/p Left Ureteral Stenting; failed right ureteral stenting
s/p 2nd attempt with open ended ureteral stent in place
Subjective
-
Mild leakage around flowers last night - stent still in place secured with tape, leakage resolved
Objective
-
Vital Signs
Temp Pulse Resp BP Pulse Ox
98.3 F 76 18 121/77 96
01/01/25 07:26 01/01/25 07:26 01/01/25 07:26 01/01/25 07:26 01/01/25 07:26
Intake and Output
12/31/24 01/01/25 01/02/25
06:59 06:59 06:59
Intake Total 2780 / 2780 595 / 595
Output Total 2275 / 2275 3800 / 3800
Balance 505 / 505 -3205 / -3205
Intake:
Oral fluids 1580 / 1580 595 / 595
IV fluids (Total) 1200 / 1200
Output:
Urine, Flowers 2275 / 5 3800 / 3800
Other:
How many times incontinent 1
SATURATED amount urine
Laboratory Results
01/01/25 06:50
01/01/25 06:50
Physical Exam
-
General - well developed, well nourished, no acute distress
Chest - clear bilaterally
Abdomen - soft, non-tender
- flowers with clear urine, stent in place with Hernandez adapter
[2025-01-01] MEDS: MIRALAX 17 GRAMS PO (12:35)
[2025-01-01] MEDS: SENNA SYRUP 8.8 MG PO ×2 (12:35→20:57)
--- NOTE | 2025-01-01 12:41 | W.PN.HOSP.TC ---
Today's Communication/Plan
-
continue current rx
uro procedure on wed
activity as tolerated
continue monitoring renal function
Assessment / Plan
Assessment / Plan
CT abdomen pelvis without IV or oral contrast
1. Some right renal atrophy and mild right renal and at least proximal right ureteral dilatation. Cannot exclude right-sided obstructive uropathy.
2. Suspected large heterogeneous predominantly low-attenuation mass measuring 30 cm in greatest dimension within the abdomen midline into the left, most likely extending from the left true pelvis.
Most likely differential diagnostic possibility would be an ovarian mass such as a cyst adenocarcinoma or cystadenoma. Other masses cannot be excluded, particularly in light of size. MRI suggested for more complete
evaluation.
3 . Moderate volume ascites with possible omental stranding/carcinomatosis.
4. . Small volume retroperitoneal lymph nodes and possible small volume pelvic lymph nodes.

1. Ovarian cancer
Malignant effusion
Postoperative ileus
- CT a/p report as above
- MRI a/p could not able to visualize abd organs appropriately due to limited study
- Diagnostic paracentesis from last week showing malignant cells of m�llerian origin
- CA 19-9 CEA WNL, CA 125 137.
- Patient underwent resection of ovarian mass of ~ 35lb, was planned to have abdominal hysterectomy but not able to be done due to carcinomatosis
- NG tube removed. slow diet advancement as tolerated.
- Follow-up intraoperative mass pathology report, pending.
2. Acute renal failure
Obstructive uropathy
- cr continues to trend upward.
- Not on nephrotoxic medication. no contrast exposure.
- CT a/p showing concern of right sided obstructive uropathy
- Intra-op stent was not able to be placed in right ureter.
- IRAD could not place perc R nephrostomy tube yesterday
- Patient taken to OR again on 12/29 for repeat attempt for R ureteral stent and was successful.
- Renal function improving nicely with creatinine 1.4 today
- Urologist planning to take to OR on thursday for ureteral stent exchange
3. Moderate volume ascites possible omental stranding/carcinomatosis
- s/p para 12/21 with 5900cc removal ; cytology report showing malignant effusion
4. Metabolic acidosis - resolved
- required bicarb drip support
5. Prediabetes
- A1c 5.8, continue monitoring.
6. Diarrhea likely secondary to possible doxycycline
- improved after discontinuation of doxycycline
7. GERD
- Continue Prilosec OTC as needed Tums
8. Abdominal diffuse scar
- have diffuse pinpoint superficial wound/rash? in different stages of healing
- question of bug/mite but distribution on one side of flank and no other skin area involved, makes it less likely
9. Hypokalemia
- replace
10. Class III obesity�BMI 57.7 kg
-Affects all aspects of care
-Given current above situation would hold off on weight loss until plan for above possible cancer diagnosis
11. Thrombocytosis
- Likely reactive from postoperative change
DVT prophylaxis -Subcu heparin
Full code
Anticipated Discharge: > 48 hours
Subjective/Interval History
-
Date of Service: January 01, 2025
some urine leakage around flowers
clear urine
no abd pain/nausea/vomiting
Objective Data
-
Labs:
Laboratory Results
01/01/25
06:50
WBC 9.3
Hgb 11.4 L
Hct 36.4 L
Plt Count 397
Sodium 141
Potassium 4.9 D
Chloride 105
Carbon Dioxide 28
BUN 15
Creatinine 1.4 H
Glucose 103 H
Calcium 8.5
Vital Signs:
Vital Signs
Temp Pulse Resp BP Pulse Ox
98.3 F 76 18 121/77 96
01/01/25 07:26 01/01/25 07:26 01/01/25 07:26 01/01/25 07:26 01/01/25 07:26
I&O
12/31/24 01/01/25 01/02/25
06:59 06:59 06:59
Intake Total 2780 / 2780 595 / 595
Output Total 2275 / 2275 3800 / 3800
Balance 505 / 505 -3205 / -3205
Review of Systems
-
Respiratory: Reports No Symptoms
Cardiac: Reports No Symptoms
Abdomen/GI: Reports No Symptoms
Physical Exam
-
General: Obese
HEENT: Negative Oxygen
Respiratory: Clear to Auscultation
GI: Soft, Nontender, Nondistended, Normal Bowel Sounds and Other (midline surgical scar with gregory in place, no wound dehiscence)
Genito-urinary: Flowers (leaking urine)
Musculoskeletal: No Edema
Neuro: Awake, Alert, Oriented, No Motor Deficits and Nonfocal/Grossly Intact
Psych: Calm
[2025-01-01 15:31] VITALS: BP 128/75
--- NOTE | 2025-01-01 15:55 | W.PN.NEPH.PH ---
Today's Communication / Plan
-
follow labs
Assessment/Plan
-
Assessment
DIMITRI
Advanced right and mild to moderate left hydronephrosis
Recent NSAID use
Nausea vomiting diarrhea
Carcinomatosis
s/p paracentesis 4/9- 5.9lit. 12/26 7lit
Large ascites
30 cm abdominal mass
Reflux
CA125 elevated
Plan:
cr stable at 1.4
s/p right u catheter on 12/29, noted dense ureteral stricture-plan conversion to indwelling stent next week
s/p Left ureteral stent
B[p stable
labs in am
d/w pt
-
-
Date of Service: January 01, 2025
CC / HPI / ROS
-
Chief Complaint:
DIMITRI
History of Present Illness:
DIMITRI/Cr improved
non oliguric
s/p paracentesis 5.9L 12/21 , 30 cm mass removed 12/26 and left ureteral stent
s/p right U tube palcement
cr stable at 1.4
BP stable
Review of Systems:
No chest pain or shortness of breath
Nonoliguric-mild hematuria in bag-improving
Labs
-
Labs:
WBC 9.3 10^3/uL (4.8-10.8) 01/01/25 06:50
RBC 4.58 10^6/uL (4.20-5.40) 01/01/25 06:50
Hgb 11.4 g/dL (12.0-16.0) L 01/01/25 06:50
Hct 36.4 % (37.0-47.0) L 01/01/25 06:50
Plt Count 397 10^3/uL (130-400) 01/01/25 06:50
Sodium 141 mmol/L (135-145) 01/01/25 06:50
Potassium 4.9 mmol/L (3.5-5.1) D 01/01/25 06:50
Chloride 105 mmol/L (98-107) 01/01/25 06:50
Carbon Dioxide 28 mmol/L (22-30) 01/01/25 06:50
BUN 15 mg/dl (7-17) 01/01/25 06:50
Creatinine 1.4 mg/dL (0.6-1.0) H 01/01/25 06:50
eGFR 45.27 01/01/25 06:50
Glucose 103 mg/dl (70-99) H 01/01/25 06:50
Calcium 8.5 mg/dl (8.4-10.2) 01/01/25 06:50
Phosphorus 6.3 mg/dl (2.5-4.5) H 12/27/24 11:58
Albumin 3.5 g/dl (3.5-5.0) 12/26/24 07:18
Physical Exam
-
Vital Signs:
Vital Signs
Temp Pulse Resp BP Pulse Ox
98.4 F 84 17 128/75 97
01/01/25 15:31 01/01/25 15:31 01/01/25 15:31 01/01/25 15:31 01/01/25 15:31
Cardiovascular:: Regular rate and rhythm
Respiratory:: Bilateral: CTA
Lung Excursion:: Normal
Abdomen:: Nontender and Soft
Extremity Edema:: None: Bilateral:
Mahoney Catheter: Yes
[2025-01-01 23:00] VITALS: BP 110/63
[2025-01-02] MEDS: TYLENOL 650 MG PO ×4 (05:56→23:01)
[2025-01-02 06:00] VITALS: BMI 43.2
--- NOTE | 2025-01-02 06:26 | W.PN.GYNONC ---
Today's Communication
-
N/A
Impression / Plan
-
POD3
1. Pelvic Mass
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
2. Pulm
encourage Incentive spirometer
3. Car
regular
4. GI:
regular diet
5. Renal
Cr is 1.4
Urology will return back to OR this week for JJ stent on right side
6. DVT prophylaxis: high risk, heparin 5000 BID and SCD,
7. Code status: full
we need to start discharge planning. typically i do recommend VTE prophylaxis for 28 days after such procedures. we need case management to get approval for eliquis 2.5 mg BID x 14 days probably
Miguel Kaufman MD
Subjective / Interval History
-
continues to feel well
carola diet ok
walked a fair amount yesterday
pain is minimal
Objective Data
-
Lab Results:
Cr 1.4 yesterday
Physical Exam
Vital Signs / I&O
Vitals
Temp Pulse Resp BP Pulse Ox
98.5 F 83 18 110/63 98
01/01/25 23:00 01/01/25 23:00 01/01/25 23:00 01/01/25 23:00 01/01/25 23:00
I&O
12/30/24 12/31/24 01/01/25 01/02/25
06:59 06:59 06:59 06:59
Intake Total 460 / 460 2780 / 2780 595 / 595 960 / 960
Output Total 1851 / 1851 2275 / 2275 3800 / 3800 1700 / 1700
Balance -1391 / -1391 505 / 505 -3205 / -3205 -740 / -740
Physical Exam
GI: Soft, Non Distended and Other (incision is clear with gregory)
[2025-01-02 07:00] VITALS: BP 125/79
[2025-01-02] MEDS: COLACE 100 MG PO ×2 (08:08→19:23)
[2025-01-02] MEDS: HEPARIN 5000 UNITS SC ×3 (08:08→23:01)
[2025-01-02] MEDS: MIRALAX 17 GRAMS PO (08:09)
[2025-01-02] MEDS: PROTONIX 40 MG PO (08:09)
[2025-01-02] MEDS: ROXICODONE 5 MG PO ×3 (08:09→17:20)
[2025-01-02] MEDS: SENNA SYRUP 8.8 MG PO ×2 (08:09→19:23)
[2025-01-02] MEDS: DESENEX/MITRAZOL/ZEASORB TOPICAL ×2 (08:11→19:24)
[2025-01-02 08:24] LABS: Hematocrit 37.5 % (37.0-47.0); Hemoglobin 11.8 g/dL (12.0-16.0); Mean Corp Hgb Conc. 31.5 g/dL (33.0-37.0); Mean Corpuscular Hgb 25.3 pg (27.0-31.0); Mean Corpuscular Volume 80.3 fL (81.0-99.0); Mean Platelet Volume 10.1 fL (7.4-10.4); Platelet Count 427 10^3/uL (130-400); Red Blood Cell Count 4.67 10^6/uL (4.20-5.40); White Blood Cell Count 9.5 10^3/uL (4.8-10.8)
[2025-01-02 09:03] LABS: Blood Urea Nitrogen 15 mg/dl (7-17); Calcium 8.9 mg/dl (8.4-10.2); Carbon Dioxide 28 mmol/L (22-30); Chloride 104 mmol/L (98-107); Estimated Creatinine Clearance 49 ml/min; Glucose 93 mg/dl (70-99); Potassium 4.4 mmol/L (3.5-5.1); Sodium 139 mmol/L (135-145); eGFR 41.67
[2025-01-02] MEDS: ROXICODONE PO (13:13)
--- NOTE | 2025-01-02 14:46 | W.PN.NEPH.PH ---
Today's Communication / Plan
-
gentle IVF
Assessment/Plan
-
Assessment
DIMITRI
Advanced right and mild to moderate left hydronephrosis
Recent NSAID use
Nausea vomiting diarrhea
Carcinomatosis
s/p paracentesis 12/21- 5.9lit. 12/26 7lit
Large ascites
30 cm abdominal mass
Reflux
CA125 elevated
Plan:
cr at 1.5 slightly up, encourage fluid intake
likely give IVF , seem polyuric though UOP not accurate
s/p right u catheter on 12/29, noted dense ureteral stricture-plan conversion to indwelling stent this week
s/p Left ureteral stent
B[p stable
labs in am
d/w pt
-
-
Date of Service: January 02, 2025
CC / HPI / ROS
-
Chief Complaint:
DIMITRI
History of Present Illness:
DIMITRI/Cr improved
polyuric with flowers
s/p paracentesis 5.9L 12/21 , 30 cm mass removed 12/26 and left ureteral stent
s/p right U tube palcement
cr stable at 1.5
BP stable
Review of Systems:
No chest pain or shortness of breath
mild hematuria in bag-improving
Labs
-
Labs:
WBC 9.5 10^3/uL (4.8-10.8) 01/02/25 06:44
RBC 4.67 10^6/uL (4.20-5.40) 01/02/25 06:44
Hgb 11.8 g/dL (12.0-16.0) L 01/02/25 06:44
Hct 37.5 % (37.0-47.0) 01/02/25 06:44
Plt Count 427 10^3/uL (130-400) H 01/02/25 06:44
Sodium 139 mmol/L (135-145) 01/02/25 06:44
Potassium 4.4 mmol/L (3.5-5.1) 01/02/25 06:44
Chloride 104 mmol/L (98-107) 01/02/25 06:44
Carbon Dioxide 28 mmol/L (22-30) 01/02/25 06:44
BUN 15 mg/dl (7-17) 01/02/25 06:44
Creatinine 1.5 mg/dL (0.6-1.0) H 01/02/25 06:44
eGFR 41.67 01/02/25 06:44
Glucose 93 mg/dl (70-99) 01/02/25 06:44
Calcium 8.9 mg/dl (8.4-10.2) 01/02/25 06:44
Phosphorus 6.3 mg/dl (2.5-4.5) H 12/27/24 11:58
Albumin 3.5 g/dl (3.5-5.0) 12/26/24 07:18
Physical Exam
-
Vital Signs:
Vital Signs
Temp Pulse Resp BP Pulse Ox
98.3 F 79 18 125/79 97
01/02/25 07:00 01/02/25 07:00 01/02/25 07:00 01/02/25 07:00 01/02/25 07:00
Cardiovascular:: Regular rate and rhythm
Respiratory:: Bilateral: CTA
Lung Excursion:: Normal
Abdomen:: Nontender and Soft
Extremity Edema:: None: Bilateral:
Flowers Catheter: Yes
--- NOTE | 2025-01-02 15:19 | W.PN.HOSP.TC ---
Today's Communication/Plan
-
uro procedure on wed
monitor renal function
Assessment / Plan
Assessment / Plan
CT abdomen pelvis without IV or oral contrast
1. Some right renal atrophy and mild right renal and at least proximal right ureteral dilatation. Cannot exclude right-sided obstructive uropathy.
2. Suspected large heterogeneous predominantly low-attenuation mass measuring 30 cm in greatest dimension within the abdomen midline into the left, most likely extending from the left true pelvis.
Most likely differential diagnostic possibility would be an ovarian mass such as a cyst adenocarcinoma or cystadenoma. Other masses cannot be excluded, particularly in light of size. MRI suggested for more complete
evaluation.
3 . Moderate volume ascites with possible omental stranding/carcinomatosis.
4. . Small volume retroperitoneal lymph nodes and possible small volume pelvic lymph nodes.

1. Ovarian cancer
Malignant effusion
Postoperative ileus
- CT a/p report as above
- MRI a/p could not able to visualize abd organs appropriately due to limited study
- Diagnostic paracentesis from last week showing malignant cells of m�llerian origin
- CA 19-9 CEA WNL, CA 125 137.
- Patient underwent resection of ovarian mass of ~ 35lb, was planned to have abdominal hysterectomy but not able to be done due to carcinomatosis
- NG tube removed. slow diet advancement as tolerated.
- Follow-up intraoperative mass pathology report, pending.
2. Acute renal failure
Obstructive uropathy
- cr continues to trend upward.
- Not on nephrotoxic medication. no contrast exposure.
- CT a/p showing concern of right sided obstructive uropathy
- Intra-op stent was not able to be placed in right ureter.
- IRAD could not place perc R nephrostomy tube yesterday
- Patient taken to OR again on 12/29 for repeat attempt for R ureteral stent and was successful.
- Renal function improving nicely with creatinine 1.4 today
- Urologist planning to take to OR on thursday for ureteral stent exchange
3. Moderate volume ascites possible omental stranding/carcinomatosis
- s/p para / with 5900cc removal ; cytology report showing malignant effusion
4. Metabolic acidosis - resolved
- required bicarb drip support
5. Prediabetes
- A1c 5.8, continue monitoring.
6. Diarrhea likely secondary to possible doxycycline
- improved after discontinuation of doxycycline
7. GERD
- Continue Prilosec OTC as needed Tums
8. Abdominal diffuse scar
- have diffuse pinpoint superficial wound/rash? in different stages of healing
- question of bug/mite but distribution on one side of flank and no other skin area involved, makes it less likely
9. Hypokalemia
- replace
10. Class III obesity�BMI 57.7 kg
-Affects all aspects of care
-Given current above situation would hold off on weight loss until plan for above possible cancer diagnosis
11. Thrombocytosis
- Likely reactive from postoperative change
DVT prophylaxis -Subcu heparin
Full code
Anticipated Discharge: > 48 hours
Subjective/Interval History
-
Date of Service: January 02, 2025
Denies having any issues overnight
Feeling fatigued today
Objective Data
-
Labs:
Laboratory Results
01/02/25
06:44
WBC 9.5
Hgb 11.8 L
Hct 37.5
Plt Count 427 H
Sodium 139
Potassium 4.4
Chloride 104
Carbon Dioxide 28
BUN 15
Creatinine 1.5 H
Glucose 93
Calcium 8.9
Vital Signs:
Vital Signs
Temp Pulse Resp BP Pulse Ox
98.3 F 79 18 125/79 97
01/02/25 07:00 01/02/25 07:00 01/02/25 07:00 01/02/25 07:00 01/02/25 07:00
I&O
01/01/25 01/02/25 01/03/25
06:59 06:59 06:59
Intake Total 595 / 595 960 / 960
Output Total 3800 / 3800 75786 / 97141 700 / 700
Balance -3205 / -3205 -02369 / -18123 -700 / -700
Review of Systems
-
Respiratory: Reports No Symptoms
Cardiac: Reports No Symptoms
Abdomen/GI: Reports No Symptoms
Physical Exam
-
General: Obese
HEENT: Negative Oxygen
Respiratory: Clear to Auscultation
GI: Soft, Nontender and Other (midline surgical scar with gregory in place, no wound dehiscence)
Genito-urinary: Mahoney (leaking urine)
Musculoskeletal: No Edema
Neuro: Awake, Alert, Oriented, No Motor Deficits and Nonfocal/Grossly Intact
Psych: Calm
--- NOTE | 2025-01-02 16:06 | CM ---
Per PT notes, patient progressing well in therapy. She is not at exact baseline due to recent surgery.
Plan: Case management will continue to follow and assist with discharge planning. Home when discharged.
[2025-01-02 16:46] VITALS: BP 130/82; PULSE 80; O2SAT 98
[2025-01-02] MEDS: NSS 1000 IV (17:19)
[2025-01-02] MEDS: ROXICODONE 10 MG PO (21:27)
[2025-01-02 23:15] VITALS: BP 117/77
[2025-01-03] MEDS: TYLENOL PO (05:58)
[2025-01-03 06:00] VITALS: BMI 42.8
[2025-01-03 07:48] VITALS: BP 150/90
[2025-01-03] MEDS: DESENEX/MITRAZOL/ZEASORB TOPICAL ×2 (08:15→21:39)
[2025-01-03] MEDS: PROTONIX 40 MG PO (08:15)
[2025-01-03] MEDS: COLACE 100 MG PO ×2 (08:15→21:39)
[2025-01-03] MEDS: ROXICODONE 5 MG PO (08:16)
[2025-01-03] MEDS: MIRALAX 17 GRAMS PO (08:16)
[2025-01-03] MEDS: HEPARIN 5000 UNITS SC ×3 (08:16→23:48)
[2025-01-03] MEDS: SENNA SYRUP 8.8 MG PO ×2 (08:18→21:40)
--- NOTE | 2025-01-03 09:21 | W.PN.URO.CBU ---
Today's Communication / Plan
-
Discussed plan to proceed with attempt at conversion of right ureteral catheter to indwelling JJ stent 04/06/25
Patient will be cleared for discharge from a standpoint that same day
Assessment / Plan
-
54F withpelvic malignancy with massive ascites
Renal Insufficiency and ureteral obstruction
s/p resection of tumor
s/p L ureter JJ stent placement
IR unable to place R nephrostomy
2nd attempt with successful placement of R open ended catheter
- Maintain flowers and open ended ureteral stent to gravity with Hernandez adapter
- Plan for return to OR 04/06 for attempt at conversion to R JJ stent
- Hematuria resolved
Diagnosis
-
Date of Service: January 03, 2025
-
Pelvic malignancy with massive ascites
Renal Insufficiency
Left kidney/ureter -- now stented with JJ
Right kidney/ureter -- open ended catheter in place
Post Op Day:
s/p Left Ureteral Stenting; failed right ureteral stenting
s/p 2nd attempt with open ended ureteral stent in place 09/30/24
Subjective
-
Ambulating
Little catheter bother
Objective
-
Vital Signs
Temp Pulse Resp BP Pulse Ox
98.3 F 83 16 150/90 98
01/03/25 07:48 01/03/25 07:48 01/03/25 07:48 01/03/25 07:48 01/03/25 07:48
Intake and Output
01/02/25 01/03/25 01/04/25
06:59 06:59 06:59
Intake Total 960 / 960
Output Total 99161 / 80864 1700 / 1700
Balance -74974 / -96290 -1700 / -1700
Intake:
Oral fluids 960 / 960
Output:
Urine, Flowers 14075 / 62789 1700 / 1700
Laboratory Results
01/02/25 06:44
01/02/25 06:44
Review of Systems
-
Constitutional: Fatigue
Respiratory: No Symptoms
Cardiac: No Symptoms
Abdomen/GI: No Symptoms
Neurological: No Symptoms
Physical Exam
-
General - well nourished, no acute distress
Abdomen - soft, non-tender
Genitalia - normal with Flowers and right ureteral catheter draining clear urine
Neuro - AOx3, no motor deficits
Counseling
-
Discussed risks of surgery, including possible right ureteral injury and potential loss of access to right renal pelvis/ureter
Consent signed
--- NOTE | 2025-01-03 09:48 | W.PN.GYNONC ---
Today's Communication
-
N/A
Impression / Plan
-
POD3
1. Pelvic Mass
Preliminart reports as per Dr Royal:
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
will likely need systemic therapy for stage IV disease
I will ask med onc to see while in hospital, personally spoke to Dr Avila
2. Pulm
encourage Incentive spirometer
3. Car
regular
4. GI:
regular diet,bowel function is returned
5. Renal
Cr is 1.5 (this may be baseline now
Urology will return back to OR this week 01/05 for exchange of single J to JJ stent on right side, flowers can be removed after that
6. DVT prophylaxis: high risk, heparin 5000 BID and SCD,
7. Code status: full
we need to start discharge planning. typically i do recommend VTE prophylaxis for 28 days after such procedures. we need case management to get approval for eliquis 2.5 mg BID x 14 days probably
I am ok with plan of dc home later this week
Miguel Kaufman MD
[facility]
[id number]
Subjective / Interval History
-
she feels well, has walked in halls
reports tolerating diet well
had BM, continues to have flatus
Objective Data
-
Lab Results:
01/02/25 06:44
01/02/25 06:44
Physical Exam
Vital Signs / I&O
Vitals
Temp Pulse Resp BP Pulse Ox
98.3 F 83 16 150/90 98
01/03/25 07:48 01/03/25 07:48 01/03/25 07:48 01/03/25 07:48 01/03/25 07:48
I&O
01/01/25 01/02/25 01/03/25 01/04/25
06:59 06:59 06:59 06:59
Intake Total 595 / 595 960 / 960
Output Total 3800 / 3800 57399 / 46454 1700 / 1700
Balance -3205 / -3205 -42701 / -10900 -1700 / -1700
Physical Exam
General: No Apparent Distress
Respiratory: Clear and Non Labored Respirations
Cardiac: S1/S2 and Regular Rhythm
GI: Soft, Non Distended and Other (midline incision dry with gregory)
Data Reviewed
-
Medical Tests (Nuc Med, Echo, EKG etc): Image personally visualized and interpreted
Lab Data: Labs Reviewed
--- NOTE | 2025-01-03 10:41 | W.PN.HOSP.TC ---
Today's Communication/Plan
-
BMP in morning
OR
Assessment / Plan
Assessment / Plan
CT abdomen pelvis without IV or oral contrast
1. Some right renal atrophy and mild right renal and at least proximal right ureteral dilatation. Cannot exclude right-sided obstructive uropathy.
2. Suspected large heterogeneous predominantly low-attenuation mass measuring 30 cm in greatest dimension within the abdomen midline into the left, most likely extending from the left true pelvis.
Most likely differential diagnostic possibility would be an ovarian mass such as a cyst adenocarcinoma or cystadenoma. Other masses cannot be excluded, particularly in light of size. MRI suggested for more complete
evaluation.
3 . Moderate volume ascites with possible omental stranding/carcinomatosis.
4. . Small volume retroperitoneal lymph nodes and possible small volume pelvic lymph nodes.

1. Ovarian cancer
Malignant effusion
Postoperative ileus
- CT a/p report as above
- MRI a/p could not able to visualize abd organs appropriately due to limited study
- Diagnostic paracentesis from last week showing malignant cells of m�llerian origin
- CA 19-9 CEA WNL, CA 125 137.
- Patient underwent resection of ovarian mass of ~ 35lb, was planned to have abdominal hysterectomy but not able to be done due to carcinomatosis
- NG tube removed. slow diet advancement as tolerated.
- Follow-up intraoperative mass pathology report, pending.
2. Acute renal failure
Obstructive uropathy
- cr continues to trend upward.
- Not on nephrotoxic medication. no contrast exposure.
- CT a/p showing concern of right sided obstructive uropathy
- Intra-op stent was not able to be placed in right ureter.
- IRAD could not place perc R nephrostomy tube yesterday
- Patient taken to OR again on 12/29 for repeat attempt for R ureteral stent and was successful.
- Renal function improving nicely with creatinine 1.4 today
- Urologist planning to take to OR on thursday for ureteral stent exchange
3. Moderate volume ascites possible omental stranding/carcinomatosis
- s/p para 4/9 with 5900cc removal ; cytology report showing malignant effusion
4. Metabolic acidosis - resolved
- required bicarb drip support
5. Prediabetes
- A1c 5.8, continue monitoring.
6. Diarrhea likely secondary to possible doxycycline
- improved after discontinuation of doxycycline
7. GERD
- Continue Prilosec OTC as needed Tums
8. Abdominal diffuse scar
- have diffuse pinpoint superficial wound/rash? in different stages of healing
- question of bug/mite but distribution on one side of flank and no other skin area involved, makes it less likely
9. Hypokalemia
- replace
10. Class III obesity�BMI 57.7 kg
-Affects all aspects of care
-Given current above situation would hold off on weight loss until plan for above possible cancer diagnosis
11. Thrombocytosis
- Likely reactive from postoperative change
DVT prophylaxis -Subcu heparin
Full code
Anticipated Discharge: 24 - 48 hours
Subjective/Interval History
-
Date of Service: January 03, 2025
no complains overnight
Objective Data
-
Vital Signs:
Vital Signs
Temp Pulse Resp BP Pulse Ox
98.3 F 83 16 150/90 98
01/03/25 07:48 01/03/25 07:48 01/03/25 07:48 01/03/25 07:48 01/03/25 07:48
I&O
01/02/25 01/03/25 01/04/25
06:59 06:59 06:59
Intake Total 960 / 960
Output Total 64190 / 12788 1700 / 1700
Balance -77654 / -04562 -1700 / -1700
Review of Systems
-
Respiratory: Reports No Symptoms
Cardiac: Reports No Symptoms
Abdomen/GI: Reports No Symptoms
Physical Exam
-
General: Obese
HEENT: Negative Oxygen
Respiratory: Clear to Auscultation
GI: Soft, Nontender and Other (midline surgical scar with gregory in place, no wound dehiscence)
Genito-urinary: Mahoney (leaking urine)
Musculoskeletal: No Edema
Neuro: Awake, Alert, Oriented, No Motor Deficits and Nonfocal/Grossly Intact
Psych: Calm
[2025-01-03] MEDS: ROXICODONE 10 MG PO ×3 (11:36→21:39)
[2025-01-03] MEDS: TYLENOL 650 MG PO ×3 (11:37→23:48)
--- NOTE | 2025-01-03 11:53 | W.PN.UPDATE ---
Update Note
Progress Note Update
Case d/w Dr. Kaufman.
Path suggests metastatic cervical cancer (squamous cell), in addition to mucinous LMP of ovary
Patient will need chemo/immunotherapy after she recovers from current issues
I introduced myself to patient, explained that I'd be working with Dr. Kaufman to coordinate outpatient treatment.
She's recovering well.
[2025-01-03] MEDS: DETROL LA 4 MG PO (12:15)
[2025-01-03 15:10] VITALS: BP 140/85
--- NOTE | 2025-01-03 15:22 | W.PN.NEPH.PH ---
Today's Communication / Plan
-
follow up bmp in am
Assessment/Plan
-
Assessment
DIMITRI
Advanced right and mild to moderate left hydronephrosis
Recent NSAID use
Nausea vomiting diarrhea
Carcinomatosis
s/p paracentesis /9- 5.9lit. 12/26 7lit
Large ascites
30 cm abdominal mass
Reflux
CA125 elevated
Plan:
cr at 1.5 on 01/02, encourage fluid intake
recheck bmp tomorrow
likely give IVF , seem polyuric though UOP not accurate
s/p right u catheter on 12/29, noted dense ureteral stricture-plan conversion to indwelling stent this week
s/p Left ureteral stent
Hemodynamically stable
labs in am
d/w pt
-
-
Date of Service: January 03, 2025
CC / HPI / ROS
-
Chief Complaint:
DIMITRI
History of Present Illness:
DIMITRI/Cr improved
polyuric with flowers
s/p paracentesis 5.9L 12/21 , 30 cm mass removed 12/26 and left ureteral stent
s/p right U tube palcement
cr stable at 1.5
BP stable
Review of Systems:
No chest pain or shortness of breath
Nonoliguric with urine output 1 L
mild hematuria in bag-improving
Labs
-
Labs:
WBC 9.5 10^3/uL (4.8-10.8) 01/02/25 06:44
RBC 4.67 10^6/uL (4.20-5.40) 01/02/25 06:44
Hgb 11.8 g/dL (12.0-16.0) L 01/02/25 06:44
Hct 37.5 % (37.0-47.0) 01/02/25 06:44
Plt Count 427 10^3/uL (130-400) H 01/02/25 06:44
Sodium 139 mmol/L (135-145) 01/02/25 06:44
Potassium 4.4 mmol/L (3.5-5.1) 01/02/25 06:44
Chloride 104 mmol/L (98-107) 01/02/25 06:44
Carbon Dioxide 28 mmol/L (22-30) 01/02/25 06:44
BUN 15 mg/dl (7-17) 01/02/25 06:44
Creatinine 1.5 mg/dL (0.6-1.0) H 01/02/25 06:44
eGFR 41.67 01/02/25 06:44
Glucose 93 mg/dl (70-99) 01/02/25 06:44
Calcium 8.9 mg/dl (8.4-10.2) 01/02/25 06:44
Phosphorus 6.3 mg/dl (2.5-4.5) H 12/27/24 11:58
Albumin 3.5 g/dl (3.5-5.0) 12/26/24 07:18
Physical Exam
-
Vital Signs:
Vital Signs
Temp Pulse Resp BP Pulse Ox
99.3 F 87 16 140/85 97
01/03/25 15:10 01/03/25 15:10 01/03/25 15:10 01/03/25 15:10 01/03/25 15:10
Cardiovascular:: Regular rate and rhythm
Respiratory:: Bilateral: CTA
Lung Excursion:: Normal
Abdomen:: Nontender and Soft
Extremity Edema:: None: Bilateral:
Flowers Catheter: Yes
[2025-01-03 23:30] VITALS: BP 153/98
[2025-01-04] MEDS: TYLENOL 650 MG PO ×3 (05:08→17:12)
[2025-01-04 06:00] VITALS: BMI 42.4
[2025-01-04 07:19] VITALS: BP 116/74
[2025-01-04] MEDS: MIRALAX 17 GRAMS PO (09:10)
[2025-01-04] MEDS: DETROL LA 4 MG PO (09:10)
[2025-01-04] MEDS: PROTONIX 40 MG PO (09:11)
[2025-01-04] MEDS: SENNA SYRUP 8.8 MG PO ×2 (09:11→20:57)
[2025-01-04] MEDS: COLACE 100 MG PO ×2 (09:12→20:57)
[2025-01-04] MEDS: HEPARIN 5000 UNITS SC ×2 (09:12→15:38)
[2025-01-04] MEDS: DESENEX/MITRAZOL/ZEASORB TOPICAL (09:21)
[2025-01-04] MEDS: ROXICODONE 5 MG PO ×2 (09:26→15:59)
[2025-01-04 11:03] LABS: Blood Urea Nitrogen 15 mg/dl (7-17); Calcium 9.6 mg/dl (8.4-10.2); Carbon Dioxide 26 mmol/L (22-30); Chloride 100 mmol/L (98-107); Estimated Creatinine Clearance 55 ml/min; Glucose 105 mg/dl (70-99); Potassium 5.3 mmol/L (3.5-5.1); Sodium 137 mmol/L (135-145); eGFR 49.48
[2025-01-04 12:59] VITALS: BP 141/83; PULSE 120; PULSE 92; O2SAT 97
--- NOTE | 2025-01-04 13:53 | W.PN.HOSP.TC ---
Today's Communication/Plan
-
Creatinine continues to trend down, 1.3 today
low k diet,
lokelma 10mg x1
f/u bmp tomorrow
Assessment / Plan
Assessment / Plan
CT abdomen pelvis without IV or oral contrast
1. Some right renal atrophy and mild right renal and at least proximal right ureteral dilatation. Cannot exclude right-sided obstructive uropathy.
2. Suspected large heterogeneous predominantly low-attenuation mass measuring 30 cm in greatest dimension within the abdomen midline into the left, most likely extending from the left true pelvis.
Most likely differential diagnostic possibility would be an ovarian mass such as a cyst adenocarcinoma or cystadenoma. Other masses cannot be excluded, particularly in light of size. MRI suggested for more complete
evaluation.
3 . Moderate volume ascites with possible omental stranding/carcinomatosis.
4. . Small volume retroperitoneal lymph nodes and possible small volume pelvic lymph nodes.

1. Ovarian cancer
Malignant effusion
Postoperative ileus
- CT a/p report as above
- MRI a/p could not able to visualize abd organs appropriately due to limited study
- Diagnostic paracentesis from last week showing malignant cells of m�llerian origin
- CA 19-9 CEA WNL, CA 125 137.
- Patient underwent resection of ovarian mass of ~ 35lb, was planned to have abdominal hysterectomy but not able to be done due to carcinomatosis
- Follow-up intraoperative mass pathology report, pending.
2. Acute renal failure
Obstructive uropathy
- cr continues to trend upward.
- Not on nephrotoxic medication. no contrast exposure.
- CT a/p showing concern of right sided obstructive uropathy
- Intra-op stent was not able to be placed in right ureter.
- IRAD could not place perc R nephrostomy tube yesterday
- Patient taken to OR again on 12/29 for repeat attempt for R ureteral stent and was successful.
- Renal function improving nicely with creatinine 1.3 today
- Urologist planning to take to OR on thursday for ureteral stent exchange
3. Moderate volume ascites possible omental stranding/carcinomatosis
- s/p para 12/21 with 5900cc removal ; cytology report showing malignant effusion
4. Metabolic acidosis - resolved
- required bicarb drip support
5. Prediabetes
- A1c 5.8, continue monitoring.
6. Diarrhea likely secondary to possible doxycycline
- improved after discontinuation of doxycycline
7. GERD
- Continue Prilosec OTC as needed Tums
8. Hyperkalemia
- Minimal. Renal function already improving. Not on KARISSA/ARB not on potassium supple.
- Providing dose of oral Lokelma/low potassium diet
- Avoiding Lasix as patient is recovering renal function
9. Hypokalemia
- replace
10. Class III obesity�BMI 57.7 kg
-Affects all aspects of care
-Given current above situation would hold off on weight loss until plan for above possible cancer diagnosis
11. Thrombocytosis
- Likely reactive from postoperative change
DVT prophylaxis -Subcu heparin
Full code
Anticipated Discharge: Within 24 hours
Subjective/Interval History
-
Date of Service: January 04, 2025
No reported problems were
Objective Data
-
Labs:
Laboratory Results
01/04/25
10:04
Sodium 137
Potassium 5.3 H
Chloride 100
Carbon Dioxide 26
BUN 15
Creatinine 1.3 H
Glucose 105 H
Calcium 9.6
Vital Signs:
Vital Signs
Temp Pulse Resp BP Pulse Ox
97.9 F 71 16 116/74 97
01/04/25 07:19 01/04/25 07:19 01/04/25 07:19 01/04/25 07:19 01/04/25 07:19
I&O
01/03/25 01/04/25 01/05/25
06:59 06:59 06:59
Intake Total 1950 / 1950
Output Total 1700 / 1700 5450 / 5450
Balance -1700 / -1700 -3500 / -3500
Review of Systems
-
Respiratory: Reports No Symptoms
Cardiac: Reports No Symptoms
Abdomen/GI: Reports No Symptoms
Physical Exam
-
General: Obese
HEENT: Negative Oxygen
Respiratory: Clear to Auscultation
GI: Soft, Nontender and Other (midline surgical scar with gregory in place, no wound dehiscence)
Genito-urinary: Mahoney (leaking urine)
Musculoskeletal: No Edema
Neuro: Awake, Alert, Oriented, No Motor Deficits and Nonfocal/Grossly Intact
Psych: Calm
--- NOTE | 2025-01-04 14:23 | W.PN.NEPH.PH ---
Today's Communication / Plan
-
BMP
Assessment/Plan
-
Assessment
DIMITRI
Advanced right and mild to moderate left hydronephrosis
Recent NSAID use
Nausea vomiting diarrhea
Carcinomatosis
s/p paracentesis 9- 5.9lit. 12/26 7lit
Large ascites
30 cm abdominal mass
Reflux
CA125 elevated
Plan:
likely give IVF , seem polyuric though UOP not accurate
s/p right u catheter on 12/29, noted dense ureteral stricture-plan conversion to indwelling stent this week
s/p Left ureteral stent
Hemodynamically stable
labs in am
Creatinine continues to improve down to 1.3
Should be okay for discharge from renal standpoint in the next 24 to 48 hours pending urological procedure
d/w pt
-
-
Date of Service: January 04, 2025
CC / HPI / ROS
-
Chief Complaint:
DIMITRI
History of Present Illness:
DIMITRI/Cr improved
polyuric with flowers
s/p paracentesis 5.9L 12/21 , 30 cm mass removed 12/26 and left ureteral stent
s/p right U tube palcement
cr stable at 1.5�1.3
BP stable
Review of Systems:
No chest pain or shortness of breath
Nonoliguric
Labs
-
Labs:
WBC 9.5 10^3/uL (4.8-10.8) 01/02/25 06:44
RBC 4.67 10^6/uL (4.20-5.40) 01/02/25 06:44
Hgb 11.8 g/dL (12.0-16.0) L 01/02/25 06:44
Hct 37.5 % (37.0-47.0) 01/02/25 06:44
Plt Count 427 10^3/uL (130-400) H 01/02/25 06:44
Sodium 137 mmol/L (135-145) 01/04/25 10:04
Potassium 5.3 mmol/L (3.5-5.1) H 01/04/25 10:04
Chloride 100 mmol/L (98-107) 01/04/25 10:04
Carbon Dioxide 26 mmol/L (22-30) 01/04/25 10:04
BUN 15 mg/dl (7-17) 01/04/25 10:04
Creatinine 1.3 mg/dL (0.6-1.0) H 01/04/25 10:04
eGFR 49.48 01/04/25 10:04
Glucose 105 mg/dl (70-99) H 01/04/25 10:04
Calcium 9.6 mg/dl (8.4-10.2) 01/04/25 10:04
Phosphorus 6.3 mg/dl (2.5-4.5) H 12/27/24 11:58
Albumin 3.5 g/dl (3.5-5.0) 12/26/24 07:18
Physical Exam
-
Vital Signs:
Vital Signs
Temp Pulse Resp BP Pulse Ox
97.9 F 71 16 116/74 97
01/04/25 07:19 01/04/25 07:19 01/04/25 07:19 01/04/25 07:19 01/04/25 07:19
Cardiovascular:: Regular rate and rhythm
Respiratory:: Bilateral: CTA
Lung Excursion:: Normal
Abdomen:: Nontender and Soft
Extremity Edema:: None: Bilateral:
Flowers Catheter: Yes
[2025-01-04 15:15] VITALS: BP 138/83
[2025-01-04] MEDS: LOKELMA 10 GRAM PO (15:38)
--- NOTE | 2025-01-04 16:45 | W.PN.GYNONC ---
Today's Communication
-
she is ok for dc home tomorrow
will make appointment to see me for staple removal in 7-10 days
Impression / Plan
-
POD3
1. Pelvic Mass
Preliminart reports as per Dr Royal:
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
will likely need systemic therapy for stage IV disease
I will ask med onc to see while in hospital, personally spoke to Dr Avila
2. Pulm
encourage Incentive spirometer
3. Car
regular
4. GI:
regular diet,bowel function is returned
5. Renal
Cr is 1.5 (this may be baseline now
Urology will return back to OR this week 01/05 for exchange of single J to JJ stent on right side, flowers can be removed after that
6. DVT prophylaxis: high risk, heparin 5000 BID and SCD,
7. Code status: full
we need to start discharge planning. typically i do recommend VTE prophylaxis for 28 days after such procedures. we need case management to get approval for eliquis 2.5 mg BID x 14 days probably
I am ok with plan of dc home later this week
Miguel Kaufman MD
[facility]
[id number]
Subjective / Interval History
-
she is doing well
carola diet ok, also is passing flatus and has had BM
anticipating OR tomorrow for stent exchange
pain is minimlal
Objective Data
-
Lab Results:
01/02/25 06:44
01/04/25 10:04
Physical Exam
Vital Signs / I&O
Vitals
Temp Pulse Resp BP Pulse Ox
98.1 F 84 18 138/83 97
01/04/25 15:15 01/04/25 15:15 01/04/25 15:15 01/04/25 15:15 01/04/25 15:15
I&O
01/02/25 01/03/25 01/04/25 01/05/25
06:59 06:59 06:59 06:59
Intake Total 960 / 960 1950 / 1950
Output Total 74472 / 56009 1700 / 1700 5450 / 5450 1350 / 1350
Balance -20938 / -26346 -1700 / -1700 -3500 / -3500 -1350 / -1350
Physical Exam
General: No Apparent Distress and Comfortable
HEENT: Normocephalic
Respiratory: Clear and Non Labored Respirations
Cardiac: S1/S2 and Regular Rhythm
GI: Soft, Non Tender and Non Distended
[2025-01-04] MEDS: DESENEX/MITRAZOL/ZEASORB 1 APPLIC TOPICAL (20:57)
[2025-01-04] MEDS: ROXICODONE 10 MG PO (20:58)
[2025-01-04 23:02] VITALS: BP 141/86
[2025-01-05] VITALS (7 sets, daily range): BP systolic 119–144; BP diastolic 73–105
[2025-01-05] MEDS: HEPARIN 5000 UNITS SC (00:15)
[2025-01-05] MEDS: TYLENOL 650 MG PO ×3 (00:16→12:41)
[2025-01-05 06:40] LABS: Blood Urea Nitrogen 15 mg/dl (7-17); Calcium 9.2 mg/dl (8.4-10.2); Carbon Dioxide 24 mmol/L (22-30); Chloride 106 mmol/L (98-107); Estimated Creatinine Clearance 55 ml/min; Glucose 104 mg/dl (70-99); Potassium 4.6 mmol/L (3.5-5.1); Sodium 137 mmol/L (135-145); eGFR 49.48
[2025-01-05] MEDS: HEPARIN SC ×2 (08:36→15:20)
[2025-01-05] MEDS: DETROL LA PO (08:36)
[2025-01-05] MEDS: MIRALAX PO (08:36)
[2025-01-05] MEDS: PROTONIX PO (08:36)
[2025-01-05] MEDS: DESENEX/MITRAZOL/ZEASORB TOPICAL (08:36)
[2025-01-05] MEDS: COLACE PO (08:36)
[2025-01-05] MEDS: SENNA SYRUP PO (08:36)
--- NOTE | 2025-01-05 09:10 | W.PN.GYNONC ---
Today's Communication
-
-
Impression / Plan
-
01/05/25
she has recovered well from procedure, answered questions about wound care at home, and confirmed appointment for staple removal.
She had questions about diet and foods she can and can not have, suggested discussing with computer operations analyst and to ask for dietary consult (outpatient) to help answer her questions.
Subjective / Interval History
-
She is feeling good and ready to go home, just waiting for final instructions. Questions about wound care at home. Has made her appointment for staple removal.
Objective Data
-
Lab Results:
01/02/25 06:44
01/05/25 05:31
Physical Exam
Vital Signs / I&O
Vitals
Temp Pulse Resp BP Pulse Ox
97.4 F 78 17 124/79 98
01/05/25 07:31 01/05/25 07:31 01/05/25 07:31 01/05/25 07:31 01/05/25 07:31
I&O
01/03/25 01/04/25 01/05/25 01/06/25
06:59 06:59 06:59 06:59
Intake Total 1950 / 1950 960 / 960
Output Total 1700 / 1700 5450 / 5450 2975 / 2975
Balance -1700 / -1700 -3500 / -3500 -2014 /
Physical Exam
Abdomen is soft nontender incision healing well
Data Reviewed
-
Lab Data: Labs Reviewed
--- NOTE | 2025-01-05 09:55 | W.IMMPOSTOP ---
Surgical Immed Post Op Note
-
Primary Surgeon: Tomasa
Assisting Surgeon: None
Pre-op Diagnosis: Right distal ureteral stricture/obstruction
Post-op Diagnosis: Same
Procedure Performed: Conversion of right ureteral catheter to 6Fr right JJ stent; cystoscopy
Anesthesia Type: GET
Specimen / Cultures: None
Estimated Blood Loss: None
Complications: None
[2025-01-05] MEDS: DILAUDID 0.5 MG IV (10:09)
[2025-01-05] MEDS: SENNA SYRUP 8.8 MG PO (10:42)
[2025-01-05] MEDS: MIRALAX 17 GRAMS PO (10:42)
[2025-01-05] MEDS: COLACE 100 MG PO (10:42)
--- NOTE | 2025-01-05 12:35 | W.PN.NEPH.PH ---
Today's Communication / Plan
-
Okay from renal standpoint for discharge
Assessment/Plan
-
Assessment
DIMITRI
Advanced right and mild to moderate left hydronephrosis
Recent NSAID use
Nausea vomiting diarrhea
Carcinomatosis
s/p paracentesis 9- 5.9lit. 12/26 7lit
Large ascites
30 cm abdominal mass
Reflux
CA125 elevated
Plan:
likely give IVF , seem polyuric though UOP not accurate
s/p right u catheter on 12/29, noted dense ureteral stricture-plan conversion to indwelling stent this week
s/p Left ureteral stent
Hemodynamically stable
labs in am
Creatinine continues to improve down to 1.3
Okay for discharge from renal standpoint
d/w pt
-
-
Date of Service: January 05, 2025
CC / HPI / ROS
-
Chief Complaint:
DIMITRI
History of Present Illness:
DIMITRI/Cr improved
polyuric with flowers
s/p paracentesis 5.9L 12/21 , 30 cm mass removed 12/26 and left ureteral stent
s/p right U tube palcement
cr stable at 1.5�1.3
BP stable
Review of Systems:
No chest pain or shortness of breath
Nonoliguric
Labs
-
Labs:
WBC 9.5 10^3/uL (4.8-10.8) 01/02/25 06:44
RBC 4.67 10^6/uL (4.20-5.40) 01/02/25 06:44
Hgb 11.8 g/dL (12.0-16.0) L 01/02/25 06:44
Hct 37.5 % (37.0-47.0) 01/02/25 06:44
Plt Count 427 10^3/uL (130-400) H 01/02/25 06:44
Sodium 137 mmol/L (135-145) 01/05/25 05:31
Potassium 4.6 mmol/L (3.5-5.1) 01/05/25 05:31
Chloride 106 mmol/L (98-107) 01/05/25 05:31
Carbon Dioxide 24 mmol/L (22-30) 01/05/25 05:31
BUN 15 mg/dl (7-17) 01/05/25 05:31
Creatinine 1.3 mg/dL (0.6-1.0) H 01/05/25 05:31
eGFR 49.48 01/05/25 05:31
Glucose 104 mg/dl (70-99) H 01/05/25 05:31
Calcium 9.2 mg/dl (8.4-10.2) 01/05/25 05:31
Phosphorus 6.3 mg/dl (2.5-4.5) H 12/27/24 11:58
Albumin 3.5 g/dl (3.5-5.0) 12/26/24 07:18
Physical Exam
-
Vital Signs:
Vital Signs
Temp Pulse Resp BP Pulse Ox
98.4 F 85 18 137/87 98
01/05/25 11:14 01/05/25 11:14 01/05/25 11:14 01/05/25 11:14 01/05/25 11:14
Cardiovascular:: Regular rate and rhythm
Respiratory:: Bilateral: CTA
Lung Excursion:: Normal
Abdomen:: Nontender and Soft
Extremity Edema:: None: Bilateral:
Flowers Catheter: Yes
--- NOTE | 2025-01-05 13:28 | W.PN.HOSP.TC ---
Today's Communication/Plan
-
Discharge home today
Assessment / Plan
Assessment / Plan
CT abdomen pelvis without IV or oral contrast
1. Some right renal atrophy and mild right renal and at least proximal right ureteral dilatation. Cannot exclude right-sided obstructive uropathy.
2. Suspected large heterogeneous predominantly low-attenuation mass measuring 30 cm in greatest dimension within the abdomen midline into the left, most likely extending from the left true pelvis.
Most likely differential diagnostic possibility would be an ovarian mass such as a cyst adenocarcinoma or cystadenoma. Other masses cannot be excluded, particularly in light of size. MRI suggested for more complete
evaluation.
3 . Moderate volume ascites with possible omental stranding/carcinomatosis.
4. . Small volume retroperitoneal lymph nodes and possible small volume pelvic lymph nodes.

Ovarian cancer
Malignant effusion
Postoperative ileus
- CT a/p report as above
- MRI a/p could not able to visualize abd organs appropriately due to limited study
- Diagnostic paracentesis from last week showing malignant cells of m�llerian origin
- CA 19-9 CEA WNL, CA 125 137.
- Patient underwent resection of ovarian mass of ~ 35lb, was planned to have abdominal hysterectomy but not able to be done due to carcinomatosis
- Follow-up intraoperative mass pathology report, pending.
Acute renal failure
Obstructive uropathy
- cr continues to trend upward.
- Not on nephrotoxic medication. no contrast exposure.
- CT a/p showing concern of right sided obstructive uropathy
- Intra-op stent was not able to be placed in right ureter.
- IRAD could not place perc R nephrostomy tube yesterday
- Patient taken to OR again on 4/17 for repeat attempt for R ureteral stent and was successful.
- Renal function improving nicely with creatinine 1.3 today
- Urologist planning to take to OR on thursday for ureteral stent exchange
01/05
Status post left ureteral
UTI
Urine culture positive for Klebsiella pneumoniae.
Will start Augmentin
Moderate volume ascites possible omental stranding/carcinomatosis
- s/p para 12/21 with 5900cc removal ; cytology report showing malignant effusion
Metabolic acidosis - resolved
- required bicarb drip support
Prediabetes
- A1c 5.8, continue monitoring.
Diarrhea likely secondary to possible doxycycline
- improved after discontinuation of doxycycline
GERD
- Continue Prilosec OTC as needed Tums
Hyperkalemia
- Minimal. Renal function already improving. Not on KARISSA/ARB not on potassium supple.
- Providing dose of oral Lokelma/low potassium diet
- Avoiding Lasix as patient is recovering renal function
Class III obesity�BMI 57.7 kg
-Affects all aspects of care
-Given current above situation would hold off on weight loss until plan for above possible cancer diagnosis
Thrombocytosis
- Likely reactive from postoperative change
DVT prophylaxis -Subcu heparin
Full code
Anticipated Discharge: Today
Subjective/Interval History
-
Date of Service: January 05, 2025
Patient seen and examined at bedside, denies any chest pain or shortness of breath, no abdominal pain, no nausea, no vomiting, no diarrhea or constipation.
Status post left ureteral stent today.
Cleared for discharge by both nephrology and gynecology oncology
Objective Data
-
Labs:
Laboratory Results
01/05/25
05:31
Sodium 137
Potassium 4.6
Chloride 106
Carbon Dioxide 24
BUN 15
Creatinine 1.3 H
Glucose 104 H
Calcium 9.2
Vital Signs:
Vital Signs
Temp Pulse Resp BP Pulse Ox
98.4 F 85 18 137/87 98
01/05/25 11:14 01/05/25 11:14 01/05/25 11:14 01/05/25 11:14 01/05/25 11:14
I&O
01/04/25 01/05/25 01/06/25
06:59 06:59 06:59
Intake Total 1950 / 1950 960 / 960 50 / 50
Output Total 5450 / 5450 2975 / 2975
Balance -350 / -350 -2014 / 50 / 50
Physical Exam
-
General: Well Developed, Well Nourished, No Apparent Distress and Comfortable
HEENT: Normocephalic, Atraumatic, Moist Mucous Membranes, No Ptosis, PERRLA and Nose Appears Normal
Respiratory: Clear to Auscultation and Non Labored Respirations
Cardiac: Regular Rhythm and S1/S2
Breast: Deferred by me
GI: Soft, Nontender, Nondistended and Normal Bowel Sounds
Genito-urinary: No Costovertebral Tender
Musculoskeletal: No Clubbing, No Cyanosis and No Edema
Skin: Warm
Neuro: Awake, Alert, Oriented, AO x 3 and No Motor Deficits
Psych: Calm
Data Reviewed
-
Diagnostic Radiology: Image personally visualized and interpreted and Report Reviewed by me
CT Scan: Image personally visualized and interpreted and Report Reviewed by me
Ultrasound: Image personally visualized and interpreted and Report Reviewed by me
MRI: Image personally visualized and interpreted and Report Reviewed by me
Medical Tests (Nuc Med, Echo etc): Image personally visualized and interpreted and Report Reviewed by me
Labs: Labs Reviewed by me
Old Records: Reviewed
[2025-01-05] MEDS: AUGMENTIN 875 MG/125 MG 1 TABLET PO (14:30)
--- NOTE | 2025-01-05 15:06 | W.DCSUMMARY ---
Discharge Summary
Discharge Data
Date of Admission: 12/20/24
Date of Discharge: 01/05/25
-
Pending Results: No
Hospital Course
Hospital course
Patient had prolonged hospital stay with large ovarian mass status post removal and status post bilateral ureteral stent seen by nephrology/urology/gynecology/oncology.
Overall improving and plan to discharge home.
Has evidence of UTI will be discharged on Augmentin.
During hospitalization patient was treated from the [facility]
CT abdomen pelvis without IV or oral contrast
1. Some right renal atrophy and mild right renal and at least proximal right ureteral dilatation. Cannot exclude right-sided obstructive uropathy.
2. Suspected large heterogeneous predominantly low-attenuation mass measuring 30 cm in greatest dimension within the abdomen midline into the left, most likely extending from the left true pelvis.
Most likely differential diagnostic possibility would be an ovarian mass such as a cyst adenocarcinoma or cystadenoma. Other masses cannot be excluded, particularly in light of size. MRI suggested for more complete
evaluation.
3 . Moderate volume ascites with possible omental stranding/carcinomatosis.
4. . Small volume retroperitoneal lymph nodes and possible small volume pelvic lymph nodes.

Ovarian cancer
Malignant effusion
Postoperative ileus
- CT a/p report as above
- MRI a/p could not able to visualize abd organs appropriately due to limited study
- Diagnostic paracentesis from last week showing malignant cells of m�llerian origin
- CA 19-9 CEA WNL, CA 125 137.
- Patient underwent resection of ovarian mass of ~ 35lb, was planned to have abdominal hysterectomy but not able to be done due to carcinomatosis
- Follow-up intraoperative mass pathology report, pending.
Acute renal failure
Obstructive uropathy
- cr continues to trend upward.
- Not on nephrotoxic medication. no contrast exposure.
- CT a/p showing concern of right sided obstructive uropathy
- Intra-op stent was not able to be placed in right ureter.
- IRAD could not place perc R nephrostomy tube yesterday
- Patient taken to OR again on 12/29 for repeat attempt for R ureteral stent and was successful.
- Renal function improving nicely with creatinine 1.3 today
- Urologist planning to take to OR on thursday for ureteral stent exchange
01/05
Status post left ureteral
UTI
Urine culture positive for Klebsiella pneumoniae.
Will start Augmentin
Moderate volume ascites possible omental stranding/carcinomatosis
- s/p para 4/9 with 5900cc removal ; cytology report showing malignant effusion
Metabolic acidosis - resolved
- required bicarb drip support
Prediabetes
- A1c 5.8, continue monitoring.
Diarrhea likely secondary to possible doxycycline
- improved after discontinuation of doxycycline
GERD
- Continue Prilosec OTC as needed Tums
Hyperkalemia
- Minimal. Renal function already improving. Not on KARISSA/ARB not on potassium supple.
- Providing dose of oral Lokelma/low potassium diet
- Avoiding Lasix as patient is recovering renal function
Class III obesity�BMI 57.7 kg
-Affects all aspects of care
-Given current above situation would hold off on weight loss until plan for above possible cancer diagnosis
Thrombocytosis
- Likely reactive from postoperative change
DVT prophylaxis -Subcu heparin
Full code
Total time spent on today's encounter was 40 minutes which included time spent in counseling the patient/family regarding diagnosis and treatment plan as listed above, goals of care, and symptom management. Case was discussed with nursing staff,
specialists, and care coordinators/case management. All labs and imaging personally reviewed by me. Remainder the time spent in detailed review of previous records, lab data, imaging, and other medical provider documentation.
Anticipated Discharge: Today
Discharge Plan
-
Patient Disposition: Home with Home Care
Discharge Diagnosis/Procedures: Ovarian cancer
Malignant ascites
Acute renal failure
Obstructive uropathy.
UTI
Diet: As tolerated and Regular
Activity: As tolerated
Other Services: PT and OT
Referrals:
Mark Tejada MD [Active] - in two to three weeks
Nahum Castaneda MD [Active] - in less than 1 week
Ailyn Avila MD [Active] - in one to two weeks
Adryan Umana MD [Active] - in three to four weeks
Miguel Kaufman MD [Active] - in less than 1 week
Sridhar Reed MD [Family Provider] -
Prescriptions:
New
tolterodine 4 mg Capsule,Extended Release 24hr
4 mg PO DAILY Qty: 30 0RF
amoxicillin-pot clavulanate 875-125 mg Tablet
1 tab PO BID Qty: 10 0RF
oxycodone 5 mg Tablet
5 mg PO Q6HPRN PRN (Reason: mod pain) 5 Days Qty: 15 0RF
Probiotic 15 billion cell capsule, sprinkle
1 cap PO DAILY Qty: 10 0RF
Continued
vitamin B complex Tablet Extended Release
1 tab PO DAILY
omeprazole magnesium [Prilosec OTC] 20 mg Tablet,Delayed Release (Dr/Ec)
20 mg PO DAILY
cholecalciferol (vitamin D3) [Vitamin D3] 25 mcg (1,000 unit) Tablet
25 mcg PO DAILY
omega-3 fatty acids-fish oil 684-1,200 mg Capsule,Delayed Release(Dr/Ec)
1 cap PO DAILY
Discontinued
doxycycline hyclate 60 mg Tablet,Delayed Release (Dr/Ec)
60 mg PO DAILY
Discharge Orders:
Discharge Patient (As Directed); Ordered 01/05/25
Ordered By: Abdi Mckeon
Discharge Date and Time
Print Language: MONGOLIAN
== END 2025-01-05 16:19 | disposition home or self-care (01) | DRG 737 ==
LOC: 3 WEST ACU 16:53
PROVIDERS: Clinical Nurse Specialist Family Health; Emergency Medicine; Hospitalist; Internal Medicine; Physician Assistant; Radiology Neuroradiology; Radiology Vascular & Interventional Radiology; Specialist; ADMITTING PHYSICIAN Hospitalist; ATTENDING PHYSICIAN General Practice; CONSULT PHYSICIAN Internal Medicine Cardiovascular Disease; CONSULT PHYSICIAN Obstetrics & Gynecology Gynecologic Oncology; CONSULT PHYSICIAN Specialist; CONSULT PHYSICIAN Surgery; EMERGENCY PHYSICIAN Student in an Organized Health Care Education/Training Program; FAMILY PHYSICIAN Family Medicine; OTHER PHYSICIAN Internal Medicine Critical Care Medicine
PROC: 0W9G3ZX Drainage of Peritoneal Cavity, Percutaneous Approach, Diagnostic (ICD-10-PCS; 2024-12-21)
PROC: 0D9670Z Drainage of Stomach with Drainage Device, Via Natural or Artificial Opening (ICD-10-PCS; 2024-12-26)
PROC: 0DTJ0ZZ Resection of Appendix, Open Approach (ICD-10-PCS; 2024-12-26)
PROC: 0T778DZ Dilation of Left Ureter with Intraluminal Device, Via Natural or Artificial Opening Endoscopic (ICD-10-PCS; 2024-12-26)
PROC: 0UBF0ZZ Excision of Cul-de-sac, Open Approach (ICD-10-PCS; 2024-12-26)
PROC: 0UT20ZZ Resection of Bilateral Ovaries, Open Approach (ICD-10-PCS; 2024-12-26)
PROC: 0DBU0ZZ Excision of Omentum, Open Approach (ICD-10-PCS; 2024-12-26)
PROC: 0TJ98ZZ Inspection of Ureter, Via Natural or Artificial Opening Endoscopic (ICD-10-PCS; 2024-12-26)
PROC: 0W9G0ZZ Drainage of Peritoneal Cavity, Open Approach (ICD-10-PCS; 2024-12-26)
PROC: 0UT70ZZ Resection of Bilateral Fallopian Tubes, Open Approach (ICD-10-PCS; 2024-12-26)
PROC: 0DBW0ZZ Excision of Peritoneum, Open Approach (ICD-10-PCS; 2024-12-26)
PROC: 0T768DZ Dilation of Right Ureter with Intraluminal Device, Via Natural or Artificial Opening Endoscopic (ICD-10-PCS; 2024-12-29)
PROC: BT1D1ZZ Fluoroscopy of Right Kidney, Ureter and Bladder using Low Osmolar Contrast (ICD-10-PCS; 2024-12-29)
PROC: 0TP98DZ Removal of Intraluminal Device from Ureter, Via Natural or Artificial Opening Endoscopic (ICD-10-PCS; 2025-01-05)
DX: C56.2 Malignant neoplasm of left ovary (principal); C78.6 Secondary malignant neoplasm of retroperitoneum and peritoneum; D62 Acute posthemorrhagic anemia; E87.20 Acidosis, unspecified; N17.9 Acute kidney failure, unspecified; R18.0 Malignant ascites; N13.1 Hydronephrosis with ureteral stricture, not elsewhere classified; Z68.43 Body mass index [BMI] 50.0-59.9, adult; K91.89 Other postprocedural complications and disorders of digestive system; K56.7 Ileus, unspecified; N39.0 Urinary tract infection, site not specified; K21.9 Gastro-esophageal reflux disease without esophagitis; N92.6 Irregular menstruation, unspecified; E78.5 Hyperlipidemia, unspecified; N26.1 Atrophy of kidney (terminal); E66.813 Obesity, class 3; L71.9 Rosacea, unspecified; R73.03 Prediabetes; R97.1 Elevated cancer antigen 125 [CA 125]; M54.16 Radiculopathy, lumbar region; R59.0 Localized enlarged lymph nodes; K57.30 Diverticulosis of large intestine without perforation or abscess without bleeding; D75.839 Thrombocytosis, unspecified; E87.6 Hypokalemia; E87.5 Hyperkalemia; B96.1 Klebsiella pneumoniae [K. pneumoniae] as the cause of diseases classified elsewhere; R19.7 Diarrhea, unspecified; Z12.4 Encounter for screening for malignant neoplasm of cervix; Z80.3 Family history of malignant neoplasm of breast; Z82.49 Family history of ischemic heart disease and other diseases of the circulatory system; Z83.3 Family history of diabetes mellitus; Z81.1 Family history of alcohol abuse and dependence; Z87.891 Personal history of nicotine dependence; Z91.198 Patient's noncompliance with other medical treatment and regimen for other reason
CPT/HCPCS: 88304; 88305; 88307; 88332; 49083; 71045; 71250; 72197; 74018; 74176; 74183; 74420; 76000; 76830; 76856; 80048; 80053; 81003; 81015; 82042; 82150; 82378; 82570; 82728; 83001; 83036; 83540; 83550; 83605; 83615; 83690; 83735; 84100; 84157; 84300; 84443; 84702; 84703; 85025; 85027; 85610; 85730; 86301; 86304; 86850; 86900; 86901; 87015; 87070; 87077; 87086; 87186; 87205; 87624; 87625; 88112; 88331; 88341; 88342; 88360; 89051; 93005; 93306; 96374; 96375; 97116; 97162; 97530; 99285; A4300; A9575; C2617; G0123; P9045; P9047

== ENCOUNTER → 2025-01-27 08:54 | Outpatient (REF) | payer OTHER, SELFPAY ==
[2025-01-27 09:09] VITALS: BP 117/63; BP_SYST 104; BMI 39.9
[2025-01-27] MEDS: ANCEF 10 IV (09:34)
[2025-01-27 10:25] VITALS: BP 136/82; BP_SYST 102
[2025-01-27 10:30] VITALS: BP 143/69; BP_SYST 107
[2025-01-27 10:35] VITALS: BP 126/70; BP_SYST 104
== END ==
LOC: RADI 08:54
PROVIDERS: ATTENDING PHYSICIAN Obstetrics & Gynecology Gynecologic Oncology
DX: C53.1 Malignant neoplasm of exocervix (principal)
CPT/HCPCS: 36561; 76937; 77001; 99152; 99153; C1788

== ENCOUNTER 2025-01-31 09:57 | Emergency (ER) | payer OTHER, MEDICAID, SELFPAY ==
[2025-01-31 10:19] VITALS: BP 140/84
[2025-01-31 10:46] LABS: % Basophils 0.3 % (0-2); % Eosinophils 2.8 % (0-6); % Immature Granulocytes 2.3 % (0-0.5); % Lymphocytes 13.8 % (20.5-51.1); % Monocytes 4.2 % (1.7-9.3); % Neutrophils 76.6 % (42.2-75.2); Absolute Eosinophils 0.3 10^3/uL (0-0.7); Absolute Immature Granulocytes 0.3 10^3/uL (0-0.05); Absolute Lymphocytes 1.6 10^3/uL (1.2-3.4); Absolute Monocytes 0.5 10^3/uL (0.1-0.6); Absolute Neutrophils 8.9 10^3/uL (1.4-6.5); Hematocrit 31.1 % (37.0-47.0); Hemoglobin 9.6 g/dL (12.0-16.0); Mean Corp Hgb Conc. 30.9 g/dL (33.0-37.0); Mean Corpuscular Hgb 24.5 pg (27.0-31.0); Mean Corpuscular Volume 79.3 fL (81.0-99.0); Mean Platelet Volume 9.5 fL (7.4-10.4); Nucleated Red Blood Cells % 0 %; Platelet Count 461 10^3/uL (130-400); Red Blood Cell Count 3.92 10^6/uL (4.20-5.40); Red Cell Dist. Width 17.9 % (11.5-14.5); Urine Albumin Negative (Neg - Trace); Urine Bilirubin Negative (Negative); Urine Character Clear (Clear); Urine Color Yellow; Urine Glucose Negative (Negative); Urine Ketone Negative (Negative); Urine Leukocyte 2+ (Negative); Urine Nitrite Negative (Negative); Urine Occult Blood 1+ (Negative); Urine Urobilinogen Negative (Neg - 1+); White Blood Cell Count 11.6 10^3/uL (4.8-10.8)
[2025-01-31 11:20] LABS: Urine Squamous Cell 21-25 /LPF (Few)
[2025-01-31 11:21] LABS: Urine Urothelial Cell 0-2 /LPF (FEW)
[2025-01-31 11:22] LABS: Urine Red Blood Cell 0-2 /HPF (0-2)
[2025-01-31 11:23] LABS: Urine Bacteria Few (Negative); Urine White Cell 26-30 /HPF (0-5)
[2025-01-31 11:30] LABS: ALT (SGPT) 15 U/L (0-35); AST (SGOT) 17 U/L (14-36); Albumin 3.5 g/dl (3.5-5.0); Alkaline Phosphatase 130 U/L (38-126); Blood Urea Nitrogen 39 mg/dl (7-17); Calcium 9.9 mg/dl (8.4-10.2); Carbon Dioxide 24 mmol/L (22-30); Chloride 109 mmol/L (98-107); Glucose 138 mg/dl (70-99); Potassium 5.2 mmol/L (3.5-5.1); Sodium 142 mmol/L (135-145); Total Bilirubin 0.4 mg/dl (0.2-1.3); Total Protein 6.6 g/dl (6.3-8.2); eGFR 31.38
[2025-01-31 13:04] VITALS: BP 115/83; BMI 41.4
--- NOTE | 2025-01-31 14:53 | ED.GENMED ---
History of Present Illness
General
Chief Complaint: Abnormal Lab Value
Time Seen by Provider: 01/31/25 12:42
History of Present Illness
History of Present Illness:
54-year-old female presents the emergency department for evaluation of abnormal renal function. She was admitted in December for a large ovarian mass requiring excision and due to the sheer bulk of the tumor bilateral ureteral stents were placed. She
had outpatient labs done by her surgical oncologist and her creatinine was reportedly 3.9, was 1.3 at time of hospital discharge. Patient denies any complaints other than occasional pain from her ureteral stents. Denies any decreased urine output,
fever, or chills.
Review of Systems
Review of Systems
Allergies reviewed?: Yes
All Other Systems: ROS reviewed and negative except as documented in HPI and ROS
Phy Exam
Physical Exam
Physical Exam:
GEN: Well appearing, NAD, WDWN
HEENT: Oral mucosa moist, no scleral icterus
Cardiac: Regular rate
Lung: No respiratory distress, no tachypnea
MSK: No gross deformity or injuries
Skin: Good color, no pallor or jaundice, no rashes
Neuro: AO x3, moves all extremities freely
Psych: Calm, cooperative
Course
Orders/Labs/Results
Orders:
Orders
01/31/25 10:34
Complete Blood Count/With Diff Urgent
Comprehensive Metabolic Panel Urgent
Urinalysis Reflex To Culture Urgent
Date Specimen was Collected: 01/31/25
Time Specimen was Collected: 10:23
Urine Microscopic Reflex Cult Urgent
Urine Culture Urgent
KOBI Source: U
Specimen Description:
Date Specimen was Collected: 01/31/25
Time Specimen was Collected: 10:23
01/31/25 12:58
CT Abd/pel Without Iv Or Oral Urgent
Comment:
Reason For Exam: DIMITRI, ureteral stents
Abnormal Lab Results
01/31/25
10:34
WBC 11.6 H 10^3/uL
(4.8-10.8)
RBC 3.92 L 10^6/uL
(4.20-5.40)
Hgb 9.6 L g/dL
(12.0-16.0)
Hct 31.1 L %
(37.0-47.0)
MCV 79.3 L fL
(81.0-99.0)
MCH 24.5 L pg
(27.0-31.0)
MCHC 30.9 L g/dL
(33.0-37.0)
RDW 17.9 H %
(11.5-14.5)
Plt Count 461 H 10^3/uL
(130-400)
Abs Immat Gran (auto) 0.3 H 10^3/uL
(0-0.05)
Absolute Neuts (auto) 8.9 H 10^3/uL
(1.4-6.5)
Immature Gran % 2.3 H %
(0-0.5)
Neutrophils % 76.6 H %
(42.2-75.2)
Lymphocytes % 13.8 L %
(20.5-51.1)
Potassium 5.2 H mmol/L
(3.5-5.1)
Chloride 109 H mmol/L
(98-107)
BUN 39 H mg/dl
(7-17)
Creatinine 1.9 H mg/dL
(0.6-1.0)
Glucose 138 H mg/dl
(70-99)
Alkaline Phosphatase 130 H U/L
(38-126)
Ur Occult Blood Reflex 1+ A
(Negative)
Leukocyte Esterase Rfl 2+ A
(Negative)
Urine WBC (Reflex) 26-30 A /HPF
(0-5)
Urine Bacteria (Reflex) Few A
(Negative)
01/31/25 10:34
01/31/25 10:34
Vital Signs
Initial and Last Documented VS:
Initial Vital Signs
Temp Pulse Resp BP Pulse Ox
97.6 F 85 16 140/84 100
01/31/25 10:19 01/31/25 10:19 01/31/25 10:19 01/31/25 10:19 01/31/25 10:19
Last Documented Vital Signs
Temp Pulse Resp BP Pulse Ox
97.6 F 78 16 121/84 100
01/31/25 10:19 01/31/25 15:00 01/31/25 15:00 01/31/25 15:00 01/31/25 15:00
MDM/Problems Addressed
MDM/Problems Addressed:
Patient is well-appearing and creatinine is 1.9 today. Imaging shows no evidence of ureteral stent disruption. Given that she did report some ureteral stent pain we will send for urine culture however no indication for treatment of a UTI at this
point, if positive on culture would definitely opt for treatment. Reviewed imaging with urology who feels there is no urologic complication at this time. She will follow-up as an outpatient with her surgical oncology team
*Critical Care Note
Total Time (30-74mins, 75-104mins- exclusive of procedures): Not Applicable
ED Attending Note
-
Portions of this chart may have been created with voice recognition software.� Occasional wrong word or��sound alike� substitutions may have occurred due to the inherent limitations of voice recognition software.
Discharge Plan
Departure
Patient Disposition: Home (Routine Discharge)
Date of Disposition: 01/31/25
Time of Disposition: 14:53
Patient with high blood pressure during this ER visit?: No
Discharge Problem:
Acute kidney injury
Instructions: Hydronephrosis in adults
Prescriptions:
No Action
vitamin B complex Tablet Extended Release
1 tab PO DAILY
omeprazole magnesium [Prilosec OTC] 20 mg Tablet,Delayed Release (Dr/Ec)
20 mg PO DAILY
cholecalciferol (vitamin D3) [Vitamin D3] 25 mcg (1,000 unit) Tablet
25 mcg PO DAILY
omega-3 fatty acids-fish oil 684-1,200 mg Capsule,Delayed Release(Dr/Ec)
1 cap PO DAILY
tolterodine 4 mg Capsule,Extended Release 24hr
4 mg PO DAILY Qty: 30 0RF
oxycodone 5 mg Tablet
5 mg PO Q6HPRN PRN (Reason: mod pain) 5 Days Qty: 15 0RF
Probiotic 15 billion cell capsule, sprinkle
1 cap PO DAILY Qty: 10 0RF
docusate sodium [Colace] 100 mg Capsule
100 mg PO BID
Referrals:
Miguel Kaufman MD [Family Provider] -
Activity Restrictions/Additional Instructions:
Have your primary doctor and/or oncologist repeat your kidney labs in 5-7 days
We will call you if you need antibiotics for a urine infection
Interventions
Interventions:
*Risk Screen - Suicide Last Done: 01/31/25 10:19
*General Assessment Last Done: 01/31/25 13:05
*Neglect/Abuse Screening Last Done: 01/31/25 10:19
*ED- Fall Risk Assessment Last Done: 01/31/25 13:05
*ED COVID-19 Vaccine History Last Done: 01/31/25 13:05
*Nursing Disposition Last Done: 01/31/25 15:27
Discharge Date and Time
Discharge Date/Time: 01/31/25 15:34
Print Language: FRENCH
[2025-01-31 15:00] VITALS: BP 121/84
== END 2025-01-31 15:34 | disposition home or self-care (01) ==
LOC: EMR 09:57
PROVIDERS: Emergency Medicine; EMERGENCY PHYSICIAN Student in an Organized Health Care Education/Training Program; FAMILY PHYSICIAN Obstetrics & Gynecology Gynecologic Oncology
DX: N17.9 Acute kidney failure, unspecified (principal)
CPT/HCPCS: 99284; 74176; 80053; 81003; 81015; 85025; 87086

== ENCOUNTER → 2025-02-08 18:25 | Outpatient (REF) | payer OTHER, MEDICAID, SELFPAY ==
[2025-02-08 18:42] LABS: ALT (SGPT) 10 U/L (0-35); AST (SGOT) 14 U/L (14-36); Albumin 3.9 g/dl (3.5-5.0); Alkaline Phosphatase 98 U/L (38-126); Blood Urea Nitrogen 78 mg/dl (7-17); Calcium 9.8 mg/dl (8.4-10.2); Carbon Dioxide 22 mmol/L (22-30); Chloride 104 mmol/L (98-107); Glucose 97 mg/dl (70-99); Sodium 139 mmol/L (135-145); Total Bilirubin 0.6 mg/dl (0.2-1.3); Total Protein 7.2 g/dl (6.3-8.2); eGFR 11.15
[2025-02-08 19:00] LABS: % Basophils 0.3 % (0-2); % Eosinophils 1.1 % (0-6); % Immature Granulocytes 0.5 % (0-0.5); % Monocytes 4.3 % (1.7-9.3); % Neutrophils 82.8 % (42.2-75.2); Absolute Eosinophils 0.1 10^3/uL (0-0.7); Absolute Immature Granulocytes 0.1 10^3/uL (0-0.05); Absolute Lymphocytes 1.4 10^3/uL (1.2-3.4); Absolute Monocytes 0.6 10^3/uL (0.1-0.6); Absolute Neutrophils 10.8 10^3/uL (1.4-6.5); Hematocrit 28.8 % (37.0-47.0); Mean Corp Hgb Conc. 31.3 g/dL (33.0-37.0); Mean Corpuscular Hgb 24.9 pg (27.0-31.0); Mean Corpuscular Volume 79.8 fL (81.0-99.0); Mean Platelet Volume 10.5 fL (7.4-10.4); Nucleated Red Blood Cells % 0 %; Platelet Count 470 10^3/uL (130-400); Red Blood Cell Count 3.61 10^6/uL (4.20-5.40); Red Cell Dist. Width 17.9 % (11.5-14.5); White Blood Cell Count 13.1 10^3/uL (4.8-10.8)
== END ==
LOC: CLAB 18:25
PROVIDERS: ATTENDING PHYSICIAN Obstetrics & Gynecology Gynecologic Oncology
DX: C80.0 Disseminated malignant neoplasm, unspecified (principal); N13.30 Unspecified hydronephrosis; C53.1 Malignant neoplasm of exocervix; D39.12 Neoplasm of uncertain behavior of left ovary
CPT/HCPCS: 36415; 80053; 85025

== ENCOUNTER 2025-02-09 01:07 | Inpatient (IN) | payer MEDICAID, SELFPAY ==
[2025-02-08 19:52] VITALS: BP 179/104
[2025-02-08 22:09] VITALS: BMI 40.8
[2025-02-08] MEDS: LOKELMA 10 GRAM PO (22:10)
[2025-02-08 22:12] VITALS: BP 141/82
[2025-02-08 23:00] VITALS: BP 126/81
--- NOTE | 2025-02-08 23:13 | ED.GENMED ---
History of Present Illness
General
Chief Complaint: Abnormal Lab Value
Time Seen by Provider: 02/08/25 21:17
History of Present Illness
History of Present Illness:
54-year-old female presents the emergency department for evaluation of abnormal renal function. She was admitted in December for a large ovarian mass requiring excision and due to the sheer bulk of the tumor bilateral ureteral stents were placed.
OUtpatient labs from today show Creat of 4.5 with mild hyperkalemia; Cr was 1.3 at time of hospital discharge. Patient denies any complaints other than occasional pain from her ureteral stents. Denies any decreased urine output, fever, or chills.
Review of Systems
Review of Systems
Allergies reviewed?: Yes
All Other Systems: ROS reviewed and negative except as documented in HPI and ROS
Phy Exam
Physical Exam
Physical Exam:
GEN: Well appearing, NAD, WDWN
HEENT: Oral mucosa moist, no scleral icterus
Cardiac: Regular rate
Lung: No respiratory distress, no tachypnea
MSK: No gross deformity or injuries
Skin: Good color, no pallor or jaundice, no rashes
Neuro: AO x3, moves all extremities freely
Psych: Calm, cooperative
Course
Orders/Labs/Results
Orders:
Orders
02/08/25 21:48
Sodium Zirconium Cyclosilicate [Lokelma] 10 gram PO NOW STA
02/08/25 21:49
CT Abd/pel Without Iv Or Oral Urgent
Comment:
Reason For Exam: renal failure, ureteral stents
02/08/25 23:14
Electrocardiogram (*1) Urgent
Reason for Study: QTc Monitoring
EKG- Treatment ONCE
02/08/25 23:37
Magnesium Urgent
Vital Signs
Initial and Last Documented VS:
Initial Vital Signs
Temp Pulse Resp BP Pulse Ox
98.5 F 121 20 179/104 96
02/08/25 19:52 02/08/25 19:52 02/08/25 19:52 02/08/25 19:52 02/08/25 19:52
Last Documented Vital Signs
Temp Pulse Resp BP Pulse Ox
98.5 F 94 18 132/78 98
02/08/25 19:52 02/08/25 22:13 02/08/25 22:13 02/09/25 00:07 02/08/25 23:50
MDM/Problems Addressed
MDM/Problems Addressed:
Because of the renal failure is not immediately clear at this time as the patient has no signs of stent obstruction or malfunction on CT. Certainly could be prerenal in nature however she does not appear clinically dry. May be secondary to her
underlying malignancy. Will admit for further management
*Critical Care Note
Total Time (30-74mins, 75-104mins- exclusive of procedures): Not Applicable
ED Attending Note
-
Portions of this chart may have been created with voice recognition software.� Occasional wrong word or��sound alike� substitutions may have occurred due to the inherent limitations of voice recognition software.
Discharge Plan
Departure
Patient Disposition: Admit
Date of Disposition: 02/09/25
Time of Disposition: 00:11
Presentation/result/management discussed w/ accepting MD/DO: Hospitalist
Discharge Problem:
Acute renal failure (ARF), Acute hyperkalemia
Prescriptions:
No Action
vitamin B complex Tablet Extended Release
1 tab PO DAILY
omeprazole magnesium [Prilosec OTC] 20 mg Tablet,Delayed Release (Dr/Ec)
20 mg PO DAILY
cholecalciferol (vitamin D3) [Vitamin D3] 25 mcg (1,000 unit) Tablet
25 mcg PO DAILY
omega-3 fatty acids-fish oil 684-1,200 mg Capsule,Delayed Release(Dr/Ec)
1 cap PO DAILY
tolterodine 4 mg Capsule,Extended Release 24hr
4 mg PO DAILY Qty: 30 0RF
oxycodone 5 mg Tablet
5 mg PO Q6HPRN PRN (Reason: mod pain) 5 Days Qty: 15 0RF
Probiotic 15 billion cell capsule, sprinkle
1 cap PO DAILY Qty: 10 0RF
docusate sodium [Colace] 100 mg Capsule
100 mg PO BID
Referrals:
Miguel Kaufman MD [Family Provider, [facility]]
Interventions
Interventions:
*Risk Screen - Suicide Last Done: 02/08/25 19:52
*General Assessment Last Done: 02/08/25 19:52
*Neglect/Abuse Screening Last Done: 02/08/25 19:52
*ED- Fall Risk Assessment Last Done: 02/08/25 22:09
*ED COVID-19 Vaccine History Last Done: 02/08/25 22:09
Discharge Date and Time
Print Language: ICELANDIC
[2025-02-09] VITALS (9 sets, daily range): BP systolic 122–147; BP diastolic 57–91; BMI 40.7
[2025-02-09] LABS: Magnesium 1.9 mg/dl (1.6-2.3)
--- NOTE | 2025-02-09 00:35 | HPS.HSE ---
Family Physician
-
Family Physician: Miguel Kaufman
Chief Complaint
-
Abnormal labs
History of Present Illness
This is a 54-year-old who was recently diagnosed with ovarian cancer pending chemotherapy, and prolonged hospitalization 1 month ago with bulky peritoneal carcinomatosis status post surgery, complicated by DIMITRI with bilateral ureteral obstruction
extrinsically status post stent placements bilaterally and improvement in renal function at time of discharge presents to the emergency department with blood work from the outpatient setting showing elevated creatinine and potassium.
Patient reported that she is planning to start chemotherapy next week and this blood work was pending that chemotherapy. She had IV fluid infusion in clinic and blood work today which showed these abnormalities and she was sent to the emergency
department. About 1 week ago she also had elevated creatinine to as high as 3.9 and was sent to the emergency department. A repeat blood work in the emergency department showed a creatinine that was at a baseline of 1.3 so she was discharged to
follow-up.
Patient reports no new symptoms. She does have decreased p.o. intake due to abdominal fullness and persistent nausea. She has intermittent constipation but denies any diarrhea. She denies any rash. She has chronic chills but denies having any
fevers. She has no cough or shortness of breath. She denies any abdominal tenderness or pain. She denies any swelling of her lower extremities.
She has not received any contrast for over 1 month. She had a port placed currently about 2 weeks ago.
The emergency department she was afebrile, blood pressure was 130/80, pulse 64, saturation 98% on room air.
CT of the abdomen pelvis showing bilateral ureteral stents appear well-positioned. Persistent moderate right and mild left hydronephrosis with a similar appearance compared to the recent CT abdomen/pelvis from 01/31/2025. Known peritoneal
carcinomatosis and malignant lymphadenopathy, suboptimally assessed on this exam without intravenous contrast.
Medical History
Past Medical History
Past Medical History: Reports Other
Additional Past Medical History:
GERD
class III obesity
rosacea.
Ovarian cancer complicated by peritoneal carcinomatosis status post debulking surgery,
Bilateral ureteral obstruction status post bilateral stenting
Past Surgical History: Reports None
Social History
Tobacco: Non-smoker
Alcohol: None
Drug: None
Personal: Other (Boyfriend)
Living: With Family (Boyfriend)
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
Family History
Family History: Other (Mother history of breast cancer in her late 50s is alive, mom history HTN, HLD, CAD/stent, father history of DM 2 with living, 2 brothers 1 work accident 1 alcohol abuse, 1 brother living obese, hypertension
hyperlipidemia, active smoker)
Allergies / Home Medications
Allergies reflects when Allergies were last updated in [facility].
Home Medications with original date entered in [facility]
Allergy/Medication List:
Allergies
Allergy/AdvReac Type Severity Reaction Status Date / Time
No Known Allergies Allergy Verified 02/08/25 19:56
Home Medications
cholecalciferol (vitamin D3) 25 mcg (1,000 unit) tablet (Vitamin D3) 25 mcg PO DAILY Supplement 12/20/24
omega-3 fatty acids-fish oil 684 mg-1,200 mg capsule,delayed release 1 cap PO DAILY Supplement 12/20/24
omeprazole magnesium 20 mg tablet,delayed release (Prilosec OTC) 20 mg PO DAILY GERD 12/20/24
vitamin B complex 1 tab PO DAILY Supplement 12/20/24
lactobacillus combo no.11 15 billion cell sprinkle capsule (Probiotic) 1 cap PO DAILY #10 caps 01/05/25
oxycodone 5 mg tablet 5 mg PO Q6HPRN PRN mod pain 5 days #15 tabs 01/05/25
tolterodine 4 mg capsule,extended release 24 hr 4 mg PO DAILY #30 caps 01/05/25
docusate sodium 100 mg capsule (Colace) 100 mg PO BID 01/27/25
Review of Systems
-
History Source: Patient
A 12 point ROS was completed and negative except as noted: Yes
Constitutional: Reports Weight Gain (28 pounds past 2 to 3 months); Denies Fatigue or Chills
EENT: Denies Sore Throat or Runny Nose
Respiratory: Reports Trouble Breathing (FAM with activity due to weight gain); Denies Cough
Cardiac: Denies Chest Pain, Diaphoresis, Palpitations or Syncope
Abdomen/GI: Reports Nausea and Constipated; Denies Abdominal Pain (Generalized), Vomiting, Diarrhea, Bloody Stools or Black Stools
: Denies Dysuria, Frequency, Flank Pain, Incontinence, Difficulty Voiding, Urgency, Bleeding or Dark Urine
Musculoskeletal: Denies Joint Pain or Edema
Skin: Denies Itching or Rash
Neurological: Denies Dizzy, Headache or Weakness
Endocrine: Reports No Symptoms and Other (Monthly periods)
Hematologic/Lymphatic: Reports No Symptoms
Psych: Reports Calm
Physical Exam
Vital Signs
Vital Signs
Temp Pulse Resp BP Pulse Ox
98.5 F 94 18 132/78 98
02/08/25 19:52 02/08/25 22:13 02/08/25 22:13 02/09/25 00:07 02/08/25 23:50
Physical Exam
General: Morbidly Obese; No Fever or Chills
HEENT: NormoCephalic, Anicteric, Moist mucous membranes, [place] Conjunctivae and No Ptosis
Respiratory: Clear; No Wheezes, Rales or Rhonchi
Cardiac: S1/S2 and Regular Rhythm; No Murmur, Rub, Gallop or Peripheral Edema
Breast: Deferred by me
GI: Soft, Normal Bowel Sounds and Distended (Distended and hard unable to palpate liver or spleen)
Genito-urinary: Clear Urine and No costovertebral tender
Musculoskeletal: No Clubbing, No Cyanosis and No Edema
Skin: Warm and Dry; No Rash
Neuro: AO x 3 and Nonfocal/grossly intact
Psych: Calm
Data Reviewed
-
CT Scan: Report Reviewed by me
Lab Data: Labs Reviewed by me
Old Records: Reviewed
Impression/Plan
-
IMPRESSION:
54 y.o recently diagnosed with ovarian Ca with peritoneal carcinomatosis s/p surgery complicated by extrinsic bilatral ureteral compression with DIMITRI s/p bilateral ureteral stent placements with recovery of renal function to Cr of 1.3 at time of
discharge now presenting with DIMITRI, Cr 4.5 (was 1.9 1 week ago). No obvious insults. HD stable. Urine is bland appearing and very clear grossly but no U/A sent. She has no rash, edema or abdominal discomfort. Poor po but no fluid losses and is
hemodynamically stable. CT scan showing similar finding on prior with persistent moderate right and mild left hydronephrosis similar to recent CT from 01/31/2025.
PLAN:
DIMITRI - Etiology unclear but does not appear oliguric. Hyperkalemia to 6.0. Bicarb normal. HD stable. Suspect ongoing hydronephrosis but cannot confirm on CT scan.
- admit to telemetry (hyperkalemia)
- u/a, urine protein/cr, urine Na
- IV fluids with NS for now
- urology consultation
- nephrology consultation
Hyperkalemia - 2/2 DIMITRI
- lokelma x 10 in ED
- repeat K in am,
- low K diet for now
[2025-02-09] MEDS: NSS 1000 IV (00:44)
[2025-02-09 01:27] LABS: Urine Albumin 1+ (Neg - Trace); Urine Bilirubin Negative (Negative); Urine Character Cloudy (Clear); Urine Color Straw; Urine Glucose Negative (Negative); Urine Ketone Negative (Negative); Urine Leukocyte 2+ (Negative); Urine Nitrite Negative (Negative); Urine Occult Blood 3+ (Negative); Urine Specific Gravity 1.015 (<1.030); Urine Urobilinogen Negative (Neg - 1+)
[2025-02-09 02:15] LABS: Protein/creatinine Ratio 1.5; Urine Protein 42 mg/dl; Urine Sodium 53 mmol/L (30-90)
[2025-02-09] MEDS: DILAUDID 0.5 MG IV ×2 (02:26→20:07)
[2025-02-09 02:35] LABS: Urine Squamous Cell >30 /LPF (Few)
[2025-02-09 02:36] LABS: Urine Bacteria Moderate (Negative); Urine Red Blood Cell 50-60 /HPF (0-2); Urine White Cell 80-90 /HPF (0-5)
[2025-02-09 03:44] LABS: Body Fluid for Eosinophils No Eosinophils seen
[2025-02-09 04:16] LABS: Hematocrit 23.9 % (37.0-47.0); Hemoglobin 7.4 g/dL (12.0-16.0); Mean Corpuscular Hgb 24.8 pg (27.0-31.0); Mean Corpuscular Volume 80.2 fL (81.0-99.0); Mean Platelet Volume 9.7 fL (7.4-10.4); Platelet Count 354 10^3/uL (130-400); Red Blood Cell Count 2.98 10^6/uL (4.20-5.40); Red Cell Dist. Width 17.6 % (11.5-14.5); White Blood Cell Count 10.7 10^3/uL (4.8-10.8)
--- NOTE | 2025-02-09 04:30 | TRANSFER ---
Pt transferred to 3W from ED via stretcher with N/S running at 250 ml/hr. Pt ambulated to bed from stretcher in hallway. Pt oriented to room, call eng within reach, plan of care ongoing.
[2025-02-09 04:45] LABS: Erythrocyte Sed Rate 94 mm/hour (0-20)
[2025-02-09 05:04] LABS: Blood Urea Nitrogen 70 mg/dl (7-17); Calcium 8.9 mg/dl (8.4-10.2); Carbon Dioxide 18 mmol/L (22-30); Chloride 110 mmol/L (98-107); Creatine Phosphokinase < 20 U/L (30-135); Estimated Creatinine Clearance 17 ml/min; Glucose 92 mg/dl (70-99); Magnesium 1.7 mg/dl (1.6-2.3); Sodium 138 mmol/L (135-145); eGFR 12.11
--- NOTE | 2025-02-09 08:04 | W.PN.UPDATE ---
Update Note
Progress Note Update
H&P from 0035 today. I have independently evaluated the patient at the bedside. I have reviewed the entirety of the patient's chart.
54-year-old female with recently diagnosed stage IV ovarian cancer with peritoneal carcinomatosis status post debulking that was complicated by postrenal obstructive DIMITRI, now s/p bilateral ureteral stents that presented to the hospital with acute
kidney injury and hyperkalemia. Results were noted on outpatient labs and patient was directed to come into the ED. Upon arrival had CT scan that showed stable hydronephrosis (moderate right, mild left) that was seen on previous scan. Was started
on IV fluids and SPEP was ordered. Nephrology and urology consulted. Since arrival hemoglobin down trended from 9.0-7.4
Acute kidney injury with hyperkalemia. Intrinsic versus postrenal obstructive. CT without signs of worsening hydronephrosis compared to previous scan. Question paraneoplastic process with intrinsic injury as urine sodium was 53. Will continue
with IV maintenance fluids and monitor BMP and UOP very closely. Follow-up SPEP with RHIANNON. Repeat BMP this afternoon and temporize K >6 or presence of ECG findings. Monitor on telemetry. Urology and nephrology appreciated
Microcytic anemia. Hemoglobin down from 9.0-7.4 after arrival which may be dilutional. Iron studies consistent with anemia of chronic disease and reticulocytesonly 1%. B12 and folate pending, will follow-up results. Continue to trend CBC. Order
type and screen with next labs and consider blood consent based off of trend. Hemoglobin goal >7 or absence of anemic symptoms. Consideration of JERAD per historical manuscripts curator
Potassium restricted diet
SQ heparin
Full code
Expected discharge >48-hours
[2025-02-09] MEDS: HEPARIN 5000 UNITS SC ×2 (08:09→15:39)
[2025-02-09 10:03] LABS: Iron 36 ug/dl (37-170)
[2025-02-09 10:20] LABS: Percent Saturation 16 % (20-50); Total Iron Binding Capacity 219 ug/dl (265-497)
[2025-02-09] MEDS: COLACE 100 MG PO ×2 (11:02→19:58)
--- NOTE | 2025-02-09 14:45 | W.CON.NEPH ---
Consultation
-
Date/Time Consultation Requested: 02/09/25 0159
Date/Time Consultation Performed: 02/09/25 1430
Requesting Provider: Bryn Garcia
Performing Provider: Faviola Reddy
Reason for Consultation: DIMITRI
Medical History
-
Chief Complaint: abnormal cr
History of Present Illness:
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
peritoneal carcinomatosis, extrinsic obstructive uropathy creatinine peaked at 4.8 improved to 1.3 at discharge with bilateral ureteral stent pending chemotherapy this week Was sent to the ER with abnormal lab of elevated creatinine of 4.5 and
potassium of 6. She was seen in ER on 01/31 with a creatinine elevation of 3.9, recheck in the ER was at 1.9 and hence she was discharged with a follow-up. She did receive normal saline at the infusion center from oncology. She reports has ongoing
nausea with decreased appetite however thinks was drinking enough liquids. No decrease in the urine output or dysuria. No fever or chills. She denies any chest pain or shortness of breath. Has night sweats. No abdominal pain or lower extremity
edema.
Labs this morning creatinine at 4.2, potassium 5 after Lokelma and IVF last night.
persistent moderate right and mild left hydronephrosis with a similar appearance compared to the CT on 01/31/25.
Past Medical History
GERD
class III obesity
rosacea.
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
Bilateral ureteral obstruction status post bilateral ,stenting
Past Surgical History: Other ( Ovarian tumor removal December 2024)
Social History
Tobacco: Non-Smoker
Alcohol: None
Drug: None
Family History
Mother history of breast cancer in her late 50s is alive, mom history HTN, HLD, CAD/stent, father history of DM 2 with living, 2 brothers 1 work accident 1 alcohol abuse, 1 brother living obese, hypertension hyperlipidemia, active
smoker
Family History: Not Pertinent
Allergies / Home Medications
Allergy/AdvReac Type Severity Reaction Status Date / Time
No Known Allergies Allergy Verified 02/08/25 19:56
�Medication �Instructions �Recorded �Confirmed �Type
cholecalciferol (vitamin D3) 25 25 mcg PO DAILY Supplement 12/20/24 02/09/25 History
mcg (1,000 unit) tablet (Vitamin
D3)
omega-3 fatty acids-fish oil 684 1 cap PO DAILY Supplement 12/20/24 02/09/25 History
mg-1,200 mg capsule,delayed release
omeprazole magnesium 20 mg 20 mg PO DAILY GERD 12/20/24 02/09/25 History
tablet,delayed release (Prilosec
OTC)
vitamin B complex 1 tab PO DAILY Supplement 12/20/24 02/09/25 History
lactobacillus combo no.11 15 1 cap PO DAILY #10 caps 01/05/25 02/09/25 Rx
billion cell sprinkle capsule
(Probiotic)
oxycodone 5 mg tablet 5 mg PO Q6HPRN PRN mod pain 5 days 01/05/25 01/27/25 Rx
#15 tabs
tolterodine 4 mg capsule,extended 4 mg PO DAILY #30 caps 01/05/25 02/09/25 Rx
release 24 hr
docusate sodium 100 mg capsule 100 mg PO BID 01/27/25 02/09/25 History
(Colace)
oxycodone 10 mg PO Q8 PRN Pain 02/09/25 02/09/25 History
Review of Systems
-
All other systems: Negative unless noted
Physical Exam
Vital Signs
Vital Signs
Temp Pulse Resp BP Pulse Ox
98.1 F 87 17 136/81 98
02/09/25 10:41 02/09/25 10:41 02/09/25 10:41 02/09/25 10:41 02/09/25 10:41
Lab Results
WBC 10.7 10^3/uL (4.8-10.8) 02/09/25 04:01
RBC 2.98 10^6/uL (4.20-5.40) L 02/09/25 04:01
Plt Count 354 10^3/uL (130-400) D 02/09/25 04:01
eGFR 12.11 02/09/25 04:01
Abnormal Lab Results
02/09/25 02/09/25
01:09 04:01
RBC 2.98 L
Hgb 7.4 L
Hct 23.9 L
MCV 80.2 L
MCH 24.8 L
MCHC 31.0 L
RDW 17.6 H
ESR 94 H
Chloride 110 H
Carbon Dioxide 18 L
BUN 70 H
Creatinine 4.2 H*
Iron 36 L
TIBC 219 L
% Saturation 16 L
Creatine Kinase < 20 L
C-Reactive Protein 121.60 H
Urine Occult Blood 3+ A
Ur Leukocyte Esterase 2+ A
Urine RBC 50-60 A
Urine WBC 80-90 A
Urine Bacteria Moderate A
Urine Albumin 1+ A
Physical Exam
General: Awake, Alert, Oriented, AOx3, No Distress and Nontoxic
HEENT: Anicteric, Conjunctivae Clear and Facial Symmetry
Respiratory: Clear, Normal Excursion and Nonlabored Respirations
Cardiac: S1/S2 and Regular Rate/Rhythm
Breast: Deferred by me
Abdomen: Soft, Nontender and Nondistended
Musculoskeletal: No Cyanosis and No Edema
Skin: No Rash
Neuro: Nonfocal/Grossly Intact
Psych: Mood/afflect pleasant, Insight/judgement good and Appropriate
Data Reviewed
-
Radiology: Report Reviewed by me, Discussed with Patient and Discussed with Family
Labs: Labs Reviewed by me, Discussed with Nurse, Discussed with Patient and Discussed with Family
Assessment/Plan
-
Assessment:
Hyperkalemia
DIMITRI
bilat-mod right and mild left hydronephrosis h/o bilat ureteral stenting
Mild met acidosis
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
MIcrocytic anemia
Plan:
A/w DIMITRI and hyperkalemia, CT shows persistent bilat hydro with h/o ureteral stent
suspect obstructive DIMITRI still, UA bacteruria sample, monitor UOP
U PCR 1.5gm/gm of cr with 1+alb-likely tubular proteinuria, SPEP pending
Hyperkalemia improved s/p Dante, reviewed low k diet
will cont IVF, repeat labs tonight
monitor met acidosis, if worsens switch to bicab IVF
await input, likely need PCN
Hemodynamically stable
monitor h/h, prn trasnfusion,fe sat 16%,benefit from IV fe course
d/w pt and family
d/w nursing and primary
[2025-02-09] MEDS: LR 1000 IV (15:36)
[2025-02-09] MEDS: ROXICODONE 10 MG PO (15:36)
[2025-02-09 16:04] LABS: Folate 4.5 ng/ml (2.76-20); Vitamin B12 605 pg/ml (239-931)
[2025-02-09 21:17] LABS: Hematocrit 22.7 % (37.0-47.0); Hemoglobin 7.6 g/dL (12.0-16.0)
[2025-02-09 21:36] LABS: Blood Urea Nitrogen 72 mg/dl (7-17); Carbon Dioxide 21 mmol/L (22-30); Chloride 107 mmol/L (98-107); Estimated Creatinine Clearance 16 ml/min; Glucose 92 mg/dl (70-99); Potassium 4.9 mmol/L (3.5-5.1); Sodium 138 mmol/L (135-145); eGFR 11.15
[2025-02-10] VITALS (8 sets, daily range): BP systolic 84–156; BP diastolic 63–93
[2025-02-10] MEDS: HEPARIN 5000 UNITS SC (00:01)
--- NOTE | 2025-02-10 00:06 | W.CON.GYNONC ---
Consultation
-
Date/Time Consultation Performed: 02/10/2025 1205
Performing Provider: Miguel Kaufman
Chief Complaint
-
DIMITRI, Advanced cervical ca
History of Present Illness
54-year-old WF known to me since 7 weeks ago who is sent to ED by me due to elevated Cr level.
She had a prolonged admission in December where she came in with ascites and pelvic mass and CT evidence of carcinomatosis, and DIMITRI, she had surgery 12/27/2024 including Exp lap, BSO, omentectomy, multiple peritoneal biopsies..
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
stage IVB squamous cell cancer from cervix mets to chest abdomen and pelvis, peritoneal carcinomatosis, extrinsic obstructive uropathy
She had eventually b/l ureteral stent placed, and Cr normalized and sent home.
Plan was to start systemic chemo with taxol, carbo, pembrolizumab and bevacizumab
Pre chemo labs showed Cr 4.2 and K 6. sent to ER
She reports has ongoing nausea with decreased appetite however thinks was drinking enough liquids. No decrease in the urine output or dysuria. No fever or chills. She denies any chest pain or shortness of breath. Has night sweats. No abdominal
pain or lower extremity edema.
persistent moderate right and mild left hydronephrosis with a similar appearance compared to the CT on 01/31/25.
Medical History
Allergies
Allergies reflect when allergies were last updated in [facility].
No Known Allergies Allergy (Verified 02/08/25 19:56)
Physical Exam
Vital Signs / I&O
Vitals
Temp Pulse Resp BP Pulse Ox
97.9 F 88 18 143/65 98
02/09/25 23:24 02/09/25 23:24 02/09/25 23:24 02/09/25 23:24 02/09/25 23:24
I&O
02/07/25 02/08/25 02/09/25 02/10/25
06:59 06:59 06:59 06:59
Intake Total 480 / 480 1290 / 1290
Balance 480 / 480 1290 / 1290
Physical Exam
General: No Apparent Distress
HEENT: Normocephalic and Moist Mucous Membranes
Cardiac: S1/S2 and Regular Rhythm
Breast: Deferred by me
GI: Soft, Non Tender and Non Distended
Skin: Warm
Neuro: Awake, Alert and Oriented
Results
-
PET Scan Report
SignedOrder #:[id number]
Exams: PT Pet Wbi W/CT Skull-thigh
CPT: [id number]
Procedure: PET/CT SKULL-THIGH (FDG)
IMPRESSION:
Extensive FDG avid metastatic lymphadenopathy above and below the diaphragm as detailed.
Extensive FDG avid peritoneal nodularity/carcinomatosis.
Diffusely increased FDG activity throughout the uterus and cervix, consistent with neoplasm.
CLINICAL INDICATION: 54-year-old female with history of cervical cancer. The patient is undergoing a PET/CT examination for restaging.
TECHNIQUE: A PET/CT examination was performed following the intravenous injection of 10.2 mCi F-18 FDG in the right antecubital vein at 1338 hours. Images were acquired from the level of the skull base to the level of the mid thighs. The blood
glucose level at the time of injection measured 93 mg/dL. Axial, sagittal, and coronal fused reformatted images were obtained. Low-dose CT images were acquired for attenuation correction purposes only. Automatic exposure control radiation dose
reduction technology was utilized.
COMPARISON: MRI abdomen and pelvis 12/20/2024, CT chest 12/20/2024
FINDINGS:
HEAD and NECK:
No suspicious FDG-avid lesions.
CHEST:
There is extensive intrathoracic FDG avid lymphadenopathy including within the following regions (max SUVs in parentheses):
Left supraclavicular (5.8)
Right supraclavicular (11.4)
High prevascular (20.7)
Pretracheal (14.2)
Low prevascular (8.7)
Left internal mammary (5.8)
Left posteromedial pleural surface (7.1)
Distal paraesophageal (9.5)
Low anterior pericardial (9.5)
LUNGS: No suspicious FDG-avid lesions.
ABDOMEN and PELVIS:
There are numerous FDG avid lesions along the periphery of the liver (max SUV 10.3 anteriorly and 7.8 posteriorly), likely reflecting peritoneal deposits.
Additional focal FDG avid lesion along the fissure for ligamentum teres (max SUV 15.3).
There is extensive abdominopelvic FDG avid lymphadenopathy including within the following regions (max SUVs in parentheses):
Portacaval (34.9)
Retroperitoneal (30.7)
Left common iliac chain (24.0)
Right common iliac chain (23.1)
Left pelvic sidewall (30.1)
Right pelvic sidewall (36.0)
There is diffuse increased FDG activity throughout the uterus and cervix (max SUV 29.3).
There is scattered peritoneal nodularity with extensive FDG activity along the right lower abdominopelvic peritoneal lining (max SUV 14.7).
Moderate amount of relatively loculated abdominopelvic ascites on the left.
SKELETON:
No suspicious FDG-avid lesions.
In accordance with Act 112, known as the Patient Test Results Information Act, a letter will be sent to the patient which notifies the patient that a significant abnormality may exist. The letter will be sent within approximately 20 days of the
date the results were sent to the ordering health care practitioner.
Electronically signed by Henrique Flores, 01/25/2025 3:41 PM
Dictated By: Henrique Flores MD
Dictated Date & Time: 01/25/25 1525
Impression / Plan
-
She does not need any treatment for her borderline ovary tumor.
She does want and need systemic therapy for her advanced cervix ca.we need stable Cr level for carbo dosing. Her chemo was planned a number of weeks ago but delay in start was due to lack of available insurance and medicaid application.
Although CT looks same, I suspect the stents are obstructed.
we can ask urology(Dr Randolph and Leonel known to patient) to replace stents, or ask IR to bilateral PCN.
I favor the latter, ask IR for bilateral PCN to maximize her GFR
Her anemia is likely due to renal failure, may need JERAD for now
we need to consult also medical oncology at [facility] known to DR Ailyn Avila.
I hope to be able to normalize Cr LOBO so we can get treatment started.
Absent this treatment her prognosis is very guarded.
Miguel Kaufman MD
[facility]
[phone]
[2025-02-10] MEDS: DILAUDID 0.5 MG IV ×3 (00:09→20:35)
[2025-02-10] MEDS: LR 1000 IV ×2 (03:15→15:39)
[2025-02-10 05:05] LABS: % Basophils 0.3 % (0-2); % Eosinophils 1.1 % (0-6); % Immature Granulocytes 0.4 % (0-0.5); % Lymphocytes 12.3 % (20.5-51.1); % Neutrophils 79.9 % (42.2-75.2); Absolute Eosinophils 0.1 10^3/uL (0-0.7); Absolute Lymphocytes 1.2 10^3/uL (1.2-3.4); Absolute Monocytes 0.6 10^3/uL (0.1-0.6); Hematocrit 23.5 % (37.0-47.0); Hemoglobin 7.6 g/dL (12.0-16.0); Mean Corp Hgb Conc. 32.3 g/dL (33.0-37.0); Mean Corpuscular Hgb 24.8 pg (27.0-31.0); Mean Corpuscular Volume 76.8 fL (81.0-99.0); Nucleated Red Blood Cells % 0 %; Platelet Count 351 10^3/uL (130-400); Red Blood Cell Count 3.06 10^6/uL (4.20-5.40); Red Cell Dist. Width 17.6 % (11.5-14.5)
[2025-02-10 05:34] LABS: Blood Urea Nitrogen 72 mg/dl (7-17); Carbon Dioxide 18 mmol/L (22-30); Chloride 110 mmol/L (98-107); Estimated Creatinine Clearance 14 ml/min; Glucose 91 mg/dl (70-99); Potassium 5.4 mmol/L (3.5-5.1); Sodium 137 mmol/L (135-145); eGFR 10.07
[2025-02-10] MEDS: HEPARIN SC ×2 (08:26→15:42)
[2025-02-10] MEDS: COLACE 100 MG PO ×2 (08:26→22:15)
--- NOTE | 2025-02-10 08:51 | W.PN.HOSP.TC ---
Today's Communication/Plan
-
Plan for percutaneous nephrostomy
Low potassium diet
Trend BMP
IV iron for now
Assessment / Plan
Assessment / Plan
#Acute kidney injury
#Hyperkalemia
#H/O obstructive uropathy s/p bilateral ureteral stent
-Likely obstructive cause from failing ureteral stent; obstruction in context of cervical cancer
-Has not had any oliguria, urine output stable, no signs of intrinsic processes
-Creatinine baseline was previously near 1.9 following recent stents, up to 4.9 here
-CT here with signs of ureteral stent failure, reviewed by urologist who recommends PCN
-SPEP and UPEP were ordered with results pending though suspicion low for LC disease
-Consult interventional radiology for PCN
-Continue to trend BMP and avoid nephrotoxic agents
-Temporize potassium as needed
#Microcytic anemia
-Likely multifactorial with AOCD, component of MARCO
-Hemoglobin down trended to 7.4�7.6 with IV fluids, MCV 76
-No obvious signs of bleeding, does have risk for inflammatory anemia
-Iron studies more consistent with AOCD though iron saturation 16%
-Was started on IV iron by nephrology
-Consider JERAD
-Trend CBC
#Stage IV cervical cancer
#Peritoneal carcinomatosis
-Follows with Dr. Kaufman from [facility]
-Status post surgical debulking; complicated by obstructive uropathy
-Was scheduled to begin chemotherapy today prior to hospitalization
-Will need to follow-up as OP for chemotherapy
-Will need normal creatinine with plan for carboplatin
#Ovarian tumor
-Per oncology no plans for treatment, describes borderline ovarian tumor
-To have OP follow-up with PCP and oncology
Diet: Potassium restricted
DVT prophylaxis: SQ heparin
CODE STATUS: Full code
Anticipated Discharge: 24 - 48 hours
Subjective/Interval History
-
Date of Service: February 10, 2025
Seen and examined at the bedside. No acute events reported overnight. AFVSS this morning
Creatinine up to 4.9, per urology CT shows signs of ureteral stent failure
Denies any new complaints
Objective Data
-
Labs:
Laboratory Results
02/09/25 02/10/25
20:59 04:22
WBC 10.0
Hgb 7.6 L 7.6 L
Hct 22.7 L 23.5 L
Plt Count 351
Sodium 138 137
Potassium 4.9 5.4 H
Chloride 107 110 H
Carbon Dioxide 21 L 18 L
BUN 72 H 72 H
Creatinine 4.5 H* 4.9 H*
Glucose 92 91
Calcium 9.0 9.0
Vital Signs:
Vital Signs
Temp Pulse Resp BP Pulse Ox
98.1 F 80 16 140/86 99
02/10/25 07:20 02/10/25 07:20 02/10/25 07:20 02/10/25 07:20 02/10/25 07:20
I&O
02/09/25 02/10/25 02/11/25
06:59 06:59 06:59
Intake Total 480 / 480 1770 / 1770
Balance 480 / 480 1770 / 1770
Review of Systems
-
History Source: Patient
All other systems: Reviewed and negative
Physical Exam
-
General: Well Developed, No Apparent Distress, Comfortable and Morbidly Obese
HEENT: Normocephalic, Atraumatic, Moist Mucous Membranes and Anicteric
Respiratory: Clear to Auscultation and Non Labored Respirations; Negative Accessory Resp Muscle Use
Cardiac: Regular Rhythm and S1/S2; Negative Murmur, Rub, Gallop or Tachycardic
GI: Soft, Nontender, Nondistended and Normal Bowel Sounds
Musculoskeletal: No Clubbing, No Cyanosis and No Edema
Skin: Warm and Dry; Negative Rash
Neuro: AO x 3 and Nonfocal/Grossly Intact; Negative Tremors
Psych: Calm
Data Reviewed
-
Labs: Labs Reviewed by me, Discussed with Physician (Interventional radiology) and Discussed with Patient
--- NOTE | 2025-02-10 10:55 | W.PN.NEPH.PH ---
Today's Communication / Plan
-
PCN
Assessment/Plan
-
Assessment:
Hyperkalemia
DIMITRI
bilat-mod right and mild left hydronephrosis h/o bilat ureteral stenting
Mild met acidosis
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
MIcrocytic anemia
Plan:
A/w DIMITRI and hyperkalemia, CT shows persistent bilat hydro with h/o ureteral stent
obstructive DIMIRTI still, UA bacteruria sample, monitor UOP
U PCR 1.5gm/gm of cr with 1+alb-likely tubular proteinuria, SPEP pending
Hyperkalemia improved s/p Lokelam, reviewed low k diet
Pending bilateral percutaneous nephrostomy tube
Renal function worsening
Continue IV fluids monitor for postobstructive diuresis
Discussed with the patient in detail
-
-
Date of Service: February 10, 2025
CC / HPI / ROS
-
Chief Complaint:
Acute kidney injury
History of Present Illness:
Presents with DIMITRI obstructive uropathy
Review of Systems:
No chest pain or shortness of breath
Labs
-
Labs:
WBC 10.0 10^3/uL (4.8-10.8) 02/10/25 04:22
RBC 3.06 10^6/uL (4.20-5.40) L 02/10/25 04:22
Hgb 7.6 g/dL (12.0-16.0) L 02/10/25 04:22
Hct 23.5 % (37.0-47.0) L 02/10/25 04:22
Plt Count 351 10^3/uL (130-400) 02/10/25 04:22
Sodium 137 mmol/L (135-145) 05/30/25 04:22
Potassium 5.4 mmol/L (3.5-5.1) H 02/10/25 04:22
Chloride 110 mmol/L (98-107) H 02/10/25 04:22
Carbon Dioxide 18 mmol/L (22-30) L 02/10/25 04:22
BUN 72 mg/dl (7-17) H 02/10/25 04:22
Creatinine 4.9 mg/dL (0.6-1.0) H* 02/10/25 04:22
eGFR 10.07 02/10/25 04:22
Glucose 91 mg/dl (70-99) 02/10/25 04:22
Calcium 9.0 mg/dl (8.4-10.2) 02/10/25 04:22
Physical Exam
-
Vital Signs:
Vital Signs
Temp Pulse Resp BP Pulse Ox
98.1 F 80 16 140/86 99
02/10/25 07:20 02/10/25 07:20 02/10/25 07:20 02/10/25 07:20 02/10/25 07:20
Respiratory:: Bilateral: CTA
Lung Excursion:: Normal
Abdomen:: Soft
Bowel Sounds:: Normal
Extremity Edema:: None: Bilateral:
[2025-02-10] MEDS: FLUSH (NSS) 2 FLUSH IV ×2 (11:52→18:47)
[2025-02-10] MEDS: FOLVITE 1 MG PO (12:50)
[2025-02-10] MEDS: ROCEPHIN 2000 MG IV (16:14)
[2025-02-10] MEDS: STERILE WATER FOR INJECTION 20 ML IV (16:14)
[2025-02-10] MEDS: TYLENOL 650 MG PO (18:27)
[2025-02-10] MEDS: ZOFRAN 4 MG IV (18:46)
--- NOTE | 2025-02-10 19:21 | PTCARENOTE ---
Addendum entered by Denise Olmstead RN 02/10/25 19:26:
EKG completed: ST HR in the 130s
Original Note:
pt arrived back to floor from IR via stretcher. pt ambulated from hallway to bed with standby assist from PCT. this nurse was notified about 15 minutes later that pt was found to be aggressively shaking, reporting feeling cols, and change in color.
pt rectal temp 100.4, PO Tylenol given, unable to obtain BP r/t pt shaking, pt given several blankets, Dr. Lew notified via tt. Pt began throwing up about 10 minutes later, IV zofran given, Dr. Lew notified. pt reports feeling better although
remains with mild tremors.
[2025-02-11] MEDS: HEPARIN 5000 UNITS SC ×3 (01:01→15:03)
[2025-02-11 03:50] VITALS: BP 105/72
[2025-02-11] MEDS: DILAUDID 0.5 MG IV (04:02)
[2025-02-11] MEDS: LR 1000 IV ×3 (04:03→22:02)
[2025-02-11] MEDS: TYLENOL 650 MG PO (05:01)
[2025-02-11] MEDS: ZOFRAN 4 MG IV ×2 (05:20→21:51)
[2025-02-11 05:40] LABS: % Basophils 0.3 % (0-2); % Eosinophils 0.6 % (0-6); % Immature Granulocytes 0.4 % (0-0.5); % Lymphocytes 5.7 % (20.5-51.1); % Monocytes 4.7 % (1.7-9.3); % Neutrophils 88.3 % (42.2-75.2); Absolute Eosinophils 0.1 10^3/uL (0-0.7); Absolute Immature Granulocytes 0.1 10^3/uL (0-0.05); Absolute Lymphocytes 0.7 10^3/uL (1.2-3.4); Absolute Monocytes 0.6 10^3/uL (0.1-0.6); Absolute Neutrophils 10.9 10^3/uL (1.4-6.5); Hematocrit 24.1 % (37.0-47.0); Hemoglobin 7.5 g/dL (12.0-16.0); Mean Corp Hgb Conc. 31.1 g/dL (33.0-37.0); Mean Corpuscular Hgb 24.9 pg (27.0-31.0); Mean Corpuscular Volume 80.1 fL (81.0-99.0); Mean Platelet Volume 9.8 fL (7.4-10.4); Nucleated Red Blood Cells % 0 %; Platelet Count 373 10^3/uL (130-400); Red Blood Cell Count 3.01 10^6/uL (4.20-5.40); Red Cell Dist. Width 17.7 % (11.5-14.5); White Blood Cell Count 12.4 10^3/uL (4.8-10.8)
[2025-02-11 06:08] LABS: Blood Urea Nitrogen 65 mg/dl (7-17); Calcium 9.5 mg/dl (8.4-10.2); Carbon Dioxide 18 mmol/L (22-30); Chloride 109 mmol/L (98-107); Estimated Creatinine Clearance 16 ml/min; Glucose 98 mg/dl (70-99); Potassium 4.9 mmol/L (3.5-5.1); Sodium 140 mmol/L (135-145); eGFR 11.46
--- NOTE | 2025-02-11 06:15 | PTCARENOTE ---
0500 - pt c/o chills/sweating. Temp 101.0 rectal. PRN tylenol adminsitered. L PCN with high output of urine (over 3L this shift so far) and fluid order discontinued. TT [employer] regarding concern for infection and dehydration. Ordered continued IVF. Will
check AM labs to determine if ABT neccessary.
0615 - temp down to 99.5. Patient comfortable in bed now. Labs resulted. No new orders at this time
[2025-02-11 07:05] VITALS: BP 128/74
[2025-02-11] MEDS: COLACE 100 MG PO ×2 (08:37→21:51)
[2025-02-11] MEDS: FOLVITE 1 MG PO (08:37)
--- NOTE | 2025-02-11 09:10 | W.PN.HOSP.TC ---
Today's Communication/Plan
-
Start IV cefepime
Urine cultures
Trend BMP
Temporize K if needed
Assessment / Plan
Assessment / Plan
#Acute kidney injury
#Hyperkalemia
#H/O obstructive uropathy s/p bilateral ureteral stent
-Likely obstructive cause from failing ureteral stent; obstruction in context of cervical cancer
-Creatinine baseline was previously near 1.9 following recent stents, up to 4.9 here
-CT here with signs of ureteral stent failure, reviewed by urologist who recommends PCN
-S/p bilateral PCN on 02/10/2025, renal function now improving
-Continue to trend BMP and avoid nephrotoxic agents
-Temporize potassium as needed
#Possible UTI
-Following bilateral PCN developed chills and low-grade fever, following morning with mild leukocytosis
-Possibly has urinary tract infection, high risk with recent instrumentation and in place stents
-Added on urine culture to initial UA (which did have signs of infection present), unclear if symptoms
-Urology ordered new urine culture from PCNs
-Will start renally dosed IV cefepime and follow cultures
-Tylenol as needed for fever
#Microcytic anemia
-Likely multifactorial with AOCD, component of MARCO
-Hemoglobin down trended to 7.4�7.6 with IV fluids, MCV 76
-No obvious signs of bleeding, does have risk for inflammatory anemia
-Iron studies more consistent with AOCD though iron saturation 16%
-Was started on IV iron by nephrology
-Consider JERAD
-Trend CBC
#Stage IV cervical cancer
#Peritoneal carcinomatosis
-Follows with Dr. Kaufman from [facility] onc[facility]
-Status post surgical debulking; complicated by obstructive uropathy
-Was scheduled to begin chemotherapy today prior to hospitalization
-Will need to follow-up as OP for chemotherapy
-Will need normal creatinine with plan for carboplatin
#Ovarian tumor
-Per oncology no plans for treatment, describes borderline ovarian tumor
-To have OP follow-up with PCP and oncology
Diet: Potassium restricted
DVT prophylaxis: SQ heparin
CODE STATUS: Full code
Anticipated Discharge: 24 - 48 hours
Subjective/Interval History
-
Date of Service: February 11, 2025
Seen and examined at the bedside. No acute events reported overnight. AFVSS this morning
Following procedure yesterday she did develop leukocytosis and low-grade fevers with chills. Initial UA with possible signs of infection though unclear if she had symptoms
She states she feels much better this morning and denies any new complaints. Renal function improving following bilateral PCN
Objective Data
-
Labs:
Laboratory Results
02/11/25
05:28
WBC 12.4 H
Hgb 7.5 L
Hct 24.1 L
Plt Count 373
Sodium 140
Potassium 4.9
Chloride 109 H
Carbon Dioxide 18 L
BUN 65 H
Creatinine 4.4 H*
Glucose 98
Calcium 9.5
Vital Signs:
Vital Signs
Temp Pulse Resp BP Pulse Ox
98.7 F 82 19 128/74 96
02/11/25 07:05 02/11/25 07:05 02/11/25 07:05 02/11/25 07:05 02/11/25 07:05
I&O
02/10/25 02/11/25 02/12/25
06:59 06:59 06:59
Intake Total 1770 / 1770 1200 / 1200
Output Total 4220 / 4220
Balance 1770 / 1770 -3020 / -3020
Review of Systems
-
History Source: Patient
All other systems: Reviewed and negative
Physical Exam
-
General: Well Developed, No Apparent Distress and Morbidly Obese
HEENT: Normocephalic, Atraumatic, Moist Mucous Membranes and Anicteric
Respiratory: Clear to Auscultation and Non Labored Respirations; Negative Accessory Resp Muscle Use
Cardiac: Regular Rhythm and S1/S2; Negative Murmur, Rub or Gallop
GI: Soft, Nontender, Nondistended and Normal Bowel Sounds
Musculoskeletal: No Clubbing, No Cyanosis and No Edema
Skin: Warm and Dry; Negative Rash or Jaundice
Neuro: AO x 3, Nonfocal/Grossly Intact and Central Nerve's Intact
Psych: Calm
Data Reviewed
-
Labs: Labs Reviewed by me, Discussed with Physician (Urologist) and Discussed with Patient
[2025-02-11 10:59] VITALS: BP 129/78
--- NOTE | 2025-02-11 11:16 | CM ---
Patient seen at bedside
IA completed
CM consult complete- Information given to patient on Advanced Directives
Lives with boyfriend in a 1st floor condo, no steps
PLOF: Independent, no device used
DME: [facility]
Denies VN/Rehab
discussed VN - declined
Denies insecurities
PCP: Miguel Kaufman
Pharmacy: [facility], [place]
PLAN: home, no needs anticipated, discussed VN-declined, CM to continue to follow
--- NOTE | 2025-02-11 11:18 | W.PN.URO.CBU ---
Today's Communication / Plan
-
Trend renal function
Abx/cultures for fever overnight
Assessment / Plan
-
54F with metastatic cervical cancer, ovarian cancer s/p Exp lap, BSO, omentectomy, multiple peritoneal biopsies 12/2024
Peritoneal carcinomatosis with bilateral malignant ureteral obstruction
s/p multiple attempts required to place b/l ureteral stents
Now presenting with acute renal failure, recurrent b/l hydronephrosis
- s/p b/l nephrostomy tube placement 02/10
- Trend creatinine
- Fevers overnight - cultures from PCNs sent. Abx per hospitalist for possible UTI
Diagnosis
-
Date of Service: February 11, 2025
-
Patient Diagnosis:
Bilateral malignant ureteral obstruction
Ovarian and cervical cancer, metastatic
Post Op Day:
Subjective
-
Tolerated nephrostomy placement
chills/sweats overnight
Objective
-
Vital Signs
Temp Pulse Resp BP Pulse Ox
98.6 F 80 19 129/78 97
02/11/25 10:59 02/11/25 10:59 02/11/25 10:59 02/11/25 10:59 02/11/25 10:59
Intake and Output
02/10/25 02/11/25 02/12/25
06:59 06:59 06:59
Intake Total 1770 / 1770 1200 / 1200
Output Total 4220 / 4220
Balance 1770 / 1770 -3020 / -3020
Intake:
Oral fluids 1320 / 1320 1200 / 1200
IV fluids (Total) 450 / 450
Output:
Urinary Drain Output (Total) 4220 / 4220
Left Nephrostomy 4050 / 4050
Right Nephrostomy 170 / 170
Other:
Number of approximated MODERATE 2 1
amounts of urine
Number of approximated LARGE 2
amounts of urine
Laboratory Results
02/11/25 05:28
02/11/25 05:28
Physical Exam
-
General - well developed, well nourished, no acute distress
Chest - clear bilaterally
- b/l PCNs in place, draining clear or light pink urine
--- NOTE | 2025-02-11 11:43 | W.PN.NEPH.PH ---
Today's Communication / Plan
-
Continue IV fluids changed to half-normal saline
Assessment/Plan
-
Assessment:
Hyperkalemia
DIMITRI
bilat-mod right and mild left hydronephrosis h/o bilat ureteral stenting
Mild met acidosis
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
MIcrocytic anemia
Plan:
A/w DIMITRI and hyperkalemia, CT shows persistent bilat hydro with h/o ureteral stent
obstructive DIMITRI still, UA bacteruria sample, monitor UOP
U PCR 1.5gm/gm of cr with 1+alb-likely tubular proteinuria, SPEP pending
Hyperkalemia improved s/p Lokelam, reviewed low k diet
Status post bilateral percutaneous nephrostomy tube
Renal function Improving nonoliguric
Changed to half-normal saline for postobstructive diuresis
Discussed with the patient in detail
-
-
Date of Service: February 11, 2025
CC / HPI / ROS
-
Chief Complaint:
Acute kidney injury
History of Present Illness:
Presents with DIMITRI obstructive uropathy
Review of Systems:
No chest pain or shortness of breath
Labs
-
Labs:
WBC 12.4 10^3/uL (4.8-10.8) H 02/11/25 05:28
RBC 3.01 10^6/uL (4.20-5.40) L 02/11/25 05:28
Hgb 7.5 g/dL (12.0-16.0) L 02/11/25 05:28
Hct 24.1 % (37.0-47.0) L 02/11/25 05:28
Plt Count 373 10^3/uL (130-400) 02/11/25 05:28
Sodium 140 mmol/L (135-145) 02/11/25 05:28
Potassium 4.9 mmol/L (3.5-5.1) 02/11/25 05:28
Chloride 109 mmol/L (98-107) H 02/11/25 05:28
Carbon Dioxide 18 mmol/L (22-30) L 02/11/25 05:28
BUN 65 mg/dl (7-17) H 02/11/25 05:28
Creatinine 4.4 mg/dL (0.6-1.0) H* 02/11/25 05:28
eGFR 11.46 02/11/25 05:28
Glucose 98 mg/dl (70-99) 02/11/25 05:28
Calcium 9.5 mg/dl (8.4-10.2) 02/11/25 05:28
Physical Exam
-
Vital Signs:
Vital Signs
Temp Pulse Resp BP Pulse Ox
98.6 F 80 19 129/78 97
02/11/25 10:59 02/11/25 10:59 02/11/25 10:59 02/11/25 10:59 02/11/25 10:59
Respiratory:: Bilateral: CTA
Lung Excursion:: Normal
Abdomen:: Soft
Bowel Sounds:: Normal
Extremity Edema:: None: Bilateral:
--- NOTE | 2025-02-11 12:21 | CON.ONC ---
Consultation
-
Date Consultation Performed: 02/11/25
Requesting Provider: Miguel Kaufman MD
Performing Provider: Bryn Duque MD
Reason for Consultation: cervical/ ovarian cancer, anemia
Impression
Impression
stage IV cervical cancer
stage I ovarian cancer
obstructive uropathy -s/p bilateral nephrostomy tube placement
klebsiella UTI
anemia - chronic illness
Plan
Plan
1. obstructive uropathy / DIMITRI - s/p bilateral nephrostomy tubes
-urology/ nephrolgy following
-follow creatinine/ electolytes
2. stage IV cervical cancer
-followed by Dr. Kaufman and Dr. Avila as outpt
-f/u as scheduled
3. Anemia - chronic illness - possible component of iron deficiency
-retic count not elevated
-low iron % saturation - 16% - ferritin was 184
-would hold off on IV iron supplement in setting of possible acute infection
-oral iron supplement as tolerated
-folic acid borderline low - 4.5 - will add supplement
Will continue to follow with you.
Patient History
History of Present Illness
54y/o female seen in oncology/ hematology consultation today regarding h/o recently diagnosed stage IV cervical cancer and stage I ovarian cancer.
She is a patient of Dr. Kaufman, undergoing exploratory laparotomy w/ bilateral salpingo-oopherectomy, omentectomy, peritoneal biopsies on 12/27/24. With the uterus being felt to have parametrial disease, it was left in-situ. Due to obstructive
uropathy, intra-operatively urology placed a left sided ureteral stent.
Pathology revealed stage IV squamous cell cervical cancer, along w/ stage IA ovarian cancer.
She has met w/ Dr. Avila, and plans are underway for chemotherapy treatment for her stage IV cervical cancer w/ carboplatin/ paclitaxel, keytruda and avastin.
Outpt labs on 02/08 revealed rise in creatinine to 4.5 and potassium of 6 resulting in referral to [place] for admission.
She has now had bilateral nephrostomy tubes placed. Creatinine this am is down to 4.4.
Clinically, she feels slightly better. No SOB, chest pain, or palpitations. No abdominal pain. She did have a fever this am to 101F.
Past-Medical/Surgical History
PMH:
stage IV cervical cancer
stage I ovarian cancer
GERD
obesity
PSH:
s/p exploratory laparotomy w/ bilateral salpingo-oopherectomy, omentectomy, peritoneal biopsies on 12/27/24
SH: no tobacco, no significant ETOH
FH: non-contributory
Allergies: NKDA
Patient Medication
�Medication �Instructions �Recorded �Confirmed �Last Taken �Type
cholecalciferol (vitamin D3) 25 25 mcg PO DAILY Supplement 12/20/24 02/09/25 02/08/25 History
mcg (1,000 unit) tablet (Vitamin
D3)
omega-3 fatty acids-fish oil 684 1 cap PO DAILY Supplement 12/20/24 02/09/25 02/08/25 History
mg-1,200 mg capsule,delayed release
omeprazole magnesium 20 mg 20 mg PO DAILY GERD 12/20/24 02/09/25 02/08/25 History
tablet,delayed release (Prilosec
OTC)
vitamin B complex 1 tab PO DAILY Supplement 12/20/24 02/09/25 02/08/25 History
lactobacillus combo no.11 15 1 cap PO DAILY #10 caps 01/05/25 02/09/25 02/08/25 Rx
billion cell sprinkle capsule
(Probiotic)
oxycodone 5 mg tablet 5 mg PO Q6HPRN PRN mod pain 5 days 01/05/25 01/27/25 Unknown Rx
#15 tabs
tolterodine 4 mg capsule,extended 4 mg PO DAILY #30 caps 01/05/25 02/09/25 02/08/25 Rx
release 24 hr
docusate sodium 100 mg capsule 100 mg PO BID 01/27/25 02/09/25 02/08/25 History
(Colace)
oxycodone 10 mg PO Q8 PRN Pain 02/09/25 02/09/25 1 Day Ago History
~02/08/25
10 mg
Active Medications
Generic Name Dose Route Start Last Admin
Trade Name Freq PRN Reason Stop Dose Admin
Acetaminophen 650 mg 02/09/25 01:59 02/11/25 05:01
Acetaminophen 325 Mg Tablet PO 03/09/25 01:58 650 mg
Q4HPRN PRN Administration
mild pain/GUERRA/temp> 100.4F
Bisacodyl 10 mg 02/09/25 01:59
Bisacodyl 10 Mg Rectal Suppository RECTAL 03/09/25 01:58
[id number] PRN
constipation
Cefepime HCl 1,000 mg 02/11/25 12:00
Cefepime Hcl 1,000 Mg/11.3 Ml Vial IV
Q24H VÍCTOR
Docusate Sodium 100 mg 02/09/25 10:15 02/11/25 08:37
Docusate Sodium 100 Mg Capsule PO 03/09/25 10:14 100 mg
BID VÍCTOR Administration
Folic Acid 1 mg 02/10/25 13:00 02/11/25 08:37
Folic Acid 1 Mg Tablet PO 03/10/25 12:59 1 mg
DAILY VÍCTOR Administration
Heparin Sodium 5,000 units 02/09/25 08:00 02/11/25 08:37
Heparin 5,000 Units/Ml 1 Ml Vial SC 03/09/25 07:59 5,000 units
Q8 VÍCTOR Administration
Heparin Sodium (Porcine) 500 unit 02/09/25 12:15
Heparin Flush Pf (100 Unit/Ml) 5 Ml Syringe IV 03/09/25 12:14
PER PROTOCOL VÍCTOR
Hydromorphone HCl 1 mg 02/11/25 11:41
Hydromorphone 1 Mg/Ml Carpuject IV 02/25/25 11:40
Q3HPRN PRN
severe pain
Lactated Ringer's 1,000 mls @ 100 mls/hr 02/11/25 06:00
Lr IV
.Q10H VÍCTOR
Ondansetron HCl 4 mg 02/09/25 01:59 02/11/25 05:20
Ondansetron 4 Mg/2 Ml Vial IV 03/09/25 01:58 4 mg
Q6HPRN PRN Administration
nausea and vomiting
Polyethylene Glycol 17 grams 02/09/25 01:59
Polyethylene Glycol Powder 17 Grams Packet PO 03/09/25 01:58
DAILYPRN PRN
constipation
Senna/Docusate Sodium 1 tablet 02/09/25 01:59
Docusate W/Senna (Yanelis-Colace) Tablet PO 03/09/25 01:58
BIDPRN PRN
constipation
Sodium Chloride 0 flush 02/09/25 02:00 02/10/25 18:47
Sodium Chloride 0.9% (Flush) Syringe IV 03/09/25 01:59 2 flush
PER PROTOCOL VÍCTOR Administration
Sterile Water 10 ml 02/11/25 12:00
Sterile Water For Injection 10 Ml Vial IV 03/11/25 11:59
Q24H VÍCTOR
Review of Systems
-
A ROS was obtained w/ pertinent findings as per HPI.
Physical Exam
-
General: Well Developed and No Apparent Distress
HEENT: Negative Jaundice
Cardiology: Normal Sinus Rhythm
Pulmonary: Clear
Extremities: No C/C/E
Neurology: Non Focal
Labs
Lab Results
WBC 12.4 10^3/uL (4.8-10.8) H 02/11/25 05:28
RBC 3.01 10^6/uL (4.20-5.40) L 02/11/25 05:28
Hgb 7.5 g/dL (12.0-16.0) L 02/11/25 05:28
Hct 24.1 % (37.0-47.0) L 02/11/25 05:28
MCV 80.1 fL (81.0-99.0) L 02/11/25 05:28
MCH 24.9 pg (27.0-31.0) L 02/11/25 05:28
MCHC 31.1 g/dL (33.0-37.0) L 02/11/25 05:28
RDW 17.7 % (11.5-14.5) H 02/11/25 05:28
Plt Count 373 10^3/uL (130-400) 02/11/25 05:28
MPV 9.8 fL (7.4-10.4) 02/11/25 05:28
Abs Immat Gran (auto) 0.1 10^3/uL (0-0.05) H 02/11/25 05:28
Absolute Neuts (auto) 10.9 10^3/uL (1.4-6.5) H 02/11/25 05:28
Absolute Lymphs (auto) 0.7 10^3/uL (1.2-3.4) L 02/11/25 05:28
Absolute Monos (auto) 0.6 10^3/uL (0.1-0.6) 02/11/25 05:28
Absolute Eos (auto) 0.1 10^3/uL (0-0.7) 02/11/25 05:28
Absolute Basos (auto) 0.0 10^3/uL (0-0.2) 02/11/25 05:28
Immature Gran % 0.4 % (0-0.5) 02/11/25 05:28
Neutrophils % 88.3 % (42.2-75.2) H 02/11/25 05:28
Lymphocytes % 5.7 % (20.5-51.1) L 02/11/25 05:28
Monocytes % 4.7 % (1.7-9.3) 02/11/25 05:28
Eosinophils % 0.6 % (0-6) 02/11/25 05:28
Basophils % 0.3 % (0-2) 02/11/25 05:28
Creatinine 4.4 mg/dL (0.6-1.0) H* 02/11/25 05:28
Vital Signs
Vital Signs
Temp Pulse Resp BP Pulse Ox
98.6 F 80 19 129/78 97
02/11/25 10:59 02/11/25 10:59 02/11/25 10:59 02/11/25 10:59 02/11/25 10:59
[2025-02-11] MEDS: MAXIPIME 1000 MG IV (12:54)
[2025-02-11] MEDS: STERILE WATER FOR INJECTION 10 ML IV (12:55)
[2025-02-11] MEDS: DILAUDID 1 MG IV ×3 (13:02→21:52)
[2025-02-11 15:05] VITALS: BP 128/83
[2025-02-11 23:00] VITALS: BP 136/83
[2025-02-12] MEDS: HEPARIN 5000 UNITS SC ×3 (01:01→15:19)
[2025-02-12 06:21] LABS: % Basophils 0.5 % (0-2); % Eosinophils 4.1 % (0-6); % Immature Granulocytes 0.8 % (0-0.5); % Lymphocytes 19.2 % (20.5-51.1); % Monocytes 8.7 % (1.7-9.3); % Neutrophils 66.7 % (42.2-75.2); Absolute Eosinophils 0.3 10^3/uL (0-0.7); Absolute Immature Granulocytes 0.1 10^3/uL (0-0.05); Absolute Lymphocytes 1.5 10^3/uL (1.2-3.4); Absolute Monocytes 0.7 10^3/uL (0.1-0.6); Absolute Neutrophils 5.1 10^3/uL (1.4-6.5); Hematocrit 24.2 % (37.0-47.0); Hemoglobin 7.7 g/dL (12.0-16.0); Mean Corp Hgb Conc. 31.8 g/dL (33.0-37.0); Mean Corpuscular Hgb 25.1 pg (27.0-31.0); Mean Corpuscular Volume 78.8 fL (81.0-99.0); Nucleated Red Blood Cells % 0 %; Platelet Count 380 10^3/uL (130-400); Red Blood Cell Count 3.07 10^6/uL (4.20-5.40); Red Cell Dist. Width 17.7 % (11.5-14.5); White Blood Cell Count 7.6 10^3/uL (4.8-10.8)
[2025-02-12 06:35] LABS: Blood Urea Nitrogen 51 mg/dl (7-17); Calcium 9.4 mg/dl (8.4-10.2); Carbon Dioxide 23 mmol/L (22-30); Chloride 110 mmol/L (98-107); Estimated Creatinine Clearance 19 ml/min; Glucose 93 mg/dl (70-99); Potassium 4.6 mmol/L (3.5-5.1); Sodium 142 mmol/L (135-145)
[2025-02-12 07:05] VITALS: BP 151/89
[2025-02-12] MEDS: LR IV (09:52)
[2025-02-12] MEDS: COLACE 100 MG PO ×2 (09:52→20:05)
[2025-02-12] MEDS: FOLVITE 1 MG PO (10:23)
[2025-02-12] MEDS: DILAUDID 1 MG IV ×3 (10:23→20:05)
[2025-02-12] MEDS: STERILE WATER FOR INJECTION 10 ML IV (11:02)
[2025-02-12] MEDS: ZOFRAN 4 MG IV (11:02)
[2025-02-12] MEDS: MAXIPIME 1000 MG IV (11:02)
[2025-02-12] MEDS: LR 1000 IV (11:02)
--- NOTE | 2025-02-12 11:50 | W.PN.URO.CBU ---
Today's Communication / Plan
-
Continue antibiotics
Trend renal function with PCNs in place
Assessment / Plan
-
54F with metastatic cervical cancer, ovarian cancer s/p Exp lap, BSO, omentectomy, multiple peritoneal biopsies 12/2024
Peritoneal carcinomatosis with bilateral malignant ureteral obstruction
s/p multiple attempts required to place b/l ureteral stents
Now presenting with acute renal failure, recurrent b/l hydronephrosis
- s/p b/l nephrostomy tube placement 02/10
- Trend creatinine - improving
- Fevers/leuokocytosis 02/11- cultures from PCNs sent. Continue abx pending cultures
Maintain nephrostomy tubes through chemotherapy course
Can consider re-evaluation of ureteral obstruction based on treatment response
Diagnosis
-
Date of Service: February 12, 2025
-
Patient Diagnosis:
Bilateral malignant ureteral obstruction
Ovarian and cervical cancer, metastatic
Post Op Day:
Subjective
-
no issues overnight
chills/sweats resolved
Objective
-
Vital Signs
Temp Pulse Resp BP Pulse Ox
97.9 F 79 19 151/89 98
02/12/25 07:05 02/12/25 07:05 02/12/25 07:05 02/12/25 07:05 02/12/25 07:05
Intake and Output
02/11/25 02/12/25 02/13/25
06:59 06:59 06:59
Intake Total 1200 / 1200 2820 / 2820 1440 / 1440
Output Total 4220 / 4220 3550 / 3550 3800 / 3800
Balance -3020 / -3020 -730 / -730 -2360 / -2360
Intake:
Oral fluids 1200 / 1200 1620 / 1620 1440 / 1440
IV fluids (Total) 1200 / 1200
Output:
Urinary Drain Output (Total) 4220 / 4220 3550 / 3550 3800 / 3800
Left Nephrostomy 4050 / 4050 3450 / 3450 3700 / 3700
Right Nephrostomy 170 / 170 100 / 100 100 / 100
Other:
Number of approximated MODERATE 1
amounts of urine
Laboratory Results
02/12/25 05:31
02/12/25 05:31
Physical Exam
-
General - well developed, well nourished, no acute distress
Chest - clear bilaterally
Abdomen - soft, non-tender,
PCNs in place, clear urine
--- NOTE | 2025-02-12 12:44 | W.PN.HOSP.TC ---
Today's Communication/Plan
-
see A/P
Assessment / Plan
Assessment / Plan
A/P:
# Postrenal Acute kidney injury 2/2 failing ureteral stent
# h/o obstructive uropathy 2/2 metastatic cervical cancer s/p bilateral ureteral stent
# Hyperkalemia, resolved
CT here with signs of ureteral stent failure, reviewed by urologist who recommends PCN
s/p bilateral PCN on 02/10/2025
renal function now improving, cont to trend SCr. Creatinine baseline was previously near 1.9 following recent stents. SCr today at 3.7
Cont IVF, use NSS at 80 cc/hr
# UTI ruled out
Following bilateral PCN, pt developed chills and low-grade fever
urine culture 02/11 no growth
pt was started with renally dosed cefepime, cont for now until at least fever free for 48 hours
Tylenol as needed for fever
# Microcytic anemia, Likely multifactorial with ACD, component of MARCO
Hemoglobin down trended to 7.4�7.6 with IV fluids, MCV 76
No obvious signs of bleeding, does have risk for inflammatory anemia
Iron studies more consistent with ACD though iron saturation 16%
Was started on IV iron by nephrology
Consider JERAD
Trend CBC
# Stage IV cervical cancer
# Peritoneal carcinomatosis
Follows with Dr. Kaufman from [facility] oncology
Status post surgical debulking; complicated by obstructive uropathy
Was scheduled to begin chemotherapy. Will need to follow-up as OP for chemotherapy
Will need normal creatinine with plan for carboplatin
# Ovarian tumor
Per oncology no plans for treatment, describes borderline ovarian tumor
To have OP follow-up with PCP and oncology
Diet: Potassium restricted
DVT prophylaxis: SQ heparin
CODE STATUS: Full code
total time 51 min
Anticipated Discharge: 24 - 48 hours
Subjective/Interval History
-
Date of Service: February 12, 2025
Objective Data
-
Labs:
Laboratory Results
02/12/25
05:31
WBC 7.6
Hgb 7.7 L
Hct 24.2 L
Plt Count 380
Sodium 142
Potassium 4.6
Chloride 110 H
Carbon Dioxide 23
BUN 51 H
Creatinine 3.7 H
Glucose 93
Calcium 9.4
Vital Signs:
Vital Signs
Temp Pulse Resp BP Pulse Ox
36.6 C 79 19 151/89 98
02/12/25 07:05 02/12/25 07:05 02/12/25 07:05 02/12/25 07:05 02/12/25 07:05
I&O
02/11/25 02/12/25 02/13/25
06:59 06:59 06:59
Intake Total 1200 / 1200 2820 / 2820 1440 / 1440
Output Total 4220 / 4220 3550 / 3550 3800 / 3800
Balance -3020 / -3020 -730 / -730 -2360 / -2360
Review of Systems
-
History Source: Patient
All other systems: Reviewed and negative
Physical Exam
-
General: Well Developed, Well Nourished, No Apparent Distress, Comfortable, Conversant and Morbidly Obese
HEENT: Normocephalic, Atraumatic, Moist Mucous Membranes and Anicteric
Respiratory: Clear to Auscultation and Non Labored Respirations; Negative Accessory Resp Muscle Use
Cardiac: Regular Rhythm and S1/S2; Negative Murmur, Rub or Gallop
GI: Soft, Nontender, Nondistended and Normal Bowel Sounds
Musculoskeletal: No Clubbing, No Cyanosis and No Edema
Skin: Warm and Dry; Negative Rash or Jaundice
Neuro: Awake, Alert, Nonfocal/Grossly Intact and Central Nerve's Intact
Psych: Calm and Intact Judgement/Insight
Data Reviewed
-
Labs: Labs Reviewed by me and Discussed with Patient
[2025-02-12] MEDS: NSS 1000 IV (14:47)
[2025-02-12 15:05] VITALS: BP 112/70
--- NOTE | 2025-02-12 16:06 | W.PN.NEPH.PH ---
Today's Communication / Plan
-
IV fluids continue
Assessment/Plan
-
Assessment:
Hyperkalemia
DIMITRI
bilat-mod right and mild left hydronephrosis h/o bilat ureteral stenting
Mild met acidosis
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
MIcrocytic anemia
Plan:
A/w DIMITRI and hyperkalemia, CT shows persistent bilat hydro with h/o ureteral stent
obstructive DIMITRI still, UA bacteruria sample, monitor UOP
U PCR 1.5gm/gm of cr with 1+alb-likely tubular proteinuria, SPEP pending
Hyperkalemia improved s/p Lokelam, reviewed low k diet
Status post bilateral percutaneous nephrostomy tube
Renal function Improving nonoliguric
Continue normal saline
Antibiotics �no growth to date
Discussed with the patient in detail
-
-
Date of Service: February 12, 2025
CC / HPI / ROS
-
Chief Complaint:
Acute kidney injury
History of Present Illness:
Presents with DIMITRI obstructive uropathy
Review of Systems:
No chest pain or shortness of breath
Labs
-
Labs:
WBC 7.6 10^3/uL (4.8-10.8) 02/12/25 05:31
RBC 3.07 10^6/uL (4.20-5.40) L 02/12/25 05:31
Hgb 7.7 g/dL (12.0-16.0) L 02/12/25 05:31
Hct 24.2 % (37.0-47.0) L 02/12/25 05:31
Plt Count 380 10^3/uL (130-400) 02/12/25 05:31
Sodium 142 mmol/L (135-145) 02/12/25 05:31
Potassium 4.6 mmol/L (3.5-5.1) 02/12/25 05:31
Chloride 110 mmol/L (98-107) H 02/12/25 05:31
Carbon Dioxide 23 mmol/L (22-30) 02/12/25 05:31
BUN 51 mg/dl (7-17) H 02/12/25 05:31
Creatinine 3.7 mg/dL (0.6-1.0) H 02/12/25 05:31
eGFR 14.10 02/12/25 05:31
Glucose 93 mg/dl (70-99) 02/12/25 05:31
Calcium 9.4 mg/dl (8.4-10.2) 02/12/25 05:31
Physical Exam
-
Vital Signs:
Vital Signs
Temp Pulse Resp BP Pulse Ox
97.5 F 84 19 112/70 96
02/12/25 15:05 02/12/25 15:05 02/12/25 15:05 02/12/25 15:05 02/12/25 15:05
Respiratory:: Bilateral: CTA
Lung Excursion:: Normal
Abdomen:: Soft
Bowel Sounds:: Normal
Extremity Edema:: None: Bilateral:
[2025-02-12 23:00] VITALS: BP 168/92
[2025-02-13] MEDS: DILAUDID 1 MG IV ×5 (00:40→20:05)
[2025-02-13] MEDS: HEPARIN 5000 UNITS SC ×3 (00:41→15:27)
[2025-02-13] MEDS: NSS 1000 IV (00:42)
[2025-02-13 06:25] LABS: Hematocrit 25.2 % (37.0-47.0); Hemoglobin 8.1 g/dL (12.0-16.0); Mean Corp Hgb Conc. 32.1 g/dL (33.0-37.0); Mean Corpuscular Hgb 25.3 pg (27.0-31.0); Mean Corpuscular Volume 78.8 fL (81.0-99.0); Mean Platelet Volume 9.9 fL (7.4-10.4); Platelet Count 375 10^3/uL (130-400); Red Cell Dist. Width 17.7 % (11.5-14.5); White Blood Cell Count 7.3 10^3/uL (4.8-10.8)
[2025-02-13 06:48] LABS: Blood Urea Nitrogen 46 mg/dl (7-17); Calcium 9.3 mg/dl (8.4-10.2); Carbon Dioxide 23 mmol/L (22-30); Chloride 109 mmol/L (98-107); Estimated Creatinine Clearance 21 ml/min; Glucose 87 mg/dl (70-99); Magnesium 1.4 mg/dl (1.6-2.3); Potassium 4.1 mmol/L (3.5-5.1); Sodium 141 mmol/L (135-145); eGFR 15.61
[2025-02-13 07:30] VITALS: BP 129/91
[2025-02-13] MEDS: COLACE 100 MG PO ×2 (08:14→20:06)
[2025-02-13] MEDS: FOLVITE 1 MG PO (08:14)
[2025-02-13] MEDS: ZOFRAN 4 MG IV (08:34)
[2025-02-13 11:00] VITALS: BP 134/78
[2025-02-13] MEDS: MAXIPIME 1000 MG IV (12:24)
[2025-02-13] MEDS: STERILE WATER FOR INJECTION 10 ML IV (12:25)
--- NOTE | 2025-02-13 12:27 | W.PN.HOSP.TC ---
Today's Communication/Plan
-
see A/P
Assessment / Plan
Assessment / Plan
A/P:
# Postrenal Acute kidney injury 2/2 failing ureteral stent
# h/o obstructive uropathy 2/2 metastatic cervical cancer s/p bilateral ureteral stent
# Hyperkalemia, resolved
CT here with signs of ureteral stent failure, reviewed by urologist who recommends PCN
s/p bilateral PCN on 02/10/2025
Creatinine baseline was previously near 1.9 following recent stents. SCr peaked at 4.9, today at 3.4
renal function improving, cont to trend SCr.
observe off further IVF
Per pt, she feels that R PCN not draining urine well, IRAD CS again to eval Right PCN tube
# UTI ruled out
Following bilateral PCN, pt developed chills and low-grade fever
urine culture 02/11 no growth
pt was started with renally dosed cefepime, cont for now, consider DC if fever free for 72 hours
Tylenol as needed for fever
# Microcytic anemia, Likely multifactorial with ACD, component of MARCO
Hemoglobin down trended to 7.4�7.6 with IV fluids, MCV 76
No obvious signs of bleeding, does have risk for inflammatory anemia
Iron studies more consistent with ACD though iron saturation 16%
Was started on IV iron by nephrology
Consider JERAD
Trend CBC
# Stage IV cervical cancer
# Peritoneal carcinomatosis
Follows with Dr. Kaufman from [facility]
Status post surgical debulking; complicated by obstructive uropathy
Was scheduled to begin chemotherapy. Will need to follow-up as OP for chemotherapy
Will need normal creatinine with plan for carboplatin
# Ovarian tumor
Per oncology no plans for treatment, describes borderline ovarian tumor
To have OP follow-up with PCP and oncology
Diet: Potassium restricted
DVT prophylaxis: SQ heparin
CODE STATUS: Full code
Anticipated Discharge: Within 24 hours
Subjective/Interval History
-
Date of Service: February 13, 2025
Objective Data
-
Labs:
Laboratory Results
02/13/25
05:28
WBC 7.3
Hgb 8.1 L
Hct 25.2 L
Plt Count 375
Sodium 141
Potassium 4.1
Chloride 109 H
Carbon Dioxide 23
BUN 46 H
Creatinine 3.4 H
Glucose 87
Calcium 9.3
Vital Signs:
Vital Signs
Temp Pulse Resp BP Pulse Ox
37.1 C 84 14 134/78 99
02/13/25 11:00 02/13/25 11:00 02/13/25 11:00 02/13/25 11:00 02/13/25 11:00
I&O
02/12/25 02/13/25 02/14/25
06:59 06:59 06:59
Intake Total 2820 / 2820 4080 / 4080
Output Total 3550 / 3550 6050 / 6050 750 / 750
Balance -730 / -730 -1970 / -1970 -750 / -750
Review of Systems
-
History Source: Patient
All other systems: Reviewed and negative
Genitourinary: Reports Other (does not feel that R PCN tube is draining urine well)
Physical Exam
-
General: Well Developed, Well Nourished, No Apparent Distress, Comfortable, Conversant and Morbidly Obese
HEENT: Normocephalic, Atraumatic, Moist Mucous Membranes and Anicteric
Respiratory: Clear to Auscultation and Non Labored Respirations; Negative Accessory Resp Muscle Use
Cardiac: Regular Rhythm and S1/S2; Negative Murmur, Rub or Gallop
GI: Soft, Nontender, Nondistended and Normal Bowel Sounds
Genito-urinary: Nephrostomy Tubes (BL )
Musculoskeletal: No Clubbing, No Cyanosis and No Edema
Skin: Warm and Dry; Negative Rash or Jaundice
Neuro: Awake, Alert, Nonfocal/Grossly Intact and Central Nerve's Intact
Psych: Calm and Intact Judgement/Insight
Data Reviewed
-
Labs: Labs Reviewed by me and Discussed with Patient
[2025-02-13 12:53] LABS: IgA 220 mg/dL (68-408); IgG 777 mg/dL (768-1632); IgM 57 mg/dL (35-263)
--- NOTE | 2025-02-13 12:56 | W.PN.ONC2 ---
Today's Communication / Plan
-
see plan
Impression
Impression
stage IV cervical cancer
stage I ovarian cancer
obstructive uropathy -s/p bilateral nephrostomy tube placement
klebsiella UTI
anemia - chronic illness
Plan
Plan
- continue management of obstructive uropathy/ DIMITRI per urology and nephro recs
- follow Cr and BMP
- FU with Dr. Kaufman and [facility] for cervical cancer
- anemia likely secondary to chronic illness, folic acid supplment added
- continue to monitor labs
- continue all other care per primary team
Subjective/Objective
Subjective
Patient reports no acute events overnight. She states she has some left lower quad/ hip discomfort and slight blood tinged discharge.
Vital Signs:
Vital Signs
Temp Pulse Resp BP Pulse Ox
98.7 F 84 14 134/78 99
02/13/25 11:00 02/13/25 11:00 02/13/25 11:00 02/13/25 11:00 02/13/25 11:00
Lab Results:
Laboratory Data
WBC 7.3 10^3/uL (4.8-10.8) 02/13/25 05:28
Hgb 8.1 g/dL (12.0-16.0) L 02/13/25 05:28
Plt Count 375 10^3/uL (130-400) 02/13/25 05:28
eGFR 15.61 02/13/25 05:28
Physical Exam
General: AAOx3, conversant, resting in bed
GI: Soft
Extremities: No C/C/E
Review of Systems
Review of Systems
Reviewed and negative unless otherwise stated
Genitourinary: Reports Other (blood tinged discharge, mild)
[2025-02-13 13:04] LABS: Albumin 2.57 g/dL (3.75-5.01); Alpha 1 Globulin 0.55 g/dL (0.19-0.46); SPEP IFE Reflex IFE Done; Total Protein-Electrophoresis 5.8 g/dL (6.3-8.2)
--- NOTE | 2025-02-13 15:07 | W.PN.NEPH.PH ---
Today's Communication / Plan
-
d/c IVF, replace mg
Assessment/Plan
-
Assessment:
Hyperkalemia
DIMITRI
bilat-mod right and mild left hydronephrosis h/o bilat ureteral stenting
Mild met acidosis
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
MIcrocytic anemia
Plan:
A/w DIMITRI and hyperkalemia, CT shows persistent bilat hydro with h/o ureteral stent
obstructive DIMITRI, s/p bilat PCN on 02/10
U PCR 1.5gm/gm of cr with 1+alb-likely tubular proteinuria, SPEP neg
Renal function Improving nonoliguric
seem to have adequate intake ok to d/c normal saline since no polyuria noted
replace mg
Discussed with the patient in detail
d/c plan, likely tomorrow
-
-
Date of Service: February 13, 2025
CC / HPI / ROS
-
Chief Complaint:
Acute kidney injury
History of Present Illness:
Presents with DIMITRI obstructive uropathy
cr better at 3.4, mg low 1.4
k normal
BP stable
non oliguric with bilat pCN, more UOP from left
Review of Systems:
No chest pain or shortness of breath
no n/v
feesl mild bladder pressure
Labs
-
Labs:
WBC 7.3 10^3/uL (4.8-10.8) 02/13/25 05:28
RBC 3.20 10^6/uL (4.20-5.40) L 02/13/25 05:28
Hgb 8.1 g/dL (12.0-16.0) L 02/13/25 05:28
Hct 25.2 % (37.0-47.0) L 02/13/25 05:28
Plt Count 375 10^3/uL (130-400) 02/13/25 05:28
Sodium 141 mmol/L (135-145) 02/13/25 05:28
Potassium 4.1 mmol/L (3.5-5.1) 02/13/25 05:28
Chloride 109 mmol/L (98-107) H 02/13/25 05:28
Carbon Dioxide 23 mmol/L (22-30) 02/13/25 05:28
BUN 46 mg/dl (7-17) H 02/13/25 05:28
Creatinine 3.4 mg/dL (0.6-1.0) H 02/13/25 05:28
eGFR 15.61 02/13/25 05:28
Glucose 87 mg/dl (70-99) 02/13/25 05:28
Calcium 9.3 mg/dl (8.4-10.2) 02/13/25 05:28
Physical Exam
-
Vital Signs:
Vital Signs
Temp Pulse Resp BP Pulse Ox
98.7 F 84 14 134/78 99
02/13/25 11:00 02/13/25 11:00 02/13/25 11:00 02/13/25 11:00 02/13/25 11:00
Respiratory:: Bilateral: CTA
Lung Excursion:: Normal
Abdomen:: Nontender and Soft
Bowel Sounds:: Normal
Extremity Edema:: None: Bilateral:
Mahoney Catheter: No
[2025-02-13 15:19] VITALS: BP 133/71
[2025-02-13] MEDS: MAGNESIUM SULFATE 50 IV (15:27)
[2025-02-13] MEDS: ZOFRAN IV (20:05)
[2025-02-13 23:00] VITALS: BP 151/83
[2025-02-14] MEDS: HEPARIN 5000 UNITS SC ×3 (01:57→17:09)
[2025-02-14] MEDS: DILAUDID 1 MG IV ×5 (04:40→21:17)
[2025-02-14 05:41] LABS: Hematocrit 25.2 % (37.0-47.0); Hemoglobin 8.3 g/dL (12.0-16.0); Mean Corp Hgb Conc. 32.9 g/dL (33.0-37.0); Mean Corpuscular Hgb 25.9 pg (27.0-31.0); Mean Corpuscular Volume 78.8 fL (81.0-99.0); Mean Platelet Volume 9.6 fL (7.4-10.4); Platelet Count 378 10^3/uL (130-400); Red Cell Dist. Width 17.6 % (11.5-14.5); White Blood Cell Count 7.4 10^3/uL (4.8-10.8)
[2025-02-14 06:06] LABS: Blood Urea Nitrogen 40 mg/dl (7-17); Calcium 9.8 mg/dl (8.4-10.2); Carbon Dioxide 24 mmol/L (22-30); Chloride 106 mmol/L (98-107); Estimated Creatinine Clearance 26 ml/min; Glucose 94 mg/dl (70-99); Magnesium 1.9 mg/dl (1.6-2.3); Sodium 139 mmol/L (135-145); eGFR 20.58
--- NOTE | 2025-02-14 08:13 | W.PN.HOSP.TC ---
Addendum entered and electronically signed by Barbara Yoo MD 02/14/25 18:41:
I saw and evaluated the patient independently. I reviewed the resident�s note and agree with findings and plan as documented by Dr. Hidalgo.
GENERAL: well developed, well nourished, female in no apparent distress
HEENT: NC/AT
HEART: regular rate and rhythm, +S1, +S2
LUNGS : clear to auscultation bilaterally
ABDOM: soft, nontender, nondistended, + bowel sounds
EXT: no cyanosis, clubbing, or edema
NEUROLOGIC: grossly intact
: bilateral nephrostomy tubes
Postrenal DIMITRI with hyperkalemia secondary to failing ureteral stent/H/o obstructive uropathy secondary to metastatic cervical cancer s/p b/l ureteral stents--bilateral nephrostomy tubes placed--tube check on right reveals likely poor function of
kidney itself--apprec renal/IR--baseline creat 1.9 (peaked at 4.9 with current 2.7)
Fever and chills-- following b/l PCN- ucx: no growth -- UTI r/o- day 3 renally dose cefepime, can stop ABX- tylenol as needed for fever
Microcytic anemia- likely multifactorial from anemia of chronic disease with component of MARCO- no signs of bleeding, tho high risk for inflammatory anemia- IV iron per nephro
Stage IV cervical cancer/Peritoneal carcinomatosis- follows w Dr. Kaufman from [facility]- s/p surgical debulking 01/27 complicated by obstructive uropathy- was scheduled to begin chemo, delayed secondary to elevated Cr and K -- new start date 02/21- will
need normal Cr for planned carboplatin
Ovarian tumor- per onc, no plans for tx- OP f/u w PCP, Onc
DVT proph-- SQ heparin
CODE STATUS-- Full code
Original Note:
Today's Communication/Plan
-
- monitor Cr
Assessment / Plan
Assessment / Plan
Assessment:
54yo F pmh ovarian cancer pending chemotherapy and prolonged hospitalization 1 month ago w bulky peritoneal carcinomatosis s/p surgery w b/l ureteral stents presented to [facility] ED 02/09 for elevated Cr and K on outpt bloodwork. Determined to have
postrenal DIMITRI secondary to failing ureteral stent, underwent b/l PCN 02/10.
Postrenal DIMITRI secondary to failing ureteral stent
H/o obstructive uropathy secondary to metastatic cervical cancer s/p b/l ureteral stens
Hyperkalemia, resolved
- CT abd/pelvis c/w ureteral stent failure
- 02/10 b/l PCN
- Cr baseline 1.9 following stents, peak Cr 4.9, improving
- per pt, R PCN not draining well - 02/14 nephrostogram --RIGHT nephrostomy check, which demonstrates a patent catheter in adequate position. No antegrade flow of contrast on the ureter.
Fever and chills
- following b/l PCN
- ucx: no growth -- UTI r/o
- day 3 renally dose cefepime
- tylenol as needed for fever
Microcytic anemia
- likely multifactorial w ACD, component of MARCO
- no signs of bleeding, tho high risk for inflammatory anemia
- iron studies c/w ACD
- IV iron per nephro
- monitor cbc, for bleeding
Stage IV cervical cancer
Peritoneal carinomatosis
- follows w Dr. Kaufman from [facility]
- s/p surgical debulking 01/27 complicated by obstructive uropathy
- was scheduled to begin chemo, delayed secondary to elevated Cr and K -- new start date 02/21
- will need normal Cr for planned carboplatin
Ovarian tumor
- per onc, no plans for tx
- OP f/u w PCP, Onc
Diet: Potassium restricted
DVT prophylaxis: SQ heparin
CODE STATUS: Full code
Anticipated Discharge: Within 24 hours
Subjective/Interval History
-
Date of Service: February 14, 2025
No acute overnight events
Objective Data
-
Labs:
Laboratory Results
02/14/25
05:17
WBC 7.4
Hgb 8.3 L
Hct 25.2 L
Plt Count 378
Sodium 139
Potassium 4.0
Chloride 106
Carbon Dioxide 24
BUN 40 H
Creatinine 2.7 H
Glucose 94
Calcium 9.8
Vital Signs:
Vital Signs
Temp Pulse Resp BP Pulse Ox
97.6 F 72 18 151/83 98
02/13/25 23:00 02/13/25 23:00 02/13/25 23:00 02/13/25 23:00 02/13/25 23:00
I&O
02/13/25 02/14/25 02/15/25
06:59 06:59 06:59
Intake Total 4080 / 4080 2400 / 2400
Output Total 6050 / 6050 5700 / 5700
Balance -1970 / -1970 -3300 / -3300
Review of Systems
-
History Source: Patient
Constitutional: Reports No Symptoms
Respiratory: Reports No Symptoms
Cardiac: Reports No Symptoms
Abdomen/GI: Reports No Symptoms
Neuro: Reports No Symptoms
Physical Exam
-
General: Well Developed, Well Nourished, Comfortable and Morbidly Obese
HEENT: Normocephalic and Atraumatic
Respiratory: Clear to Auscultation and Non Labored Respirations
Cardiac: Regular Rhythm and S1/S2
GI: Soft, Nontender, Nondistended and Normal Bowel Sounds
Musculoskeletal: No Clubbing, No Cyanosis and No Edema
Skin: Warm, Dry and IV Access / Catheter Site
Neuro: Awake, Alert and Oriented
Psych: Calm
[2025-02-14] MEDS: FOLVITE 1 MG PO (08:15)
[2025-02-14] MEDS: COLACE 100 MG PO ×2 (08:15→21:17)
[2025-02-14 08:16] VITALS: BP 136/85
--- NOTE | 2025-02-14 10:36 | W.PN.NEPH.PH ---
Today's Communication / Plan
-
follow BMP
Assessment/Plan
-
Assessment:
Hyperkalemia
DIMITRI
bilat-mod right and mild left hydronephrosis h/o bilat ureteral stenting
Mild met acidosis
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
MIcrocytic anemia
Plan:
follow BMP
maintain PCN for now
chemo 02/21
no IVF needed today
-
-
Date of Service: February 14, 2025
CC / HPI / ROS
-
Chief Complaint:
Acute kidney injury
History of Present Illness:
Presents with DIMITRI obstructive uropathy
DIMITRI/Cr down to 2.7
k normal
BP stable
non oliguric with bilat PCN, L>>R
Review of Systems:
No chest pain or shortness of breath
no n/v
Labs
-
Labs:
WBC 7.4 10^3/uL (4.8-10.8) 02/14/25 05:17
RBC 3.20 10^6/uL (4.20-5.40) L 02/14/25 05:17
Hgb 8.3 g/dL (12.0-16.0) L 02/14/25 05:17
Hct 25.2 % (37.0-47.0) L 02/14/25 05:17
Plt Count 378 10^3/uL (130-400) 02/14/25 05:17
Sodium 139 mmol/L (135-145) 02/14/25 05:17
Potassium 4.0 mmol/L (3.5-5.1) 02/14/25 05:17
Chloride 106 mmol/L (98-107) 02/14/25 05:17
Carbon Dioxide 24 mmol/L (22-30) 02/14/25 05:17
BUN 40 mg/dl (7-17) H 02/14/25 05:17
Creatinine 2.7 mg/dL (0.6-1.0) H 02/14/25 05:17
eGFR 20.58 02/14/25 05:17
Glucose 94 mg/dl (70-99) 02/14/25 05:17
Calcium 9.8 mg/dl (8.4-10.2) 02/14/25 05:17
Physical Exam
-
Vital Signs:
Vital Signs
Temp Pulse Resp BP Pulse Ox
98.5 F 85 16 136/85 100
02/14/25 08:16 02/14/25 08:16 02/14/25 08:16 02/14/25 08:16 02/14/25 08:16
Cardiovascular:: Regular rate and rhythm
Respiratory:: Bilateral: CTA
Lung Excursion:: Normal
Abdomen:: Nontender and Soft
Bowel Sounds:: Normal
Extremity Edema:: None: Bilateral:
--- NOTE | 2025-02-14 10:54 | W.PN.ONC2 ---
Today's Communication / Plan
-
Cr downtrending, continue to follow
Impression
Impression
stage IV cervical cancer
stage I ovarian cancer
obstructive uropathy -s/p bilateral nephrostomy tube placement
klebsiella UTI
anemia - chronic illness
Plan
Plan
- continue management of obstructive uropathy/ DIMITRI per urology and nephro recs
- follow Cr and BMP
- FU with Dr. Kaufman and [facility] for cervical cancer
- anemia likely secondary to chronic illness, folic acid supplment added
- continue to monitor labs
- continue all other care per primary team
Subjective/Objective
Subjective
Patient reports no acute events overnight. She feels well. She states she still has some mild cramping in the lower abdomen.
Vital Signs:
Vital Signs
Temp Pulse Resp BP Pulse Ox
98.5 F 85 16 136/85 100
02/14/25 08:16 02/14/25 08:16 02/14/25 08:16 02/14/25 08:16 02/14/25 08:16
Lab Results:
Laboratory Data
WBC 7.4 10^3/uL (4.8-10.8) 02/14/25 05:17
Hgb 8.3 g/dL (12.0-16.0) L 02/14/25 05:17
Plt Count 378 10^3/uL (130-400) 02/14/25 05:17
eGFR 20.58 02/14/25 05:17
Physical Exam
General: AAOx3, conversant, resting in bed
Pulmonary: Clear
GI: Soft
Review of Systems
Review of Systems
Reviewed and negative unless otherwise stated
Gastrointestinal: Reports Other (abdominal cramping)
[2025-02-14] MEDS: MAXIPIME 1000 MG IV (12:03)
[2025-02-14] MEDS: STERILE WATER FOR INJECTION 10 ML IV (12:04)
--- NOTE | 2025-02-14 12:46 | W.PN.GYNONC ---
Today's Communication
-
Continue management by primary care team and discharge patient when stable
Patient to follow up with Dr. Kaufman and Dr. Avila in the outpatient setting
Impression / Plan
-
Impression:
Stage IV Cervical Cancer with metastases to chest, abdomen and pelvis
Stage I Ovarian Cancer
Obstructive Uropathy- s/p bilateral PCN 02/10/2025
Klebsiella UTI
Microcytic Anemia- chronic illness
Plan:
-Patient's renal function is improving following PCN placement. Creatinine has now trended down to 2.7. Patient is currently scheduled for chemotherapy on 02/21/[address] Avila and her kidney function should be improved enough for that by
then.
-Patient will continue to follow up with Dr. Kaufman for treatment for her stage IV cervical cancer but does not want any treatment for the borderline ovarian tumor.
-Patient currently on Cefepime for supposed UTI following PCN placement but Urine culture was negative and patient has been fever free since 02/11/2025.
-Anemia thought to be from chronic illness as per hematology team, started on supplementation with folic acid
-Continue management by primary care team and discharge patient when stable
Attending statement
Patient is improving, with decreasing Cr Levels.
Treat for UTI
follow up with chemo next week for stage IV cervix cancer
Miguel Kaufman MD
Subjective / Interval History
-
Patient says that she has been feeling better than yesterday. Reports that the light sensitivity and nausea from yesterday have mainly resolved. Still feels some pain in her left hip and she said around her lower back as well which comes and goes.
Otherwise, patient says that she is feeling much improved from before and wants to get up out of bed and walk around more.
Objective Data
-
Lab Results:
02/14/25 05:17
02/14/25 05:17
Physical Exam
Vital Signs / I&O
Vitals
Temp Pulse Resp BP Pulse Ox
98.5 F 85 16 136/85 100
02/14/25 08:16 02/14/25 08:16 02/14/25 08:16 02/14/25 08:16 02/14/25 08:16
I&O
02/12/25 02/13/25 02/14/25 02/15/25
06:59 06:59 06:59 06:59
Intake Total 2820 / 2820 4080 / 4080 2400 / 2400
Output Total 3550 / 3550 6050 / 6050 5700 / 5700
Balance -730 / -730 -1970 / -1970 -3300 / -3300
Physical Exam
General: Well Developed, Well Nourished, No Apparent Distress and Comfortable
HEENT: Normocephalic and Anicteric
Respiratory: Clear and Non Labored Respirations
Cardiac: S1/S2 and Regular Rhythm
GI: Soft, Non Tender, Non Distended and Normal Bowel Sounds
Musculoskeletal: No Clubbing, No Cyanosis and No Edema
Skin: Warm
Neuro: Awake, Alert, Oriented and No Motor Deficits
Psych: Calm
Data Reviewed
-
Lab Data: Labs Reviewed, Discussed with Physician and Discussed with Patient
[2025-02-14 15:16] VITALS: BP 137/90
--- NOTE | 2025-02-14 15:23 | W.PN.UPDATE ---
Update Note
Progress Note Update
- R PCN check performed. R PCN slightly retracted but otherwise in good position. Contrast easily injected with persistent mild to moderate hydro. No contrast observed going down the ureter.
- I suspect decreased R sided output is related to diminished function of the right kidney.
--- NOTE | 2025-02-14 16:16 | CM ---
Patient seen at bedside with physicians on . 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 Patient has not submitted disability to [employer]SI. Patient plan is for home with VN. CM will
continue to follow for discharge planning needs.
Plan; home with [facility]N
[2025-02-14 23:00] VITALS: BP 138/84
[2025-02-15] MEDS: HEPARIN 5000 UNITS SC ×2 (01:22→08:10)
[2025-02-15 04:05] LABS: Hemoglobin 8.8 g/dL (12.0-16.0); Mean Corp Hgb Conc. 32.6 g/dL (33.0-37.0); Mean Corpuscular Hgb 25.4 pg (27.0-31.0); Mean Corpuscular Volume 77.8 fL (81.0-99.0); Mean Platelet Volume 9.3 fL (7.4-10.4); Platelet Count 385 10^3/uL (130-400); Red Blood Cell Count 3.47 10^6/uL (4.20-5.40); Red Cell Dist. Width 17.3 % (11.5-14.5); White Blood Cell Count 9.8 10^3/uL (4.8-10.8)
[2025-02-15] MEDS: DILAUDID 1 MG IV ×3 (04:08→13:12)
[2025-02-15 04:31] LABS: Blood Urea Nitrogen 38 mg/dl (7-17); Calcium 9.8 mg/dl (8.4-10.2); Carbon Dioxide 23 mmol/L (22-30); Chloride 107 mmol/L (98-107); Estimated Creatinine Clearance 34 ml/min; Glucose 115 mg/dl (70-99); Sodium 139 mmol/L (135-145); eGFR 27.83
--- NOTE | 2025-02-15 07:51 | W.PN.HOSP.TC ---
Addendum entered and electronically signed by Barbara Yoo MD 02/15/25 15:56:
I saw and evaluated the patient independently. I reviewed the resident�s note and agree with findings and plan as documented by Dr. Hidalgo.
GENERAL: well developed, well nourished, female in no apparent distress
HEENT: NC/AT
HEART: regular rate and rhythm, +S1, +S2
LUNGS : clear to auscultation bilaterally
ABDOM: soft, nontender, nondistended, + bowel sounds
EXT: no cyanosis, clubbing, or edema
NEUROLOGIC: grossly intact
: bilateral nephrostomy tubes
Postrenal DIMITRI with hyperkalemia secondary to failing ureteral stent/H/o obstructive uropathy secondary to metastatic cervical cancer s/p b/l ureteral stents--bilateral nephrostomy tubes placed--tube check on right reveals likely poor function of
kidney itself--apprec renal/IR--baseline creat 1.9 (peaked at 4.9 with current 2.1)--cleared by renal for d/c
Fever and chills-- following b/l PCN- ucx: no growth -- UTI r/o- day 3 renally dose cefepime, can stop ABX- tylenol as needed for fever
Microcytic anemia- likely multifactorial from anemia of chronic disease with component of MARCO- no signs of bleeding, high risk for inflammatory anemia- IV iron per nephro
Stage IV cervical cancer/Peritoneal carcinomatosis- follows w Dr. Kaufman from [facility]- s/p surgical debulking 01/27 complicated by obstructive uropathy- was scheduled to begin chemo, delayed secondary to elevated Cr and K -- new start date 02/21- will
need normal Cr for planned carboplatin
Ovarian tumor- per onc, no plans for tx- OP f/u w PCP, Onc
DVT proph-- SQ heparin
CODE STATUS-- Full code
Original Note:
Today's Communication/Plan
-
- stable for dc
Assessment / Plan
Assessment / Plan
Assessment:
54yo F [facility] ovarian cancer pending chemotherapy and prolonged hospitalization 1 month ago w bulky peritoneal carcinomatosis s/p surgery w b/l ureteral stents presented to [facility] 02/09 for elevated Cr and K on outpt bloodwork. Determined to have
postrenal DIMITRI secondary to failing ureteral stent, underwent b/l PCN 02/10.
Postrenal DIMITRI secondary to failing ureteral stent
H/o obstructive uropathy secondary to metastatic cervical cancer s/p b/l ureteral stens
Hyperkalemia, resolved
- CT abd/pelvis c/w ureteral stent failure
- 02/10 b/l PCN
- Cr baseline 1.9 following stents, peak Cr 4.9, improving
- per pt, R PCN not draining well - 02/14 nephrostogram --RIGHT nephrostomy check, which demonstrates a patent catheter in adequate position. No antegrade flow of contrast on the ureter. C/w functioning nephrostomy tube.
Fever and chills
- following b/l PCN
- ucx: no growth -- UTI r/o
- renally dose cefepime
- tylenol as needed for fever
Microcytic anemia
- likely multifactorial w ACD, component of MARCO
- no signs of bleeding, tho high risk for inflammatory anemia
- iron studies c/w ACD
- IV iron per nephro
- monitor cbc, for bleeding
Stage IV cervical cancer
Peritoneal carinomatosis
- follows w Dr. Kaufman from [facility]
- s/p surgical debulking 01/27 complicated by obstructive uropathy
- was scheduled to begin chemo, delayed secondary to elevated Cr and K -- new start date 02/21
- will need normal Cr for planned carboplatin
Ovarian tumor
- per onc, no plans for tx
- OP f/u w PCP, Onc
Diet: Potassium restricted
DVT prophylaxis: SQ heparin
CODE STATUS: Full code
Anticipated Discharge: Within 24 hours
Subjective/Interval History
-
Date of Service: February 15, 2025
Underwent R PCN check yesterday. Tolerated procedure well.
Objective Data
-
Labs:
Laboratory Results
02/15/25
03:50
WBC 9.8
Hgb 8.8 L
Hct 27.0 L
Plt Count 385
Sodium 139
Potassium 4.0
Chloride 107
Carbon Dioxide 23
BUN 38 H
Creatinine 2.1 H
Glucose 115 H
Calcium 9.8
Vital Signs:
Vital Signs
Temp Pulse Resp BP Pulse Ox
98.1 F 80 18 138/84 99
02/14/25 23:00 02/14/25 23:00 02/14/25 23:00 02/14/25 23:00 02/14/25 23:00
I&O
02/14/25 02/15/25 02/16/25
06:59 06:59 06:59
Intake Total 2400 / 2400 2890 / 2890
Output Total 5700 / 5700 3000 / 3000
Balance -3300 / -3300 -110 / -110
Review of Systems
-
History Source: Patient
Constitutional: Reports No Symptoms
Respiratory: Reports No Symptoms
Cardiac: Reports No Symptoms
Abdomen/GI: Reports No Symptoms
Neuro: Reports No Symptoms
Physical Exam
-
General: Well Developed, Well Nourished and Morbidly Obese
HEENT: Normocephalic and Atraumatic
Respiratory: Clear to Auscultation and Non Labored Respirations
Cardiac: Regular Rhythm and S1/S2
GI: Soft, Nontender, Nondistended and Normal Bowel Sounds
Genito-urinary: Nephrostomy Tubes
Musculoskeletal: No Clubbing, No Cyanosis and No Edema
Skin: Warm and Dry
Neuro: Awake, Alert and Oriented
Psych: Calm
[2025-02-15 07:56] VITALS: BP 137/86
[2025-02-15] MEDS: FOLVITE 1 MG PO (08:10)
[2025-02-15] MEDS: COLACE 100 MG PO (08:10)
[2025-02-15] MEDS: MIRALAX 17 GRAMS PO (08:14)
--- NOTE | 2025-02-15 11:02 | W.PN.NEPH.PH ---
Today's Communication / Plan
-
Continue to monitor the
Will be okay for discharge from [facility]
Assessment/Plan
-
Assessment:
Hyperkalemia
DIMITRI
bilat-mod right and mild left hydronephrosis h/o bilat ureteral stenting
Mild met acidosis
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
MIcrocytic anemia
Plan:
follow BMP
maintain PCN for now
chemo 02/21
no IVF needed today
Renal function continues to improve would be okay for discharge from nephrology standpoint with close outpatient follow-up
-
-
Date of Service: February 15, 2025
CC / HPI / ROS
-
Chief Complaint:
Acute kidney injury
History of Present Illness:
Presents with DIMITRI obstructive uropathy
DIMITRI/Cr down
k normal
BP stable
non oliguric with bilat PCN, L>>R
Review of Systems:
No chest pain or shortness of breath
no n/v
Labs
-
Labs:
WBC 9.8 10^3/uL (4.8-10.8) 02/15/25 03:50
RBC 3.47 10^6/uL (4.20-5.40) L 02/15/25 03:50
Hgb 8.8 g/dL (12.0-16.0) L 02/15/25 03:50
Hct 27.0 % (37.0-47.0) L 02/15/25 03:50
Plt Count 385 10^3/uL (130-400) 02/15/25 03:50
Sodium 139 mmol/L (135-145) 02/15/25 03:50
Potassium 4.0 mmol/L (3.5-5.1) 02/15/25 03:50
Chloride 107 mmol/L (98-107) 02/15/25 03:50
Carbon Dioxide 23 mmol/L (22-30) 02/15/25 03:50
BUN 38 mg/dl (7-17) H 02/15/25 03:50
Creatinine 2.1 mg/dL (0.6-1.0) H 02/15/25 03:50
eGFR 27.83 02/15/25 03:50
Glucose 115 mg/dl (70-99) H 02/15/25 03:50
Calcium 9.8 mg/dl (8.4-10.2) 02/15/25 03:50
Physical Exam
-
Vital Signs:
Vital Signs
Temp Pulse Resp BP Pulse Ox
99.1 F 96 17 137/86 99
02/15/25 07:56 02/15/25 07:56 02/15/25 07:56 02/15/25 07:56 02/15/25 09:19
Cardiovascular:: Regular rate and rhythm
Respiratory:: Bilateral: CTA
Lung Excursion:: Normal
Abdomen:: Nontender and Soft
Bowel Sounds:: Normal
Extremity Edema:: None: Bilateral:
--- NOTE | 2025-02-15 13:39 | W.DCSUMMARY ---
Addendum entered and electronically signed by Barbara Yoo MD 02/15/25 15:57:
Read, reviewed, and agree. See same day progress note for additional details. Time spent coordinating care, DC planning, review of DC plan of care with resident, transition of care, review of records in EMR, med rec, consults, notes, d/w
consultants, nursing, family, and CM = 32 minutes
Original Note:
Discharge Summary
Discharge Data
Date of Admission: 02/09/25
Date of Discharge: 02/15/25
-
Pending Results: No
Hospital Course
Discharging Physician : Dr. Samantha Hidalgo, Dr. Barbara Yoo
Disposition : home
Primary care physician : Miguel Kaufman
Principal Discharge diagnosis : Postrenal acute kidney injury secondary to failing ureteral stent, hyperkalemia, fever, chills, microcytic anemia
Chronic Discharge diagnosis : ovarian cancer pending chemotherapy and prolonged hospitalization 1 month ago w bulky peritoneal carcinomatosis s/p surgery w b/l ureteral stents
Hospital Course : [address] [facility] ovarian cancer pending chemotherapy and prolonged hospitalization 1 month ago w bulky peritoneal carcinomatosis s/p surgery w b/l ureteral stents presented to [facility] ED 02/09 for elevated Cr and K on outpt bloodwork.
Determined to have postrenal DIMITRI secondary to failing ureteral stent, underwent b/l PCN 02/10. Pt started to notice reduced output of R nephrostomy tube. Underwent R nephrostogram, determined to be working appropriately and may have a reduced output
due to kidney disease. Hyperkalemia resolved. Cr trending downwards. Cleared by nephrology for dc. Hemodynamically stable, afebrile.
Important imaging findings :
CT abdo/pelvis 02/08:
Bilateral ureteral stents appear well-positioned. Persistent moderate right and mild left hydronephrosis with a similar appearance compared to the recent CT abdomen/pelvis from 01/31/2025. Known peritoneal carcinomatosis and malignant
lymphadenopathy, suboptimally assessed on this exam without intravenous contrast.
Procedure findings :
B/l nephrostomy tube placement 02/10:
Ultrasound and fluoroscopically guided bilateral percutaneous nephrostomy tube placement as described.
R nephrostogram 02/14:
RIGHT nephrostomy check, which demonstrates a patent catheter in adequate position. No antegrade flow of contrast on the ureter.
Discharge Plan
-
Patient Disposition: Home (Routine Discharge)
Discharge Diagnosis/Procedures: Postrenal acute kidney injury secondary to failing ureteral stent, hyperkalemia, fever, chills, microcytic anemia
Condition: Fair
Diet: As tolerated
Activity: No restrictions
Driving Restrictions: As prior to admission
Bathing Restrictions: OK to Shower
Instructions: Acute kidney injury, Hyperkalemia
Referrals:
Miguel Kaufman MD [Family Provider, [facility]] - in one week
Prescriptions:
Continued
vitamin B complex Tablet Extended Release
1 tab PO DAILY
omeprazole magnesium [Prilosec OTC] 20 mg Tablet,Delayed Release (Dr/Ec)
20 mg PO DAILY
cholecalciferol (vitamin D3) [Vitamin D3] 25 mcg (1,000 unit) Tablet
25 mcg PO DAILY
omega-3 fatty acids-fish oil 684-1,200 mg Capsule,Delayed Release(Dr/Ec)
1 cap PO DAILY
tolterodine 4 mg Capsule,Extended Release 24hr
4 mg PO DAILY Qty: 30 0RF
oxycodone 5 mg Tablet
5 mg PO Q6HPRN PRN (Reason: mod pain) 5 Days Qty: 15 0RF
Probiotic 15 billion cell capsule, sprinkle
1 cap PO DAILY Qty: 10 0RF
docusate sodium [Colace] 100 mg Capsule
100 mg PO BID
oxycodone 10 mg
10 mg PO Q8 PRN (Reason: Pain)
Discharge Orders:
Discharge Patient (As Directed); Ordered 02/15/25
Ordered By: Samantha Hidalgo
Discharge Date and Time
Print Language: KHMER
[2025-02-15 14:09] VITALS: BP 134/63
--- NOTE | 2025-02-15 14:44 | CM ---
Patient seen at bedside with physicians on . Patient to call parents for transportation. Patient declined VN supports as she is going back to work. CM will continue to follow for discharge planning needs.
Plan; home with no needs.
== END 2025-02-15 14:39 | disposition home or self-care (01) | DRG 755 ==
LOC: 3 WEST ACU 01:07
PROVIDERS: Internal Medicine; Physician Assistant; Radiology Diagnostic Radiology; Specialist; ADMITTING PHYSICIAN Internal Medicine; ATTENDING PHYSICIAN Internal Medicine; CONSULT PHYSICIAN Internal Medicine; CONSULT PHYSICIAN Radiology Vascular & Interventional Radiology; EMERGENCY PHYSICIAN Emergency Medicine; FAMILY PHYSICIAN Obstetrics & Gynecology Gynecologic Oncology; OTHER PHYSICIAN Internal Medicine Hematology & Oncology
PROC: 0T9030Z Drainage of Right Kidney with Drainage Device, Percutaneous Approach (ICD-10-PCS; 2025-02-10)
PROC: 0T9130Z Drainage of Left Kidney with Drainage Device, Percutaneous Approach (ICD-10-PCS; 2025-02-10)
PROC: BT111ZZ Fluoroscopy of Right Kidney using Low Osmolar Contrast (ICD-10-PCS; 2025-02-14)
DX: C53.9 Malignant neoplasm of cervix uteri, unspecified (principal); C56.2 Malignant neoplasm of left ovary; N17.9 Acute kidney failure, unspecified; T83.192A Other mechanical complication of indwelling ureteral stent, initial encounter; C77.9 Secondary and unspecified malignant neoplasm of lymph node, unspecified; C78.6 Secondary malignant neoplasm of retroperitoneum and peritoneum; C79.89 Secondary malignant neoplasm of other specified sites; Z68.41 Body mass index [BMI] 40.0-44.9, adult; E87.20 Acidosis, unspecified; N13.30 Unspecified hydronephrosis; E87.5 Hyperkalemia; Y73.2 Prosthetic and other implants, materials and accessory gastroenterology and urology devices associated with adverse incidents; D50.9 Iron deficiency anemia, unspecified; E66.813 Obesity, class 3; K21.9 Gastro-esophageal reflux disease without esophagitis
CPT/HCPCS: 50431; 50432; 74176; 80048; 81003; 81015; 81099; 82550; 82570; 82607; 82728; 82746; 82784; 83540; 83550; 83735; 84155; 84156; 84165; 84300; 85014; 85018; 85025; 85027; 85045; 85652; 86140; 86334; 86850; 86900; 86901; 87086; 93005; 96374; 99152; 99285; C1729; C1769

== ENCOUNTER → 2025-02-22 08:30 | Outpatient (REF) | payer MEDICAID, SELFPAY ==
[2025-02-22 09:20] LABS: % Basophils 0.4 % (0-2); % Eosinophils 3.7 % (0-6); % Immature Granulocytes 0.8 % (0-0.5); % Monocytes 5.5 % (1.7-9.3); % Neutrophils 74.6 % (42.2-75.2); Absolute Basophils 0.1 10^3/uL (0-0.2); Absolute Eosinophils 0.5 10^3/uL (0-0.7); Absolute Immature Granulocytes 0.1 10^3/uL (0-0.05); Absolute Lymphocytes 1.9 10^3/uL (1.2-3.4); Absolute Monocytes 0.7 10^3/uL (0.1-0.6); Absolute Neutrophils 9.6 10^3/uL (1.4-6.5); Hemoglobin 9.6 g/dL (12.0-16.0); Mean Corpuscular Hgb 25.8 pg (27.0-31.0); Mean Corpuscular Volume 80.6 fL (81.0-99.0); Mean Platelet Volume 10.3 fL (7.4-10.4); Nucleated Red Blood Cells % 0 %; Platelet Count 390 10^3/uL (130-400); Red Blood Cell Count 3.72 10^6/uL (4.20-5.40); Red Cell Dist. Width 19.3 % (11.5-14.5); White Blood Cell Count 12.9 10^3/uL (4.8-10.8)
[2025-02-22 09:44] LABS: ALT (SGPT) < 10 U/L (0-35); AST (SGOT) 13 U/L (14-36); Alkaline Phosphatase 91 U/L (38-126); Blood Urea Nitrogen 42 mg/dl (7-17); Carbon Dioxide 21 mmol/L (22-30); Chloride 110 mmol/L (98-107); Glucose 104 mg/dl (70-99); Potassium 4.8 mmol/L (3.5-5.1); Sodium 141 mmol/L (135-145); Total Bilirubin 0.6 mg/dl (0.2-1.3); Total Protein 7.2 g/dl (6.3-8.2); eGFR 33.48
[2025-02-22 12:25] LABS: Free T4 0.69 ng/dl (0.78-2.19)
[2025-02-22 12:39] LABS: TSH 4.12 uIU/ml (0.47-4.68)
[2025-02-24 02:55] LABS: Total T3 (Sendout) 82 ng/dL (80-200)
== END ==
LOC: REG 08:30
PROVIDERS: ATTENDING PHYSICIAN Obstetrics & Gynecology Gynecologic Oncology; FAMILY PHYSICIAN Family Medicine
DX: C53.1 Malignant neoplasm of exocervix (principal); D39.12 Neoplasm of uncertain behavior of left ovary; C80.0 Disseminated malignant neoplasm, unspecified; N13.30 Unspecified hydronephrosis
CPT/HCPCS: 36415; 80053; 84439; 84443; 84480; 85025

== ENCOUNTER → 2025-02-23 11:02 | Outpatient (REF) | payer MEDICAID, SELFPAY ==
[2025-02-23 12:43] LABS: Iron 43 ug/dl (37-170)
[2025-02-23 12:52] LABS: Percent Saturation 17 % (20-50); Total Iron Binding Capacity 244 ug/dl (265-497)
== END ==
LOC: OIDL 11:02
PROVIDERS: ATTENDING PHYSICIAN Internal Medicine Hematology & Oncology
DX: C80.0 Disseminated malignant neoplasm, unspecified (principal); N13.30 Unspecified hydronephrosis; C53.1 Malignant neoplasm of exocervix; D39.12 Neoplasm of uncertain behavior of left ovary
CPT/HCPCS: 82728; 83540; 83550

== ENCOUNTER → 2025-03-14 13:57 | Outpatient (REF) | payer MEDICAID, SELFPAY ==
[2025-03-14 15:33] LABS: Hematocrit 28.4 % (37.0-47.0); Hemoglobin 9.1 g/dL (12.0-16.0); Mean Corp Hgb Conc. 32.0 g/dL (33.0-37.0); Mean Corpuscular Volume 82.8 fL (81.0-99.0); Nucleated Red Blood Cells % 0 %; Platelet Count 258 10^3/uL (130-400); Red Cell Dist. Width 20.4 % (11.5-14.5)
[2025-03-14 16:09] LABS: Blood Urea Nitrogen 25 mg/dl (7-17); Calcium 9.1 mg/dl (8.4-10.2); Carbon Dioxide 21 mmol/L (22-30); Chloride 107 mmol/L (98-107); Glucose 131 mg/dl (70-99); Potassium 4.4 mmol/L (3.5-5.1); Sodium 138 mmol/L (135-145); eGFR 33.48
== END ==
LOC: REG 13:57
PROVIDERS: ATTENDING PHYSICIAN Obstetrics & Gynecology Gynecologic Oncology
DX: C80.0 Disseminated malignant neoplasm, unspecified (principal); N13.30 Unspecified hydronephrosis; C53.1 Malignant neoplasm of exocervix; D39.12 Neoplasm of uncertain behavior of left ovary
CPT/HCPCS: 36415; 80048; 82570; 84156; 85025

== ENCOUNTER → 2025-04-03 10:39 | Outpatient (REF) | payer OTHER, SELFPAY ==
[2025-04-03 11:51] LABS: Hematocrit 25.1 % (37.0-47.0); Hemoglobin 8.2 g/dL (12.0-16.0); Mean Corp Hgb Conc. 32.7 g/dL (33.0-37.0); Mean Corpuscular Volume 84.8 fL (81.0-99.0); Nucleated Red Blood Cells % 0 %; Platelet Count 68 10^3/uL (130-400); Red Cell Dist. Width 18.7 % (11.5-14.5)
[2025-04-03 11:55] LABS: ALT (SGPT) 20 U/L (0-35); AST (SGOT) 24 U/L (14-36); Albumin 3.8 g/dl (3.5-5.0); Alkaline Phosphatase 138 U/L (38-126); Blood Urea Nitrogen 27 mg/dl (7-17); Calcium 10.3 mg/dl (8.4-10.2); Carbon Dioxide 25 mmol/L (22-30); Chloride 105 mmol/L (98-107); Glucose 125 mg/dl (70-99); Potassium 4.0 mmol/L (3.5-5.1); Sodium 139 mmol/L (135-145); Total Protein 7.1 g/dl (6.3-8.2); eGFR 49.48
== END ==
LOC: REG 10:39
PROVIDERS: ATTENDING PHYSICIAN Nurse Practitioner Adult Health; REFERRING PHYSICIAN Obstetrics & Gynecology Gynecologic Oncology
DX: C80.0 Disseminated malignant neoplasm, unspecified (principal); N13.30 Unspecified hydronephrosis; C53.1 Malignant neoplasm of exocervix; D39.12 Neoplasm of uncertain behavior of left ovary
CPT/HCPCS: 36415; 80053; 85025

== ENCOUNTER → 2025-04-05 15:48 | Outpatient (REF) | payer OTHER, SELFPAY ==
[2025-04-05 10:09] LABS: Hematocrit 25.2 % (37.0-47.0); Hemoglobin 8.2 g/dL (12.0-16.0); Mean Corp Hgb Conc. 32.5 g/dL (33.0-37.0); Mean Corpuscular Volume 84.8 fL (81.0-99.0); Platelet Count 91 10^3/uL (130-400); Red Cell Dist. Width 18.6 % (11.5-14.5)
== END ==
LOC: OIDL 15:48
PROVIDERS: ATTENDING PHYSICIAN Obstetrics & Gynecology Gynecologic Oncology
DX: C80.0 Disseminated malignant neoplasm, unspecified (principal); N13.30 Unspecified hydronephrosis; C53.1 Malignant neoplasm of exocervix; D39.12 Neoplasm of uncertain behavior of left ovary
CPT/HCPCS: 85025

== ENCOUNTER → 2025-04-11 11:14 | Outpatient (REF) | payer MEDICAID, SELFPAY ==
[2025-04-11 12:53] LABS: Blood Urea Nitrogen 23 mg/dl (7-17); Calcium 10.2 mg/dl (8.4-10.2); Carbon Dioxide 24 mmol/L (22-30); Chloride 105 mmol/L (98-107); Glucose 102 mg/dl (70-99); Potassium 5.1 mmol/L (3.5-5.1); Sodium 137 mmol/L (135-145); eGFR 41.67
[2025-04-11 13:20] LABS: Hematocrit 29.1 % (37.0-47.0); Hemoglobin 9.2 g/dL (12.0-16.0); Mean Corp Hgb Conc. 31.6 g/dL (33.0-37.0); Mean Corpuscular Volume 86.9 fL (81.0-99.0); Nucleated Red Blood Cells % 0 %; Platelet Count 670 10^3/uL (130-400); Red Cell Dist. Width 20.0 % (11.5-14.5)
== END ==
LOC: REG 11:14
PROVIDERS: ATTENDING PHYSICIAN Obstetrics & Gynecology Gynecologic Oncology
DX: C80.0 Disseminated malignant neoplasm, unspecified (principal); N13.30 Unspecified hydronephrosis; C53.1 Malignant neoplasm of exocervix; D39.12 Neoplasm of uncertain behavior of left ovary
CPT/HCPCS: 36415; 80048; 82570; 84156; 85025

== ENCOUNTER → 2025-04-24 11:57 | Outpatient (REF) | payer OTHER, SELFPAY ==
--- NOTE | 2025-04-20 13:24 | PTCARENOTE ---
called patient to do assessment for upcoming procedure. patient unaware of PCN to PCNU conversion. TT Dr. Kaufman and Dr. Randolph to confirm. conversations conflicts with order. patient instructed to reach out to Dr. Kaufman regarding conversion to
PCNU.
[2025-04-24 12:40] VITALS: BP 111/78; BP_SYST 71
[2025-04-24 13:58] VITALS: BP 128/88; BP_SYST 67
== END ==
LOC: RADI 11:57
PROVIDERS: ATTENDING PHYSICIAN Obstetrics & Gynecology Gynecologic Oncology
DX: Z43.6 Encounter for attention to other artificial openings of urinary tract (principal); N13.1 Hydronephrosis with ureteral stricture, not elsewhere classified
CPT/HCPCS: 50435

== ENCOUNTER → 2025-05-02 12:24 | Outpatient (REF) | payer OTHER, SELFPAY ==
[2025-05-02 13:11] LABS: Hematocrit 29.4 % (37.0-47.0); Hemoglobin 9.7 g/dL (12.0-16.0); Mean Corp Hgb Conc. 33.0 g/dL (33.0-37.0); Mean Corpuscular Volume 90.5 fL (81.0-99.0); Nucleated Red Blood Cells % 0 %; Platelet Count 140 10^3/uL (130-400); Red Cell Dist. Width 21.4 % (11.5-14.5)
[2025-05-02 13:37] LABS: ALT (SGPT) < 10 U/L (0-35); AST (SGOT) 17 U/L (14-36); Albumin 4.2 g/dl (3.5-5.0); Alkaline Phosphatase 96 U/L (38-126); Blood Urea Nitrogen 29 mg/dl (7-17); Calcium 9.7 mg/dl (8.4-10.2); Carbon Dioxide 21 mmol/L (22-30); Chloride 110 mmol/L (98-107); Glucose 107 mg/dl (70-99); Potassium 4.4 mmol/L (3.5-5.1); Sodium 139 mmol/L (135-145); Total Protein 7.4 g/dl (6.3-8.2); eGFR 35.86
[2025-05-02 14:07] LABS: TSH 77.20 uIU/ml (0.47-4.68)
== END ==
LOC: REG 12:24
PROVIDERS: ATTENDING PHYSICIAN Obstetrics & Gynecology Gynecologic Oncology
DX: C80.0 Disseminated malignant neoplasm, unspecified (principal); N13.30 Unspecified hydronephrosis; C53.1 Malignant neoplasm of exocervix; D39.12 Neoplasm of uncertain behavior of left ovary
CPT/HCPCS: 36415; 80053; 84439; 84443; 84480; 85025

== ENCOUNTER → 2025-05-23 11:33 | Outpatient (REF) | payer MEDICAID, SELFPAY ==
[2025-05-23 13:18] LABS: Hematocrit 25.9 % (37.0-47.0); Hemoglobin 8.4 g/dL (12.0-16.0); Mean Corp Hgb Conc. 32.4 g/dL (33.0-37.0); Mean Corpuscular Volume 94.2 fL (81.0-99.0); Nucleated Red Blood Cells % 0.1 %; Platelet Count 127 10^3/uL (130-400); Red Cell Dist. Width 23.5 % (11.5-14.5)
[2025-05-23 13:44] LABS: Anisocytosis 1+; Macrocytosis Slight; Normal RBC Morphology No
[2025-05-23 13:45] LABS: Hypochromasia 1+; Polychromasia Slight
[2025-05-23 14:20] LABS: ALT (SGPT) 14 U/L (0-35); AST (SGOT) 18 U/L (14-36); Albumin 4.2 g/dl (3.5-5.0); Alkaline Phosphatase 112 U/L (38-126); Blood Urea Nitrogen 22 mg/dl (7-17); Calcium 9.5 mg/dl (8.4-10.2); Carbon Dioxide 19 mmol/L (22-30); Chloride 111 mmol/L (98-107); Glucose 125 mg/dl (70-99); Potassium 4.8 mmol/L (3.5-5.1); Sodium 139 mmol/L (135-145); Total Protein 7.4 g/dl (6.3-8.2); eGFR 33.27
== END ==
LOC: REG 11:33
PROVIDERS: ATTENDING PHYSICIAN Obstetrics & Gynecology Gynecologic Oncology; OTHER PHYSICIAN Nurse Practitioner Adult Health
DX: C53.1 Malignant neoplasm of exocervix (principal); C80.0 Disseminated malignant neoplasm, unspecified; N13.30 Unspecified hydronephrosis; D39.12 Neoplasm of uncertain behavior of left ovary
CPT/HCPCS: 36415; 80053; 82570; 84156; 85025

== ENCOUNTER → 2025-06-14 11:09 | Outpatient (REF) | payer MEDICAID, SELFPAY ==
[2025-06-14 11:58] LABS: Hematocrit 24.2 % (37.0-47.0); Hemoglobin 7.9 g/dL (12.0-16.0); Mean Corp Hgb Conc. 32.6 g/dL (33.0-37.0); Mean Corpuscular Volume 100.0 fL (81.0-99.0); Nucleated Red Blood Cells % 0 %; Red Cell Dist. Width 25.4 % (11.5-14.5)
[2025-06-14 12:20] LABS: ALT (SGPT) < 10 U/L (0-35); AST (SGOT) 17 U/L (14-36); Albumin 4.4 g/dl (3.5-5.0); Alkaline Phosphatase 105 U/L (38-126); Blood Urea Nitrogen 29 mg/dl (7-17); Calcium 9.6 mg/dl (8.4-10.2); Carbon Dioxide 26 mmol/L (22-30); Chloride 107 mmol/L (98-107); Glucose 121 mg/dl (70-99); Potassium 4.4 mmol/L (3.5-5.1); Sodium 139 mmol/L (135-145); Total Protein 7.8 g/dl (6.3-8.2); eGFR 26.15
[2025-06-14 13:05] LABS: Platelet Count 85 10^3/uL (130-400)
== END ==
LOC: REG 11:09
PROVIDERS: ATTENDING PHYSICIAN Nurse Practitioner Adult Health
DX: C53.1 Malignant neoplasm of exocervix (principal); C80.0 Disseminated malignant neoplasm, unspecified; N13.30 Unspecified hydronephrosis; D39.12 Neoplasm of uncertain behavior of left ovary
CPT/HCPCS: 36415; 80053; 85025

== ENCOUNTER → 2025-06-20 11:39 | Outpatient (REF) | payer OTHER, MEDICAID, SELFPAY ==
[2025-06-20 13:03] LABS: ALT (SGPT) < 10 U/L (0-35); AST (SGOT) 17 U/L (14-36); Albumin 4.3 g/dl (3.5-5.0); Alkaline Phosphatase 97 U/L (38-126); Blood Urea Nitrogen 27 mg/dl (7-17); Calcium 9.6 mg/dl (8.4-10.2); Carbon Dioxide 23 mmol/L (22-30); Chloride 107 mmol/L (98-107); Glucose 89 mg/dl (70-99); Potassium 5.1 mmol/L (3.5-5.1); Sodium 138 mmol/L (135-145); Total Protein 7.7 g/dl (6.3-8.2); eGFR 27.65
[2025-06-20 13:20] LABS: Hematocrit 25.6 % (37.0-47.0); Hemoglobin 8.2 g/dL (12.0-16.0); Mean Corp Hgb Conc. 32.0 g/dL (33.0-37.0); Mean Corpuscular Volume 100.8 fL (81.0-99.0); Nucleated Red Blood Cells % 0.2 %; Platelet Count 172 10^3/uL (130-400); Red Cell Dist. Width 26.1 % (11.5-14.5)
[2025-06-20 13:27] LABS: Anisocytosis 1+; Hypochromasia Slight; Microcytosis Slight; Normal RBC Morphology No
== END ==
LOC: REG 11:39
PROVIDERS: ATTENDING PHYSICIAN Nurse Practitioner Adult Health
DX: C30.0 Malignant neoplasm of nasal cavity (principal); N13.30 Unspecified hydronephrosis; C53.1 Malignant neoplasm of exocervix; D39.12 Neoplasm of uncertain behavior of left ovary
CPT/HCPCS: 36415; 80053; 85025

== ENCOUNTER → 2025-06-28 11:14 | Outpatient (REF) | payer OTHER, MEDICAID, SELFPAY ==
[2025-06-28 12:19] LABS: Hematocrit 28.1 % (37.0-47.0); Hemoglobin 8.8 g/dL (12.0-16.0); Mean Corp Hgb Conc. 31.3 g/dL (33.0-37.0); Mean Corpuscular Volume 102.9 fL (81.0-99.0); Nucleated Red Blood Cells % 0 %; Platelet Count 243 10^3/uL (130-400); Red Cell Dist. Width 23.8 % (11.5-14.5)
[2025-06-28 13:13] LABS: ALT (SGPT) < 10 U/L (0-35); AST (SGOT) 20 U/L (14-36); Albumin 4.3 g/dl (3.5-5.0); Alkaline Phosphatase 86 U/L (38-126); Blood Urea Nitrogen 37 mg/dl (7-17); Calcium 9.9 mg/dl (8.4-10.2); Carbon Dioxide 23 mmol/L (22-30); Chloride 107 mmol/L (98-107); Glucose 90 mg/dl (70-99); Potassium 5.2 mmol/L (3.5-5.1); Sodium 139 mmol/L (135-145); Total Protein 7.8 g/dl (6.3-8.2); eGFR 31.18
[2025-06-28 13:25] LABS: Anisocytosis 1+; Hypochromasia 1+; Normal RBC Morphology No; Ovalocytes Slight; Polychromasia Slight; Tear Drop Red Blood Cells Slight
== END ==
LOC: REG 11:14
PROVIDERS: ATTENDING PHYSICIAN Obstetrics & Gynecology Gynecologic Oncology
DX: C80.0 Disseminated malignant neoplasm, unspecified (principal); N13.30 Unspecified hydronephrosis; C53.1 Malignant neoplasm of exocervix; D39.12 Neoplasm of uncertain behavior of left ovary; D64.81 Anemia due to antineoplastic chemotherapy; E03.2 Hypothyroidism due to medicaments and other exogenous substances
CPT/HCPCS: 36415; 80053; 82570; 84156; 85025

== ENCOUNTER → 2025-07-05 10:40 | Outpatient (REF) | payer OTHER, MEDICAID, SELFPAY ==
[2025-07-05 11:28] LABS: Hematocrit 26.4 % (37.0-47.0); Hemoglobin 8.5 g/dL (12.0-16.0); Mean Corp Hgb Conc. 32.2 g/dL (33.0-37.0); Mean Corpuscular Volume 103.9 fL (81.0-99.0); Platelet Count 175 10^3/uL (130-400); Red Cell Dist. Width 21.5 % (11.5-14.5)
[2025-07-05 12:04] LABS: ALT (SGPT) < 10 U/L (0-35); AST (SGOT) 20 U/L (14-36); Albumin 4.5 g/dl (3.5-5.0); Alkaline Phosphatase 87 U/L (38-126); Blood Urea Nitrogen 37 mg/dl (7-17); Calcium 10.2 mg/dl (8.4-10.2); Carbon Dioxide 26 mmol/L (22-30); Chloride 105 mmol/L (98-107); Glucose 127 mg/dl (70-99); Magnesium 1.8 mg/dl (1.6-2.3); Potassium 4.5 mmol/L (3.5-5.1); Sodium 140 mmol/L (135-145); Total Protein 7.6 g/dl (6.3-8.2); eGFR 29.32
[2025-07-05 12:05] LABS: Nucleated Red Blood Cells % 0 %
== END ==
LOC: REG 10:40
PROVIDERS: ATTENDING PHYSICIAN Internal Medicine Hematology & Oncology
DX: C80.0 Disseminated malignant neoplasm, unspecified (principal); N13.30 Unspecified hydronephrosis; C53.1 Malignant neoplasm of exocervix; D39.12 Neoplasm of uncertain behavior of left ovary; D64.81 Anemia due to antineoplastic chemotherapy; E03.2 Hypothyroidism due to medicaments and other exogenous substances
CPT/HCPCS: 36415; 80053; 83735; 85025

== ENCOUNTER → 2025-07-12 12:00 | Outpatient (REF) | payer MEDICAID, SELFPAY ==
[2025-07-12 13:20] LABS: Hematocrit 28.6 % (37.0-47.0); Hemoglobin 8.7 g/dL (12.0-16.0); Mean Corp Hgb Conc. 30.4 g/dL (33.0-37.0); Mean Corpuscular Volume 109.6 fL (81.0-99.0); Nucleated Red Blood Cells % 0 %; Platelet Count 130 10^3/uL (130-400); Red Cell Dist. Width 21.6 % (11.5-14.5)
[2025-07-12 13:38] LABS: ALT (SGPT) < 10 U/L (0-35); AST (SGOT) 23 U/L (14-36); Albumin 4.4 g/dl (3.5-5.0); Alkaline Phosphatase 104 U/L (38-126); Blood Urea Nitrogen 39 mg/dl (7-17); Calcium 9.3 mg/dl (8.4-10.2); Carbon Dioxide 25 mmol/L (22-30); Chloride 106 mmol/L (98-107); Glucose 105 mg/dl (70-99); Magnesium 2.2 mg/dl (1.6-2.3); Potassium 4.3 mmol/L (3.5-5.1); Sodium 139 mmol/L (135-145); Total Protein 7.6 g/dl (6.3-8.2); eGFR 26.15
== END ==
LOC: REG 12:00
PROVIDERS: ATTENDING PHYSICIAN Internal Medicine Hematology & Oncology
DX: C80.0 Disseminated malignant neoplasm, unspecified (principal); N13.30 Unspecified hydronephrosis; C53.1 Malignant neoplasm of exocervix; D39.12 Neoplasm of uncertain behavior of left ovary; D64.81 Anemia due to antineoplastic chemotherapy; E03.2 Hypothyroidism due to medicaments and other exogenous substances
CPT/HCPCS: 36415; 80053; 83735; 85025

== ENCOUNTER → 2025-07-20 14:00 | Outpatient (REF) | payer MEDICAID, SELFPAY ==
[2025-07-20 14:49] LABS: Blood Urea Nitrogen 31 mg/dl (7-17)
== END ==
LOC: OIDL 14:00
PROVIDERS: ATTENDING PHYSICIAN Internal Medicine Hematology & Oncology
DX: C80.0 Disseminated malignant neoplasm, unspecified (principal)
CPT/HCPCS: 82565; 84520

== ENCOUNTER → 2025-07-24 11:50 | Outpatient (REF) | payer MEDICAID, SELFPAY ==
[2025-07-24 12:05] VITALS: BP 125/89; BP_SYST 75
[2025-07-24 12:50] VITALS: BP 130/88
[2025-07-24 15:38] LABS: 24 Hour Urine Total Volume 400 ml
== END ==
LOC: RADI 11:50
PROVIDERS: ATTENDING PHYSICIAN Specialist; OTHER PHYSICIAN Internal Medicine Hematology & Oncology
DX: Z43.6 Encounter for attention to other artificial openings of urinary tract (principal); N13.1 Hydronephrosis with ureteral stricture, not elsewhere classified
CPT/HCPCS: 50435; 81050; 84156; C1729; C1769

== ENCOUNTER → 2025-08-09 13:23 | Outpatient (REF) | payer OTHER, SELFPAY ==
[2025-08-09 14:56] LABS: Hematocrit 31.9 % (37.0-47.0); Hemoglobin 9.8 g/dL (12.0-16.0); Mean Corp Hgb Conc. 30.7 g/dL (33.0-37.0); Mean Corpuscular Volume 109.6 fL (81.0-99.0); Nucleated Red Blood Cells % 0 %; Platelet Count 119 10^3/uL (130-400); Red Cell Dist. Width 18.2 % (11.5-14.5)
[2025-08-09 15:27] LABS: ALT (SGPT) 12 U/L (0-35); AST (SGOT) 23 U/L (14-36); Albumin 4.7 g/dl (3.5-5.0); Alkaline Phosphatase 63 U/L (38-126); Blood Urea Nitrogen 35 mg/dl (7-17); Calcium 9.9 mg/dl (8.4-10.2); Carbon Dioxide 26 mmol/L (22-30); Chloride 106 mmol/L (98-107); Glucose 93 mg/dl (70-99); Potassium 4.7 mmol/L (3.5-5.1); Sodium 140 mmol/L (135-145); Total Protein 8.2 g/dl (6.3-8.2); eGFR 26.15
[2025-08-09 15:54] LABS: TSH 60.50 uIU/ml (0.47-4.68)
[2025-08-11 19:52] LABS: Total T3 (Sendout) 30 ng/dL (80-200)
== END ==
LOC: REG 13:23
PROVIDERS: ATTENDING PHYSICIAN Internal Medicine Hematology & Oncology
DX: C80.0 Disseminated malignant neoplasm, unspecified (principal); N13.30 Unspecified hydronephrosis; C53.1 Malignant neoplasm of exocervix; D39.12 Neoplasm of uncertain behavior of left ovary; D64.81 Anemia due to antineoplastic chemotherapy; E03.2 Hypothyroidism due to medicaments and other exogenous substances
CPT/HCPCS: 36415; 80053; 84439; 84443; 84480; 85025

== ENCOUNTER → 2025-08-11 10:25 | Outpatient (REF) | payer OTHER, SELFPAY | LOC: REG 10:25 | PROVIDERS: ATTENDING PHYSICIAN Internal Medicine Hematology & Oncology | DX: C80.0 Disseminated malignant neoplasm, unspecified (principal); N13.30 Unspecified hydronephrosis; C53.1 Malignant neoplasm of exocervix; D39.12 Neoplasm of uncertain behavior of left ovary; D64.81 Anemia due to antineoplastic chemotherapy; E03.2 Hypothyroidism due to medicaments and other exogenous substances | CPT/HCPCS: 73502; 73552; 73560 ==

== ENCOUNTER 2025-08-24 06:25 | Outpatient (RCR) | payer OTHER, SELFPAY | END 2025-08-24 23:59 | disposition home or self-care (01) | LOC: RPT 06:25 | PROVIDERS: ATTENDING PHYSICIAN Internal Medicine Hematology & Oncology | DX: C53.1 Malignant neoplasm of exocervix (principal); Z73.6 Limitation of activities due to disability; M62.81 Muscle weakness (generalized); D39.12 Neoplasm of uncertain behavior of left ovary; R53.0 Neoplastic (malignant) related fatigue; R26.2 Difficulty in walking, not elsewhere classified; M62.830 Muscle spasm of back; R26.89 Other abnormalities of gait and mobility; M54.9 Dorsalgia, unspecified | CPT/HCPCS: 97110; 97163; 97530 ==

== ENCOUNTER 2025-08-31 17:22 | Inpatient (IN) | payer OTHER, SELFPAY ==
[2025-08-31 13:50] VITALS: BP 157/99
[2025-08-31 14:07] LABS: Hematocrit 28.3 % (37.0-47.0); Hemoglobin 9.1 g/dL (12.0-16.0); Mean Corp Hgb Conc. 32.2 g/dL (33.0-37.0); Mean Corpuscular Volume 95.6 fL (81.0-99.0); Nucleated Red Blood Cells % 0 %; Platelet Count 223 10^3/uL (130-400); Red Cell Dist. Width 16.3 % (11.5-14.5)
[2025-08-31 14:27] LABS: ALT (SGPT) < 10 U/L (0-35); AST (SGOT) 17 U/L (14-36); Albumin 4.1 g/dl (3.5-5.0); Alkaline Phosphatase 78 U/L (38-126); Blood Urea Nitrogen 93 mg/dl (7-17); Calcium 10.0 mg/dl (8.4-10.2); Carbon Dioxide 16 mmol/L (22-30); Chloride 106 mmol/L (98-107); Glucose 87 mg/dl (70-99); Potassium 5.7 mmol/L (3.5-5.1); Sodium 135 mmol/L (135-145); Total Protein 7.8 g/dl (6.3-8.2); eGFR 7.00
[2025-08-31] MEDS: NSS 1000 IV (15:00)
[2025-08-31 15:33] LABS: Urine Character Clear (Clear)
--- NOTE | 2025-08-31 15:35 | ED.GENMED ---
History of Present Illness
General
Chief Complaint: Abnormal Lab Value
Source: patient and records
Exam Limitations: none
Time Seen by Provider: 08/31/25 15:03
Nursing documentation reviewed up to this point in time: agreed with
History of Present Illness
History of Present Illness:
55-year-old female with a past medical history of ovarian cancer status post tumor resection, cervical cancer with peritoneal carcinomatosis status post chemotherapy, currently apparently on immunotherapy; she also is a history of chronic kidney
disease, prior obstruction related to cancer and chronic right nephrostomy tube. She presents to the ER for evaluation of abnormal labs; she has been receiving routine lab work every few weeks through her oncologist (Dr. Avila). She had labs
drawn yesterday and was called today that her kidney function was significantly abnormal and sent to the ER to be evaluated. She states that she feels well. She says she is been making urine and has had output from her right nephrostomy without
issues. She denies any acute symptoms. She says that she has been drinking plenty of fluids and urine has been light-colored. She does have history of admissions multiple times in the past with similar presentation typically attributable to
obstructive nephropathy.
Review of Systems
Review of Systems
All Other Systems: ROS reviewed and negative except as documented in HPI and ROS
Constitutional: Denies fever
Cardiac: Denies chest pain
ABD/GI: Denies abdominal pain or nausea
: Denies dysuria, frequency, bleeding or dark urine
Neurological: Denies headache
Phy Exam
Physical Exam
Physical Exam:
General: Awake, alert; no acute distress
Head: Normocephalic, atraumatic
Eyes: Conjunctiva normal
Throat: Airway intact, handling secretions, moist mucous membrane
Neck: Trachea midline, supple without meningismus
Lungs: Clear to auscultation bilaterally, no wheezing, rales, rhonchi
Heart: Regular rate and rhythm, no murmurs, gallops, or rubs
Abd: Soft, non distended, nontender
Back: Right nephrostomy tube noted right lateral low back in good position and sutured in place, no drainage around the bag; there is light-colored urine noted in the bag without significant sediment and no blood
Neuro: Grossly intact
Skin: Warm and dry
Extremities: Warm and well-perfused
Scores
Heart Failure Risk
Heart Failure Risk Score: Not Applicable
Heart Score for Chest Pain Patients
STEMI patient?: Not applicable
Withdrawal Assessment of Alcohol
Withdrawal Assessment Completed?: Not applicable
Course
Orders/Labs/Results
Orders:
Orders
08/31/25 13:57
Complete Blood Count/With Diff Urgent
Comprehensive Metabolic Panel Urgent
08/31/25 15:05
Bladder Scan- Treatment ONCE
Urinalysis Reflex To Culture Urgent
Date Specimen was Collected: 08/31/25
Time Specimen was Collected: 13:54
Urine Microscopic Reflex Cult Urgent
Urine Culture Urgent
KOBI Source: U
Specimen Description:
Date Specimen was Collected: 08/31/25
Time Specimen was Collected: 13:54
08/31/25 15:25
CT Abd/pel Without Iv Or Oral Urgent
Comment:
Reason For Exam: renal failure h/o ovarian/cervical ca, R nephrosto
08/31/25 15:26
0.9% Sodium Chloride 1000 ml [Nss] 1,000 ml IV BOLUS
Abnormal Lab Results
08/31/25 08/31/25
13:57 15:05
RBC 2.96 L 10^6/uL
(4.20-5.40)
Hgb 9.1 L g/dL
(12.0-16.0)
Hct 28.3 L %
(37.0-47.0)
MCHC 32.2 L g/dL
(33.0-37.0)
RDW 16.3 H %
(11.5-14.5)
Potassium 5.7 H mmol/L
(3.5-5.1)
Carbon Dioxide 16 L mmol/L
(22-30)
BUN 93 H mg/dl
(7-17)
Creatinine 6.6 H* mg/dL
(0.6-1.0)
Ur Occult Blood Reflex 2+ A
(Negative)
Leukocyte Esterase Rfl 3+ A
(Negative)
Urine Albumin (Reflex) 2+ A
(Neg - Trace)
08/31/25 13:57
08/31/25 13:57
Vital Signs
Initial and Last Documented VS:
Initial Vital Signs
Temp Pulse Resp BP Pulse Ox
36.9 C 88 16 157/99 98
08/31/25 13:50 08/31/25 13:50 08/31/25 13:50 08/31/25 13:50 08/31/25 13:50
Last Documented Vital Signs
Temp Pulse Resp BP Pulse Ox
36.9 C 88 16 157/99 98
08/31/25 13:50 08/31/25 13:50 08/31/25 13:50 08/31/25 13:50 08/31/25 13:50
MDM/Problems Addressed
Differential Diagnosis Includes:
Acute kidney injury: Obstructive/postrenal versus prerenal injury versus interstitial nephritis, ATN, etc
MDM/Problems Addressed:
55-year-old female with history as noted presents for evaluation of renal dysfunction noted on routine outpatient labs. She is essentially asymptomatic and she has been making good urine. She has a chronic nephrostomy that is draining. Vitals and
exam are as above. Labs sent off here showed stable chronic anemia. Creatinine confirmed abnormal 6.6 today from baseline of around 2 previously. Mild hyperkalemia 5.7 no EKG changes. Mild acidosis likely from renal dysfunction. Urinalysis sent
off. Will check CT to evaluate for obstructive process. Provide IV fluids. Case discussed with nephrology for consultation. Case discussed with hospitalist for admission.
Chronic conditions affecting care:
Metastatic cancer, chronic nephrostomy, chronic kidney disease
Acute Exacerbation and/or Progression of Chronic Illness:
Acutely hypertensive
Acute Exacerbation and/or Progression of Chronic Illness: HTN
*Radiology
Radiology exam reviewed: radiology read reviewed
*Pulse Oximetry
SaO2: 98
Oxygen Mode of Delivery: Room air
Patient hypoxic: no (98%)
*Critical Care Note
Total Time (30-74mins, 75-104mins- exclusive of procedures): Not Applicable
Patient Management
Discussion with other providers: Hospitalist (Discussed with hospitalist) and Set Up Technician (Discussed with nephrology)
Escalation/DeEscalation of care consider admission/obs:
Admission indicated
ED Attending Note
-
Portions of this chart may have been created with voice recognition software.� Occasional wrong word or��sound alike� substitutions may have occurred due to the inherent limitations of voice recognition software.
Discharge Plan
Departure
Prescriptions:
No Action
vitamin B complex Tablet Extended Release
1 tab PO DAILY
cholecalciferol (vitamin D3) [Vitamin D3] 25 mcg (1,000 unit) Tablet
25 mcg PO DAILY
omega-3 fatty acids-fish oil 684-1,200 mg Capsule,Delayed Release(Dr/Ec)
1 cap PO DAILY
docusate sodium [Colace] 100 mg Capsule
100 mg PO DAILYPRN PRN (Reason: constipation)
acetaminophen [Tylenol] 325 mg Tablet
650 mg PO Q4H PRN (Reason: mild pain)
levothyroxine 100 mcg Tablet
100 mcg PO DAILY
estradiol [Estrace] 0.01 % (0.1 mg/gram) Cream
1 applic VAGINAL TH
oxycodone 10 mg Tablet
10 mg PO Q8H PRN (Reason: severe pain)
Interventions
Interventions:
*Risk Screen - Suicide (C-SSRS) Last Done: 08/31/25 13:50
Discharge Date and Time
Print Language: BELARUSIAN
[2025-08-31 15:38] LABS: Urine Squamous Cell 16-20 /LPF (Few)
[2025-08-31 15:39] LABS: Urine White Cell 80-90 /HPF (0-5)
--- NOTE | 2025-08-31 15:50 | W.PN.UPDATE ---
Update Note
Progress Note Update
This is an addendum to H&P written by SUPERVISOR SUNGLASSES Mary York
I saw and examined the patient.
The SUPERVISOR SUNGLASSES's note was reviewed and I agree with the note.
Comment:
Ms. Jessica Laguna is a 55 yo woman with hx ovarian cancer now s/p surgery/chemotherapy, s/p bilateral ureteral stents (since removal of left), with complication of postrenal DIMITRI 2/2 failed ureteral stent s/p bilateral PCN 02/10 sent to the ER for
abnormal outpatient labs showing ARF.
Triage VS: T 36.9, P 88, RR 16, BP 157/99, SpO2 98%
On exam patient is AAO x 3, in no acute distress, Chest clear, Abdomen benign, no LE swelling
LABS: WBC 7.6, Hg 9.1, PLT 223, Na 135, K+ 5.7, CO2 16, BUN 93, Cr 6.6, Glucose 87, liver enzymes WNL
CT A/P
IMPRESSION:
Moderate left-sided hydroureteronephrosis without obstructing renal calculus. This appears to extend to the level of the distal ureter posterior to the uterus and may be secondary to mass effect of the known malignancy.
The known peritoneal carcinomatosis, mesenteric and retroperitoneal lymphadenopathy are not well evaluated given lack of IV contrast, however appear decreased from prior. The uterus appears mildly rounded and heterogeneous which is likely related to
known malignancy.
There is a 2.7 x 0.7 cm small, walled off gas containing focus adjacent to the left aspect of the uterus and posterior to the proximal sigmoid colon. This is unlikely to represent a focal perforation and may be related to prior surgery or
malignancy. Clinical correlation with clinical symptomatology and lab values.
Small volume perihepatic and perisplenic free fluid as well as small volume free fluid in the bilateral paracolic gutters.
Acute Renal Failure
Hyperkalemia
Right-sided percutaneous Nephrostomy tube
Moderate Left-Sided Hydronephrosis
Ovarian and cervical cancer s/p surgery and chemotherapy currently on Keytruda
-admit to telemetry
-NPO after MN for IR-guided percutaneous nephrostomy
-sodium bicarb @ 150
-follow up urine studies
-appreciate renal consult
-flowers catheter ordered
-Urology/IR consulted
-Oncology consult
76 minutes spent on patient care
--- NOTE | 2025-08-31 15:50 | HPS.HSE ---
Family Physician
-
Family Physician:
Chief Complaint
-
abnormal out patient labs
History of Present Illness
Patient is a 55-year-old female with past medical history significant for GERD, obesity, anemia, hypothyroidism, Hx cervical cancer, Hx ovarian cancer and chronic kidney disease who presented to [facility] ED for evaluation of abnormal out patient labs.
Patient explains she has routine labs done with oncology approximately every 3 weeks prior to infusion. She states that her labs were drawn yesterday and was called today that kidney function was elevated and to go to ED for evaluation. Patient
reports feeling overall well with normal nephrostomy output and normal urine output. She endorses lower back pain 2 nights ago L side > R side with associated dry heaves. She reports that her nephrostomy had increased output that night of 200cc
verse her normal approximately 100cc. She denies any other symptoms since that night. Patient with known chronic kidney disease and she believes her creat normally is around 2.0.
Medical History
Past Medical History
Past Medical History: Reports Other
Additional Past Medical History:
GERD
obesity
anemia
hypothyroidism
rosacea
Ovarian cancer complicated by peritoneal carcinomatosis status post debulking surgery
adenocarcinoma of cervix
Bilateral ureteral obstruction status post bilateral stenting
chronic kidney disease
right nephrostomy
Past Surgical History: Reports Other
Additional Past Surgical History:
ovarian mass removed 12/2024
right nephrostomy
Social History
Tobacco: Non-smoker
Alcohol: None
Drug: None
Personal: Other (Boyfriend)
Living: With Family (Boyfriend)
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
Family History
Family History: Other (Mother history of breast cancer in her late 50s is alive, mom history HTN, HLD, CAD/stent, father history of DM 2 with living, 2 brothers 1 work accident 1 alcohol abuse, 1 brother living obese, hypertension
hyperlipidemia, active smoker)
Allergies / Home Medications
Allergies reflects when Allergies were last updated in [facility].
Home Medications with original date entered in [facility]
Allergy/Medication List:
Allergies
Allergy/AdvReac Type Severity Reaction Status Date / Time
No Known Allergies Allergy Verified 08/31/25 13:53
Home Medications
cholecalciferol (vitamin D3) 25 mcg (1,000 unit) tablet (Vitamin D3) 25 mcg PO DAILY Supplement 12/20/24
omega-3 fatty acids-fish oil 684 mg-1,200 mg capsule,delayed release 1 cap PO DAILY Supplement 12/20/24
vitamin B complex 1 tab PO DAILY Supplement 12/20/24
docusate sodium 100 mg capsule (Colace) 100 mg PO DAILYPRN PRN constipation 01/27/25
acetaminophen 325 mg tablet (Tylenol) 650 mg PO Q4H PRN mild pain 08/31/25
estradiol 0.01% (0.1 mg/gram) vaginal cream (Estrace) 1 applic vaginal TH 08/31/25
levothyroxine 100 mcg tablet 100 mcg PO DAILY 08/31/25
oxycodone 10 mg tablet 10 mg PO Q8H PRN severe pain 08/31/25
Review of Systems
-
History Source: Patient
Constitutional: Denies Fever or Chills
EENT: Denies Sore Throat
Respiratory: Denies Cough, Hemoptysis or Trouble Breathing
Cardiac: Denies Chest Pain, Diaphoresis, Palpitations or Syncope
Abdomen/GI: Reports Nausea and Vomiting (dry heaves ); Denies Abdominal Pain or Diarrhea
: Reports Other (right nephrostomy ); Denies Dysuria, Frequency or Urgency
Musculoskeletal: Denies Joint Pain
Skin: Denies Rash
Neurological: Denies Dizzy, Headache, Weakness or Numbness
Endocrine: Denies Polyuria or Polydipsia
Physical Exam
Vital Signs
Vital Signs
Temp Pulse Resp BP Pulse Ox
98.4 F 88 16 157/99 98
08/31/25 13:50 08/31/25 13:50 08/31/25 13:50 08/31/25 13:50 08/31/25 15:46
Physical Exam
General: Well Developed, Well Nourished, No Apparent Distress, Comfortable, Conversant and Obese
HEENT: NormoCephalic, Moist mucous membranes, PERRLA, Nose Appears Normal and Ears Appear Normal
Respiratory: Clear and Non Labored Respirations; No Wheezes, Rales or Rhonchi
Cardiac: S1/S2 and Regular Rhythm; No Murmur, Rub, Gallop or Peripheral Edema
GI: Soft, Non Tender, Non Distended and Normal Bowel Sounds
Genito-urinary: Clear Urine and Nephrostomy Tubes (right ); No Turbid Urine or Bloody Urine
Musculoskeletal: No Clubbing, No Cyanosis and No Edema
Skin: Warm and IV/Catheter Site
Neuro: Awake and AO x 3
Psych: Calm and Intact Judgment/Insight
Laboratory Results
-
08/31/25 13:57
08/31/25 13:57
Laboratory Results
Total Bilirubin 0.5 mg/dl (0.2-1.3) 08/31/25 13:57
AST 17 U/L (14-36) 08/31/25 13:57
ALT < 10 U/L (0-35) 08/31/25 13:57
Alkaline Phosphatase 78 U/L (38-126) 08/31/25 13:57
Data Reviewed
-
Lab Data: Labs Reviewed by me (hgb 9.1, hct 28.3, K+ 5.7, CO2 16, BUN 93, Creat 6.6, eGFR 7.00)
Impression/Plan
-
IMPRESSION/PLAN:
#acute kidney injury with unknown etiology
CO2 16, BUN 93, Creat 6.6, eGFR 7.00
Abd/Pel CT: Moderate left-sided hydroureteronephrosis without obstructing renal calculus. This appears to extend to the level of the distal ureter posterior to the uterus and may be secondary to mass
effect of the known malignancy.
The known peritoneal carcinomatosis, mesenteric and retroperitoneal lymphadenopathy are not well evaluated given lack of IV contrast, however appear decreased from prior. The uterus appears
mildly rounded and heterogeneous which is likely related to known malignancy.
There is a 2.7 x 0.7 cm small, walled off gas containing focus adjacent to the left aspect of the uterus and posterior to the proximal sigmoid colon. This is unlikely to represent a focal perforation
and may be related to prior surgery or malignancy. Clinical correlation with clinical symptomatology and lab values.
Small volume perihepatic and perisplenic free fluid as well as small volume free fluid in the bilateral paracolic gutters.
- Admit to telemetry
- Consult Nephrology
- Consult Urology
- Consult IR
- IVF Bicarb 125cc/hr
- trend BMP
- Mahoney per Nephrology
- NPO at midnight for left PCN tomorrow
#chronic kidney disease
#bilateral ureteral obstruction
s/p bilateral stenting, chronic right nephrostomy
#hyperkalemia
K+ 5.7
- IVF NS
- Lokelma given in ED
- trend BMP
#Ovarian cancer complicated by peritoneal carcinomatosis status post debulking surgery
#adenocarcinoma of cervix
follows with Dr. Avila @ [facility]
s/p ovarian mass removal
completed chemo and now transitioned to immunotherapy
- Consult Oncology
#anemia
hgb 9.1, hct 28.3
appears baseline
- monitor H/H
#hypothyroidism
- continue levothyroxine
#GERD
#obesity
#rosacea
Code status: full code
DVT Prophylaxis: SCDs
--- NOTE | 2025-08-31 16:59 | W.CON.NEPH ---
Consultation
-
Date/Time Consultation Requested: August 31, 2025 at 1500
Date/Time Consultation Performed: August 31, 2025 at 5:00 p.m.
Requesting Provider: Amor Maynard
Performing Provider: Dr. Izaguirre
Reason for Consultation: acute on chronic kidney disease
Medical History
-
Chief Complaint: acute on chronic kidney disease and hyperkalemia
History of Present Illness:
55-year-old female with a past medical history of ovarian cancer status post tumor resection, cervical cancer with peritoneal carcinomatosis status post chemotherapy, currently apparently on immunotherapy; she also is a history of chronic kidney
disease, prior obstruction related to cancer and chronic right nephrostomy tube. She presents to the ER for evaluation of abnormal labs; she has been receiving routine lab work every few weeks through her oncologist (Dr. Avila). She had labs
drawn yesterday and was called today that her kidney function was significantly abnormal and sent to the ER to be evaluated
she recently started Keytruda x1 dose.
Renal consult for acute kidney injury with creatinine of 6.6 from baseline of 2.2 and mild metabolic acidosis and hyperkalemia 5.7
Past Medical History
GERD
class III obesity
rosacea.
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
Bilateral ureteral obstruction status post bilateral ,stenting
Past Surgical History: Other ( Ovarian tumor removal December 2024)
Social History
Tobacco: Non-Smoker
Alcohol: None
Drug: None
Family History
Mother history of breast cancer in her late 50s is alive, mom history HTN, HLD, CAD/stent, father history of DM 2 with living, 2 brothers 1 work accident 1 alcohol abuse, 1 brother living obese, hypertension hyperlipidemia, active
smoker
Family History: Not Pertinent
Allergies / Home Medications
Allergy/AdvReac Type Severity Reaction Status Date / Time
No Known Allergies Allergy Verified 08/31/25 13:53
�Medication �Instructions �Recorded �Confirmed �Type
cholecalciferol (vitamin D3) 25 25 mcg PO DAILY Supplement 12/20/24 08/31/25 History
mcg (1,000 unit) tablet (Vitamin
D3)
omega-3 fatty acids-fish oil 684 1 cap PO DAILY Supplement 12/20/24 08/31/25 History
mg-1,200 mg capsule,delayed release
vitamin B complex 1 tab PO DAILY Supplement 12/20/24 08/31/25 History
docusate sodium 100 mg capsule 100 mg PO DAILYPRN PRN constipation 01/27/25 08/31/25 History
(Colace)
acetaminophen 325 mg tablet 650 mg PO Q4H PRN mild pain 08/31/25 08/31/25 History
(Tylenol)
estradiol 0.01% (0.1 mg/gram) 1 applic vaginal TH 08/31/25 08/31/25 History
vaginal cream (Estrace)
levothyroxine 100 mcg tablet 100 mcg PO DAILY 08/31/25 08/31/25 History
oxycodone 10 mg tablet 10 mg PO Q8H PRN severe pain 08/31/25 08/31/25 History
Review of Systems
-
All other systems: Negative unless noted
Physical Exam
Vital Signs
Vital Signs
Temp Pulse Resp BP Pulse Ox
98.4 F 88 16 157/99 98
08/31/25 13:50 08/31/25 13:50 08/31/25 13:50 08/31/25 13:50 08/31/25 15:46
Lab Results
WBC 7.6 10^3/uL (4.8-10.8) 08/31/25 13:57
RBC 2.96 10^6/uL (4.20-5.40) L 08/31/25 13:57
Hgb 9.1 g/dL (12.0-16.0) L 08/31/25 13:57
Hct 28.3 % (37.0-47.0) L 08/31/25 13:57
Plt Count 223 10^3/uL (130-400) 08/31/25 13:57
Sodium 135 mmol/L (135-145) 08/31/25 13:57
Potassium 5.7 mmol/L (3.5-5.1) H 08/31/25 13:57
Chloride 106 mmol/L (98-107) 08/31/25 13:57
Carbon Dioxide 16 mmol/L (22-30) L 08/31/25 13:57
BUN 93 mg/dl (7-17) H 08/31/25 13:57
Creatinine 6.6 mg/dL (0.6-1.0) H* 08/31/25 13:57
eGFR 7.00 08/31/25 13:57
Glucose 87 mg/dl (70-99) 08/31/25 13:57
Calcium 10.0 mg/dl (8.4-10.2) 08/31/25 13:57
Albumin 4.1 g/dl (3.5-5.0) 08/31/25 13:57
Physical Exam
General no acute distress
HEENT no cephalic atraumatic extraocular muscle intact no scleral icterus no JVD neck supple
lungs clear to auscultation bilateral
heart regular S1-S2 positive
abdomen soft nontender positive bowel sounds
extremities no edema pulses present bilateral
Neurologically nonfocal alert and oriented x 3
Skin no lesions no abrasions no petechiae
Psych normal affect no bizarre behavior
Data Reviewed
-
CT Scan: Image Personally Visualized and interpreted
Assessment/Plan
-
Assessment:
Hyperkalemia
DIMITRI
bilat-mod right and mild left hydronephrosis h/o bilat ureteral stenting
Mild met acidosis
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
MIcrocytic anemia
Plan:
IV fluids/ Lokelma
>cat scan Moderate left-sided hydroureteronephrosis without obstructing renal calculus. This appears to extend to the level of the distal ureter posterior to the uterus and may be secondary to mass effect of the known malignancy
she is status post left nephrostomy which has been removed since initial bilateral placement.
We will need to consider IR eval for reinsertion of Lt percutaneous nephrostomy.
Would consult Urology As well
in the meantime IV fluids with bicarbonate and Mahoney catheter
relayed suggestion to primary hospitalist
[2025-08-31] MEDS: LOKELMA 10 GRAM PO (17:32)
[2025-08-31 17:37] VITALS: BMI 40.5
[2025-08-31 19:43] VITALS: BP 143/78
[2025-08-31 20:16] LABS: Potassium 5.3 mmol/L (3.5-5.1)
--- NOTE | 2025-08-31 21:11 | PTCARENOTE ---
Received pt. from ED. Pt. ambulated from stretcher to bed. Pt. AAOx3, VSS, oriented to unit, and call eng placed within reach. Pt. care ongoing.
[2025-08-31 21:14] VITALS: BP 158/91; BMI 40.1
[2025-08-31] MEDS: SODIUM BICARBONATE 1150 MEQ IV (21:29)
[2025-08-31] MEDS: ROXICODONE 10 MG PO (21:44)
[2025-08-31 23:11] VITALS: BP 125/99
[2025-09-01] VITALS (13 sets, daily range): BP systolic 67–177; BP diastolic 69–107; BMI 40.1
[2025-09-01] MEDS: SODIUM BICARBONATE 1150 MEQ IV ×2 (05:32→14:59)
[2025-09-01] MEDS: SYNTHROID 100 MCG PO (05:32)
[2025-09-01 07:43] LABS: Hematocrit 25.6 % (37.0-47.0); Hemoglobin 8.4 g/dL (12.0-16.0); Mean Corp Hgb Conc. 32.8 g/dL (33.0-37.0); Mean Corpuscular Volume 95.2 fL (81.0-99.0); Platelet Count 210 10^3/uL (130-400); Red Cell Dist. Width 16.4 % (11.5-14.5)
[2025-09-01] MEDS: ROXICODONE 10 MG PO (08:25)
[2025-09-01 08:54] LABS: Blood Urea Nitrogen 89 mg/dl (7-17); Calcium 9.0 mg/dl (8.4-10.2); Carbon Dioxide 21 mmol/L (22-30); Chloride 106 mmol/L (98-107); Estimated Creatinine Clearance 11 ml/min; Glucose 73 mg/dl (70-99); Magnesium 2.1 mg/dl (1.6-2.3); Potassium 6.2 mmol/L (3.5-5.1); Sodium 137 mmol/L (135-145); eGFR 7.40
--- NOTE | 2025-09-01 09:31 | W.PN.UPDATE ---
Update Note
Progress Note Update
DIMITRI
Obstructive uropathy secondary to distal ureteral obstruction from malignant extrinsic compression
Ovarian cancer s/p resection (12/2024)
Stage IV SCC of cervix w/ metastatic disease
H/o right ureteral stent insertion (failed) w/ subsequent conversion to right PCN.
Right PCN currently in place - recently exchanged by IR 07/2025 w/ constrast studies demonstrating PERSISTENT ureteral obstruction.
Given malignant extrinsic compression from mass effect of known malignancy w/ metastatic disease (and failed prior right ureteral stent), advise left PCN insertion.
- IR consult for left PCN insertion
- Maintain right PCN (exchanged 07/2025)
- Trend Cr
--- NOTE | 2025-09-01 09:45 | TRANSFER ---
report called to IR. patient scheduled for left nephrostomy placement.
--- NOTE | 2025-09-01 09:46 | PTCARENOTE ---
Potassium up trending, at 6.2. Creatinine down trending at 6.3. Bicarb running at 125 ml/hr. Dr. Yoo notified via tiger text. Message forwarded to nephrology and urology.
[2025-09-01 09:56] LABS: INR 1.02; PT 13.5 Sec (11.4-14.6)
--- NOTE | 2025-09-01 10:05 | W.PN.HOSP.TC ---
Addendum entered and electronically signed by Barbara Yoo MD 09/01/25 15:57:
I saw and evaluated the patient independently. I reviewed and discussed the resident�s note and agree with findings and plan as documented by Dr. Cannon.
GENERAL: well developed, well nourished, obese female in no apparent distress
HEENT: NC/AT
HEART: regular rate and rhythm, +S1, +S2
LUNGS : clear to auscultation bilaterally
ABDOM: soft, nontender, nondistended, + bowel sounds
EXT: no cyanosis, clubbing, or edema
NEUROLOGIC: grossly intact
DIMITRI with hyperkalemia --likely post renal secondary to distal ureteral obstruction from malignant extrinsic compression--CT abd/pelvis with Moderate left-sided hydroureteronephrosis without obstructing renal calculus. This appears to extend to the
level of the distal ureter posterior to the uterus and may be secondary to mass effect of the known malignancy--apprec renal and urology--apprec IR--s/p left nephrostomy tube placement--lokelma for hyperK
chronic Microcytic anemia- likely multifactorial- no signs of bleeding
Stage IV cervical cancer w/ metastatic disease/Peritoneal carcinomatosis/Ovarian tumor--apprec ONC- s/p surgical debulking complicated by obstructive uropathy--on Keytruda
DVT proph--SCds
CODE STATUS-- Full code
Original Note:
Today's Communication/Plan
-
Left PCN with IR today
Consult onc
Assessment / Plan
Assessment / Plan
#Postrenal DIMITRI secondary to distal ureteral obstruction from malignant extrinsic compression
#Hyperkalemia
- CT abd/pelvis with Moderate left-sided hydroureteronephrosis without obstructing renal calculus. This appears to extend to the level of the distal ureter posterior to the uterus and may be secondary to mass effect of the known malignancy.
- s/p R PCN replacement in 07/2025
- sCr 6.6 and K 5.7 on admission; potassium improved initially after Lokelma however increased to 6.2 today, serum creatinine improved slightly to 6.3(baseline is 2.0)
- Nephrology input appreciated ; patient to get left nephrostomy tube with IR today
#chronic Microcytic anemia
- likely multifactorial
- no signs of bleeding
#Stage IV cervical cancer w/ metastatic disease
#Peritoneal carinomatosis
#Ovarian tumor
- follows w Dr. Avila at [facility]
- s/p surgical debulking 01/27 complicated by obstructive uropathy
- s/p 1 dose of keytruda
- consult onc
DVT prophylaxis: SCds
CODE STATUS: Full code
Anticipated Discharge: Within 24 hours
Subjective/Interval History
-
Date of Service: September 01, 2025
AFVSS. Patient states that overall she is feeling fine main concern was her abnormal labs that is why she is in the hospital.
Objective Data
-
Labs:
Laboratory Results
09/01/25 09/01/25
06:58 09:34
WBC 6.8
Hgb 8.4 L
Hct 25.6 L
Plt Count 210
PT 13.5
INR 1.02
Sodium 137
Potassium 6.2 H*
Chloride 106
Carbon Dioxide 21 L
BUN 89 H
Creatinine 6.3 H*
Glucose 73
Calcium 9.0
Vital Signs:
Vital Signs
Temp Pulse Resp BP Pulse Ox
97.8 F 76 18 162/99 99
09/01/25 12:53 09/01/25 12:53 09/01/25 12:53 09/01/25 12:53 09/01/25 12:53
I&O
08/31/25 09/01/25 09/02/25
06:59 06:59 06:59
Intake Total 1480 / 1480
Output Total 1575 / 1575 750 / 750
Balance -95 / -95 -750 / -750
Review of Systems
-
History Source: Patient
Constitutional: Reports No Symptoms
Respiratory: Reports No Symptoms
Cardiac: Reports No Symptoms
Abdomen/GI: Reports No Symptoms
Neuro: Reports No Symptoms
Physical Exam
-
General: Well Developed, Well Nourished and Morbidly Obese
HEENT: Normocephalic and Atraumatic
Respiratory: Clear to Auscultation and Non Labored Respirations
Cardiac: Regular Rhythm and S1/S2
GI: Soft, Nontender, Nondistended and Normal Bowel Sounds
Genito-urinary: Nephrostomy Tubes (Right side. No active bleeding, swelling or erythema.)
Skin: Warm and Dry
Neuro: Awake, Alert and Oriented
Psych: Calm
Data Reviewed
-
Labs: Labs Reviewed by me, Discussed with Physician and Discussed with Patient
[2025-09-01] MEDS: ROCEPHIN 2000 MG IV (11:10)
[2025-09-01] MEDS: STERILE WATER FOR INJECTION 20 ML IV (11:10)
[2025-09-01] MEDS: DILAUDID 0.5 MG IV ×4 (11:56→20:50)
--- NOTE | 2025-09-01 15:09 | CM ---
Patient was seen at bedside with physicians. Patient states that no changes have occurred since last admission. Patient lives with boyfriend 1st floor condo, Patient has no DME other than walker. patient has no VN/Rehab at this time. PCP is Dr. Rivera
Shae/ NATALIE; Patrick Gunn. CM will continue to follow for discharge planning needs.
PLAN: home, no needs anticipated, discussed VN-declined, CM to continue to follow
--- NOTE | 2025-09-01 15:34 | W.PN.NEPH.PH ---
Today's Communication / Plan
-
BMP
Assessment/Plan
-
Assessment:
Hyperkalemia
DIMITRI
bilat-mod right and mild left hydronephrosis h/o bilat ureteral stenting
Mild met acidosis
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
MIcrocytic anemia
Plan:
BMP later today
treat K medically if still high
continue IVF for now
follow BMP
-
-
Date of Service: September 01, 2025
CC / HPI / ROS
-
Chief Complaint:
DIMITRI
History of Present Illness:
DIMITRI/Cr stable 6.3
K up to 6.2
BP stable
s/p left PCN 09/01
Review of Systems:
no CP/SOB
pain at PCN site
Labs
-
Labs:
WBC 6.8 10^3/uL (4.8-10.8) 09/01/25 06:58
RBC 2.69 10^6/uL (4.20-5.40) L 09/01/25 06:58
Hgb 8.4 g/dL (12.0-16.0) L 09/01/25 06:58
Hct 25.6 % (37.0-47.0) L 09/01/25 06:58
Plt Count 210 10^3/uL (130-400) 09/01/25 06:58
Sodium 137 mmol/L (135-145) 09/01/25 06:58
Potassium 6.2 mmol/L (3.5-5.1) H* 09/01/25 06:58
Chloride 106 mmol/L (98-107) 09/01/25 06:58
Carbon Dioxide 21 mmol/L (22-30) L 09/01/25 06:58
BUN 89 mg/dl (7-17) H 09/01/25 06:58
Creatinine 6.3 mg/dL (0.6-1.0) H* 09/01/25 06:58
eGFR 7.40 09/01/25 06:58
Glucose 73 mg/dl (70-99) 09/01/25 06:58
Calcium 9.0 mg/dl (8.4-10.2) 09/01/25 06:58
Albumin 4.1 g/dl (3.5-5.0) 08/31/25 13:57
Physical Exam
-
Vital Signs:
Vital Signs
Temp Pulse Resp BP Pulse Ox
97.5 F 76 18 159/92 95
09/01/25 15:31 09/01/25 15:31 09/01/25 15:31 09/01/25 15:31 09/01/25 15:31
Cardiovascular:: Regular rate and rhythm
Respiratory:: Bilateral: CTA
Lung Excursion:: Normal
Abdomen:: Nontender and Soft
Bowel Sounds:: Normal
Extremity Edema:: +1: Bilateral:
[2025-09-01 18:45] LABS: Blood Urea Nitrogen 91 mg/dl (7-17); Calcium 8.7 mg/dl (8.4-10.2); Carbon Dioxide 23 mmol/L (22-30); Chloride 101 mmol/L (98-107); Estimated Creatinine Clearance 12 ml/min; Glucose 93 mg/dl (70-99); Potassium 4.9 mmol/L (3.5-5.1); Sodium 135 mmol/L (135-145); eGFR 8.01
[2025-09-02] VITALS (7 sets, daily range): BP systolic 125–167; BP diastolic 75–94; BMI 40.0
[2025-09-02] MEDS: SODIUM BICARBONATE 1150 MEQ IV (00:29)
[2025-09-02] MEDS: DILAUDID 0.5 MG IV ×5 (00:32→20:26)
[2025-09-02] MEDS: SYNTHROID 100 MCG PO (05:13)
[2025-09-02 06:56] LABS: Hematocrit 23.9 % (37.0-47.0); Hemoglobin 8.1 g/dL (12.0-16.0); Mean Corp Hgb Conc. 33.9 g/dL (33.0-37.0); Mean Corpuscular Volume 92.6 fL (81.0-99.0); Platelet Count 189 10^3/uL (130-400); Red Cell Dist. Width 16.1 % (11.5-14.5)
[2025-09-02 07:32] LABS: Blood Urea Nitrogen 80 mg/dl (7-17); Calcium 8.5 mg/dl (8.4-10.2); Carbon Dioxide 23 mmol/L (22-30); Chloride 99 mmol/L (98-107); Estimated Creatinine Clearance 12 ml/min; Glucose 91 mg/dl (70-99); Potassium 4.7 mmol/L (3.5-5.1); Sodium 134 mmol/L (135-145); eGFR 8.34
--- NOTE | 2025-09-02 08:13 | CON.ONC ---
Consultation
-
Date Consultation Requested: 09/01/25
Date Consultation Performed: 09/02/25
Requesting Provider: Surinder Cannon MD
Performing Provider: Promise Gomez MD
Reason for Consultation: Stage IV cervical cancer on Keytruda, microcytic anemia
Impression
Impression
1) New L hydronephrosis complicated by acute on chronic renal failure, now s/p L nephrostomy placement
2) Chronic R hydronephrosis s/p R PCN
3) Cancer-related pain
4) Cervical cancer currently on maintenance Keytruda/Avastin
Plan
Plan
Renal function improving, management as per Nephrology
Will need films from [facility] PET scan in 05/[address]25 for comparison [address] current CT, as development of L hydro is concerning for progression of pelvic mass. D/w pt who is now upset that her disease might have progressed. We do need films
for actual comparison, hopefully this can happen early this coming week.
Pain control.
Last Avastin 08/11.
Thank you for consult, will follow along with you
Patient History
History of Present Illness
Patient is a 55-year-old female with past medical history significant for GERD, obesity, anemia, hypothyroidism, hx mucinous borderline tumor of L ovary, chronic kidney disease and stage IVB cervical cancer complicated by hydronephrosis. She
completed 6 cycles' carbo/Taxol/Keytruda/Avastin in mid-June with May scan showing favorable treatment response. She has since continued on maintenance Avastin/Keytruda with palliative intent. Avastin was held in early due to 3+
protein on spot urine but 24-hr urine showed normal protein level and Avastin was resumed 08/11. There have been no interruptions in Keytruda which was also last given 08/11. At last visit with Dr. Avila 08/30, pt c/o pain folllowing R
nephrostomy tube change (07/24/25) with muscle spasms and difficulty walking, some L groin pain. Labs were drawn with finding of Cr 6.37 up from baseline of 2.2. She was directed to ED for acute on chronic renal failure. CT showed moderate L
hydro extending to distal ureter and thought secondary to pelvic mass, no stone visible. Images were compared to prior CT from 01/31/25. The 06/07/25 PET was done at [facility] PET scanner and are not available for comparison. L
nephrostomy tube now placed with improvement in Cr from 6.3 yesterday to 5.7 today. Labs are otherwise notable for acute on chronic anemia with Hgb now 8.1. On admission, the Hgb was 9.1. Pt is on Retacrit Q2w in outpt setting.
Past-Medical/Surgical History
PMHx
Anemia�in�chronic�kidney�disease
Chronic�kidney�disease,�stage�3�
Hypothyroidism�
Neoplasm�of�uncertain�behavior�of�left�ovary
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
Hydronephrosis now with b/l nephrostomy tubes
PSHx
TRAVIS/BSO with omentectomy and appendectomy 12/27/24, path widely met squamous cell. 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
Social History
Tobacco: Non-smoker
Alcohol: None
Drug: None
Personal: Other (Boyfriend)
Living: With Family (Boyfriend)
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
Family History
Family History: Other (Mother history of breast cancer in her late 50s is alive, mom history HTN, HLD, CAD/stent, father history of DM 2 with living, 2 brothers 1 work accident 1 alcohol abuse, 1 brother living obese, hypertension
hyperlipidemia, active smoker)
Patient Medication
�Medication �Instructions �Recorded �Confirmed �Last Taken �Type
cholecalciferol (vitamin D3) 25 25 mcg PO DAILY Supplement 12/20/24 08/31/25 02/08/25 History
mcg (1,000 unit) tablet (Vitamin
D3)
omega-3 fatty acids-fish oil 684 1 cap PO DAILY Supplement 12/20/24 08/31/25 02/08/25 History
mg-1,200 mg capsule,delayed release
vitamin B complex 1 tab PO DAILY Supplement 12/20/24 08/31/25 02/08/25 History
docusate sodium 100 mg capsule 100 mg PO DAILYPRN PRN constipation 01/27/25 08/31/25 02/08/25 History
(Colace)
acetaminophen 325 mg tablet 650 mg PO Q4H PRN mild pain 08/31/25 08/31/25 08/29/25 History
(Tylenol)
estradiol 0.01% (0.1 mg/gram) 1 applic vaginal TH Hormonal Agent 08/31/25 08/31/25 08/24/25 History
vaginal cream (Estrace)
levothyroxine 100 mcg tablet 100 mcg PO DAILY Thyroid 08/31/25 08/31/25 08/30/25 History
oxycodone 10 mg tablet 10 mg PO Q8H PRN severe pain 08/31/25 08/31/25 08/29/25 History
Active Medications
Generic Name Dose Route Start Last Admin
Trade Name Freq PRN Reason Stop Dose Admin
Acetaminophen 650 mg 08/31/25 19:08
Acetaminophen 325 Mg Tablet PO 09/28/25 19:07
Q4HPRN PRN
mild pain/fever > 100.4F
Hydromorphone HCl 0.5 mg 09/01/25 15:57 09/02/25 08:07
Hydromorphone 0.5 Mg/0.5 Ml Syringe IV 09/15/25 15:56 0.5 mg
Q4HPRN PRN Administration
moderate pain
Levothyroxine Sodium 100 mcg 09/01/25 06:00 09/02/25 05:13
Levothyroxine 100 Mcg Tablet PO 09/29/25 05:59 100 mcg
DAILY @ 0600 VÍCTOR Administration
Miconazole Nitrate 0 applic 08/31/25 23:00 09/02/25 08:10
Miconazole Powder Bottle TOPICAL 09/28/25 22:59 Not Given
BID VÍCTOR
Oxycodone HCl 10 mg 08/31/25 19:08 09/01/25 08:25
Oxycodone 10 Mg Regular Release Tablet PO 09/14/25 19:07 10 mg
Q8HPRN PRN Administration
severe pain
Sodium Chloride 0 flush 08/31/25 21:00
Sodium Chloride 0.9% (Flush) Syringe IV 09/28/25 20:59
PER PROTOCOL VÍCTOR
Review of Systems
-
History Source: Patient and Records
All Other Systems: Reviewed and Negative
Constitutional: Reports No Symptoms
EENT: Reports No Symptoms
Respiratory: Reports No Symptoms
Cardiac: Reports No Symptoms
GI: Reports No Symptoms
: Reports No Symptoms
Musculoskeletal: Reports No Symptoms
Skin: Reports No Symptoms
Neuro: Reports No Symptoms
Endocrine: Reports No Symptoms
Hematologic/Lymphatic: Reports No Symptoms
Allergy / Immunology: Reports No Symptoms
Psych: Reports Anxious
Physical Exam
-
General: Well Developed, Well Nourished and No Apparent Distress
HEENT: Moist Mucous Membranes; Negative Jaundice
Cardiology: Normal Sinus Rhythm, S1 and S2
Pulmonary: Clear; Negative Wheezes or Rales
GI: Soft and Normal Bowel Sounds; Negative Distended
Musculoskeletal: No Clubbing and No Cyanosis
Extremities: No C/C/E
Neurology: Non Focal
Skin: Warm and Dry
Hematologic / Lymphatic: No Lymphadenopathy and No Petechiae
Psych: Calm and Intact Judgement/Insight
Labs
Lab Results
WBC 6.7 10^3/uL (4.8-10.8) 09/02/25 06:20
RBC 2.58 10^6/uL (4.20-5.40) L 09/02/25 06:20
Hgb 8.1 g/dL (12.0-16.0) L 09/02/25 06:20
Hct 23.9 % (37.0-47.0) L 09/02/25 06:20
MCV 92.6 fL (81.0-99.0) 09/02/25 06:20
MCH 31.4 pg (27.0-31.0) H 09/02/25 06:20
MCHC 33.9 g/dL (33.0-37.0) 09/02/25 06:20
RDW 16.1 % (11.5-14.5) H 09/02/25 06:20
Plt Count 189 10^3/uL (130-400) 09/02/25 06:20
MPV 9.1 fL (7.4-10.4) 09/02/25 06:20
Abs Immat Gran (auto) 0.0 10^3/uL (0-0.05) 08/31/25 13:57
Absolute Neuts (auto) 5.1 10^3/uL (1.4-6.5) 08/31/25 13:57
Absolute Lymphs (auto) 1.6 10^3/uL (1.2-3.4) 08/31/25 13:57
Absolute Monos (auto) 0.5 10^3/uL (0.1-0.6) 08/31/25 13:57
Absolute Eos (auto) 0.3 10^3/uL (0-0.7) 08/31/25 13:57
Absolute Basos (auto) 0.0 10^3/uL (0-0.2) 08/31/25 13:57
Immature Gran % 0.3 % (0-0.5) 08/31/25 13:57
Neutrophils % 67.2 % (42.2-75.2) 08/31/25 13:57
Lymphocytes % 21.1 % (20.5-51.1) 08/31/25 13:57
Monocytes % 6.7 % (1.7-9.3) 08/31/25 13:57
Eosinophils % 4.3 % (0-6) 08/31/25 13:57
Basophils % 0.4 % (0-2) 08/31/25 13:57
Creatinine 5.7 mg/dL (0.6-1.0) H* 09/02/25 06:20
Vital Signs
Vital Signs
Temp Pulse Resp BP Pulse Ox
99.1 F 82 18 167/94 98
09/02/25 03:44 09/02/25 03:44 09/02/25 03:44 09/02/25 03:44 09/02/25 03:44
--- NOTE | 2025-09-02 09:41 | W.PN.HOSP.TC ---
Addendum entered and electronically signed by Barbara Yoo MD 09/02/25 14:37:
I saw and evaluated the patient independently. I reviewed and discussed the resident�s note and agree with findings and plan as documented by Dr. Cannon.
GENERAL: well developed, well nourished, obese female in no apparent distress
HEENT: NC/AT
HEART: regular rate and rhythm, +S1, +S2
LUNGS : clear to auscultation bilaterally
ABDOM: soft, nontender, nondistended, + bowel sounds
EXT: no cyanosis, clubbing, or edema
NEUROLOGIC: grossly intact
DIMITRI with hyperkalemia --likely post renal secondary to distal ureteral obstruction from malignant extrinsic compression--CT abd/pelvis with Moderate left-sided hydroureteronephrosis without obstructing renal calculus. This appears to extend to the
level of the distal ureter posterior to the uterus and may be secondary to mass effect of the known malignancy--apprec renal and urology--apprec IR--s/p left nephrostomy tube placement--lokelma for hyperK--potassium improved--creat slowly improving
chronic Microcytic anemia- likely multifactorial- no signs of bleeding
Stage IV cervical cancer w/metastatic disease/Peritoneal carcinomatosis/Ovarian tumor--apprec ONC- s/p surgical debulking complicated by obstructive uropathy--on Keytruda
DVT proph--SCds
CODE STATUS-- Full code
Original Note:
Today's Communication/Plan
-
IVF per nephrology
Pain management with as needed IV Dilaudid and oral oxycodone
Assessment / Plan
Assessment / Plan
#Postrenal DIMITRI secondary to distal ureteral obstruction from malignant extrinsic compression
#Hyperkalemia
- CT abd/pelvis with Moderate left-sided hydroureteronephrosis without obstructing renal calculus. This appears to extend to the level of the distal ureter posterior to the uterus and may be secondary to mass effect of the known malignancy.
- s/p R PCN replacement in 07/2025
- sCr 6.6 and K 5.7 on admission; potassium now within normal limits after Lokelma, serum creatinine improving albeit slowly. down to 5.7
- Nephrology input appreciated
- Patient is s/p left PCN on 09/01/2025, bicarb has normalized after the PCN placement. BUN is also improving.
#chronic Microcytic anemia
- likely multifactorial
- no signs of bleeding; continue to monitor
#Stage IV cervical cancer w/ metastatic disease
#Peritoneal carinomatosis
#Ovarian tumor
- follows w Dr. Avila at [place]
- s/p surgical debulking 01/27 complicated by obstructive uropathy
- s/p 1 dose of keytruda
- Oncology following
DVT prophylaxis: SCds
CODE STATUS: Full code
Anticipated Discharge: 24 - 48 hours
Subjective/Interval History
-
Date of Service: September 02, 2025
AFVSS. Offers some complaint at the PCN insertion site otherwise no new complaints.
Objective Data
-
Labs:
Laboratory Results
09/02/25
06:20
WBC 6.7
Hgb 8.1 L
Hct 23.9 L
Plt Count 189
Sodium 134 L
Potassium 4.7
Chloride 99
Carbon Dioxide 23
BUN 80 H
Creatinine 5.7 H*
Glucose 91
Calcium 8.5
Vital Signs:
Vital Signs
Temp Pulse Resp BP Pulse Ox
99.5 F 83 16 125/75 96
09/02/25 11:29 09/02/25 11:29 09/02/25 11:29 09/02/25 11:29 09/02/25 11:29
I&O
09/01/25 09/02/25 09/03/25
06:59 06:59 06:59
Intake Total 1480 / 1480 720 / 720
Output Total 1575 / 1575 4275 / 4275 250 / 250
Balance -95 / -95 -3555 / -3555 -250 / -250
Review of Systems
-
History Source: Patient
Constitutional: Reports No Symptoms
Respiratory: Reports No Symptoms
Cardiac: Reports No Symptoms
Abdomen/GI: Reports No Symptoms
Neuro: Reports No Symptoms
Physical Exam
-
General: Well Developed, Well Nourished and Morbidly Obese
HEENT: Normocephalic and Atraumatic
Respiratory: Clear to Auscultation and Non Labored Respirations
Cardiac: Regular Rhythm and S1/S2
GI: Soft, Nontender, Nondistended and Normal Bowel Sounds
Genito-urinary: Nephrostomy Tubes (b/l side. No active bleeding, swelling or erythema.)
Skin: Warm and Dry
Neuro: Awake, Alert and Oriented
Psych: Calm
Data Reviewed
-
Labs: Labs Reviewed by me, Discussed with Physician and Discussed with Patient
--- NOTE | 2025-09-02 11:13 | W.PN.NEPH.PH ---
Today's Communication / Plan
-
cap IVF
Assessment/Plan
-
Assessment:
Hyperkalemia
DIMITRI
bilat-mod right and mild left hydronephrosis h/o bilat ureteral stenting
Mild met acidosis
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
MIcrocytic anemia
Plan:
follow BMP
cap IVF
-
-
Date of Service: September 02, 2025
CC / HPI / ROS
-
Chief Complaint:
DIMITRI
History of Present Illness:
DIMITRI/Cr down to 5.7
K normal
excellent UOP from PCN
BP stable
s/p left PCN 09/01
Review of Systems:
no CP/SOB
Labs
-
Labs:
WBC 6.7 10^3/uL (4.8-10.8) 09/02/25 06:20
RBC 2.58 10^6/uL (4.20-5.40) L 09/02/25 06:20
Hgb 8.1 g/dL (12.0-16.0) L 09/02/25 06:20
Hct 23.9 % (37.0-47.0) L 09/02/25 06:20
Plt Count 189 10^3/uL (130-400) 09/02/25 06:20
Sodium 134 mmol/L (135-145) L 09/02/25 06:20
Potassium 4.7 mmol/L (3.5-5.1) 09/02/25 06:20
Chloride 99 mmol/L (98-107) 09/02/25 06:20
Carbon Dioxide 23 mmol/L (22-30) 09/02/25 06:20
BUN 80 mg/dl (7-17) H 09/02/25 06:20
Creatinine 5.7 mg/dL (0.6-1.0) H* 09/02/25 06:20
eGFR 8.34 09/02/25 06:20
Glucose 91 mg/dl (70-99) 09/02/25 06:20
Calcium 8.5 mg/dl (8.4-10.2) 09/02/25 06:20
Albumin 4.1 g/dl (3.5-5.0) 08/31/25 13:57
Physical Exam
-
Vital Signs:
Vital Signs
Temp Pulse Resp BP Pulse Ox
98.5 F 87 18 157/91 96
09/02/25 07:44 09/02/25 07:44 09/02/25 07:44 09/02/25 07:44 09/02/25 07:44
Cardiovascular:: Regular rate and rhythm
Respiratory:: Bilateral: Coarse
Lung Excursion:: Normal
Abdomen:: Nontender and Soft
Bowel Sounds:: Normal
Extremity Edema:: None: Bilateral:
--- NOTE | 2025-09-02 12:49 | W.PN.URO.CBU ---
Today's Communication / Plan
-
- Trend Cr
- Maintain bilateral percutaneous nephrostomy tubes at discharge
Assessment / Plan
-
55F Obstructive uropathy secondary to distal ureteral obstruction from malignant extrinsic compression
Ovarian cancer s/p resection (12/2024)
Stage IV SCC of cervix w/ metastatic disease
Admitted with significant DIMITRI
H/o right ureteral stent insertion (failed) w/ subsequent conversion to right PCN
Had L PCN which was removed earlier this year after imaging showed antegrade flow
Right PCN recently exchanged by IR 07/2025 w/ antegrade study showing PERSISTENT ureteral obstruction.
Given DIMITRI and persistent L hydro, L PCN replacement was advised
- Significant post obstructive diuresis from L kidney after L PCN placement suggests clinical obstruction despite the fact she has been voided per urethra
- Trend Cr
- Maintain bilateral percutaneous nephrostomy tubes at discharge
Diagnosis
-
Date of Service: September 02, 2025
-
Patient Diagnosis:
Malignant ureteral obstruction
DIMITRI
Subjective
-
No issues s/p L nephrostomy placement
Objective
-
Vital Signs
Temp Pulse Resp BP Pulse Ox
99.5 F 83 16 125/75 96
09/02/25 11:29 09/02/25 11:29 09/02/25 11:29 09/02/25 11:29 09/02/25 11:29
Intake and Output
09/01/25 09/02/25 09/03/25
06:59 06:59 06:59
Intake Total 1480 / 1480 720 / 720
Output Total 1575 / 1575 4275 / 4275 250 / 250
Balance -95 / -95 -3555 / -3555 -250 / -250
Intake:
Oral fluids 480 / 480 720 / 720
IV fluids (Total) 1000 / 1000
Output:
Urinary Drain Output (Total) 175 / 175 4275 / 4275 250 / 250
Left Nephrostomy 4175 / 4175 250 / 250
Right Nephrostomy 175 / 175 100 / 100
Urine, Voided 1400 / 1400
Other:
Number of approximated MODERATE 3 2
amounts of urine
Laboratory Results
09/02/25 06:20
09/02/25 06:20
Physical Exam
-
General - well developed, well nourished, no acute distress
Chest - clear bilaterally
Abdomen - soft, non-tender, positive bowel sounds, no CVAT, no incisional pain or distention
Genitalia - normal
Rectal - normal
Skin - warm & dry with no rash
Neuro - AOx3, no motor deficits
Extremities - no clubbing, no cyanosis, no edema
Incision - clean, dry
Dressing - clean, dry, intact
[2025-09-02] MEDS: ROXICODONE 10 MG PO (20:09)
[2025-09-03 03:33] VITALS: BP 143/84
[2025-09-03] MEDS: DILAUDID 0.5 MG IV ×3 (03:40→18:45)
[2025-09-03 04:37] LABS: Hematocrit 24.7 % (37.0-47.0); Hemoglobin 8.3 g/dL (12.0-16.0); Mean Corp Hgb Conc. 33.6 g/dL (33.0-37.0); Mean Corpuscular Volume 96.5 fL (81.0-99.0); Platelet Count 195 10^3/uL (130-400); Red Cell Dist. Width 16.2 % (11.5-14.5)
[2025-09-03 04:38] LABS: Blood Urea Nitrogen 69 mg/dl (7-17); Calcium 8.6 mg/dl (8.4-10.2); Carbon Dioxide 26 mmol/L (22-30); Chloride 99 mmol/L (98-107); Estimated Creatinine Clearance 13 ml/min; Glucose 96 mg/dl (70-99); Potassium 4.5 mmol/L (3.5-5.1); Sodium 136 mmol/L (135-145); eGFR 9.11
[2025-09-03] MEDS: SYNTHROID 100 MCG PO (05:28)
[2025-09-03] MEDS: ROXICODONE 10 MG PO ×3 (05:34→21:09)
[2025-09-03 06:00] VITALS: BMI 39.8
--- NOTE | 2025-09-03 07:16 | W.PN.HOSP.TC ---
Addendum entered and electronically signed by Barbara Yoo MD 09/03/25 15:43:
I saw and evaluated the patient independently. I reviewed and discussed the resident�s note and agree with findings and plan as documented by Dr. Cannon.
GENERAL: well developed, well nourished, obese female in no apparent distress
HEENT: NC/AT
HEART: regular rate and rhythm, +S1, +S2
LUNGS : clear to auscultation bilaterally
ABDOM: soft, nontender, nondistended, + bowel sounds
EXT: no cyanosis, clubbing, or edema
NEUROLOGIC: grossly intact
DIMITRI with hyperkalemia --likely post renal secondary to distal ureteral obstruction from malignant extrinsic compression--CT abd/pelvis with Moderate left-sided hydroureteronephrosis without obstructing renal calculus. This appears to extend to the
level of the distal ureter posterior to the uterus and may be secondary to mass effect of the known malignancy--apprec renal and urology--apprec IR--s/p left nephrostomy tube placement--lokelma for hyperK--potassium improved--creat slowly
improving--pt will need twice weekly blood draws if d/c tomorrow
chronic Microcytic anemia- likely multifactorial- no signs of bleeding
Stage IV cervical cancer w/metastatic disease/Peritoneal carcinomatosis/Ovarian tumor--apprec ONC- s/p surgical debulking complicated by obstructive uropathy--on Keytruda--unclear next steps
DVT proph--SCds
CODE STATUS-- Full code
Original Note:
Today's Communication/Plan
-
IV CFTX for UTI
d/c in the [place] if SCr continues to improve
will need twice weekly bmp
outpatient fu with nephro and oncology after dc
Assessment / Plan
Assessment / Plan
#Postrenal DIMITRI secondary to distal ureteral obstruction from malignant extrinsic compression
#Hyperkalemia
- CT abd/pelvis with Moderate left-sided hydroureteronephrosis without obstructing renal calculus. This appears to extend to the level of the distal ureter posterior to the uterus and may be secondary to mass effect of the known malignancy.
- s/p R PCN replacement in 07/2025
- sCr 6.6 and K 5.7 on admission; potassium now within normal limits after Lokelma, serum creatinine improving albeit slowly. down to 5.3 ; will need twice weekly labs after dc
- Nephrology input appreciated
- Patient is s/p left PCN on 09/01/2025, bicarb has normalized after the PCN placement. BUN is also improving.
#Aute UTI
- Urine culture with Klebsiella pneumonia
- Patient is s/p left PCN on 09/01/2025
- Will treat with IV antibiotic: 1 g ceftriaxone every 24h
#chronic Microcytic anemia
- likely multifactorial ; stable
- no signs of bleeding; continue to monitor
#Stage IV cervical cancer w/ metastatic disease
#Peritoneal carinomatosis
#Ovarian tumor
- follows w Dr. Avila at [place]
- s/p surgical debulking 01/27 complicated by obstructive uropathy
- s/p 1 dose of keytruda
- Oncology following and awaiting records from [place]
DVT prophylaxis: SCds
CODE STATUS: Full code
Anticipated Discharge: Within 24 hours
Subjective/Interval History
-
Date of Service: September 03, 2025
AFVSS. Patient reports that her left PCN was clogged last night however it started draining after it was flushed by the nurse. Offers some pain at the PCN insertion site. Offers no new complaint
Objective Data
-
Labs:
Laboratory Results
09/03/25
04:00
WBC 7.0
Hgb 8.3 L
Hct 24.7 L
Plt Count 195
Sodium 136
Potassium 4.5
Chloride 99
Carbon Dioxide 26
BUN 69 H
Creatinine 5.3 H*
Glucose 96
Calcium 8.6
Vital Signs:
Vital Signs
Temp Pulse Resp BP Pulse Ox
99.1 F 82 16 143/84 95
09/03/25 03:33 09/03/25 03:33 09/03/25 03:33 09/03/25 03:33 09/03/25 03:33
I&O
09/02/25 09/03/25 09/04/25
06:59 06:59 06:59
Intake Total 720 / 720 500 / 500
Output Total 4275 / 4275 1925 / 1925
Balance -3555 / -3555 -1425 / -1425
Review of Systems
-
History Source: Patient
Constitutional: Reports No Symptoms
Respiratory: Reports No Symptoms
Cardiac: Reports No Symptoms
Abdomen/GI: Reports No Symptoms
Neuro: Reports No Symptoms
Physical Exam
-
General: Well Developed, Well Nourished and Morbidly Obese
HEENT: Normocephalic and Atraumatic
Respiratory: Clear to Auscultation and Non Labored Respirations
Cardiac: Regular Rhythm and S1/S2
GI: Soft, Nontender, Nondistended and Normal Bowel Sounds
Genito-urinary: Nephrostomy Tubes (b/l side. No active bleeding, swelling or erythema.)
Skin: Warm and Dry
Neuro: Awake, Alert and Oriented
Psych: Calm
Data Reviewed
-
Labs: Labs Reviewed by me, Discussed with Physician and Discussed with Patient
[2025-09-03 07:20] VITALS: BP 140/85
--- NOTE | 2025-09-03 10:43 | W.PN.URO.CBU ---
Today's Communication / Plan
-
- Trend Creatinine - renal function starting to improve
- L PCN flushed 09/02 anad 09/03 with some clot obstruction - orders placed for nurses to flush PRN
- Maintain bilateral percutaneous nephrostomy tubes at discharge
Assessment / Plan
-
55F Obstructive uropathy secondary to distal ureteral obstruction from malignant extrinsic compression
Ovarian cancer s/p resection (12/2024)
Stage IV SCC of cervix w/ metastatic disease
Admitted with significant DIMITRI
H/o right ureteral stent insertion (failed) w/ subsequent conversion to right PCN
Had L PCN which was removed earlier this year after imaging showed antegrade flow
Right PCN recently exchanged by IR 07/2025 w/ antegrade study showing PERSISTENT ureteral obstruction.
Given DIMITRI and persistent L hydro, L PCN replacement was advised
- Significant post obstructive diuresis from L kidney after L PCN placement suggests clinical obstruction despite the fact she has been voiding per urethra
- Trend Creatinine - renal function starting to improve
- L PCN flushed 09/02 anad 09/03 with some clot obstruction - orders placed for nurses to flush PRN
- Maintain bilateral percutaneous nephrostomy tubes at discharge
Diagnosis
-
Date of Service: September 03, 2025
-
Patient Diagnosis:
Malignant ureteral obstruction
DIMITRI
Subjective
-
Voiding from bladder intermittently with decreased PCN output
Objective
-
Vital Signs
Temp Pulse Resp BP Pulse Ox
97.3 F 76 16 140/85 97
09/03/25 07:20 09/03/25 07:20 09/03/25 07:20 09/03/25 07:20 09/03/25 07:20
Intake and Output
09/02/25 09/03/25 09/04/25
06:59 06:59 06:59
Intake Total 720 / 720 500 / 500
Output Total 4275 / 4275 1925 / 192
Balance -3555 / -3555 -1425 / -1425
Intake:
Oral fluids 720 / 720 490 / 490
Amount instilled into Urinary
Drain (Total)
Left Nephrostomy
Output:
Urinary Drain Output (Total) 4275 / 4275 825 / 825
Left Nephrostomy 4175 / 4175 400 / 400
Right Nephrostomy 100 / 100 425 / 425
Urine, Voided 1100 / 1100
Other:
Number of approximated MODERATE 2 2
amounts of urine
Number of approximated LARGE 1
amounts of urine
Laboratory Results
09/03/25 04:00
09/03/25 04:00
Physical Exam
-
General - well developed, well nourished, no acute distress
Chest - clear bilaterally
PCNs in place
L side mild hematuria
--- NOTE | 2025-09-03 12:37 | W.PN.NEPH.PH ---
Today's Communication / Plan
-
Follow BMP
Assessment/Plan
-
Assessment:
Hyperkalemia
DIMITRI
bilat-mod right and mild left hydronephrosis h/o bilat ureteral stenting
Mild met acidosis
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
Microcytic anemia
Plan:
follow BMP, prefer twice weekly at outpatient for now
DC planning
-
-
Date of Service: September 03, 2025
CC / HPI / ROS
-
Chief Complaint:
DIMITRI
History of Present Illness:
DIMITRI/Cr down to 5.3
K normal
excellent UOP from PCN
BP stable
s/p left PCN 09/01 required flushing overnight
Review of Systems:
no CP/SOB
Labs
-
Labs:
WBC 7.0 10^3/uL (4.8-10.8) 09/03/25 04:00
RBC 2.56 10^6/uL (4.20-5.40) L 09/03/25 04:00
Hgb 8.3 g/dL (12.0-16.0) L 09/03/25 04:00
Hct 24.7 % (37.0-47.0) L 09/03/25 04:00
Plt Count 195 10^3/uL (130-400) 09/03/25 04:00
Sodium 136 mmol/L (135-145) 09/03/25 04:00
Potassium 4.5 mmol/L (3.5-5.1) 09/03/25 04:00
Chloride 99 mmol/L (98-107) 09/03/25 04:00
Carbon Dioxide 26 mmol/L (22-30) 09/03/25 04:00
BUN 69 mg/dl (7-17) H 09/03/25 04:00
Creatinine 5.3 mg/dL (0.6-1.0) H* 09/03/25 04:00
eGFR 9.11 09/03/25 04:00
Glucose 96 mg/dl (70-99) 09/03/25 04:00
Calcium 8.6 mg/dl (8.4-10.2) 09/03/25 04:00
Albumin 4.1 g/dl (3.5-5.0) 08/31/25 13:57
Physical Exam
-
Vital Signs:
Vital Signs
Temp Pulse Resp BP Pulse Ox
98.2 F 85 18 140/85 97
09/03/25 11:20 09/03/25 11:20 09/03/25 11:20 09/03/25 07:20 09/03/25 11:20
Cardiovascular:: Regular rate and rhythm
Respiratory:: Bilateral: Coarse
Lung Excursion:: Normal
Abdomen:: Nontender and Soft
Bowel Sounds:: Normal
Extremity Edema:: +1: Bilateral:
[2025-09-03] MEDS: STERILE WATER FOR INJECTION 10 ML IV (13:54)
[2025-09-03] MEDS: ROCEPHIN 1000 MG IV (13:54)
[2025-09-03 15:15] VITALS: BP 138/90
[2025-09-03 20:28] VITALS: BP 143/92
[2025-09-03] MEDS: COLACE 100 MG PO (21:09)
--- NOTE | 2025-09-03 21:38 | PTCARENOTE ---
Patient had a 13 beat run of vtach; pt. was asymptomatic at time of event. VSS. Provider notified, plan of care ongoing.
[2025-09-03 23:35] VITALS: BP 149/98
[2025-09-04] MEDS: DILAUDID 0.5 MG IV ×3 (01:04→11:36)
[2025-09-04 03:31] VITALS: BP 152/88
[2025-09-04] MEDS: SYNTHROID 100 MCG PO (05:25)
[2025-09-04 05:27] VITALS: BMI 38.6
[2025-09-04 07:15] VITALS: BP 131/88
--- NOTE | 2025-09-04 07:24 | W.PN.HOSP.TC ---
Today's Communication/Plan
-
Maintain bilateral PCN at time of discharge
Discharge home today
Oral Keflex for UTI
Follow-up outpatient with urology and oncology
Assessment / Plan
Assessment / Plan
#Postrenal DIMITRI secondary to distal ureteral obstruction from malignant extrinsic compression
#Hyperkalemia
- CT abd/pelvis with Moderate left-sided hydroureteronephrosis without obstructing renal calculus. This appears to extend to the level of the distal ureter posterior to the uterus and may be secondary to mass effect of the known malignancy.
- s/p R PCN replacement in 07/2025
- sCr 6.6 and K 5.7 on admission; potassium now within normal limits after Lokelma, serum creatinine improving albeit slowly. down to 4.5 ; will need repeat labs in 1 week ; physical prescription provided to the patient
- Nephrology input appreciated
- Patient is s/p left PCN on 09/01/2025, bicarb has normalized after the PCN placement. BUN is also improving.
- Maintain bilateral PCN at the time of discharge
#Aute UTI
- Urine culture with Klebsiella pneumonia
- Patient is s/p left PCN on 09/01/2025
- Switch IV ceftriaxone to Keflex renally dosed
#chronic Microcytic anemia
- likely multifactorial ; stable
- no signs of bleeding; continue to monitor
#Stage IV cervical cancer w/ metastatic disease
#Peritoneal carinomatosis
#Ovarian tumor
- follows w Dr. Avila at [place]
- s/p surgical debulking 01/27 complicated by obstructive uropathy
- s/p 1 dose of keytruda
- Oncology following and awaiting records from [facility]
DVT prophylaxis: SCds
CODE STATUS: Full code
Anticipated Discharge: Today
Subjective/Interval History
-
Date of Service: September 04, 2025
AFVSS. Patient offers no new complaints.
Objective Data
-
Labs:
Laboratory Results
09/04/25
06:00
WBC Pending
Hgb Pending
Hct Pending
Plt Count Pending
Sodium Pending
Potassium Pending
Chloride Pending
Carbon Dioxide Pending
BUN Pending
Creatinine Pending
Glucose Pending
Calcium Pending
Vital Signs:
Vital Signs
Temp Pulse Resp BP Pulse Ox
97.7 F 77 18 152/88 97
09/04/25 03:31 09/04/25 03:31 09/04/25 03:31 09/04/25 03:31 09/04/25 03:31
I&O
09/03/25 09/04/25 09/05/25
06:59 06:59 06:59
Intake Total 500 / 500 760 / 760
Output Total 1925 / 1925 3800 / 3800
Balance -1425 / -1425 -3040 / -3040
Review of Systems
-
History Source: Patient
Constitutional: Reports No Symptoms
Respiratory: Reports No Symptoms
Cardiac: Reports No Symptoms
Abdomen/GI: Reports No Symptoms
Neuro: Reports No Symptoms
Physical Exam
-
General: Well Developed, Well Nourished and Morbidly Obese
HEENT: Normocephalic and Atraumatic
Respiratory: Clear to Auscultation and Non Labored Respirations
Cardiac: Regular Rhythm and S1/S2
GI: Soft, Nontender, Nondistended and Normal Bowel Sounds
Genito-urinary: Nephrostomy Tubes (b/l side. No active bleeding, swelling or erythema.)
Skin: Warm and Dry
Neuro: Awake, Alert and Oriented
Psych: Calm
Data Reviewed
-
Labs: Labs Reviewed by me, Discussed with Physician, Discussed with Nurse and Discussed with Patient
[2025-09-04 07:53] LABS: Hematocrit 26.4 % (37.0-47.0); Hemoglobin 8.6 g/dL (12.0-16.0); Mean Corp Hgb Conc. 32.6 g/dL (33.0-37.0); Mean Corpuscular Volume 96.7 fL (81.0-99.0); Platelet Count 188 10^3/uL (130-400); Red Cell Dist. Width 16.2 % (11.5-14.5)
[2025-09-04] MEDS: COLACE 100 MG PO (08:11)
[2025-09-04 08:54] LABS: Blood Urea Nitrogen 57 mg/dl (7-17); Calcium 9.4 mg/dl (8.4-10.2); Carbon Dioxide 21 mmol/L (22-30); Chloride 105 mmol/L (98-107); Estimated Creatinine Clearance 15 ml/min; Glucose 82 mg/dl (70-99); Magnesium 1.9 mg/dl (1.6-2.3); Potassium 4.6 mmol/L (3.5-5.1); Sodium 137 mmol/L (135-145); eGFR 11.08
--- NOTE | 2025-09-04 09:27 | W.PN.ONC2 ---
Today's Communication / Plan
-
.
Impression
Impression
1) New L hydronephrosis complicated by acute on chronic renal failure, now s/p L nephrostomy placement
2) Chronic R hydronephrosis s/p R PCN
3) Cancer-related pain
4) Cervical cancer currently on maintenance Keytruda/Avastin -last dose 08/11/2025
Plan
Plan
nephrology following
Will need films from [facility] PET scan in 05/[address]25 for comparison [address] CT, as development of L hydro is concerning for progression of pelvic mass
pain management
Subjective/Objective
Subjective
afebrile, no hypoxia or hypotension
using hydromorphone prn and oxy IR prn pain
using colace for constipation
Vital Signs:
Vital Signs
Temp Pulse Resp BP Pulse Ox
97.7 F 73 16 131/88 95
09/04/25 07:15 09/04/25 07:15 09/04/25 07:15 09/04/25 07:15 09/04/25 07:15
Lab Results:
Laboratory Data
WBC 6.3 10^3/uL (4.8-10.8) 09/04/25 07:42
Hgb 8.6 g/dL (12.0-16.0) L 09/04/25 07:42
Plt Count 188 10^3/uL (130-400) 09/04/25 07:42
PT 13.5 Sec (11.4-14.6) 09/01/25 09:34
INR 1.02 09/01/25 09:34
eGFR 11.08 09/04/25 07:42
Physical Exam
b/l nephrostomy
HEENT: No Jaundice
Pulmonary: Clear
GI: Soft
Extremities: Pulses Present
Neuro: Non Focal
[2025-09-04] MEDS: STERILE WATER FOR INJECTION IV (09:28)
[2025-09-04 11:00] VITALS: BP 130/86
[2025-09-04] MEDS: STERILE WATER FOR INJECTION 10 ML IV (11:24)
[2025-09-04] MEDS: ROCEPHIN 1000 MG IV (11:25)
--- NOTE | 2025-09-04 12:05 | CM ---
CM reviewed chart, patient seen bedside.
Patient denies VN needs upon d.c, confirms transport home.
CM will continue to follow.
Plan; home no needs.
--- NOTE | 2025-09-04 12:16 | W.PN.NEPH.PH ---
Today's Communication / Plan
-
Okay for discharge renal stand point
Assessment/Plan
-
Assessment:
Hyperkalemia
DIMITRI
bilat-mod right and mild left hydronephrosis h/o bilat ureteral stenting
Mild met acidosis
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
Microcytic anemia
Plan:
follow BMP,
DC planning
Good output from left nephrostomy
-
-
Date of Service: September 04, 2025
CC / HPI / ROS
-
Chief Complaint:
DIMITRI
History of Present Illness:
DIMITRI/Cr down to 5.3�4.5
K normal
excellent UOP from PCN
BP stable
s/p left PCN 09/01 required flushing overnight
Review of Systems:
no CP/SOB
Labs
-
Labs:
WBC 6.3 10^3/uL (4.8-10.8) 09/04/25 07:42
RBC 2.73 10^6/uL (4.20-5.40) L 09/04/25 07:42
Hgb 8.6 g/dL (12.0-16.0) L 09/04/25 07:42
Hct 26.4 % (37.0-47.0) L 09/04/25 07:42
Plt Count 188 10^3/uL (130-400) 09/04/25 07:42
Sodium 137 mmol/L (135-145) 09/04/25 07:42
Potassium 4.6 mmol/L (3.5-5.1) 09/04/25 07:42
Chloride 105 mmol/L (98-107) 09/04/25 07:42
Carbon Dioxide 21 mmol/L (22-30) L 09/04/25 07:42
BUN 57 mg/dl (7-17) H 09/04/25 07:42
Creatinine 4.5 mg/dL (0.6-1.0) H* 09/04/25 07:42
eGFR 11.08 09/04/25 07:42
Glucose 82 mg/dl (70-99) 09/04/25 07:42
Calcium 9.4 mg/dl (8.4-10.2) 09/04/25 07:42
Albumin 4.1 g/dl (3.5-5.0) 08/31/25 13:57
Physical Exam
-
Vital Signs:
Vital Signs
Temp Pulse Resp BP Pulse Ox
98.1 F 76 16 130/86 98
09/04/25 11:00 09/04/25 11:00 09/04/25 11:00 09/04/25 11:00 09/04/25 11:00
Cardiovascular:: Regular rate and rhythm
Respiratory:: Bilateral: Coarse
Lung Excursion:: Normal
Abdomen:: Nontender and Soft
Bowel Sounds:: Normal
Extremity Edema:: +1: Bilateral:
--- NOTE | 2025-09-04 12:44 | W.PN.URO.CBU ---
Today's Communication / Plan
-
- Maintain bilateral percutaneous nephrostomy tubes at discharge
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
Will sign off - please call with questions
Assessment / Plan
-
55F Obstructive uropathy secondary to distal ureteral obstruction from malignant extrinsic compression
Ovarian cancer s/p resection (12/2024)
Stage IV SCC of cervix w/ metastatic disease
Admitted with significant DIMITRI
H/o right ureteral stent insertion (failed) w/ subsequent conversion to right PCN
Had L PCN which was removed earlier this year after imaging showed antegrade flow
Right PCN recently exchanged by IR 07/2025 w/ antegrade study showing PERSISTENT ureteral obstruction.
Given DIMITRI and persistent L hydro, L PCN replacement was advised
- Significant post obstructive diuresis from L kidney after L PCN placement suggests clinical obstruction despite the fact she has been voiding per urethra
- Trend Creatinine - renal function improving
- L PCN flushed 09/02 and 09/03 with some clot obstruction - orders placed for nurses to flush PRN but as of 09/04 draining clear without obstruction
- Maintain bilateral percutaneous nephrostomy tubes at discharge
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
Diagnosis
-
Date of Service: September 04, 2025
-
Patient Diagnosis:
Post Op Day:
Patient Diagnosis:
Malignant ureteral obstruction
DIMITRI
Subjective
-
PCNs draining well today
Objective
-
Vital Signs
Temp Pulse Resp BP Pulse Ox
98.1 F 76 16 130/86 98
09/04/25 11:00 09/04/25 11:00 09/04/25 11:00 09/04/25 11:00 09/04/25 11:00
Intake and Output
09/03/25 09/04/25 09/05/25
06:59 06:59 06:59
Intake Total 500 / 500 760 / 760
Output Total 1925 / 1925 3800 / 3800 700 / 700
Balance -1425 / -1425 -3040 / -3040 -700 / -700
Intake:
Oral fluids 490 / 490 760 / 760
Amount instilled into Urinary
Drain (Total)
Left Nephrostomy
Output:
Urinary Drain Output (Total) 825 / 825 2550 / 2550 700 / 700
Left Nephrostomy 400 / 400 1850 / 1850 700 / 700
Right Nephrostomy 425 / 425 700 / 700
Urine, Voided 1100 / 1100 1250 / 1250
Other:
Number of approximated MODERATE 2
amounts of urine
Number of approximated LARGE 1
amounts of urine
Laboratory Results
09/04/25 07:42
09/04/25 07:42
Physical Exam
-
General - well developed, well nourished, no acute distress
Chest - clear bilaterally
PCNS in place, clear urine
[2025-09-04] MEDS: FLUZONE (6 mos+) 2025-2026 FORMULA 0.5 ML IM (14:13)
--- NOTE | 2025-09-04 14:44 | W.DCSUMMARY ---
Discharge Summary
Discharge Data
Date of Admission: 08/31/25
Date of Discharge: 09/04/25
-
Pending Results: No
Hospital Course
Discharging Physician : Surinder Cannon MD ; Kyrie Ramirez MD
Disposition : Home
Principal Discharge diagnosis : Left ureteral blockage s/p L nephrostomy tube placement, post-renal DIMITRI
Chronic Discharge diagnosis : Chronic microcytic anemia, stage IV cervical cancer with metastatic disease/peritoneal carcinomatosis/ovarian tumor
Hospital Course : 55-year-old female with a past medical history of ovarian cancer status post tumor resection, cervical cancer with peritoneal carcinomatosis status post chemotherapy, currently apparently on immunotherapy; she also is a history of
chronic kidney disease, prior obstruction related to cancer and chronic right nephrostomy tube. Presented for abnormal outpatient labs. At the time of presentation blood work showed creatinine of 6.6 with known baseline of 2.2, there was some mild
metabolic acidosis and hyperkalemia with potassium of 5.7
CT abdomen pelvis was done and results as below. Nephrology was consulted. Plan was made for last nephrostomy tube with IR and it was appreciated on 09/01/2025.
Urology was also consulted and followed the patient during the hospital stay they recommended to maintain the PCN at the time of discharge.
Periodic monitoring of the blood work showed creatinine trending down with creatinine of 4.5 at the time of discharge. She was advised to repeat the BMP next week. She was also advised to follow-up outpatient with urology as well as oncology.
She was also found to have Klebsiella in the urine. She was initially treated with IV ceftriaxone and was transition to oral Keflex at the time of discharge. Prescription was sent to the pharmacy
Return precautions were reviewed at length with the patient.
Patient verified understanding of the plan
Patient will follow-up with Dr. Avila to discuss further oncological treatments
On the day of discharge patient's hemoglobin was 8.6, Sodium 137, potassium 4.6, chloride 105, bicarb of 21, BUN of 57, serum creatinine of 4.5
Important imaging findings : CT Abd/pel Without Iv Or Oral
IMPRESSION:
Moderate left-sided hydroureteronephrosis without obstructing renal calculus. This appears to extend to the level of the distal ureter posterior to the uterus and may be secondary to mass effect of the known malignancy.
The known peritoneal carcinomatosis, mesenteric and retroperitoneal lymphadenopathy are not well evaluated given lack of IV contrast, however appear decreased from prior. The uterus appears mildly rounded and heterogeneous which is likely related to
known malignancy.
There is a 2.7 x 0.7 cm small, walled off gas containing focus adjacent to the left aspect of the uterus and posterior to the proximal sigmoid colon. This is unlikely to represent a focal perforation and may be related to prior surgery or
malignancy. Clinical correlation with clinical symptomatology and lab values.
Small volume perihepatic and perisplenic free fluid as well as small volume free fluid in the bilateral paracolic gutters.
Procedure findings : Successful placement of left percutaneous nephrostomy tube.
Discharge Plan
-
Patient Disposition: Home (Routine Discharge)
Discharge Diagnosis/Procedures: Left ureteral blockage s/p L nephrostomy tube placement, post-renal DIMITRI
Condition: Fair
Diet: Low Sodium
Activity: As tolerated
Driving Restrictions: As prior to admission
Bathing Restrictions: Do not soak the Nephro tube site
Blood Work: bmp in 1 week
Referrals:
Ailyn Avila MD [Family Provider, Oncology] - in one week
Reji Randolph MD [Active, Urology] - in two to four weeks
Prescriptions:
New
cephalexin 500 mg capsule
500 mg PO Q12H 5 Days Qty: 10 0RF
Continued
vitamin B complex Tablet Extended Release
1 tab PO DAILY
cholecalciferol (vitamin D3) [Vitamin D3] 25 mcg (1,000 unit) Tablet
25 mcg PO DAILY
omega-3 fatty acids-fish oil 684-1,200 mg Capsule,Delayed Release(Dr/Ec)
1 cap PO DAILY
docusate sodium [Colace] 100 mg Capsule
100 mg PO DAILYPRN PRN (Reason: constipation)
acetaminophen [Tylenol] 325 mg Tablet
650 mg PO Q4H PRN (Reason: mild pain)
levothyroxine 100 mcg Tablet
100 mcg PO DAILY
estradiol [Estrace] 0.01 % (0.1 mg/gram) Cream
1 applic VAGINAL TH
oxycodone 10 mg Tablet
10 mg PO Q8H PRN (Reason: severe pain)
Discharge Orders:
Discharge Patient (As Directed); Ordered 09/04/25
Ordered By: Kyrie Ramirez
Discharge Date and Time
Print Language: BURMESE
== END 2025-09-04 15:53 | disposition home or self-care (01) | DRG 683 ==
LOC: 4 WEST ACU 17:22
PROVIDERS: Nurse Practitioner Family; Radiology Vascular & Interventional Radiology; Specialist; Student in an Organized Health Care Education/Training Program; ADMITTING PHYSICIAN Student in an Organized Health Care Education/Training Program; ATTENDING PHYSICIAN Hospitalist; EMERGENCY PHYSICIAN Emergency Medicine; FAMILY PHYSICIAN Internal Medicine Hematology & Oncology; OTHER PHYSICIAN Internal Medicine Hematology & Oncology; OTHER PHYSICIAN Internal Medicine Nephrology; OTHER PHYSICIAN Urology
PROC: 0T9130Z Drainage of Left Kidney with Drainage Device, Percutaneous Approach (ICD-10-PCS; 2025-09-01)
PROC: 3E02340 Introduction of Influenza Vaccine into Muscle, Percutaneous Approach (ICD-10-PCS; 2025-09-04)
DX: N17.9 Acute kidney failure, unspecified (principal); C56.2 Malignant neoplasm of left ovary; C78.6 Secondary malignant neoplasm of retroperitoneum and peritoneum; N13.8 Other obstructive and reflux uropathy; E87.20 Acidosis, unspecified; N39.0 Urinary tract infection, site not specified; Z68.41 Body mass index [BMI] 40.0-44.9, adult; E87.5 Hyperkalemia; D50.9 Iron deficiency anemia, unspecified; E03.9 Hypothyroidism, unspecified; N18.30 Chronic kidney disease, stage 3 unspecified; N13.1 Hydronephrosis with ureteral stricture, not elsewhere classified; C53.1 Malignant neoplasm of exocervix; L71.9 Rosacea, unspecified; E66.813 Obesity, class 3; G89.3 Neoplasm related pain (acute) (chronic); K21.9 Gastro-esophageal reflux disease without esophagitis; B96.1 Klebsiella pneumoniae [K. pneumoniae] as the cause of diseases classified elsewhere; Z23 Encounter for immunization; Z92.21 Personal history of antineoplastic chemotherapy
CPT/HCPCS: 50432; 74176; 80048; 80053; 81003; 81015; 82570; 83735; 84132; 84300; 85025; 85027; 85610; 87077; 87086; 87186; 90656; 93005; 99152; 99153; 99285; C1729; C1769; G0008